=== PATIENT | female | born 1955 | race Caucasian/White ===

== ENCOUNTER 2016-07-01 02:55 | Inpatient (IN) | payer OTHER ==
[~2016-07-01] VITALS: Ht 157.5 cm; Wt 74.1 kg
--- NOTE | 2016-07-01 02:56 | NUR ---
PER EMS ACUTES RESP DISTRESS TRIPODING AT HOME SAT 77%, ABHINAVROUTE CONT NEB ALERT DOING BETTER. UPON ARRIVAL DIAPHRAGMATIC BREATHING ON 100 % MASK WITH ALBUTEROL NEB SAT 88%, DR MARSH AT BEDSIDE. PT ALERT RESPONSIVE ACUTELY SOB AUDIBLE RHONCHI
--- NOTE | 2016-07-01 03:01 | ED DYSPNEA/ASTHMA COMPLAINT ---
History of Present Illness General Chief Complaint: Dyspnea (COPD, CHF, Other) Stated Complaint: DIFF BREATHING Source: patient, family, EMS Exam Limitations: no limitations Vital Signs & Intake/Output Vital Signs & Intake/Output Vital Signs Date Time Temp Pulse Resp B/P Pulse O2 O2 Flow FiO2 Ox Delivery Rate 07/01 0608 98.4 91 22 99/68 97 BIPAP 07/01 0543 92 96 07/01 0341 110 14 111/70 94 BIPAP 07/01 0315 116 92 07/01 0305 98.9 30 131/92 88 Non 100% ReBreather Allergies Coded Allergies: No Known Allergies (07/01/16) Reconcile Medications Atenolol 25 MG TABLET 1.5 TAB PO DAILY HTN (Reported) Furosemide 20 MG TABLET 1 TAB PO DAILY DIURETIC (Reported) Triage Nurses Notes Reviewed? yes HPI: Patient has had an productive cough over the past 3 days. Positive chills and subjective fevers. Positive anorexia. This evening she began having difficulty breathing and dyspnea on exertion. Upon EMS arrival she was found with an O2 saturation of 78%. Patient was given a DuoNeb followed by an albuterol nebulizer and an prior oxygen saturation up to 88%. Patient denies any chest pain or palpitations. Patient denies any orthopnea. Patient denies any nausea or vomiting. Patient does not smoke however her is a heavy smoker. Past History Travel History Traveled to [place] past 21 day No Medical History Any Pertinent Medical History? see below for history Cardiovascular: PEDAL EDEMA Surgical History Surgical History: non-contributory Psychosocial History Tobacco Use: Never used (SECOND HAND EXPOSURE) ETOH Use: denies use Illicit Drug Use: denies illicit drug use Family History Hx Contributory? No Review of Systems Review of Systems Constitutional: Reports: no symptoms. EENTM: Reports: no symptoms. Respiratory: Reports: see HPI, cough, short of breath, sputum production, wheezing. Cardiovascular: Reports: no symptoms. GI: Reports: no symptoms. Genitourinary: Reports: no symptoms. Musculoskeletal: Reports: no symptoms. Skin: Reports: no symptoms. Neurological/Psychological: Reports: no symptoms. Hematologic/Endocrine: Reports: no symptoms. Immunologic/Allergic: Reports: no symptoms. All Other Systems: Reviewed and Negative Physical Exam Physical Exam General Appearance: well developed/nourished, alert, awake, anxious, severe distress Head: atraumatic Eyes: Bilateral: PERRL, EOMI. Ears, Nose, Throat: normal pharynx, normal ENT inspection, hearing grossly normal Neck: normal inspection, supple, full range of motion, NO JVD Respiratory: decreased breath sounds, wheezing, respiratory distress Cardiovascular: regular rate/rhythm, normal peripheral pulses Gastrointestinal: normal bowel sounds, soft, non-tender, no organomegaly Extremities: normal inspection, normal capillary refill, normal range of motion, no edema Neurologic/Psych: no motor/sensory deficits, awake, alert, oriented x 3, normal mood/affect Skin: intact, normal color, warm/dry Lymphatic: no anterior cervical vasiliy Core Measures ACS in differential dx? Yes Severe Sepsis Present: No Septic Shock Present: No Progress Differential Diagnosis: asthma, AMI, bronchitis, CHF, COPD, pulmonary embolism, pneumonia, pneumothorax Plan of Care: Orders Procedure Date/time Status TROPONIN LEVEL 07/01 1600 Active EKG 07/01 1600 Active TROPONIN LEVEL 07/01 1000 Active EKG 07/01 1000 Active LACTIC ACID 07/01 0922 Active Add-on Test (ER Only) 07/01 0630 Active Intake & Output 07/01 0630 Active LACTIC ACID 07/01 0622 Active RAPID VIRAL INFLUENZA A 07/01 0613 Active EKG 07/01 0610 Active US-EXT BILAT VENOUS DOPPLER 07/01 0608 Active US-LIMITED ABDOMEN 07/01 0608 Active STREP PNEUMO URINARY ANTIGEN 07/01 0608 Active LEGIONELLA URINARY ANTIGEN 07/01 0608 Active ACETOMINOPHEN 07/01 0608 Active ICU LAB BUNDLE 07/01 0608 Active HEPATITIS PANEL 07/01 0608 Active ECHOCARDIOGRAM 07/01 0608 Active Add-on Test (ER Only) 07/[address] CHEST WO IV CONTRAST 07/01 0530 Active ARTERIAL BLOOD GAS (GEN) 07/01 0527 Complete Pathway - chart 07/01 0422 Active House Staff 07/01 0422 Active Patient Data 07/01 0422 Active Code Status 07/01 0422 Active Patient Data 07/01 0417 Active Admit to inpatient 07/01 0411 Active Add-on Test (ER Only) 07/01 0410 Active Add-on Test (ER Only) 07/01 0407 Active CULTURE,URINE 07/01 0407 Active URINE DRUGS OF ABUSE 07/01 0340 Active SALICYLATE 07/01 0328 Active LACTIC ACID 07/01 0328 Active ETHANOL 07/01 0328 Active B-TYPE NATRIURETIC PEP (BNP) 07/01 327 Active BLOOD CULTURE 07/01 0316 Active ARTERIAL BLOOD GAS (GEN) 07/01 258 Complete Telemetry/Engineering Recruiter 07/01 258 Active URINALYSIS 07/01 258 Complete TROPONIN LEVEL 07/01 258 Active D-DIMER 07/01 258 Complete COMPREHENSIVE METABOLIC PANEL 07/01 258 Active CBC WITHOUT DIFFERENTIAL 07/01 258 Complete EKG 07/01 258 Active BIPAP 07/01 UNK Complete Lab Add-on Test 07/01 UNK Active VTE Mechanical Prophylaxis 07/01 UNK Active Current Medications Sig/Michi Start time Last Medication Dose Stop Time Status Admin Heparin Sodium 5,000 UNIT Q8 07/01 06 AC (Porcine) Ibuprofen 600 MG Q6P PRN 07/01 0430 AC (Motrin) Laboratory Tests 07/01/16 0525: pH 7.31 L, pCO2 61 *H, pO2 96, HCO3 30 H, ABG O2 Sat (Measured) 96.0, P-50 ( Temp Corrected) N, Carboxyhemoglobin 1.5, O2 Concentration % .60, Respiration Rate 24, O2 Delivery Method BIPAP, Vent Mode ST, Expiratory Pressure 6, Inspiratory Pressure 20, Phlebotomy Draw Site RIGHT BRACHIAL 07/01/16 0340: Methadone Screen Pending, Barbiturate Screen Pending, Ur Phencyclidine Scrn Pending, Amphetamines Screen Pending, U Benzodiazepines Scrn Pending, Urine Cocaine Screen Pending, Urine Cannabis Screen Pending, Urinalysis LIGHT H, Urine Color YEL, Urine Clarity HAZY H, Urine pH 6.0, Ur Specific [place] >= 1.030, Urine Protein >=300 H, Urine Ketones TRACE H, Urine Nitrite NEG, Urine Bilirubin NEG@ICTO, Urine Urobilinogen 1.0, Ur Leukocyte Esterase NEG, Ur Microscopic SEDIMENT EXAMINED, Urine RBC 5-10 H, Urine WBC 10-15 H, Ur Epithelial Cells MANY H, Urine Mucus MOD H, Urine Hemoglobin MOD H, Urine Glucose NEG 07/01/16 0328: Anion Gap 20 H, Estimated GFR 42 L, BUN/Creatinine Ratio 46.2 H, Glucose 148 H, Lactic Acid 1.9, Calcium 9.8, Total Bilirubin 1.0, AST 430 H, ALT 352 H, Alkaline Phosphatase 101, Troponin I 0.47 *H, Ait-R-Svkfqiwhppj Pept 87182 H, Total Protein 7.6, Albumin 4.1, Globulin 3.5, Albumin/Globulin Ratio 1.2, D- Dimer 572 H, CBC w Diff MAN DIFF ORDERED, RBC 5.22, MCV 91.7, MCH 31.0, RDW 14.0, MPV 8.5, Gran % 88.1 H, Lymphocytes % 3.1 L, Monocytes % 8.6, Eosinophils % 0.1, Basophils % 0.1, Absolute Granulocytes 15.9 H, Segmented Neutrophils 86 H, Band Neutrophils 4, Absolute Lymphocytes 0.6 L, Lymphocytes 3 L, Monocytes 6, Absolute Monocytes 1.5 H, Absolute Eosinophils 0, Absolute Basophils 0, Metamyelocytes 1, Platelet Estimate ADEQUATE, Polychromasia 1+, Ovalocytes FEW, Stomatocytes FEW, PUBS MCHC 33.8, Fld Total RBCs Counted 100, Salicylates Pending, Serum Alcohol Pending 07/01/16 0300: pH 7.24 *L, pCO2 84 *H, pO2 60 L, HCO3 36 H, ABG O2 Sat (Measured) 85.0 L, P- 50 (Temp Corrected) N, Carboxyhemoglobin 2.6, O2 Concentration % 6L, O2 Delivery Method NEB RX, Phlebotomy Draw Site RIGHT RADIAL Microbiology 07/01 607 URINE ROUT: Legionella Antigen - ORD 07/01 06 URINE ROUT: Streptococcus pneumoniae Antigen (M - ORD 07/01 034 URINE ROUT: Urine Culture - RECD 07/01 034 BLOOD: Blood Culture - RECD 07/01 0329 BLOOD: Blood Culture - RECD Diagnostic Imaging: Viewed by Me: Radiology Read. Discussed w/RAD: Radiology Read. CXR Impression: PATIENT: ELISA NICOLE PRESENT AGE: 60 PATIENT ACCOUNT NO: [id number] : 55 LOCATION: [facility] ORDERING PHYSICIAN: CLYDE MARSH MD SERVICE DATE: 07/01/16 EXAM TYPE: RAD - XRY-PORTABLE CHEST XRAY EXAMINATION: XR PORTABLE CHEST CLINICAL INFORMATION: Shortness of breath. Cough. COMPARISON: None. TECHNIQUE: Portable AP view of the chest was obtained. FINDINGS: There is bibasilar airspace disease, left side greater than right, which is concerning for pneumonia. Blunting of the lateral costophrenic sulci indicates trace pleural effusions. No pneumothorax. Heart is normal in size. Prominence of the pulmonary vasculature suggests superimposed pulmonary venous congestion. Osseous structures are normal. IMPRESSION: 1. Bibasilar airspace disease, left side greater than right, is concerning for pneumonia. Aspiration is also possible. 2. Pulmonary venous congestion. 3. Trace pleural effusions DICTATED BY: SOTO DEL TORO MD DATE/TIME DICTATED:07/01/16324 CORPORATE COUNSELOR:JOSE M DATE/TIME TRANSCRIBED:07/01/16324 CONFIDENTIAL, DO NOT COPY WITHOUT APPROPRIATE AUTHORIZATION. <Electronically signed in Other Vendor System> SIGNED BY: SOTO DEL TORO MD 07/01/16 0332 Initial ED EKG: SINUS TACHYCARDIA WITH NONSPECIFIC st t CHANGES. nO OLD TO COMPARE TO. Rhythm Strip: sinus tachycardia Comments: Patient becoming more somnolent and is currently only arousable to loud verbal stimuli. Patient placed on BiPAP. has been updated. Departure Departure Disposition: STILL A PATIENT Condition: Critical Clinical Impression Primary Impression: Pneumonia Secondary Impressions: Elevated LFTs, Hypercapnic respiratory failure, Pulmonary vascular congestion, Renal insufficiency Departure Forms: Customer Survey General Discharge Information Admission Note Spoke With: ETIENNE NANCE MD Documentation of Exam: Documentation of any treatments & extenuating circumstances including Concerns Regarding Discharge (functional status, medication knowledge or non-compliance, living conditions, etc.) that warrant an admission rather than observation: [ICU admission, IV antibiotics, IV steroids, IV diuresis, pulmonary consult, cardiology consult] Critical Care Note Critical Care Note Critical Care Time: mins: (60 MIN) ED Sepsis Exam Date of Focused Sepsis Exam: 07/01/16 Time of Focused Sepsis Exam: 0300 Sepsis Cardiac Exam: Tachycardia Sepsis Resp Exam: Ronchi Sepsis Cap Refill Exam: <2 Sec Sepsis Peripheral Pulse Exam: Normal Sepsis Peripheral Pulse Location: Radial Sepsis Skin Color Exam: Normal for Ethnicity Skin Temp/Moisture Exam: Hot/Diaphoretic
--- NOTE | 2016-07-01 03:09 | NUR ---
MD CALLED TO ROOM PT IS MUCH LESS RESPONSIVE AND UNABLE OT HOLD HEAD UP,. SKIN MOIST AND MORE WET, RHONCEROUS BRETHING, MEDICATED WITH LASIX 40 MG IV PER MD ORDER. RESP AT BEDSIDE PLACED ON CPAP S/P ABGS., AT BEDSIDE. PER EMS PT ONLY SMOKES 1-2 CIGARETTES DAILY BUT HOUSE AND PTS CLOTHING SMELL VERY STRONG OF CIGARETTE SMOKE. PTS SKIN VERY DRY AND FLAKY. PT VERY DIFF STICK, NAILS THICK 2+PEDAL EDEMA.
--- NOTE | 2016-07-01 03:27 | NUR ---
LABS SUCCESSFULLY DRAWN AND SENT.
--- NOTE | 2016-07-01 03:32 | RADIOLOGY REPORT ---
EXAMINATION: XR PORTABLE CHEST CLINICAL INFORMATION: Shortness of breath. Cough. COMPARISON: None. TECHNIQUE: Portable AP view of the chest was obtained. FINDINGS: There is bibasilar airspace disease, left side greater than right, which is concerning for pneumonia. Blunting of the lateral costophrenic sulci indicates trace pleural effusions. No pneumothorax. Heart is normal in size. Prominence of the pulmonary vasculature suggests superimposed pulmonary venous congestion. Osseous structures are normal. IMPRESSION: 1. Bibasilar airspace disease, left side greater than right, is concerning for pneumonia. Aspiration is also possible. 2. Pulmonary venous congestion. 3. Trace pleural effusions
[2016-07-01 03:39] LABS: ABSOLUTE BASOPHIL COUNT 0 /CUMM (0.0-0.2); ABSOLUTE EOSINOPHIL COUNT 0 /CUMM (0.0-0.7); ABSOLUTE GRANULOCYTE CT 15.9 /CUMM (1.4-6.5); ABSOLUTE LYMPH COUNT 0.6 /CUMM (1.2-3.4); ABSOLUTE MONOCYTE COUNT 1.5 /CUMM (0.10-0.60); BASOPHIL % 0.1 % (0.0-2.0); EOSINOPHIL % 0.1 % (0-5); GRANULOCYTE % 88.1 % (42.2-75.2); HEMATOCRIT 47.9 % (37-47); MEAN CORPUSCULAR HGB CONC 33.8 G/DL (33.0-37.0); MEAN CORPUSCULAR VOLUME 91.7 FL (81.0-99.0); MEAN PLATELET VOLUME 8.5 FL (7.4-10.4); PLATELET COUNT 285 /CUMM (130-400); RED BLOOD CELL CT 5.22 /CUMM (4.20-5.40)
[2016-07-01] MEDS ORDERED: FUROSEMIDE20 M1 PO (03:52)
[2016-07-01] MEDS ORDERED: ATENOLOL25 M1 PO (03:52)
--- NOTE | 2016-07-01 04:15 | NUR ---
WHEN REMOVING PANTS FOR CATH PLACEMENT, PROVENTIL INHALER FELL OUT OF PANTS POCKET, GIVEN TO WITH CLOTHING WHO STATED TO THIS CLEANING HANDYMAN, "I GUESS SHE"LL BE NEEDING THAT NOW". WHEN REVIEWING MED HX STATES NO COPD, ASTHMA OR RESP HX OF ANY KIND. NO FAMILY HX EITHER. ASKED ABOUT INHALER AND HE STATES THAT IS NOT HERS. ALSO NOT NOTED TO BE FROM EMS. ? WHETHER SPOUSE AWARE PT USES INHALER SHE IS SMOKING.
--- NOTE | 2016-07-01 04:29 | History & Physical ---
NEIL ROBERTS MD 07/01/16 0428: General Information and HPI MD Statement: I have seen and personally examined ELISA NICOLE and documented this H&P. The patient is a 60 year old F who presented with a patient stated chief complaint of [shortness of breath]. Source of Information: patient Exam Limitations: clinical condition History of Present Illness: 60-year-old female with PMH of hypertension and leg edema, ?DM, was BIBA for shortness of breath, found to have O2 sat of 78% at home. She has been having productive cough for about 2 days. 06/30/15 night, shortness of breath started, and prompted them to call the ambulance. She was given duoneb followed by albuterol inhaler, with improvement in her O2 sat to 88%. She was placed on 100% O2 nonrebreather, subsequently placed on bipap in the ED. According to EMS, the house smells of cigarette smoke and pt denies smoking. is a heavy smoker. An albuterol inhaler was found in her pocket in the ED, unaware of her using an inhaler. According to her , she smokes 5 cig per day for 40 years. Pt follows up with Dr. Toño Regan at [facility] as PCP and not seeing any specialists. When we examined her in the ED, she was on bipap. She was arousable and responded to commands although she intermittently dozes off. She appears very weak, but did not complain of any pain including chest and abdominal pain. Further history was obtained from her over the phone by the resident Dr. Mon. Patient supposed to see an ENT on 07/01/16 for upper respiratory symptoms. On ROS, she has chills, cough, sputum. No fever. No sick contacts. No previous cardiac hx. Allergies/Medications Allergies: Coded Allergies: No Known Allergies (07/01/16) Home Med list Atenolol 25 MG TABLET 1.5 TAB PO DAILY HTN (Reported) Furosemide 20 MG TABLET 1 TAB PO DAILY DIURETIC (Reported) Past History Travel History Traveled to [place] past 21 day No Medical History Neurological: NONE EENT: NONE Cardiovascular: hypertension, PEDAL EDEMA Respiratory: NONE Gastrointestinal: NONE Hepatic: NONE Renal: NONE Musculoskeletal: NONE Psychiatric: NONE Endocrine: NONE Surgical History Surgical History: non-contributory Past Family/Social History Psychosocial History Where do you live? Home Who Do You Live With? spouse Services at Home: None Smoking Status: Current Everyday Smoker ETOH Use: denies use Illicit Drug Use: denies illicit drug use Functional Ability ADLs Independent: dressing, eating, toileting, bathing. Ambulation: independent IADLs Independent: shopping, housework, finances, food prep, telephone, transportation , medication admin. Review of Systems Review of Systems Constitutional: Reports: chills. Denies: fever. EENTM: Denies: visual changes. Cardiovascular: Denies: chest pain. Respiratory: Reports: short of breath. GI: Denies: abdominal pain, bloating, constipation, diarrhea. Exam & Diagnostic Data Last 24 Hrs of Vital Signs/I&O Vital Signs Date Time Temp Pulse Resp B/P Pulse O2 O2 Flow FiO2 Ox Delivery Rate 07/01 0341 110 14 111/70 94 BIPAP 07/01 0315 116 92 07/01 0305 98.9 30 131/92 88 Non 100% ReBreather Intake & Output 07/01 0800 07/01 0000 06/30 1600 Intake Total Output Total Balance Patient 90.718 kg Weight Physical Exam General Appearance somnolonet but arousable and responded appropriately to questions and commands, mild resp distress, currently on bipap Skin very dry skin quita bilateral lower extremities, very long toe nails HEENT Atraumatic, PERRLA, EOMI Neck No JVD Cardiovascular Normal S1, Normal S2 Lungs diffuse wheeze heard Abdomen Soft, No Tenderness, No Hepatospenomegaly, obese Neurological able to raise extremities with gravity, but unable to raise against resistance Extremities pitting edema bilateral lower extremities up to the knees, 1+, feet cold to touch Vascular normal cap refill , feeble dorsalis pedis pulse Last 24 Hrs of Labs/Prince: Laboratory Tests 07/01/16 0340: Urinalysis LIGHT H, Urine Color YEL, Urine Clarity HAZY H, Urine pH 6.0, Ur Specific [place] >= 1.030, Urine Protein >=300 H, Urine Ketones TRACE H, Urine Nitrite NEG, Urine Bilirubin NEG@ICTO, Urine Urobilinogen 1.0, Ur Leukocyte Esterase NEG, Ur Microscopic SEDIMENT EXAMINED, Urine RBC 5-10 H, Urine WBC 10- 15 H, Ur Epithelial Cells MANY H, Urine Mucus MOD H, Urine Hemoglobin MOD H, Urine Glucose NEG 07/01/16 0328: Anion Gap 20 H, Estimated GFR 42 L, BUN/Creatinine Ratio 46.2 H, Glucose 148 H, Lactic Acid 1.9, Calcium 9.8, Total Bilirubin 1.0, AST 430 H, ALT 352 H, Alkaline Phosphatase 101, Troponin I 0.47 *H, Total Protein 7.6, Albumin 4.1, Globulin 3.5, Albumin/Globulin Ratio 1.2, D-Dimer 572 H, CBC w Diff MAN DIFF ORDERED, RBC 5.22, MCV 91.7, MCH 31.0, RDW 14.0, MPV 8.5, Gran % 88.1 H, Lymphocytes % 3.1 L, Monocytes % 8.6, Eosinophils % 0.1, Basophils % 0.1, Absolute Granulocytes 15.9 H, Segmented Neutrophils 86 H, Band Neutrophils 4, Absolute Lymphocytes 0.6 L, Lymphocytes 3 L, Monocytes 6, Absolute Monocytes 1.5 H, Absolute Eosinophils 0, Absolute Basophils 0, Metamyelocytes 1, Platelet Estimate ADEQUATE, Polychromasia 1+, Ovalocytes FEW, Stomatocytes FEW, PUBS MCHC 33.8, Fld Total RBCs Counted 100 07/01/16 0300: pH 7.24 *L, pCO2 84 *H, pO2 60 L, HCO3 36 H, ABG O2 Sat (Measured) 85.0 L, P- 50 (Temp Corrected) N, Carboxyhemoglobin 2.6, O2 Concentration % 6L, O2 Delivery Method NEB RX, Phlebotomy Draw Site RIGHT RADIAL Microbiology 07/01 339 URINE ROUT: Urine Culture - RECD 07/01 339 BLOOD: Blood Culture - RECD 07/01 328 BLOOD: Blood Culture - RECD Diagnostic Data EKG Results 0.[address] elevation on V2, V4, V5 Small ST depression I, II, AVF CXR Results 1. Bibasilar airspace disease, left side greater than right, is concerning for pneumonia. Aspiration is also possible. 2. Pulmonary venous congestion. 3. Trace pleural effusions Assessment/Plan Assessment: 60-year-old female with PMH of hypertension and leg edema, ?DM, was BIBA for shortness of breath. She is found to be in acute hypoxic and hypercarbic respiratory failure, requiring bipap. CXR suspicious for pneumonia and pulmonary congestion. D dimer elevated at 572, however we cannot get CTA due to her increased creatinine of 1.3 (unknown baseline cr). She is also too unstable for V/Q scan. Therefore, we will do doppler US. Her imaging and resp status is worrisome for early ARDS, and we have low threshold for intubation. In addition to respiratory acidosis, she also has metabolic acidosis (secondary to ketoacidosis?, AG 20, positive ketone in urine) and metabolic alkalosis ( contraction alkalosis?). Her troponin is elevated at 0.47, with some EKG changes (without prior EKG). She also has transaminitis without elevation in bilirubin and alk phos, most likely secondary to passive congestion. Respiratory # Acute hypoxic and hypercarbic respiratory failure, requiring bipap. - CXR suspicious for pneumonia and pulmonary congestion. - D dimer elevated at 572, however we cannot get CTA due to her increased creatinine of 1.3 (unknown baseline cr). She is also too unstable for V/Q scan. - Her imaging and resp status is worrisome for early ARDS - Given 1 time ceftriaxone, azithromycin, solumedrol in ED. * Continue ceftriaxone and azithromycin * Continue solumedrol * Follow doppler US * CRCU consult, placed consult with Dr. Flores * Repeat ABG, if continues to be hypoxic despite being on bipap, low threshold to intubate pt * Urine legionella and strep pneumo * CT chest if feasible * trend lactate, initial normal * follow bcX2, sputum cx , urine cx * follow ICU panel for phos and mag Cardio # Troponinemia - Her troponin is elevated at 0.47, with some EKG changes (without prior EKG). * Cardio consult, placed consult with Dr. Ibarra * serial ekg and trops * echocardiogram # ? CHF - Given 1 time 40 mg IV lasix in ED - probnp [id number] # Hx of hypertension * Hold atenolol as pt might be in sepsis Metabolic - She has metabolic acidosis (secondary to ketoacidosis?, AG 20, positive ketone in urine) and metabolic alkalosis (contraction alkalosis?). * Urine toxicology * tylenol level * aspirin level * alcohol # Hypokalemia, K 3.2 - Given 1 time 10 Kcl GI # Transaminitis She also has transaminitis without elevation in bilirubin and alk phos, most likely secondary to passive congestion. * Follow hep panel * Liver US # EFRAIN - unknown baseline - Could be due to dehydration, but we are not giving fluids due to suspicion of CHF * Farnsworth in place DVT ppx: mech and pharm FULL CODE As Ranked By This Provider Problem List: 1. Hypercapnic respiratory failure 2. Renal insufficiency 3. Elevated LFTs 4. Pulmonary vascular congestion 5. Pneumonia Core Measures/Miscellaneous Acute Coronary Syndrome ACS Diagnosis: No Cerebrovascular Accident CVA/TIA Diagnosis: No Congestive Heart Failure CHF Diagnosis: Yes Venous Thromboembolism VTE Risk Factors: Acute medical illness, Age > 40 VTE Prophylaxis Ordered Inpt: Mech & Pharm No Mech VTE prophylaxis d/t: No contraindications No VTE Pharm Prophylaxis d/t: No contraindications VTE Diagnosis: No VTE Type: NONE VTE Confirmed by (Test): NONE Severe Sepsis Severe Sepsis Present: No Septic Shock Septic Shock Present: No Miscellaneous Documentation Attending Case Discussed With: ETIENNE NANCE MD Primary Care Physician: Dr. Toño Regan Patient sees these Specialists None Level of Patient Care: Critical Care (CRI) SHADE BOOKER 07/01/16 0611: Resident Review Statement Resident Statement: examined this patient, discussed with internist Other Findings: Patient is a 60-year-old female with past medical history of hypertension, leg edema, smoking, diabetes mellitus (as per the patient) was brought in from by ambulance for worsening shortness of breath for the last 2 days. Patient's states that she had an upper respiratory tract infection about 2-3 days back. She had chills and subjective fevers. Productive cough with mucoid sputum. She was planning to see her ENT doctor for the upper respiratory symptoms. However her shortness of breath become progressively worse and today afternoon she was finding it hard to breathe. On arrival, EMS found the patient 's saturation to be around 78%. She was given a DuoNeb followed by an albuterol inhaler with improvement in her O2 sats to 88%. She was placed on 100% O2 nonrebreather and brought to the ED and finally placed on a BiPAP in the ED. Patient did not have any chest pain, palpitations, nausea, vomiting, abdominal pain, diarrhea, constipation, urinary symptoms. No recent sick contacts, no recent travels. She is a smoker with 5 cigarettes per day for the last 40 years. As per the EMS, the whole house smelled of cigarette smoke. is a heavy smoker. Patient denies smoking however confirms that she often smokes cigarettes. An inhaler was found in her pocket however her is unaware of her use of the inhaler. She follows up with only with her primary doctor Dr Toño Regan at [facility]. Does not see any specialist. Patient was obtunded, but arousable in the ED. She was responding to commands however intermittently dosed off during the conversation. Denied any chest pain , abdominal pain, palpitations, nausea, vomiting. Most of the history was obtained from her over the phone. Vitals on admission showed: Temperature 98.9, pulse 116, respiration 30, blood pressure 131/92, pulse 88% on 100% nonrebreather. Labs: WBC 18 with left shift, H&H 16.2/ 47.9, sodium 133, potassium 3.2, chloride 80, carbon dioxide 33, anion gap 20, BUN 60, creatinine 1.3, AST 430, ALT 352, alkaline phosphatase 101, troponin 0.47, proBNP 24,600, d-dimer 572. UA: Hazy urine, trace ketones, protein more than 300, 5-10 RBC, 10-15 WBC, epithelial cells, moderate mucus, moderate hemoglobin. U tox: Pending ABG :7.24/84/60/36 Repeat after BIPAP: 7.31/61/96/30 EKG:<[address] elevation on V2, V4, V5, Small ST depression I, II, AVF CXR: 1. Bibasilar airspace disease, left side greater than right, is concerning, for pneumonia. Aspiration is also possible. 2. Pulmonary venous congestion. 3. Trace pleural effusions Physical Exam General Appearance: Obese, somnolonet but arousable and responded appropriately to questions and commands, moderate resp distress, currently on bipap HEENT: Atraumatic, PERRLA, EOMI, No JVD Cardiovascular: Normal S1, Normal S2, no murmurs appreciated. Lungs: Diffuse bilateral wheezing. Occasional rhonchi heard. Abdomen : Distended, Soft, No Tenderness, No Hepatospenomegaly Neurological : Power3/5 in all extremities. Able to raise extremities with gravity, but unable to raise against resistance. Reflexes intact. The neurological examination not possible. Extremities : 1+ pitting edema bilateral lower extremities up to the knees, feet cold to touch Vascular: normal cap refill , feeble dorsalis pedis pulse Skin: very dry skin quita bilateral lower extremities, poor nail hygiene. Plan 1. Acute hypoxic respiratory failure likely secondary to pneumonia versus CHF exacerbation. ABG showed respiratory acidosis. Somnolent and obtunded on examination. Started on BiPAP. Chest x-ray evidence of bibasilar airspace disease. Elevated proBNP and 1+ bilateral leg edema on examination. Moderate probability of PE. Elevated d-dimer. No CTA done due to a EFRAIN. The patient is in sepsis at this point however we will hold off on any fluid given patient appears to be fluid overloaded on examination. Lactic acid normal. Patient received IV Solu-Medrol, IV ceftriaxone and IV azithromycin and 1 dose of IV Lasix in the ED. -Admit patient to ICU -Maintained Oxygen saturations above 92% -ICU panel and CBC -Maintain nothing by mouth -Swallow eval when patient better -TRC nebs [id number] -Aggressive pulmonary toilet. -We'll continue Mucinex -Repeat ABG shows improvement. -Continue BiPAP -We'll check CT chest -No CTA for EFRAIN, we'll check lower extremity Dopplers -Continue IV ceftriaxone and IV azithromycin that was started in the ED. -We'll continue IV Solu-Medrol at 40 every 6 hours for now. -Pancultures -Check Urine strep and Legionella -Pulmonary consult in a.m.(already discussed with Dr. Flores) -Please try to get records from PCP Dr Toño Regan. No documented history in the system. 2. Mixed acid-base disorder : Patient is in respiratory acidosis+ metabolic acidosis+ metabolic alkalosis. -Continue BiPAP -Repeat ICU bundle -Replete electrolytes as needed -No fluids at this point as patient appears to be ChF 3. Elevated troponins: ? Demand ischemia .No chest pain. ST elevation on V2, V4, V5, Small ST depression I, II, AVF Appears to be old anterior infarct. -We will trend Troponins until they peak. -Repeat EKG -Echocardiogram -Cardiology consult with Dr. Ranjeet rodriguez 4.? COPD exacerbation: Smoker 5-6 cigarettes for last 40 years. Never been diagnosed with COPD. -We'll check chest CT -Continue BiPAP -Check ABGs if worsening respiratory status -Low threshold for intubation 5. CHF: Unclear if the patient has a diagnosis of CHF. No documentation in the system. Elevated proBNP level is bilateral pedal edema. -Weight checks -I's and O's. -Received IV Lasix 40 mg in the ED -We will hold off on any further doses due to Efrain -We'll obtain baseline echocardiogram -Cardiology consult with Dr. Amanda rodriguez( Discussed with Dr. Ibarra) 6.Transaminitis:Unclear etiology at this point? Passive congestion -We will check right upper quadrant ultrasound -Check hepatitis panel -Tylenol level -U tox and alcohol level 7. EFRAIN : unknown baseline -Received 1 dose of Lasix in the ED. We'll hold off any further Lasix pending cardiology evaluation. -Repeat ICU panel -Farnsworth in place 8. History of hypertension:Patient is on atenolol -We'll hold off on any BP medications as the patient is in sepsis. DVT ppx: Subcutaneous heparin FULL CODE Nothing by mouth pending swallow eval Mild pain pathway . ETIENNE NANCE 07/01/16 0633: Attending MD Review Statement Attending Statement Attending MD Statement: examined this patient, discuss w/resident/PA/M[employer]ION PICTURE EQUIPMENT MACHINIST, agreed w/resident/PA/MOTION PICTURE EQUIPMENT MACHINIST, reviewed EMR data (avail), reviewed images, amended to note Attending Assessment/Plan: CC: Severe shortness of breath, confusion PMhx : HTN, leg swelling, ? ENT problem Patient was brought in ER through EMS for acute worsening of shortness of breath. History is obtained mostly from as patient does not talk much and she is on BiPAP. Patient was complaining of upper respiratory symptoms along with cough and shortness of breath since 2 days. She also had some chills and fever at home, was scheduled to have ENT appointment today. Later in the night patient was severely short of breath, was more confused so EMS was called. When EMS reached the house patient's O2 saturations were in 70s, improved with some nebulization. According to EMS the whole house was smelling cigarette smoke. Patient smokes 4-5 cigarettes according to , there was a nebulization found in her pocket which is unaware of. Patient does not complain chest pain, but was endorsing shortness of breath. Vitals: Afebrile, pulse 116 at presentation with RR 30 and BP 131/92 at presentation. As mentioned above agent was saturating in the 80s at arrival on room air and was immediately put on BiPAP. On examination patient on BiPAP, work of breathing present. Arousable, but orientation could not be assessed, no obvious focal neurological deficits. No JVD appreciated, CVS: S1-S2, tachycardia. RS: Diffuse wheeze bilaterally present abdomen: Soft, NT, ND, bowel sounds present. trace edema towards ankle, lower extremities are cold to touch but perfusion appears normal, pulses are intact. Upper extremities are warm to touch. Labs: WBC 18.0, hemoglobin 16.2, sodium 133, potassium 3.2, bicarbonate 33, BUN 60, creatinine 1.3, glucose 148, anion gap 20, lactate 1.9, AST 4:30, ALT 352 d- dimer 572, troponin 0.47. ABG 7.24/84/60/36 at arrival on 6 L nasal cannula. Chest x-ray:Bibasilar airspace disease, left side greater than right, is concerning for pneumonia. Aspiration is also possible. Pulmonary venous congestion. Trace pleural effusions A and P #1 acute hypoxic and hyper Respiratory failure: Appears secondary to COPD exacerbation and pneumonia along with suspected cardiogenic versus noncardiogenic edema. Patient currently on BiPAP, accessory muscles in use, ABG severely acidotic. #2 COPD exacerbation: It appears that patient has more than described smoking history. Continue BiPAP, repeat ABG in one hour, if oxygenation doesn't improve and more acidotic, consider early intubation. IV methylprednisolone 40 mg every 6 hours, continue azithromycin and ceftriaxone IV, continue [id number] nebulizations, pulmonary toilet, pulmonary consult, Mucinex. #3 by basilar air space disease left more than right: Probably secondary to community-acquired pneumonia, continue ceftriaxone and azithromycin, patient has some transaminitis, Legionella pneumonia can be possible. Continue respiratory care as above, urine culture, blood culture, sputum culture. Closely watch blood pressure and temperature. Patient is in sepsis. Trend lactate. #4 cardiogenic versus noncardiogenic edema: Check proBNP, patient received a dose of Lasix, closely watch. If patient gets hypotensive, start IV fluids. Continue antibiotics coverage as above #5 patient has elevated troponins: there are some ST changes in lead V2 V3 V4, poor progression of R wave, if this is demand ischemia secondary to hypoxia and sepsis versus type I NSTEMI, unclear consult cardiology. Trend troponins, serial EKGs #6 acute kidney injury: Probably secondary to volume contraction, patient appears dehydrated. Patient received a dose of Lasix in ER, repeat BMP in 6-8 hours, may need gentle hydration. But it may worsened respiratory condition so have to be careful. #7 along with respiratory acidosis, patient having metabolic acidosis and metabolic alkalosis given her elevated anion gap and elevated corrected bicarbonate. Probably secondary to volume contraction and starvation ketosis, lactate is normal, patient will benefit from IV fluids but chest x-ray suggestive of pulmonary edema so we will closely watch. #8 transaminitis: Check urine tox, hepatitis panel, Tylenol level, right upper quadrant ultrasound #9 d-dimer is elevated: With bilateral lower extremity Doppler ultrasound. #10 check magnesium, check phosphorus, replace potassium. #11 patient is full code, continue heparin for DVT prophylaxis, avoid opiates for pain control. TTS 40 min
--- NOTE | 2016-07-01 04:34 | NUR ---
CRITICAL TEST RESULTS [id number] ELISA NICOLE 60 F TESTS AND RESULTS: TROPONIN 0.47 Results received and read back by: PARDEEP VERNON Results received date and time: 07/01/16 4725 The following provider was notified of the results, and read the results back: DR MARSH Notified date and time: 07/01/16 at 2538
--- NOTE | 2016-07-01 04:40 | NUR ---
HOUSESTAFF AT BEDSIDE.
--- NOTE | 2016-07-01 05:39 | NUR ---
DR. BOOKER PAGED RE MED ORDERS FOR PO POTASSIUM AND MOTRIN, INSTRUCTED TO IGNORE THOSE ORDERS. PT REMAINS UNRESPONSIVE, OCCAS NODS BUT UNABLE TO HAVE ANY PURPOSEFUL MOVEMENTS
--- NOTE | 2016-07-01 06:29 | NUR ---
PT TO CT AND BACK REPOSITIONED WHILE REPOSITIONING PT MORE ALERT EYES OPEN, AND NODDING MORE APPROPRIATELY.
--- NOTE | 2016-07-01 06:33 | Admission Certification ---
Admission Certification Certification Statement - As attending physician, I certify that at the time of - admission, based on clinical presentation, severity of - symptoms, need for further diagnostic testing and - therapeutic interventions, and risk of adverse outcomes - without in-hospital treatment, in my clinical assessment, - this patient requires an acute hospital stay for a minimum - of two nights or longer. I have also considered psychsocial - factors such as support system, advanced age, financial - issues, cognitive issues, and failed out-patient treatments, - past re-admission history, safety of patient, and lack of - compliance as applicable. Specific rationale supporting this admission is: Acute respiratory failure, pneumonia, COPD exacerbation, elevated troponins
--- NOTE | 2016-07-01 06:58 | CT SCAN REPORT ---
EXAMINATION: CT CHEST WITHOUT CONTRAST CLINICAL INFORMATION: Hypoxia. Pneumonia. COMPARISON: Chest radiograph from the same date at 3:11 AM TECHNIQUE: Multidetector volumetric CT imaging of the chest was done. Axial MIP volume rendering provided. Sagittal and coronal reformatted images were obtained. DLP: 568 mGy-cm. FINDINGS: LUNGS: There is moderate to severe centrilobular emphysema, most notably in the upper lobes. Patchy foci of tree-in-bud opacification are present in the lower lobes and right middle lobe, likely infectious or inflammatory in nature. There is mild associated bronchiectasis with foci of mucus plugging. A more focal rounded opacity is present in the left lower lobe, measuring 4.1 x 3.2 x 2.5 cm. This could represent a more confluent area of pneumonia, though a primary pulmonary neoplasm is also a definite consideration. MEDIASTINUM: No adenopathy. Calcific atherosclerosis is present in the thoracic aorta and coronary arteries. Heart is normal in size. Trace amount of pericardial fluid is present. Thyroid gland is unremarkable. PLEURA: There is no pleural effusion. No pleural mass or thickening. AXILLA: No lymphadenopathy. UPPER ABDOMEN: No acute upper abdominal abnormalities are appreciated. There is mild fullness in the adrenal glands. No focal lesions or adenopathy identified. OSSEOUS STRUCTURES: Mild/moderate multilevel degenerative disc disease is present in the thoracic spine. No acute fractures are identified. No osseous lesions are appreciated. IMPRESSION: 1. Moderate to severe centrilobular emphysema with peripheral foci of tree-in-bud opacities, mucus plugging, and additional patchy peripheral consolidation. This consolidation may be due to an atypical infection such as mycobacterium avium complex or, alternatively other viral or fungal infections. Chronic aspiration is possible, though less likely. 2. A more focal 4.1 cm area of consolidation in the left lower lobe may represent more focal coalescent pneumonia, though a primary pulmonary neoplasm is a definite consideration. No adenopathy is appreciated. Recommend short interval follow-up CT of this abnormality following treatment or, alternatively, consider a CT guided biopsy.
--- NOTE | 2016-07-01 07:30 | NUR ---
REPORT GIVEN TO CHRISTIANO. WILL CALL WHEN READY TO RECIEVE PT
--- NOTE | 2016-07-01 07:45 | NUR ---
PT ROOM ASSIGNMENT 105
--- NOTE | 2016-07-01 07:53 | NUR ---
FLU SWAB SENT. RESP THERAPY HERE.
[2016-07-01 08:10] VITALS: BP 102/68
--- NOTE | 2016-07-01 08:30 | NUR ---
Admission Note: Patient arrived to [facility] at approx 0810 accompanied by and RN. Pt is drowsey but easily arousable, able to follow commands and answer questions appropriately. Can move all extremities. Transfered to ICU bed and weighed at this time. Placed on tele monitor, NSR HR= 80-90's. SBP: 90-100's and pt denies chest pain. Pedal pulses with + with doppler. radial pulses able to be palpated. Arrived on portable bipap. 20/6 rate of 24, FIO2: 60%- lungs are diminished throughout. Denies a productive cough at this time. Mouth care provided since mucous membranes are dry. Abdomen is distended and soft with + bowel sounds. Last BM 1/3- NPO at this time. ABD ultasound pending. Farnsworth in place draining clear yellow urine. urine legionella sent at si time per order. Skin is intact however is dry and flakey- lubriderm to be ordered, Trace BLE edema is noted. Pt currently denies pain and vitals are stable. Pt receivined IV abx in the ER and is due for the next dose of IV solumedrol at 0900. EKG and troponins due at 1000. Patients at the bedside and educated on POC. Dr. Olivares in to assess patient. Pt currently offers no complaints and pt oriented to room and call chapa. Will continue to closely monitor patient.
--- NOTE | 2016-07-01 09:01 | Cons- [facility] ---
FRANSICO SHANNON MD 07/01/16 0846: General Information and HPI Consulting Request Date of Consult: 07/01/16 Requested By: Dr. Vincent Reason for Consult: Acute hypoxic/hypercarbic respiratory failure Source of Information: old records Exam Limitations: unable to give history, clinical condition History of Present Illness: 60-year-old female brought in by ambulance for evaluation of shortness of breath. She had been reportedly having a productive cough for 2 days prior to admission for which EMS services were called and found patient to reportedly have an O2 saturation of 78% at home. Respiratory support was provided that minimally improved her oxygen saturation in the field and was placed on 100% O2 via nonrebreather in triage on arrival to the ED but subsequently placed on BiPAP. She was given ceftriaxone/azithromycin in addition to Solu-Medrol, Lasix , and potassium repletion in the ER before being transferred to the intensive care unit while still being maintained on BiPAP. At present patient is not arousable and appears to be in mild respiratory distress. Collateral information is obtained from hospital records, attempts to contact her for further information will happen this morning. Review of systems is unobtainable at this time, however prior to being unarousable she reportedly had symptoms of chills, cough and sputum production. PMHx: HTN, chronic lower extremity edema, questionable DM Allergies/Medications Allergies: Coded Allergies: No Known Allergies (07/01/16) Home Med List: Atenolol 25 MG TABLET 1.5 TAB PO DAILY HTN (Reported) Furosemide 20 MG TABLET 1 TAB PO DAILY DIURETIC (Reported) Review of Systems Review of Systems Constitutional: Reports: see HPI. Past History Travel History Traveled to [place] past 21 day No Medical History Neurological: NONE EENT: NONE Cardiovascular: hypertension, PEDAL EDEMA Respiratory: NONE Gastrointestinal: NONE Hepatic: NONE Renal: NONE Musculoskeletal: NONE Psychiatric: NONE Endocrine: NONE Surgical History Surgical History: non-contributory Psychosocial History Where Do You Live? Home Who Do You Live With? spouse Services at Home: None Smoking Status: Current Everyday Smoker ETOH Use: denies use Illicit Drug Use: denies illicit drug use Functional Ability ADLs Independent: dressing, eating, toileting, bathing. Ambulation: independent IADLs Independent: shopping, housework, finances, food prep, telephone, transportation , medication admin. Exam & Diagnostic Data Last 24 Hrs of Vital Signs/I&O Vital Signs Date Time Temp Pulse Resp B/P Pulse O2 O2 Flow FiO2 Ox Delivery Rate 07/01 1143 82 95 07/01 1012 BIPAP 50% 07/01 1010 94 BIPAP 50% 07/01 0830 94 BIPAP 60% 07/01 0830 99 96 07/01 0810 98.0 87 24 102/68 94 BIPAP 60% 07/01 0732 83 96 07/01 0608 98.4 91 22 99/68 97 BIPAP 07/01 0543 92 96 07/01 0341 110 14 111/70 94 BIPAP 07/01 0315 116 92 07/01 0305 98.9 30 131/92 88 Non 100% ReBreather Intake & Output 07/01 1600 07/01 0800 07/01 0000 Intake Total 400 Output Total 90 Balance 310 Intake, IV 400 Output, Urine 90 Patient 72.66 kg 90.718 kg Weight Physical Exam Other Physical Findings: General -well-developed, middle-aged female in mild respiratory distress HEENT - NCAT, PERRL, EOMI, anicteric sclera, moist mucous membranes, Cardio - S1, S2 w/o murmurs/gallops/rubs Resp -diminished airflow in all 4 lung campos with wheezing, no bibasilar crackles, on BiPAP GI -soft, nontender, nondistended, bowel sounds present -Farnsworth catheter in place Neuro -lethargic/somnolent, limited neurological exam, spontaneous movements of all 4 extremities Last 48 Hrs of Labs/Prince: Laboratory Tests 07/01/16 1015: Troponin I Cancelled 07/01/16 1015: Lactic Acid 1.4 07/01/16 1015: Sodium Cancelled, Potassium Cancelled, Chloride Cancelled, Carbon Dioxide Cancelled, Anion Gap Cancelled, BUN Cancelled, Creatinine Cancelled, BUN/ Creatinine Ratio Cancelled 07/01/16 1015: Sodium Pending, Potassium Pending, Chloride Pending, Carbon Dioxide Pending, Anion Gap Pending, BUN Pending, Creatinine Pending, Glucose Pending, Calcium Pending, Phosphorus Pending, Magnesium Pending, Total Bilirubin Pending, AST Pending, ALT Pending, Troponin I Pending, Albumin Pending, Hepatitis A IgM Ab Pending, Hep Bs Antigen Pending, Hep B Core IgM Ab Conf Pending, Hepatitis C Antibody Pending, Acetaminophen Pending 07/01/16 0525: pH 7.31 L, pCO2 61 *H, pO2 96, HCO3 30 H, ABG O2 Sat (Measured) 96.0, P-50 ( Temp Corrected) N, Carboxyhemoglobin 1.5, O2 Concentration % .60, Respiration Rate 24, O2 Delivery Method BIPAP, Vent Mode ST, Expiratory Pressure 6, Inspiratory Pressure 20, Phlebotomy Draw Site RIGHT BRACHIAL 07/01/16 0340: Urine Opiates Screen < 100.00, Methadone Screen < 40, Barbiturate Screen < 60, Ur Phencyclidine Scrn < 6.00, Amphetamines Screen < 100, U Benzodiazepines Scrn < 85, Urine Cocaine Screen < 50, Urine Cannabis Screen < 5.00, Urinalysis LIGHT H, Urine Color YEL, Urine Clarity HAZY H, Urine pH 6.0, Ur Specific [place] >= 1.030, Urine Protein >=300 H, Urine Ketones TRACE H, Urine Nitrite NEG, Urine Bilirubin NEG@ICTO, Urine Urobilinogen 1.0, Ur Leukocyte Esterase NEG, Ur Microscopic SEDIMENT EXAMINED, Urine RBC 5-10 H, Urine WBC 10-15 H, Ur Epithelial Cells MANY H, Urine Mucus MOD H, Urine Hemoglobin MOD H, Urine Glucose NEG 07/01/16 0328: Anion Gap 20 H, Estimated GFR 42 L, BUN/Creatinine Ratio 46.2 H, Glucose 148 H, Lactic Acid 1.9, Calcium 9.8, Total Bilirubin 1.0, AST 430 H, ALT 352 H, Alkaline Phosphatase 101, Troponin I 0.47 *H, Twq-S-Oamhvugzxeq Pept 89176 H, Total Protein 7.6, Albumin 4.1, Globulin 3.5, Albumin/Globulin Ratio 1.2, D- Dimer 572 H, CBC w Diff MAN DIFF ORDERED, RBC 5.22, MCV 91.7, MCH 31.0, RDW 14.0, MPV 8.5, Gran % 88.1 H, Lymphocytes % 3.1 L, Monocytes % 8.6, Eosinophils % 0.1, Basophils % 0.1, Absolute Granulocytes 15.9 H, Segmented Neutrophils 86 H, Band Neutrophils 4, Absolute Lymphocytes 0.6 L, Lymphocytes 3 L, Monocytes 6, Absolute Monocytes 1.5 H, Absolute Eosinophils 0, Absolute Basophils 0, Metamyelocytes 1, Platelet Estimate ADEQUATE, Polychromasia 1+, Ovalocytes FEW, Stomatocytes FEW, PUBS MCHC 33.8, Fld Total RBCs Counted 100, Salicylates < 1.0, Serum Alcohol < 10.0 07/01/16 0300: pH 7.24 *L, pCO2 84 *H, pO2 60 L, HCO3 36 H, ABG O2 Sat (Measured) 85.0 L, P- 50 (Temp Corrected) N, Carboxyhemoglobin 2.6, O2 Concentration % 6L, O2 Delivery Method NEB RX, Phlebotomy Draw Site RIGHT RADIAL 07/01/16 0259: Hemoglobin A1c Pending Microbiology 07/01 814 URINE ROUT: Legionella Antigen - COMP 07/01 814 URINE ROUT: Streptococcus pneumoniae Antigen (M - COMP Assessment/Plan Impression/Plan: 60-year-old woman with relatively no past medical history seen for evaluation of worsening shortness of breath and cough. Patient was hypoxic in the field and was placed with supplemental oxygen in the ER. Vital signs in the ER were significant for temp 98.9, HR 110-116, RR 14-30, BP 111-131/70-92, O2 88-94% on 100% FIO2. Physical examination demonstrated a woman in mild respiratory distress with diminished airflow in all 4 lung campos without obvious crackles and an otherwise normal physical exam. Lab work was remarkable for WBC 18.0, sodium 133, potassium 3.2, CO2 33, BUN/creatinine 60/1.3, lactic acid 1.9/1.3, AST/ALT 430/352, troponin 0.47, BNP 08037, D dimer 572. EKG demonstrated sinus tachycardia, atrial enlargement and right axis deviation. Chest x-ray demonstrated vascular pulmonary congestion. 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 Blood/urine/sputum cultures were taken and patient was started on intravenous steroids and antibiotics and continued on supplemental oxygen therapy. She is admitted to the intensive care unit for further evaluation and care. Problem list: -Acute hypoxic/hypercarbic respiratory failure, most likely secondary to multilobar pneumonia -CT finding of 4.1 cm mass, focal coalescent pneumonia versus pulmonary neoplasm -Elevated troponins, on heparin drip -Pulmonary vascular congestion, CHF versus COPD Cardiovascular: Patient admitted for hypoxia with imaging demonstrated vascular pulmonary congestion. BNP was elevated to 24,600. Physical examination did not demonstrate any JVD or lower extremity edema. Initial troponin was found to your 0.47 be elevated with an increase to 0.71. EKG obtained demonstrated T- wave inversions in V1-V5 without any ST segment changes. strategy planning consultant was contacted and it was decided to start the patient on a heparin drip without a bolus for a low suspicion of acute coronary syndrome. Patient was guiac negative. -Trend troponin/EKG until normalized -Aspirin 81 mg by mouth daily -Heparin Drip -Cardiology consult following, follow-up recommendations -Follow up echocardiogram Pulmonary: Patient with progressive shortness of breath and cough for roughly 1 week brought in by ambulance for evaluation after she was seen to be pale/blue by her . She was reportedly hypoxic to 78% in the field. She has no known cardiac or pulmonary disease however has a long history of smoking but has cut down to about 1 pack per month. Her smokes 3/4 cigars daily in the home. CT scan demonstrates emphysema in addition to findings suggestive of infection. Lower extremity Doppler ruled out presence of deep vein thrombosis. -Continue BiPAP -TRC, albuterol, ipratropium -Azithromycin 500 mg IV daily -Ceftriaxone 1 g IV daily -Methylprednisone 40 mg IV every 6 hours -Mucinex 600 mg by mouth every 12 hours -Daily chest x-ray/ABG -Follow-up cultures and sputum cytology Diet-nothing by mouth, swallow eval tomorrow DVT prophylaxis-subcutaneous heparin CODE STATUS-full code Consult Acknowledgment - Thank you for your consult request. MARC DON,Julia HOWE 07/01/16 0901: Assessment/Plan Other Findings/Comments: I have personally seen and examined the patient. I have discussed the plan of care with the housestaff and agree with the above physical exam, assessment and plan. Briefly, the patient is 60-year-old female with a past medical history significant for hypertension, lower extremity edema, and possible diabetes. The patient was having symptoms for 2-3 days prior to admission, including productive cough and shortness of breath. She has experienced increased wheezing. Her oxygen saturation was 78% at home. 911 was called and the patient was given a DuoNeb and albuterol with improvement in her sats 80%. She was placed on 100% nonrebreather. An arterial blood gas demonstrated a pH of 7.24, PCO2 84, PO2 60, bicarbonate 36. She was subsequently changed over to BiPAP in the ED. The patient is currently on 50%. Her BiPAP settings are 28/6, with a respiratory rate of 24. The patient was given ceftriaxone and azithromycin. She was also given IV Solu-Medrol, and nebulizer treatments with improvement. She reports feeling markedly better since admission. She still however feels the need for BiPAP and has ongoing shortness of breath. Of note, the patient had bibasilar airspace disease left greater than right concerning for pneumonia. Her venous congestion was noted. A CT scan of the chest was done which showed moderate to severe emphysema with peripheral tree in bud opacities, he is plugging and patchy peripheral consolidation. There was a 4.1 cm area of consolidation in the left lower lobe thought to represent coalescing pneumonia however her pulmonary neoplasm is within the differential diagnosis. Pulmonary vascular congestion was also seen. The patient's troponin is positive with a very elevated BNP as well. A cardiology consult is pending. Impression: 1. Acute on chronic hypercapnic respiratory failure, secondary to multilobar pneumonia. Neoplasm and a postobstructive pneumonia cannot be excluded. 2. Positive troponin, rule out non-ST elevation CO versus demand ischemia. 3. Pulmonary vascular congestion, elevated BNP, rule out CHF. 4. Acute kidney injury. 5. Electrolyte abnormalities. Plan: * Await follow-up labs (ordered). * Continue current BiPAP settings. Will give break off later today. * Check a repeat ABG at noon. * Attempt to wean supplemental oxygen down to off as tolerated. * Nebs/TRC to continue. * Continue IV Solu-Medrol, ceftriaxone and azithromycin. * Please ensure that the patient's sputum culture is sent. * Follow up cardiology recommendations - diuresis? * Check an echocardiogram. * Check sputum cytology. * Check lower extremity dopplers. * Continue DVT prophylaxis. * Continue all supportive care. Consult Acknowledgment - Thank you for your consult request.
--- NOTE | 2016-07-01 10:10 | ULTRASOUND REPORT ---
EXAMINATION: US TRIPLEX LOWER EXTREMITY, BILATERAL CLINICAL INFORMATION: Shortness of breath. COMPARISON: None. TECHNIQUE: Color-flow triplex imaging with spectral analysis and compression Doppler were performed on the bilateral lower extremities. FINDINGS: Respiratory variation, normal compression and augmented flow are noted throughout the bilateral lower extremities. The visualized common femoral vein, superficial femoral vein, profunda femoral vein, popliteal vein and mid calf peroneal and posterior tibial venous segments show no evidence of deep venous thrombosis. There is a Cole's cyst on the left measuring 3.8 x 1.2 x 2.6 cm. IMPRESSION: Normal triplex scan without evidence of deep venous thrombosis involving the bilateral lower extremities. Left-sided Cole's cyst.
--- NOTE | 2016-07-01 12:40 | Cons- Cardiology ---
General Information and HPI Consulting Request Date of Consult: 07/01/16 Requested By: MARC DON,Julia OHWE Reason for Consult: Elevated troponin Source of Information: patient History of Present Illness: This is a 60 y/o Female with a hx of HTN and chronic LE edema who presents to [place] with progressive shortness of breath at rest over 2days, not associated with reported chest pain or palpitations. She was on BiPap at the time of my interview but was awake and alert although she has had periods of decreased mental status per report. Denies any know hx of CAD or CHF. She did have a productive cough and subjective fevers. No syncope, PND, vomitting, bleeding, visual changes, or diaphoresis. She has had wheezing and some chills. Troponins were noted to be elevated on labs. She thinks her breathing is improving despite being on Bipap. She continues to deny chest pain. Allergies/Medications Allergies: Coded Allergies: No Known Allergies (07/01/16) Home Med List: Atenolol 25 MG TABLET 1.5 TAB PO DAILY HTN (Reported) Furosemide 20 MG TABLET 1 TAB PO DAILY DIURETIC (Reported) Current Medications: Current Medications Sig/Michi Start time Last Medication Dose Route Stop Time Status Admin Albuterol Sulfate 3 ML EVERY 4 HRS/AWAKE 07/01 1200 AC 07/01 INH 1003 Azithromycin 500 MG Q24H 07/02 0345 AC Sodium Chloride 250 ML IV Azithromycin 500 MG ONCE ONE 07/01 0330 DC 07/01 Sodium Chloride 250 ML IV 07/01 0429 0345 Ceftriaxone Sodium 1,000 MG Q24H 07/02 0330 AC IV Ceftriaxone Sodium 1,000 MG ONCE ONE 07/01 0330 DC 07/01 IV 07/01 0331 0341 Ceftriaxone Sodium 0 .STK-MED ONE 07/01 0318 DC .ROUTE Furosemide 40 MG ONCE ONE 07/01 0315 DC 07/01 IV 07/01 0316 0310 Furosemide 0 .STK-MED ONE 07/01 0310 DC IV Glycerin/Mineral Oil 1 DIDIER TID PRN 07/01 0830 AC 07/01 TOP 1231 Guaifenesin 600 MG Q12 07/01 1000 AC PO Heparin Sodium 5,000 UNIT Q8 07/01 0600 AC 07/01 (Porcine) SC 0714 Ibuprofen 600 MG Q6P PRN 07/01 0430 DC PO Ipratropium M[place]amey 2.5 ML EVERY 4 HRS/AWAKE 07/01 1200 AC 07/01 INH 1004 Methylprednisolone 40 MG Q6H 07/01 0900 AC 07/01 IV 0927 Methylprednisolone 40 MG Q6 07/01 0659 DC IV Methylprednisolone 125 MG ONCE ONE 07/01 0330 DC 07/01 IV 07/01 0331 0320 Methylprednisolone 0 .STK-MED ONE 07/01 0317 DC .ROUTE Potassium Chloride 20 MEQ ONCE ONE 07/01 0515 DC PO 07/01 0516 Potassium Chloride 10 MEQ ONCE ONE 07/01 0430 DC 07/01 IV 07/01 0431 0459 Review of Systems Review of Systems: Review of systems as per HPI. The remainder of a 10 point review of systems was reviewed and was otherwise negative. Past History Travel History Traveled to [place] past 21 day No Medical History Blood Transfusion Hx: No Neurological: NONE EENT: NONE Cardiovascular: hypertension, PEDAL EDEMA Respiratory: DENIES Gastrointestinal: NONE Hepatic: NONE Renal: NONE Musculoskeletal: NONE Psychiatric: NONE Endocrine: NONE Blood Disorders: NONE Cancer(s): NONE PHOTO CARTOGRAPHER/Reproductive: NONE Surgical History Surgical History: non-contributory Psychosocial History Where Do You Live? Home Who Do You Live With? spouse Services at Home: None Smoking Status: Current Everyday Smoker ETOH Use: denies use Illicit Drug Use: denies illicit drug use Functional Ability ADLs Independent: dressing, eating, toileting, bathing. Ambulation: independent IADLs Independent: shopping, housework, finances, food prep, telephone, transportation , medication admin. Exam & Diagnostic Data Vital Signs and I&O Vital Signs Date Time Temp Pulse Resp B/P Pulse O2 O2 Flow FiO2 Ox Delivery Rate 07/01 1200 BIPAP 50% 07/01 1143 82 95 07/01 1012 BIPAP 50% 07/01 1010 94 BIPAP 50% 07/01 0830 94 BIPAP 60% 07/01 0830 99 96 07/01 0810 98.0 87 24 102/68 94 BIPAP 60% 07/01 0732 83 96 07/01 0608 98.4 91 22 99/68 97 BIPAP 07/01 0543 92 96 07/01 0341 110 14 111/70 94 BIPAP 07/01 0315 116 92 07/01 0305 98.9 30 131/92 88 Non 100% ReBreather Intake & Output 07/01 1600 07/01 0800 07/01 0000 06/30 1600 06/30 0800 06/30 0000 Intake Total 400 Output Total 90 Balance 310 Intake, IV 400 Output, Urine 90 Patient 160 lb 200 lb Weight Physical Exam: General: No distress, on BiPap Eyes: No obvious scleral icterus. HEENT: No jugular venous distention or abnormal jugular venous pulsations. Cardiovascular: Normal intensity S1/S2. Regular. Respiratory: decreased air entry bilaterally with wheezes Abdomen: soft, no rebound tenderness Musculoskeletal: No cyanosis noted, trace LE edema Skin: Warm Neurologic: No gross focal deficits noted. Labs/Prince Results: Laboratory Tests 07/01 07/01 07/01 07/01 1015 1015 1015 1015 Chemistry Sodium Cancelled Pending Potassium Cancelled Pending Chloride Cancelled Pending Carbon Dioxide Cancelled Pending Anion Gap Cancelled Pending BUN Cancelled Pending Creatinine Cancelled Pending BUN/Creatinine Ratio Cancelled Glucose Pending Lactic Acid (0.7 - 2.1 mmol/L) 1.4 Calcium Pending Phosphorus Pending Magnesium Pending Total Bilirubin Pending AST Pending ALT Pending Troponin I Cancelled Pending Albumin Pending Serology Hepatitis A IgM Ab Pending Hep Bs Antigen Pending Hep B Core IgM Ab Conf Pending Hepatitis C Antibody Pending Toxicology Acetaminophen Pending 07/01 07/01 0525 0340 Blood Gas pH (7.35 - 7.45 PH) 7.31 L pCO2 (35 - 45 TORR) 61 *H pO2 (80 - 100 TORR) 96 HCO3 (21 - 28 MEQ/L) 30 H ABG O2 Sat (Measured) (>96.0 %) 96.0 P-50 (Temp Corrected) N Carboxyhemoglobin (1.5 - 5.0 %) 1.5 O2 Concentration % .60 Respiration Rate (BPM) 24 O2 Delivery Method BIPAP Vent Mode ST Expiratory Pressure (CM H2O P) 6 Inspiratory Pressure (CM H2O P) 20 Miscellaneous Phlebotomy Draw Site RIGHT BRACHIAL Toxicology Urine Opiates Screen (>2000 NG/ML) < 100.00 Methadone Screen (>300 NG/ML) < 40 Barbiturate Screen (>200 NG/ML) < 60 Ur Phencyclidine Scrn (>25 NG/ML) < 6.00 Amphetamines Screen (>1000 NG/ML) < 100 U Benzodiazepines Scrn (>200 NG/ML) < 85 Urine Cocaine Screen (>300 NG/ML) < 50 Urine Cannabis Screen (>50 NG/ML) < 5.00 Urines Urinalysis LIGHT H Urine Color (YEL,AMB,STR) YEL Urine Clarity (CLEAR) HAZY H Urine pH (5.0 - 8.0) 6.0 Ur Specific [place] (1.001 - 1.035) >= 1.030 Urine Protein (NEG,<30 MG/DL) >=300 H Urine Ketones (NEG) TRACE H Urine Nitrite (NEG) NEG Urine Bilirubin (NEG) NEG@ICTO Urine Urobilinogen (0.1 - 1.0 EU/dl) 1.0 Ur Leukocyte Esterase (NEG) NEG Ur Microscopic SEDIMENT EXAMINED Urine RBC (0 - 5 /HPF) 5-10 H Urine WBC (0 - 2 /HPF) 10-15 H Ur Epithelial Cells (NONE,FEW) MANY H Urine Mucus (FEW,NONE) MOD H Urine Hemoglobin (NEG) MOD H Urine Glucose (N MG/DL) NEG 07/01 07/01 0328 0300 Blood Gas pH (7.35 - 7.45 PH) 7.24 *L pCO2 (35 - 45 TORR) 84 *H pO2 (80 - 100 TORR) 60 L HCO3 (21 - 28 MEQ/L) 36 H ABG O2 Sat (Measured) (>96.0 %) 85.0 L P-50 (Temp Corrected) N Carboxyhemoglobin (1.5 - 5.0 %) 2.6 O2 Concentration % 6L O2 Delivery Method NEB RX Chemistry Sodium (137 - 145 mmol/L) 133 L Potassium (3.5 - 5.1 mmol/L) 3.2 L Chloride (98 - 107 mmol/L) 80 L Carbon Dioxide (22 - 30 mmol/L) 33 H Anion Gap (5 - 16) 20 H BUN (7 - 17 mg/dL) 60 H Creatinine (0.5 - 1.0 mg/dL) 1.3 H Estimated GFR (>60 ml/min) 42 L BUN/Creatinine Ratio (7 - 25 %) 46.2 H Glucose (65 - 99 mg/dL) 148 H Lactic Acid (0.7 - 2.1 mmol/L) 1.9 Calcium (8.4 - 10.2 mg/dL) 9.8 Total Bilirubin (0.2 - 1.3 mg/dL) 1.0 AST (14 - 36 U/L) 430 H ALT (9 - 52 U/L) 352 H Alkaline Phosphatase (<127 U/L) 101 Troponin I (< 0.11 ng/ml) 0.47 *H [id number] Pept (<125 pg/mL) 06823 H Total Protein (6.3 - 8.2 g/dL) 7.6 Albumin (3.5 - 5.0 g/dL) 4.1 Globulin (1.9 - 4.2 gm/dL) 3.5 Albumin/Globulin Ratio (1.1 - 2.2 %) 1.2 Coagulation D-Dimer (70 - 232 ng/ml) 572 H Hematology CBC w Diff MAN DIFF ORDERED WBC (4.8 - 10.8 /CUMM) 18.0 H RBC (4.20 - 5.40 /CUMM) 5.22 Hgb (12.0 - 16.0 G/DL) 16.2 H Hct (37 - 47 %) 47.9 H MCV (81.0 - 99.0 FL) 91.7 MCH (27.0 - 31.0 PG) 31.0 RDW (11.5 - 14.5 %) 14.0 Plt Count (130 - 400 /CUMM) 285 MPV (7.4 - 10.4 FL) 8.5 Gran % (42.2 - 75.2 %) 88.1 H Lymphocytes % (20.5 - 51.1 %) 3.1 L Monocytes % (1.7 - 9.3 %) 8.6 Eosinophils % (0 - 5 %) 0.1 Basophils % (0.0 - 2.0 %) 0.1 Absolute Granulocytes (1.4 - 6.5 /CUMM) 15.9 H Segmented Neutrophils (42.2 - 75.2 %) 86 H Band Neutrophils (0.0 - 5.0 %) 4 Absolute Lymphocytes (1.2 - 3.4 /CUMM) 0.6 L Lymphocytes (20.5 - 51.1 %) 3 L Monocytes (1.7 - 9.3 %) 6 Absolute Monocytes (0.10 - 0.60 /CUMM) 1.5 H Absolute Eosinophils (0.0 - 0.7 /CUMM) 0 Absolute Basophils (0.0 - 0.2 /CUMM) 0 Metamyelocytes (0.0 - 1.0 %) 1 Platelet Estimate (ADEQUATE) ADEQUATE Polychromasia 1+ Ovalocytes FEW Stomatocytes FEW PUBS MCHC (33.0 - 37.0 G/DL) 33.8 Miscellaneous Phlebotomy Draw Site RIGHT RADIAL Other Body Source Fld Total RBCs Counted (%) 100 Toxicology Salicylates (0 - 20.0 mg/dL) < 1.0 Serum Alcohol (<10 MG/DL) < 10.0 07/01 0259 Chemistry Hemoglobin A1c Pending Diagnostic Data EKG Results Shows ST at 115, possible age indeterminate anterior infarct pattern, atrial enlargement, rightward axis CXR Results 1. Bibasilar airspace disease, left side greater than right, is concerning for pneumonia. Aspiration is also possible. 2. Pulmonary venous congestion. 3. Trace pleural effusions Other Results Telemetry tracings personally reviewed and shows sinus rhythm CT scan 1. Moderate to severe centrilobular emphysema with peripheral foci of tree-in-bud opacities, mucus plugging, and additional patchy peripheral consolidation. This consolidation may be due to an atypical infection such as mycobacterium avium complex or, alternatively other viral or fungal infections. Chronic aspiration is possible, though less likely. 2. A more focal 4.1 cm area of consolidation in the left lower lobe may represent more focal coalescent pneumonia, though a primary pulmonary neoplasm is a definite consideration. No adenopathy is appreciated. Recommend short interval follow-up CT of this abnormality following treatment or, alternatively, consider a CT guided biopsy. Assessment/Plan Assessment/Plan 1. Hypoxemic/hypercarbic respiratory failure likely due to COPD 2. PNA 3. Reported chronic LE edema 4. Renal insufficiency, ?acuity 5. Hx HTN 6. Elevated troponins, likely demand ischemia 7. Elevated LFTs Elevated troponins more likely demand ischemia but would start Heparin gtt for now while watching the troponin curve and getting an Echo to assess for RWMA. No B-sari given the bronchospasm. Obtain baseline creatinine value, I am not convinved she is very volume overloaded and she did get a dose of IV Lasix early this AM (elevated BNP non-specific). Would hold off on standing IV Lasix for now while monitoring her volume status and clinical course. She will certainly need ischemic testing in the future. Would not initiate statin tx given the elevated LFTs. Case was discussed with the ICU housestaff today. Continue on telemetry and follow serial cardiac enzymes/ECGs. Would start ECASA 81 mg PO daily. Isaías Jameson MD [facility] Consult Acknowledgment - Thank you for your consult request.
--- NOTE | 2016-07-01 12:53 | ULTRASOUND REPORT ---
EXAMINATION: US ABDOMEN LIMITED CLINICAL INFORMATION: Transaminitis. Assess for acute pathology. COMPARISON: None. TECHNIQUE: Real-time imaging of the right upper quadrant abdominal viscera. FINDINGS: PANCREAS: The head and body of the pancreas appear normal. The tail is obscured by bowel gas. LIVER: The liver demonstrates normal size, contour and echogenicity. No focal lesion or intrahepatic biliary duct dilatation. GALLBLADDER: The gallbladder is physiologically distended without evidence of stones, sludge, polyps, wall thickening or pericholecystic fluid. No tenderness was elicited in the right upper quadrant. COMMON BILE DUCT: Normal in caliber measuring 0.3 cm in diameter. RIGHT KIDNEY: No hydronephrosis. No renal calculi or focal parenchymal lesions. The kidney measures 10.2 cm in maximum dimension. FREE FLUID: None. IMPRESSION: 1. The liver is normal in size and echogenicity. 2. There is no evidence of cholecystitis.
--- NOTE | 2016-07-01 14:48 | NUR ---
SPEECH THERAPY: ORDERS FOR SWALLOW EVAL RECEIVED, CHART REVIEWED AND D/W RN. PT IS PRESENTLY ON BiPAP AND NOT APPROPRIATE FOR SWALLOW EVAL AT THIS TIME. PETROLEUM SUPPLY SPECIALIST TO ATTEMPT AGAIN TOMORROW IF PT ABLE TO PARTICIPATE.
[2016-07-01 16:00] VITALS: BP 94/60
--- NOTE | 2016-07-01 21:18 | NUR ---
PATIENT AROUSES TO NAME. SPEECH CLEAR. BIPAP ON AT 35%.sat=95%. lung sounds clear.monitor sinus rhythm at rate of 93%.occasionally will be sinus bradycardia at rate of 50.increases on awakening.bp=92/60 to 104/56.heparin drip continues at 17.4 ml/hr.
--- NOTE | 2016-07-01 21:28 | ECHOCARDIOGRAM REPORT ---
ELISA NICOLE Age: 60 : 1955 Gender: F Exam Date: 07/01/2016 17:11 Exam Location: [facility] Ht (in): 65 Wt (lb): 200 BSA: 2.07 BP: 102 / 69 Ordering Physician: SHADE BOOKER, Referring Physician: Dae Jameson M.D. Technologist: Angle Reid [facility] Room Number: 105 Indications: HYPERTENSION Rhythm: Sinus Technical Quality: Fair FINDINGS Left Ventricle Normal global left ventricular size, wall thickness, systolic function with slightly flattened septal motion .Normal left ventricular ejection fraction estimated at 60-65%. Right Ventricle Mild right ventricular dilatation. Right ventricular hypokinesis. Right Atrium Mild to moderate right atrial dilatation. Left Atrium Normal left atrial size. Mitral Valve Mild mitral annular calcification. Trace to mild mitral regurgitation. Aortic Valve Diffuse thickening of the aortic valve cusps with reduced excursion. Mild aortic stenosis. Tricuspid Valve Tricuspid valve not well visualized, grossly normal. Mild-to- moderate tricuspid regurgitation. Right ventricular systolic pressure estimated to be elevated at 60 mmHg. Pulmonic Valve Pulmonic valve not well visualized, grossly normal. Pericardium No pericardial effusion. Great Vessels Normal size aortic root. CONCLUSIONS Normal left ventricular global systolic function. Dilated and hypokinetic right ventricle. Severe Pulmonary hypertension. Mild Aortic stenosis.Right atrial enlargement. José Miguel Bucio M.D. (Electronically Signed) Final Date: 01 July 2016 21:27 MEASUREMENTS (Male / Female) Normal Values 2D ECHO LV Diastolic Diameter PLAX 3.0 cm 4.2 - 5.9 / 3.9 - 5.3 cm LV Systolic Diameter PLAX 1.8 cm 2.1 - 4.0 cm LV Fractional Shortening PLAX 40.0 % 25 - 46 % LV Ejection Fraction 2D Teich 72.2 % IVS Diastolic Thickness 0.9 cm LVPW Diastolic Thickness 0.8 cm LV Relative Wall Thickness 0.6 RV Internal Dim ED PLAX 3.9 cm 1.9 - 3.8 cm LVOT Diameter 1.9 cm Aortic Root Diameter 2.6 cm LA Systolic Diameter LX 2.7 cm 3.0 - 4.0 / 2.7 - 3.8 cm LA Volume 24.0 cm 18 - 58 / 22 - 52 cm Ascending Aorta Diameter 2.9 cm DOPPLER AV Peak Velocity 202.0 cm/s AV Peak Gradient 16.3 mmHg AV Mean Velocity 135.0 cm/s AV Mean Gradient 8.0 mmHg AV Velocity Time Integral 32.8 cm LVOT Peak Velocity 110.0 cm/s LVOT Peak Gradient 4.8 mmHg LVOT Mean Velocity 70.6 cm/s LVOT Mean Gradient 2.0 mmHg LVOT Velocity Time Integral 19.8 cm LVOT Stroke Volume 56.1 cm AV Area Cont Eq vti 1.7 cm AV Area Cont Eq pk 1.5 cm MV Peak Velocity 112.0 cm/s MV Peak Gradient 5.0 mmHg MV Mean Velocity 59.8 cm/s MV Mean Gradient 2.0 mmHg Mitral E Point Velocity 90.3 cm/s Mitral A Point Velocity 88.8 cm/s Mitral E to A Ratio 1.0 MV PHT Velocity 91.2 cm/s MV Deceleration [place] 260.0 cm/s MV Pressure Half Time 105.2 ms MV Area PHT 2.1 cm MV Deceleration Time 217.0 ms TR Peak Velocity 360.0 cm/s TR Peak Gradient 51.8 mmHg Right Atrial Pressure 5.0 mmHg Pulmonary Artery Systolic Pressu 56.8 mmHg Right Ventricular Systolic Press 56.8 mmHg PV Peak Velocity 103.0 cm/s PV Peak Gradient 4.2 mmHg PV Mean Velocity 67.3 cm/s PV Mean Gradient 2.0 mmHg PV Velocity Time Integral 19.7 cm LV E' Lateral Velocity 8.7 cm/s Mitral E to LV E' Lateral Ratio 10.4 LV E' Septal Velocity 5.4 cm/s Mitral E to LV E' Septal Ratio 16.8
--- NOTE | 2016-07-01 22:39 | Event Note ---
Event Note Event Note: Spoke to covering housestaff. Based on Echo results we need to exclude large PE (see Echo report). If STAT V/Q scan not possible would recommend STAT CT scan with IV contrast (prior CT was without contrast) and give gentle hydration given mild renal insufficiency (baseline unknown). Continue on IV Heparin gtt which was previously started. Monitor hemodynamic status closely. Additional management per STAT CT results. Keep patient in ICU on telemetry without interruption. Isaías Jameson MD [facility]
[2016-07-01 22:43] LABS: PTT 35 SEC (25-37)
--- NOTE | 2016-07-01 23:29 | Event Note ---
Event Note Event Note: Got a call from Dae Jameson MD. Based on echo results he wanted to exclude large PE by doing a CTA. Please note that patient has renal insufficiency with creatinine 1.4. I discussed it with Dr. Avila. He wanted me to talk to the patient and explain her entire situation and consequences. I spoke to the patient who was completely alert and oriented. I explained to her in detail about having the possibility of blood clot and need to rule out this possibility by doing CTA. I discussed the possibility of further kidney damage by contrast that can be minimized by giving her IV fluids. She is aware about the consequences and refusing CTA. I have informed Dae Jameson MD. We are continuing IV heparin drip. Consider V/Q scan in am.
[2016-07-02] VITALS: BP 100/70
[2016-07-02 06:49] LABS: ABSOLUTE BASOPHIL COUNT 0 /CUMM (0.0-0.2); ABSOLUTE EOSINOPHIL COUNT 0 /CUMM (0.0-0.7); ABSOLUTE GRANULOCYTE CT 11.1 /CUMM (1.4-6.5); ABSOLUTE LYMPH COUNT 0.5 /CUMM (1.2-3.4); ABSOLUTE MONOCYTE COUNT 0.6 /CUMM (0.10-0.60); BASOPHIL % 0.1 % (0.0-2.0); EOSINOPHIL % 0 % (0-5); GRANULOCYTE % 91.3 % (42.2-75.2); HEMATOCRIT 43.8 % (37-47); MEAN CORPUSCULAR HGB 30.9 PG (27.0-31.0); MEAN CORPUSCULAR HGB CONC 33.5 G/DL (33.0-37.0); MEAN CORPUSCULAR VOLUME 92.3 FL (81.0-99.0); MEAN PLATELET VOLUME 8.4 FL (7.4-10.4); PLATELET COUNT 213 /CUMM (130-400); RBC DISTRIBUTION WIDTH 14.2 % (11.5-14.5); RED BLOOD CELL CT 4.74 /CUMM (4.20-5.40); WHITE BLOOD CELL COUNT 12.2 /CUMM (4.8-10.8)
[2016-07-02 06:57] LABS: PTT 79 SEC (25-37)
[2016-07-02 08:00] VITALS: BP 100/60
--- NOTE | 2016-07-02 08:11 | PN- Cardiology ---
Subjective Subjective: Patient claims to be feeling better. Oxygen saturations improved on Bipap. Sinus rythym on monitor. Objective Vital Signs and I&Os Vital Signs Date Time Temp Pulse Resp B/P Pulse O2 O2 Flow FiO2 Ox Delivery Rate 07/02 0532 68 94 07/02 0400 93 BIPAP 35% 07/02 0101 66 93 07/02 0000 97.7 70 24 100/70 94 BIPAP 35% 07/02 0000 94 BIPAP 35% 07/01 2240 73 93 07/01 2000 93 BIPAP 35% 07/01 1925 71 95 07/01 1730 93 BIPAP 35% 07/01 1615 88 97 07/01 1600 97.1 80 24 94/60 95 BIPAP 50% 07/01 1600 95 BIPAP 50% 07/01 1426 89 95 07/01 1200 BIPAP 50% 07/01 1143 82 95 07/01 1012 BIPAP 50% 07/01 1010 94 BIPAP 50% 07/01 0830 94 BIPAP 60% 07/01 0830 99 96 07/01 0810 98.0 87 24 102/68 94 BIPAP 60% Intake & Output 07/02 0800 07/02 0000 07/01 1600 07/01 0800 07/01 0000 06/30 1600 Intake Total 417 100 400 Output Total 300 250 90 Balance 117 -150 310 Intake, IV 417 100 400 Output, Urine 300 250 90 Patient 161 lb 160 lb 200 lb Weight Physical Exam: Gen. exam she appears comfortable with BiPAP. He complains of being thirsty. Head normocephalic atraumatic Eyes sclera anicteric conjunctiva showed no pallor extraocular muscles were normal Neck no jugular venous distention no thyroid masses no palpable nodes no bruits Chest lungs revealed some wheezes bilaterally Heart regular rhythm with a 1/6 systolic murmur Abdomen soft protuberant no organomegaly Extremities no clubbing cyanosis or pedal edema Neurological no gross motor or sensory deficits Current Medications: Current Medications Sig/Michi Start time Last Medication Dose Route Stop Time Status Admin Albuterol Sulfate 3 ML EVERY 4 HRS/AWAKE 07/01 1200 AC 07/01 INH 1730 Aspirin 81 MG DAILY 07/02 1000 AC PO Aspirin 300 MG ONCE ONE 07/01 1515 DC 07/01 KS 07/01 1516 1805 Azithromycin 500 MG Q24H 07/02 0345 AC 01/05 Sodium Chloride 250 ML IV 0337 Ceftriaxone Sodium 1,000 MG Q24H 07/02 0330 AC 07/02 IV 0331 Glycerin/Mineral Oil 1 DIDIER TID PRN 07/01 0830 AC 07/01 TOP 1231 Guaifenesin 600 MG Q12 07/01 1000 AC PO Heparin Sodium 4,356 UNIT ONCE ONE 07/01 2315 DC 07/01 (Porcine) IV 07/01 2316 2330 Heparin Sodium 5,000 UNIT Q8 07/01 0600 DC 07/01 (Porcine) SC 1422 Heparin Sodium/ 25,000 UNIT Q24H 07/01 1445 AC 07/01 Dextrose IV 1543 Dextrose/Water 500 ML Ipratropium [place] 2.5 ML EVERY 4 HRS/AWAKE 07/01 1200 AC 07/01 INH 1730 Methylprednisolone 40 MG Q6H 07/01 0900 AC 07/02 IV 0324 Methylprednisolone 40 MG Q6 07/01 0659 DC IV Potassium Chloride 10 MEQ Q1H 07/01 1300 DC 07/01 IV 07/01 1501 1618 Results Last 48 Hrs of Labs/Mics: Laboratory Tests 07/02/16 0630: Sodium Pending, Potassium Pending, Chloride Pending, Carbon Dioxide Pending, Anion Gap Pending, BUN Pending, Creatinine Pending, Glucose Pending, Calcium Pending, Phosphorus Pending, Magnesium Pending, Total Bilirubin Pending, AST Pending, ALT Pending, Troponin I Pending, Albumin Pending, APTT 79 H, CBC w Diff NO MAN DIFF REQ, RBC 4.74, MCV 92.3, MCH 30.9, RDW 14.2, MPV 8.4, Gran % 91.3 H, Lymphocytes % 4.1 L, Monocytes % 4.5, Eosinophils % 0, Basophils % 0.1 , Absolute Granulocytes 11.1 H, Absolute Lymphocytes 0.5 L, Absolute Monocytes 0.6, Absolute Eosinophils 0, Absolute Basophils 0, PUBS MCHC 33.5 07/01/16 2145: APTT 35 07/01/162049: pH 7.41, pCO2 54 H, pO2 78 L, HCO3 33 H, ABG O2 Sat (Measured) 94.0 L, P-50 (Temp Corrected) N, Carboxyhemoglobin 1.0 L, O2 Concentration % 35%, Temperature 97.1, Respiration Rate 24, O2 Delivery Method FFM, Vent Mode ST, Expiratory Pressure 6, Inspiratory Pressure 20, Phlebotomy Draw Site RIGHT BRACHIAL 07/01/16 1625: Troponin I 0.43 *H 07/01/16 1255: pH 7.33 L, pCO2 69 *H, pO2 89, HCO3 35 H, ABG O2 Sat (Measured) 95.0 L, P-50 (Temp Corrected) N, Carboxyhemoglobin 0.9 L, O2 Concentration % 50%, Respiration Rate 24, O2 Delivery Method BIPAP, Vent Mode ST, Expiratory Pressure 6, Inspiratory Pressure 20, Phlebotomy Draw Site RIGHT BRACHIAL 07/01/16 1015: Troponin I Cancelled 07/01/16 1015: Lactic Acid 1.4 07/01/16 1015: Sodium Cancelled, Potassium Cancelled, Chloride Cancelled, Carbon Dioxide Cancelled, Anion Gap Cancelled, BUN Cancelled, Creatinine Cancelled, BUN/ Creatinine Ratio Cancelled 07/01/16 1015: Anion Gap 16, Estimated GFR 38 L, Glucose 147 H, Calcium 9.4, Phosphorus 5.5 H, Magnesium 3.0 H, Total Bilirubin 0.6, AST 541 H, ALT 409 H, Troponin I 0.71 *H, Albumin 3.7, Hepatitis A IgM Ab NONREACTIVE, Hep Bs Antigen NONREACTIVE , Hep B Core IgM Ab Conf NONREACTIVE, Hepatitis C Antibody NONREACTIVE, Acetaminophen < 10.0 L 07/01/16 0922: Lactic Acid Cancelled 07/01/16 0525: pH 7.31 L, pCO2 61 *H, pO2 96, HCO3 30 H, ABG O2 Sat (Measured) 96.0, P-50 ( Temp Corrected) N, Carboxyhemoglobin 1.5, O2 Concentration % .60, Respiration Rate 24, O2 Delivery Method BIPAP, Vent Mode ST, Expiratory Pressure 6, Inspiratory Pressure 20, Phlebotomy Draw Site RIGHT BRACHIAL 07/01/16 0340: Urine Opiates Screen < 100.00, Methadone Screen < 40, Barbiturate Screen < 60, Ur Phencyclidine Scrn < 6.00, Amphetamines Screen < 100, U Benzodiazepines Scrn < 85, Urine Cocaine Screen < 50, Urine Cannabis Screen < 5.00, Urinalysis LIGHT H, Urine Color YEL, Urine Clarity HAZY H, Urine pH 6.0, Ur Specific [place] >= 1.030, Urine Protein >=300 H, Urine Ketones TRACE H, Urine Nitrite NEG, Urine Bilirubin NEG@ICTO, Urine Urobilinogen 1.0, Ur Leukocyte Esterase NEG, Ur Microscopic SEDIMENT EXAMINED, Urine RBC 5-10 H, Urine WBC 10-15 H, Ur Epithelial Cells MANY H, Urine Mucus MOD H, Urine Hemoglobin MOD H, Urine Glucose NEG 07/01/16 0328: Anion Gap 20 H, Estimated GFR 42 L, BUN/Creatinine Ratio 46.2 H, Glucose 148 H, Lactic Acid 1.9, Calcium 9.8, Total Bilirubin 1.0, AST 430 H, ALT 352 H, Alkaline Phosphatase 101, Troponin I 0.47 *H, Cob-K-Cdosnfyawja Pept 44938 H, Total Protein 7.6, Albumin 4.1, Globulin 3.5, Albumin/Globulin Ratio 1.2, D- Dimer 572 H, CBC w Diff MAN DIFF ORDERED, RBC 5.22, MCV 91.7, MCH 31.0, RDW 14.0, MPV 8.5, Gran % 88.1 H, Lymphocytes % 3.1 L, Monocytes % 8.6, Eosinophils % 0.1, Basophils % 0.1, Absolute Granulocytes 15.9 H, Segmented Neutrophils 86 H, Band Neutrophils 4, Absolute Lymphocytes 0.6 L, Lymphocytes 3 L, Monocytes 6, Absolute Monocytes 1.5 H, Absolute Eosinophils 0, Absolute Basophils 0, Metamyelocytes 1, Platelet Estimate ADEQUATE, Polychromasia 1+, Ovalocytes FEW, Stomatocytes FEW, PUBS MCHC 33.8, Fld Total RBCs Counted 100, Salicylates < 1.0, Serum Alcohol < 10.0 07/01/16 0300: pH 7.24 *L, pCO2 84 *H, pO2 60 L, HCO3 36 H, ABG O2 Sat (Measured) 85.0 L, P- 50 (Temp Corrected) N, Carboxyhemoglobin 2.6, O2 Concentration % 6L, O2 Delivery Method NEB RX, Phlebotomy Draw Site RIGHT RADIAL 07/01/16 0259: Hemoglobin A1c 6.0 H Microbiology 07/01 814 URINE ROUT: Legionella Antigen - COMP 07/01 814 URINE ROUT: Streptococcus pneumoniae Antigen (M - COMP Recent Imaging Studies: Echocardiogram revealed Normal left ventricular global systolic function. Dilated and hypokinetic right ventricle. Severe Pulmonary hypertension. Mild Aortic stenosis.Right atrial enlargemen Assessment/Plan Assessment/Plan In summary this 60-year-old female has the following problems 1. Hypoxemic/hypercarbic respiratory failure likely due to COPD 2. PNA 3. Reported chronic LE edema 4. Renal insufficiency, ?acuity 5. Hx HTN 6. Elevated troponins, likely demand ischemia 7. Elevated LFTs There appears to be no significant arrhythmia or congestive heart failure. Her echocardiogram revealed a dilated right ventricle with moderate to severe degree of pulmonary hypertension. This finding can be associated with pulmonary embolus. This finding can also occur from severe lung disease. She certainly has severe COPD and multilobar pneumonia. It appears that because of her renal profile a CT angiogram is a is risk, and she is not a candidate for ventilation/ perfusion scan. She is currently on intravenous heparin. She has improved in the last 24 hours and it is possible that her improvement might have been related to the initiation of intravenous heparin although I defer to pulmonary. Previous Doppler venous study of the legs were negative for thrombus. If we cannot determine if she has had an acute pulmonary embolus I would suggest be maintained on intravenous heparin and in 48-72 hours repeat an echocardiogram in order to see her right ventricular function. At that time if her creatinine has improved she may be able to withstand a CT angiogram. Note EKG changes of sinus rhythm with significant T-wave inversion in the precordial leads which could be related to right ventricular strain. There are no regional wall motion abnormalities on her left ventricular function and therefore I agree that troponin elevation could've been to myocardial oxygen supply demand mismatch. Although the EKG changes could be related to myocardial ischemia they are also attributed to right ventricular strain. Troponins are decreasing. Continue telemetry? Yes
--- NOTE | 2016-07-02 08:48 | RADIOLOGY REPORT ---
EXAMINATION: XR PORTABLE CHEST CLINICAL INFORMATION: Hypoxic. COMPARISON: X-ray of the chest dated 07/01/2016. CT 07/01/2016. TECHNIQUE: Portable view of the chest was obtained. FINDINGS: There has been some improvement in the prominent central pulmonary vessels. Patchy airspace disease at the bilateral lower lobes also appears somewhat improved on today's examination. There is a linear focus of evolving discoid atelectasis at the right lung base. The heart does not appear enlarged. IMPRESSION: Improving vascular congestion and opacities at the bilateral lung bases. Please see recent chest CT dictation for further information.
--- NOTE | 2016-07-02 09:28 | PN- CRCU ---
Subjective HPI/Critical Care Issues: The patient is awake and alert, now off Bipap. She feels short of breath with any exertion. She has ongoing wheezing. She intermittently desaturates. I discussed the case with cardiology. Based on the echocardiogram results, the patient has a distended right atrium. A pulmonary embolism cannot be excluded. A CT angiogram was considered however the patient's renal function is poor. Empirically, the patient was placed on a heparin drip. We are considering a VQ scan for the patient now if she is able to tolerated. Objective Current Medications: Current Medications Sig/Michi Start time Last Medication Dose Route Stop Time Status Admin Albuterol Sulfate 3 ML EVERY 4 HRS/AWAKE 07/01 1200 AC 07/02 INH 0838 Aspirin 81 MG DAILY 07/02 1000 AC PO Aspirin 300 MG ONCE ONE 07/01 1515 DC 07/01 NE 07/01 1516 1805 Azithromycin 500 MG Q24H 07/02 0345 AC 07/02 Sodium Chloride 250 ML IV 0337 Ceftriaxone Sodium 1,000 MG Q24H 07/02 0330 AC 07/02 IV 0331 Glycerin/Mineral Oil 1 DIDIER TID PRN 07/01 0830 AC 07/01 TOP 1231 Guaifenesin 600 MG Q12 07/01 1000 AC PO Heparin Sodium 4,356 UNIT ONCE ONE 07/01 2315 DC 07/01 (Porcine) IV 07/01 2316 2330 Heparin Sodium 5,000 UNIT Q8 07/01 0600 DC 07/01 (Porcine) SC 1422 Heparin Sodium/ 25,000 UNIT Q24H 07/01 1445 AC 07/01 Dextrose IV 1543 Dextrose/Water 500 ML Ipratropium [place] 2.5 ML EVERY 4 HRS/AWAKE 07/01 1200 AC 07/02 INH 0838 Methylprednisolone 40 MG Q6H 07/01 0900 AC 07/02 IV 0324 Potassium Chloride 10 MEQ Q1H 07/01 1300 DC 07/01 IV 07/01 1501 1618 Vital Signs & I&O Last 24 Hrs of Vitals and I&O: Vital Signs Date Time Temp Pulse Resp B/P Pulse O2 O2 Flow FiO2 Ox Delivery Rate 07/02 0842 94 Nasal 4.0L Cannula 07/02 0739 70 93 07/02 0800 97.3 80 24 100/60 94 BIPAP 35% 07/02 08 94 BIPAP 35% 07/02 0532 68 94 07/02 0400 93 BIPAP 35% 07/02 0101 66 93 07/02 0000 97.7 70 24 100/70 94 BIPAP 35% 07/02 0000 94 BIPAP 35% 07/01 2240 73 93 07/01 1999 93 BIPAP 35% 07/01 1925 71 95 07/01 1730 93 BIPAP 35% 07/01 1615 88 97 07/01 1600 97.1 80 24 94/60 95 BIPAP 50% 07/01 1600 95 BIPAP 50% 07/01 1426 89 95 07/01 1200 BIPAP 50% 07/01 1143 82 95 07/01 1012 BIPAP 50% 07/01 1010 94 BIPAP 50% Intake & Output 07/02 0800 07/02 0000 Intake Total 417 Output Total 300 Balance 117 Intake, IV 417 Output, Urine 300 Patient 161 lb Weight Results Last 24 Hrs of Lab Results: Laboratory Tests 07/02/16 0825: pH 7.44, pCO2 51 H, pO2 69 L, HCO3 34 H, ABG O2 Sat (Measured) 93.0 L, Carboxyhemoglobin 0.7 L, O2 Concentration % 35%, Temperature 97.3, Respiration Rate 24, O2 Delivery Method VISION, Vent Mode ST, Expiratory Pressure 6, Inspiratory Pressure 20, Phlebotomy Draw Site RIGHT RADIAL 07/02/16 0630: Anion Gap 13, Estimated GFR 51 L, Glucose 157 H, Calcium 9.5, Phosphorus 3.8, Magnesium 3.2 H, Total Bilirubin 0.5, AST 143 H, ALT 300 H, Troponin I 0.18 * H, Albumin 3.4 L, APTT 79 H, CBC w Diff NO MAN DIFF REQ, RBC 4.74, MCV 92.3, MCH 30.9, RDW 14.2, MPV 8.4, Gran % 91.3 H, Lymphocytes % 4.1 L, Monocytes % 4.5, Eosinophils % 0, Basophils % 0.1, Absolute Granulocytes 11.1 H, Absolute Lymphocytes 0.5 L, Absolute Monocytes 0.6, Absolute Eosinophils 0, Absolute Basophils 0, PUBS MCHC 33.5 07/01/16 2145: APTT 35 07/01/160: pH 7.41, pCO2 54 H, pO2 78 L, HCO3 33 H, ABG O2 Sat (Measured) 94.0 L, P-50 (Temp Corrected) N, Carboxyhemoglobin 1.0 L, O2 Concentration % 35%, Temperature 97.1, Respiration Rate 24, O2 Delivery Method FFM, Vent Mode ST, Expiratory Pressure 6, Inspiratory Pressure 20, Phlebotomy Draw Site RIGHT BRACHIAL 07/01/16 1625: Troponin I 0.43 *H 07/01/16 1255: pH 7.33 L, pCO2 69 *H, pO2 89, HCO3 35 H, ABG O2 Sat (Measured) 95.0 L, P-50 (Temp Corrected) N, Carboxyhemoglobin 0.9 L, O2 Concentration % 50%, Respiration Rate 24, O2 Delivery Method BIPAP, Vent Mode ST, Expiratory Pressure 6, Inspiratory Pressure 20, Phlebotomy Draw Site RIGHT BRACHIAL 07/01/16 1015: Troponin I Cancelled 07/01/16 1015: Lactic Acid 1.4 07/01/16 1015: Sodium Cancelled, Potassium Cancelled, Chloride Cancelled, Carbon Dioxide Cancelled, Anion Gap Cancelled, BUN Cancelled, Creatinine Cancelled, BUN/ Creatinine Ratio Cancelled 07/01/16 1015: Anion Gap 16, Estimated GFR 38 L, Glucose 147 H, Calcium 9.4, Phosphorus 5.5 H, Magnesium 3.0 H, Total Bilirubin 0.6, AST 541 H, ALT 409 H, Troponin I 0.71 *H, Albumin 3.7, Hepatitis A IgM Ab NONREACTIVE, Hep Bs Antigen NONREACTIVE , Hep B Core IgM Ab Conf NONREACTIVE, Hepatitis C Antibody NONREACTIVE, Acetaminophen < 10.0 L 07/01/16 0922: Lactic Acid Cancelled Last 24 Hrs of Micro Results: Cultures are negative to date so far. Diagnostic Data CXR Findings: Improving vascular congestion and opacities at the bilateral lung bases. US Findings: Abdomen: 1. The liver is normal in size and echogenicity. 2. There is no evidence of cholecystitis. Lower extremities: Normal triplex scan without evidence of deep venous thrombosis involving the bilateral lower extremities. Left-sided Cole's cyst. Impression/Plan Impression/Plan Impression/Plan: 1. Acute on chronic hypercapnic respiratory failure, secondary to multilobar pneumonia. Neoplasm and a postobstructive pneumonia cannot be excluded. 2. Positive troponin, rule out non-ST elevation [place] versus demand ischemia. 3. Pulmonary vascular congestion, elevated BNP, rule out CHF. 4. Acute kidney injury. 5. Electrolyte abnormalities. 6. Left sided bakers cyst - to be addressed as an outpatient. Recommendations: * Will pursue VQ scan. * Continue IV heparin pending results. * Switched to high flow so the patient can have a VQ scan. * Resume BiPAP as tolerated. * Continue nebs/TRC. * Continue Solu-Medrol, ceftriaxone and azithromycin. * Continue all supportive care.
--- NOTE | 2016-07-02 10:00 | NUR ---
Patient is awake and alert, oriented x's 3, able to follow commands and responds appropriately. NSR on tele monitor, HR= 70-80's. SBP: 90-100's, and pt denies chest pain. Heparin gtt is infusing per protocol. ABG's were drawn at 0830 and patient was placed on 3L nc. Shortly after patient became short of breath and breathing more labored, O2 sats ranging from 87-91%. Dr. Olivares notified and pt was placed on high flow nasal cannula at 70%. O2 sats increased to 92-94%. Lungs diminished throughout. Patient is scheduled for a VQ scan at 1030 to rule out a PE- pt unable to have a CTA due to her elevated BUN/CR. Abdomen is distended and soft non tender with + bowel sounds. Patient able to tolerated small sips of water. [place] in place draining clear yellow urine. Skin is intact however is very dry and flakey. Trace BLE edema is noted. Pt currently denies pain and vitals are stable. Pts updated on POC. Will continue to closely monitor patient.
--- NOTE | 2016-07-02 11:41 | NUR ---
Patient was transported to Nuclear Medicine for a VQ scan by this RN on the ICU monitor. She was placed on a non rebreather for transport and then changed to 70% high flow nasal cannula upon arrival to [facility]. All vitals remained stable and O2 sat remained greater than 95 percent during the procedure. She had no complaints at tolerated the procedure well. Patient was then transported back to room 105. Speech therapy now in to assess patient and ordered for a regular diet. She is currently on 60% high flow nasal cannula. O2 sats ranging from 91-94%. She is short of breath when eatting and was reminded to take deep breaths. No complaints at this time. Will continue to closely monitor patient.
--- NOTE | 2016-07-02 12:04 | PN- Resident CRCU ---
Subjective HPI/CRCU Issues: Patient seen and examined. She is seen sitting upright in her bed resting comfortably. She is off of bipap and maintained on supplemental oxygen via high flow nasal cannula. She does not appear to be in any acute distress. Currently she denies any complaints and is requesting "a cup of coffee". Otherwise she denies any headache, fever, chills, chest pain, palpitations, shortness of breath, nausea, vomiting, diarrhea. No overnight events reported. Objective Vital Signs & I&O Last 8 Hrs of Vitals and I&O: Vital Signs: - Temp: 97.3 - 97.7 - RR: 24-37 - HR 62-78 - Systolic BP: 95-140 -Diastolic BP: 59-72 -Oxygen: 93-95% Exam General Appearance: well developed/nourished, no apparent distress, alert, awake Other Physical Findings: General -well-developed, well-nourished female in no acute distress HEENT - NCAT, PERRL, EOMI, anicteric sclera, on BiPAP Cardio - S1, S2 w/o murmurs/gallops/rubs Resp -diffuse rhonchi and scant wheezing without any crackles GI -soft, nontender, nondistended, bowel sounds present Neuro - Awake and alert, CN II - XII grossly intact Current Medications: Current Medications Sig/Michi Start time Last Medication Dose Route Stop Time Status Admin Albuterol Sulfate 3 ML EVERY 4 HRS/AWAKE 07/01 1200 AC 07/02 INH 1141 Aspirin 81 MG DAILY 07/02 1000 AC PO Aspirin 300 MG ONCE ONE 07/01 1515 DC 07/01 NC 07/01 1516 1805 Azithromycin 500 MG Q24H 07/02 0345 AC 07/02 Sodium Chloride 250 ML IV 0337 Ceftriaxone Sodium 1,000 MG Q24H 07/02 0330 AC 07/02 IV 0331 Glycerin/Mineral Oil 1 DIDIER TID PRN 07/01 0830 07/01 TOP 1231 Guaifenesin 600 MG Q12 07/01 1000 AC PO Heparin Sodium 4,356 UNIT ONCE ONE 07/01 2315 DC 07/01 (Porcine) IV 07/01 2316 2330 Heparin Sodium 5,000 UNIT Q8 07/01 0600 KS 07/01 (Porcine) SC 1422 Heparin Sodium/ 25,000 UNIT Q24H 07/01 1445 AC 07/01 Dextrose IV 1543 Dextrose/Water 500 ML Ipratropium [place] 2.5 ML EVERY 4 HRS/AWAKE 07/01 1200 AC 07/02 INH 1141 Methylprednisolone 40 MG Q6H 07/01 0900 AC 07/02 IV 0919 Potassium Chloride 10 MEQ Q1H 07/01 1300 DC 07/01 IV 07/01 1501 1618 Impression/Plan Impression/Problem List Impression: Patient continues to improve while on BiPAP and heparin drip. Echocardiogram demonstrates right heart strain and severe pulmonary hypertension, possibly secondary to pulmonary embolism. She reportedly refused the CTA scan, however her creatinine levels remain elevated so a VQ scan was obtained in lieu of this. Records obtained yesterday from her PCP office did not include any lab work or EKG as she has been seen only for health maintenance visits. She passed her swallow evaluation and was placed on a regular diet. Heparin will continue for another 48-72 hours with daily troponin/EKGs. VQ scan needs to be followed up. Problem list: -CHF versus COPD exacerbation -Elevated troponins, most likely secondary to right heart strain -Pulmonary hypertension -Possible pulmonary embolism, on heparin Cardiovascular: Patient admitted for hypoxia with imaging demonstrated vascular pulmonary congestion. BNP was elevated to 24,600. Physical examination did not demonstrate any JVD or lower extremity edema. Initial troponin was found to your 0.47 be elevated with an increase to 0.71. EKG obtained demonstrated T- wave inversions in V1-V5 without any ST segment changes. foreign legal consultant was contacted and it was decided to start the patient on a heparin drip without a bolus for a low suspicion of acute coronary syndrome. Patient was guiac negative. -Aspirin 81 mg by mouth daily -Heparin Drip -Cardiology consult following, follow-up recommendations -Daily EKG/Troponin Pulmonary: Patient with progressive shortness of breath and cough for roughly 1 week brought in by ambulance for evaluation after she was seen to be pale/blue by her . She was reportedly hypoxic to 78% in the field. She has no known cardiac or pulmonary disease however has a long history of smoking but has cut down to about 1 pack per month. Her smokes 3/4 cigars daily in the home. CT scan demonstrates emphysema in addition to findings suggestive of infection. Lower extremity Doppler ruled out presence of deep vein thrombosis. -Continue BiPAP -TRC, albuterol, ipratropium -Azithromycin 500 mg IV daily -Ceftriaxone 1 g IV daily -Methylprednisone 40 mg IV every 6 hours -Mucinex 600 mg by mouth every 12 hours -Daily chest x-ray/ABG -Follow-up cultures and sputum cytology Diet- Regular diet DVT PPx - on heparin drip CODE STATUS-full code Problem List: 1. Pneumonia 2. Pulmonary vascular congestion 3. Hypercapnic respiratory failure 4. Renal insufficiency 5. Elevated LFTs Pain Ratin Tomorrow's Labs & Rationales: CBC ICU Bundle Troponin EKG Plan DVT/Prophylaxis: pharmacological
--- NOTE | 2016-07-02 13:02 | NUCLEAR MEDICINE REPORT ---
EXAMINATION: PULMONARY VENTILATION PERFUSION STUDY CLINICAL INFORMATION: Hypoxia and tachypnea. COMPARISON: No previous lung scan is available for comparison. A chest radiograph dated 07/02/2016, the same date as this lung scan, is available for comparison. TECHNIQUE: Serial gamma scintillation camera images were obtained over the posterior chest during the single breath, equilibrium rebreathing and washout of 17.7 mCi Xe 133 gas. The patient then received 4.3 mCi Tc-99m MAA intravenously and a 6-view perfusion study was performed. FINDINGS: Ventilation images: On the single breath and equilibrium images there is homogeneous distribution of gas bilaterally. There is some decreased activity in the region of the heart medially at the left lung base. During the washout phase there is no abnormal retention. Perfusion images: No segmental perfusion defects are present. There is homogeneous distribution of activity bilaterally. There are no focal anatomic appearing perfusion defects present. IMPRESSION: Normal radionuclide lung ventilation perfusion scan.
[2016-07-02 16:00] VITALS: BP 110/60
[2016-07-03] VITALS: BP 96/60
--- NOTE | 2016-07-03 00:52 | NUR ---
0000 PATIENT RECEIVED ALERT AND ORIENTED X3, SKIN PINK, WARM AND DRY, AIR EXPORT COORDINATOR SINUS WITHOUT ECTOPY, HEART RATE 60'S/MIN, PATIENT DENIES ANY C/O DISCOMFORT AT THIS TIME, TOLERATING BIPAP WELL- 20/6, RR 24, FIO2 35%- CONTINUOUS O2 SAT 98%, BREATHE SOUNDS CLEAR EXCEPT FOR FAINT RHONCHI NOTED AT BOTH BASES, ABDOMEN SOFT, +BS, HACKETT TO GRAVITY DRAINAGE WITH CLEAR YELLOW UO NOTED, SKIN CARE GIVEN, PATIENT TURNED AND POSITIONED WITH PILLOWS, SETTLED FOR SLEEP, CALL LIGHT WITHIN REACH
[2016-07-03 05:14] LABS: ABSOLUTE BASOPHIL COUNT 0 /CUMM (0.0-0.2); ABSOLUTE EOSINOPHIL COUNT 0 /CUMM (0.0-0.7); ABSOLUTE GRANULOCYTE CT 10.3 /CUMM (1.4-6.5); ABSOLUTE LYMPH COUNT 0.4 /CUMM (1.2-3.4); ABSOLUTE MONOCYTE COUNT 0.4 /CUMM (0.10-0.60); BASOPHIL % 0 % (0.0-2.0); EOSINOPHIL % 0 % (0-5); GRANULOCYTE % 92.2 % (42.2-75.2); HEMATOCRIT 41.5 % (37-47); MEAN CORPUSCULAR HGB 30.9 PG (27.0-31.0); MEAN CORPUSCULAR HGB CONC 33.3 G/DL (33.0-37.0); MEAN CORPUSCULAR VOLUME 92.8 FL (81.0-99.0); MEAN PLATELET VOLUME 8.4 FL (7.4-10.4); PLATELET COUNT 238 /CUMM (130-400); RED BLOOD CELL CT 4.47 /CUMM (4.20-5.40); WHITE BLOOD CELL COUNT 11.1 /CUMM (4.8-10.8)
[2016-07-03 08:00] VITALS: BP 114/62
--- NOTE | 2016-07-03 08:06 | NUR ---
0630 PATIENT HAS TOLERATED BIPAP WELL OVERNIGHT, HAS ALSO SLEPT FAIRLY WELL, DENIES ANY C/O DISCOMFORT, AM PORTABLE CXR DONE, AWAITING AM MD ROUNDS
--- NOTE | 2016-07-03 08:58 | PN- CRCU ---
Subjective HPI/Critical Care Issues: The patient is awake and alert. She feels much less short of breath. Her cough has improved but not resolved. She is tolerating longer times off Bipap. Her oxygen level has significantly improved. Her VQ scan was normal and her heparin was discontinued. Objective Current Medications: Current Medications Sig/Michi Start time Last Medication Dose Route Stop Time Status Admin Albuterol Sulfate 3 ML EVERY 4 HRS/AWAKE 07/01 1200 AC 07/02 INH 2200 Aspirin 81 MG DAILY 07/02 1000 AC 07/02 PO 1229 Azithromycin 500 MG Q24H 07/02 0345 AC 07/03 Sodium Chloride 250 ML IV 0336 Ceftriaxone Sodium 1,000 MG Q24H 07/02 0330 AC 07/03 IV 0323 Glycerin/Mineral Oil 1 DIDIER TID PRN 07/01 0830 AC 07/01 TOP 1231 Guaifenesin 600 MG Q12 07/01 1000 AC 07/02 PO 2115 Heparin Sodium/ 25,000 UNIT Q24H 07/01 1445 DC 07/02 Dextrose IV 1519 Dextrose/Water 500 ML Ipratropium Mineral 2.5 ML EVERY 4 HRS/AWAKE 07/01 1200 AC 07/02 INH 2200 Methylprednisolone 40 MG Q6H 07/01 0900 AC 07/03 IV 0319 Potassium Chloride 40 MEQ Q1 07/02 1300 DC 07/02 PO 07/02 1401 1422 Vital Signs & I&O Last 24 Hrs of Vitals and I&O: Vital Signs Date Time Temp Pulse Resp B/P Pulse O2 O2 Flow FiO2 Ox Delivery Rate 07/03 0810 98 07/03 0550 66 96 07/03 0411 67 93 07/03 0400 94 BIPAP 35% 07/03 0200 67 92 07/03 0000 98 BIPAP 35% 07/03 0000 97.8 68 24 96/60 98 BIPAP 35% 07/02 2210 71 95 07/02 2000 94 Nasal 50% Cannula 07/02 1800 96 Nasal 70% Cannula 07/02 1600 100 Nasal 70% Cannula 07/02 1600 98.2 78 22 110/60 100 Nasal 70% Cannula 07/02 1429 95 Nasal 70% Cannula 07/02 1200 94 Nasal 60% Cannula 07/02 1048 94 Nasal 70% Cannula 07/02 0842 94 Nasal 4.0L Cannula 07/02 0839 70 93 Intake & Output 07/03 1600 01/06 0800 07/03 0000 Intake Total 455 566.6 Output Total 410 600 Balance 45 -33.4 Intake, IV 280 46.6 Intake, Oral 175 520 Number 0 Bowel Movements Output, Urine 410 600 Patient 166 lb Weight Exam General Appearance: alert, awake, comfortable, on Bipap Head: atraumatic, normal appearance Neck: supple, full range of motion Respiratory: no respiratory distress, diminished breath sounds, faint wheezing Cardiovascular: regular rate/rhythm, heart sounds distant Abdomen: normal bowel sounds, soft, non-tender Extremities: no edema Skin: intact, normal color, warm/dry Results Last 24 Hrs of Lab Results: Laboratory Tests 07/03/16 0400: Anion Gap 12, Estimated GFR 57 L, Glucose 147 H, Calcium 9.5, Phosphorus 3.0, Magnesium 2.8 H, Total Bilirubin 0.5, AST 58 H, ALT 216 H, Troponin I 0.09, Albumin 3.3 L, CBC w Diff NO MAN DIFF REQ, RBC 4.47, MCV 92.8, MCH 30.9, RDW 14.0, MPV 8.4, Gran % 92.2 H, Lymphocytes % 3.8 L, Monocytes % 4.0, Eosinophils % 0, Basophils % 0 L, Absolute Granulocytes 10.3 H, Absolute Lymphocytes 0.4 L, Absolute Monocytes 0.4, Absolute Eosinophils 0, Absolute Basophils 0, PUBS MCHC 33.3 07/02/16 2302: Lactic Acid Cancelled 07/02/16 2002: Troponin I Cancelled, PT Cancelled, INR Cancelled, CBC w Diff Cancelled, WBC Cancelled, RBC Cancelled, Hgb Cancelled, Hct Cancelled, MCV Cancelled, MCH Cancelled, RDW Cancelled, Plt Count Cancelled, MPV Cancelled, PUBS MCHC Cancelled 07/02/16 1830: APTT Cancelled Diagnostic Data Radiology Findings: Normal radionuclide lung ventilation perfusion scan. Impression/Plan Impression/Plan Impression/Plan: 1. Acute on chronic hypercapnic respiratory failure, secondary to multilobar pneumonia. Neoplasm and a postobstructive pneumonia cannot be excluded. 2. Positive troponin, rule out non-ST elevation PR versus demand ischemia. 3. Pulmonary vascular congestion, elevated BNP, rule out CHF. 4. Acute kidney injury - improving. 5. Electrolyte abnormalities. 6. Left sided bakers cyst - to be addressed as an outpatient. Recommendations: * Continue BiPAP as necessary, please continue to give breaks off as tolerated. * Continue nebs/TRC. * Taper oxygen down to maintain sats greater then 92%. * Continue ceftriaxone and azithromycin - day 3. * Decrease Solu-Medrol to 40 mg every 12 hours. * Diuresis on hold as per cardiology. * Please get the patient out of bed today. * Resume subcutaneous heparin now that the heparin drip is off. * Downgrade to telemetry but maintain continuous pulse oximetry. * Continue all supportive care.
--- NOTE | 2016-07-03 09:29 | RADIOLOGY REPORT ---
EXAMINATION: XR PORTABLE CHEST CLINICAL INFORMATION: CHF versus COPD. COMPARISON: X-ray of the chest performed 07/02/2016. TECHNIQUE: Portable view of the chest was obtained. FINDINGS: New trace left pleural effusion. Possible trace right pleural effusion. No focal consolidation. Mild prominence of the central pulmonary vessels has decreased since the prior study. Heart size is within normal limits. No acute osseous abnormality. IMPRESSION: Slightly decreased pulmonary vascular congestion. Trace left and possible trace right pleural effusions. No other significant interval change.
--- NOTE | 2016-07-03 13:35 | PN- Resident CRCU ---
Subjective HPI/CRCU Issues: Patient seen and examined. She is seen sitting upright in her bed resting comfortably. She is maintained on supplemental oxygen via nasal cannula. She appears to be in no acute distress. She admits to having a nonproductive minimal cough but otherwise feels well and has no complaints. Additionally she denies any headache, fever, chills, chest pain, palpitations, increased shortness of breath, nausea, vomiting, diarrhea. No overnight events reported. Objective Vital Signs & I&O Last 8 Hrs of Vitals and I&O: Vitals: - Temperature: 97.8-98.6 - Heart Rate: 66-67 - Respiratory Rate: 24 - Systolic Blood pressure: 114 - Diastolic Blood pressure: 62 - Oxygen Saturation: 92-98% via nasal cannula at 45% FiO2 Exam General Appearance: well developed/nourished, no apparent distress, alert, awake , comfortable, obese Other Physical Findings: General -well-developed, well-nourished elderly female in no acute distress HEENT - NCAT, PERRL, EOMI, anicteric sclera, high flow nasal cannula in place Cardio - S1, S2 w/o murmurs/gallops/rubs Resp -minimal rhonchi/wheezing in all 4 lung campos GI -soft, nontender, nondistended, bowel sounds present Neuro - Awake and alert, CN II - XII grossly intact Current Medications: Current Medications Sig/Michi Start time Last Medication Dose Route Stop Time Status Admin Albuterol Sulfate 3 ML EVERY 4 HRS/AWAKE 07/01 1200 AC 07/03 INH 1248 Aspirin 81 MG DAILY 07/02 1000 AC 07/03 PO 0945 Azithromycin 500 MG Q24H 07/02 0345 AC 07/03 Sodium Chloride 250 ML IV 0336 Ceftriaxone Sodium 1,000 MG Q24H 07/02 0330 AC 07/03 IV 0323 Glycerin/Mineral Oil 1 DIDIER TID PRN 07/01 0830 AC 07/01 TOP 1231 Guaifenesin 600 MG Q12 07/01 1000 AC 07/03 PO 0945 Heparin Sodium/ 25,000 UNIT Q24H 07/01 1445 DC / Dextrose IV 1519 Dextrose/Water 500 ML Ipratropium [place] 2.5 ML EVERY 4 HRS/AWAKE 07/01 1200 AC 07/03 INH 1249 Methylprednisolone 40 MG Q12 07/03 2200 AC IV Methylprednisolone 40 MG Q6H 07/01 0900 DC 07/03 IV 0945 Potassium Chloride 40 MEQ Q1 07/02 1300 DC 07/02 PO 07/02 1401 1422 Impression/Plan Impression/Problem List Impression: Patient continues to improve on supplemental oxygen, intravenous steroids and antibiotics. VQ scan performed yesterday was negative for any perfusion abnormalities for which the heparin drip was discontinued. Troponins have normalized today. Stool was reportedly guaiac positive today, follow-up CBC will be obtained this evening. Patient is downgraded to telemetry with continuous pulse ox. Problem list: -CHF versus COPD exacerbation -Elevated troponins, most likely secondary to right heart strain -Pulmonary hypertension -Pulmonary mass, focal pneumonia vs pulmonary neoplasm Cardiovascular: Patient admitted for hypoxia with imaging demonstrated vascular pulmonary congestion. BNP was elevated to 24,600. Physical examination did not demonstrate any JVD or lower extremity edema. Initial troponin was found to your 0.47 be elevated with an increase to 0.71. EKG obtained demonstrated T- wave inversions in V1-V5 without any ST segment changes. information systems consultant was contacted and it was decided to start the patient on a heparin drip without a bolus for a low suspicion of acute coronary syndrome. Patient was guiac negative. -Aspirin 81 mg by mouth daily -Heparin Drip discontinued -Cardiology consult following, follow-up recommendations -Daily EKG/Troponin Pulmonary: Patient with progressive shortness of breath and cough for roughly 1 week brought in by ambulance for evaluation after she was seen to be pale/blue by her . She was reportedly hypoxic to 78% in the field. She has no known cardiac or pulmonary disease however has a long history of smoking but has cut down to about 1 pack per month. Her smokes 3/4 cigars daily in the home. CT scan demonstrates emphysema in addition to findings suggestive of infection. Lower extremity Doppler ruled out presence of deep vein thrombosis. -Continue BiPAP -TRC, albuterol, ipratropium -Azithromycin 500 mg IV daily -Ceftriaxone 1 g IV daily -Methylprednisone 40 mg IV every 12 hours -Mucinex 600 mg by mouth every 12 hours -Daily chest x-ray/ABG -Follow-up cultures and sputum cytology Diet- Regular diet DVT PPx - on heparin drip CODE STATUS-full code Problem List: 1. Pneumonia 2. Pulmonary vascular congestion 3. Hypercapnic respiratory failure 4. Renal insufficiency 5. Elevated LFTs Pain Ratin Tomorrow's Labs & Rationales: CBC ICU bundle CXR Plan DVT/Prophylaxis: pharmacological
--- NOTE | 2016-07-03 14:51 | NUR ---
SPEECH THERAPY: PER RN AND MD, PT TOLERATING CURRENT DIET (REGULAR AND THIN LIQUIDS) WITH NO SWALLOWING DIFFICULTIES. NO FURTHER SKILLED ST SERVICES CLINICALLY INDICATED AT THIS TIME. PLEASE RE-REFER IF PT STATUS CHANGES.
--- NOTE | 2016-07-03 15:50 | PN- Cardiology ---
Subjective Subjective: Patient is improving. Currently on high flow nasal cannula oxygen. Denies chest pain. Objective Vital Signs and I&Os Vital Signs Date Time Temp Pulse Resp B/P Pulse O2 O2 Flow FiO2 Ox Delivery Rate 07/03 1200 94 Nasal 45% Cannula 07/03 0925 92 Nasal 3.0L Cannula 07/03 0810 98 07/03 0800 98.6 67 24 114/62 97 BIPAP 35% 07/03 0800 97 BIPAP 35% 07/03 0550 66 96 07/03 0411 67 93 07/03 0400 94 BIPAP 35% 07/03 0200 67 92 07/03 0000 98 BIPAP 35% 07/03 0000 97.8 68 24 96/60 98 BIPAP 35% 07/02 2210 71 95 07/02 2000 94 Nasal 50% Cannula 07/02 1800 96 Nasal 70% Cannula 07/02 1600 100 Nasal 70% Cannula 07/02 1600 98.2 78 22 110/60 100 Nasal 70% Cannula Intake & Output 07/03 1600 07/03 0807/03 0000 07/02 1600 07/02 0807/02 0000 Intake Total 480 455 566.6 485 417 Output Total 350 410 600 350 300 Balance 130 45 -33.4 135 117 Intake, IV 280 46.6 195 417 Intake, Oral 480 175 520 290 Number 1 0 Bowel Movements Output, Urine 350 410 600 350 300 Patient 166 lb 161 lb Weight Physical Exam: General: No distress, on high flow nasal O2 Eyes: No obvious scleral icterus. HEENT: No jugular venous distention or abnormal jugular venous pulsations. Cardiovascular: Normal intensity S1/S2. Regular. 1/6 SM. Respiratory: decreased air entry bilaterally with wheezes Abdomen: soft, no rebound tenderness Musculoskeletal: No cyanosis noted, no edema Skin: Warm Neurologic: No gross focal deficits noted. Current Medications: Current Medications Sig/Michi Start time Last Medication Dose Route Stop Time Status Admin Albuterol Sulfate 3 ML EVERY 4 HRS/AWAKE 07/01 1200 AC 07/03 INH 1248 Aspirin 81 MG DAILY 07/02 1000 AC 07/03 PO 0945 Azithromycin 500 MG Q24H 07/02 0345 AC 07/03 Sodium Chloride 250 ML IV 0336 Ceftriaxone Sodium 1,000 MG Q24H 07/02 0330 AC 07/03 IV 0323 Glycerin/Mineral Oil 1 DIDIER TID PRN 07/01 0830 AC 07/01 TOP 1231 Guaifenesin 600 MG Q12 07/01 1000 AC 07/03 PO 0945 Heparin Sodium 5,000 UNIT Q8 07/03 1400 AC (Porcine) SC Heparin Sodium/ 25,000 UNIT Q24H 07/01 1445 DC 07/02 Dextrose IV 1519 Dextrose/Water 500 ML Ipratropium [place] 2.5 ML EVERY 4 HRS/AWAKE 07/01 1200 AC 07/03 INH 1249 Methylprednisolone 40 MG Q12 07/03 2200 AC IV Methylprednisolone 40 MG Q6H 07/01 0900 DC 07/03 IV 0945 Results Last 48 Hrs of Labs/Mics: Laboratory Tests 07/03/16 0920: pH 7.41, pCO2 52 H, pO2 60 L, HCO3 32 H, ABG O2 Sat (Measured) 90.0 L, P-50 (Temp Corrected) NO, Carboxyhemoglobin 0.5 L, O2 Concentration % 3L, Temperature 97.8, O2 Delivery Method NC, Phlebotomy Draw Site RIGHT RADIAL 07/03/16 0400: Anion Gap 12, Estimated GFR 57 L, Glucose 147 H, Calcium 9.5, Phosphorus 3.0, Magnesium 2.8 H, Total Bilirubin 0.5, AST 58 H, ALT 216 H, Troponin I 0.09, Albumin 3.3 L, CBC w Diff NO MAN DIFF REQ, RBC 4.47, MCV 92.8, MCH 30.9, RDW 14.0, MPV 8.4, Gran % 92.2 H, Lymphocytes % 3.8 L, Monocytes % 4.0, Eosinophils % 0, Basophils % 0 L, Absolute Granulocytes 10.3 H, Absolute Lymphocytes 0.4 L, Absolute Monocytes 0.4, Absolute Eosinophils 0, Absolute Basophils 0, PUBS MCHC 33.3 07/02/16 2302: Lactic Acid Cancelled 07/02/16 2002: Troponin I Cancelled, PT Cancelled, INR Cancelled, CBC w Diff Cancelled, WBC Cancelled, RBC Cancelled, Hgb Cancelled, Hct Cancelled, MCV Cancelled, MCH Cancelled, RDW Cancelled, Plt Count Cancelled, MPV Cancelled, PUBS MCHC Cancelled 07/02/16 1830: APTT Cancelled 07/02/16 0825: pH 7.44, pCO2 51 H, pO2 69 L, HCO3 34 H, ABG O2 Sat (Measured) 93.0 L, Carboxyhemoglobin 0.7 L, O2 Concentration % 35%, Temperature 97.3, Respiration Rate 24, O2 Delivery Method VISION, Vent Mode ST, Expiratory Pressure 6, Inspiratory Pressure 20, Phlebotomy Draw Site RIGHT RADIAL 07/02/16 0630: Anion Gap 13, Estimated GFR 51 L, Glucose 157 H, Calcium 9.5, Phosphorus 3.8, Magnesium 3.2 H, Total Bilirubin 0.5, AST 143 H, ALT 300 H, Troponin I 0.18 * H, Albumin 3.4 L, APTT 79 H, CBC w Diff NO MAN DIFF REQ, RBC 4.74, MCV 92.3, MCH 30.9, RDW 14.2, MPV 8.4, Gran % 91.3 H, Lymphocytes % 4.1 L, Monocytes % 4.5, Eosinophils % 0, Basophils % 0.1, Absolute Granulocytes 11.1 H, Absolute Lymphocytes 0.5 L, Absolute Monocytes 0.6, Absolute Eosinophils 0, Absolute Basophils 0, PUBS MCHC 33.5 07/01/16 2145: APTT 35 07/01/160: pH 7.41, pCO2 54 H, pO2 78 L, HCO3 33 H, ABG O2 Sat (Measured) 94.0 L, P-50 (Temp Corrected) N, Carboxyhemoglobin 1.0 L, O2 Concentration % 35%, Temperature 97.1, Respiration Rate 24, O2 Delivery Method FFM, Vent Mode ST, Expiratory Pressure 6, Inspiratory Pressure 20, Phlebotomy Draw Site RIGHT BRACHIAL 07/01/16 1625: Troponin I 0.43 *H Recent Imaging Studies: Telemetry tracings were personally reviewed and shows sinus rhythm V/Q scan IMPRESSION: Normal radionuclide lung ventilation perfusion scan. CXR IMPRESSION: Slightly decreased pulmonary vascular congestion. Trace left and possible trace right pleural effusions. No other significant interval change. Assessment/Plan Assessment/Plan 1. Hypoxemic/hypercarbic respiratory failure likely due to COPD with severe pulmonary hypertension and right ventricular dysfunction by echocardiogram (No PE by V/Q) 2. PNA 3. Reported chronic LE edema 4. Acute renal insufficiency, improving 5. Hx HTN 6. Elevated troponins, likely demand ischemia 7. Elevated LFTs 8. Mild aortic stenosis Patient is improving. Creatinine trending down off Lasix. Can likely restart Lasix 20 mg by mouth daily starting tomorrow. There was no evidence of pulmonary embolism by VQ scan and heparin drip has been discontinued. Continue daily aspirin but hold statin until LFTs normalize. Antibiotics and steroids per pulmonary. Plan for outpatient stress testing in the future. Isaías Jameson MD [facility] Continue telemetry? Yes
[2016-07-03 16:00] VITALS: BP 118/64
--- NOTE | 2016-07-03 17:21 | NUR ---
Patient is alert and oriented x's 3, able to follow commands and respond appropriately. NSR on tele monitor. HR= 60-90's. SBP: 90-120's and pt denies chest pain. Has been downgraded to a tele hold with continous pulse ox. Currently on 40% high flow nasal cannula, O2 sats 94%- She was only able to tolerated nasal cannula for approx 20 minutes this morning before desatruating to as low as 85%. Lungs wheezey and rhonchorous and pt has a non productive cough. Abdomen is distended and soft, non tender with + bowel sounds. OOB to chair and BSC with assistance of 1- BM today and was guiac positive- Dr. Crabtree notified and repeat CBC was ordered for 1800. [place] was dc at 1420 and patient is due to void. Skin remains intact but is dry and flakey- lubriderm applied. Vitals remain stable and pt denies pain. updated on POC. Will continue to closely monitor patient.
[2016-07-03 18:49] LABS: ABSOLUTE BASOPHIL COUNT 0 /CUMM (0.0-0.2); ABSOLUTE EOSINOPHIL COUNT 0 /CUMM (0.0-0.7); ABSOLUTE GRANULOCYTE CT 11.7 /CUMM (1.4-6.5); ABSOLUTE LYMPH COUNT 0.4 /CUMM (1.2-3.4); ABSOLUTE MONOCYTE COUNT 0.8 /CUMM (0.10-0.60); BASOPHIL % 0.1 % (0.0-2.0); EOSINOPHIL % 0.1 % (0-5); HEMATOCRIT 43.1 % (37-47); MEAN CORPUSCULAR HGB 30.6 PG (27.0-31.0); MEAN CORPUSCULAR HGB CONC 33.4 G/DL (33.0-37.0); MEAN CORPUSCULAR VOLUME 91.8 FL (81.0-99.0); MEAN PLATELET VOLUME 7.8 FL (7.4-10.4); PLATELET COUNT 276 /CUMM (130-400); RBC DISTRIBUTION WIDTH 14.2 % (11.5-14.5); WHITE BLOOD CELL COUNT 12.9 /CUMM (4.8-10.8)
[2016-07-03 19:33] LABS: GRANULOCYTE % 90.6 % (42.2-75.2)
[2016-07-03 22:00] VITALS: BP 126/54
[2016-07-04 05:18] LABS: ABSOLUTE BASOPHIL COUNT 0 /CUMM (0.0-0.2); ABSOLUTE EOSINOPHIL COUNT 0 /CUMM (0.0-0.7); ABSOLUTE GRANULOCYTE CT 11.2 /CUMM (1.4-6.5); ABSOLUTE LYMPH COUNT 0.3 /CUMM (1.2-3.4); ABSOLUTE MONOCYTE COUNT 0.5 /CUMM (0.10-0.60); BASOPHIL % 0.2 % (0.0-2.0); EOSINOPHIL % 0 % (0-5); HEMATOCRIT 41.4 % (37-47); MEAN CORPUSCULAR HGB 30.8 PG (27.0-31.0); MEAN CORPUSCULAR HGB CONC 33.1 G/DL (33.0-37.0); MEAN CORPUSCULAR VOLUME 93.2 FL (81.0-99.0); PLATELET COUNT 263 /CUMM (130-400); RBC DISTRIBUTION WIDTH 14.1 % (11.5-14.5); RED BLOOD CELL CT 4.45 /CUMM (4.20-5.40); WHITE BLOOD CELL COUNT 12.1 /CUMM (4.8-10.8)
--- NOTE | 2016-07-04 07:44 | RADIOLOGY REPORT ---
EXAMINATION: XR PORTABLE CHEST CLINICAL INFORMATION: Hypoxia and tachypnea COMPARISON: Chest x-ray 07/03/2016 TECHNIQUE: AP portable semiupright chest x-ray FINDINGS: Heart size is upper limits of normal and unchanged. Pulmonary vascularity is normal. Some hazy opacity at the left base with blunting the costophrenic sulcus could be related to some atelectasis and effusion. There is no new focal finding in the lungs. No pulmonary edema is seen at this time. IMPRESSION: There is little interval change in the chest x-ray since the previous examination with some hazy opacity at the left lung base and no new focal finding.
[2016-07-04 08:00] VITALS: BP 110/60
--- NOTE | 2016-07-04 08:25 | PN- Housestaff ---
Subjective Follow-up For: - CHF versus COPD exacerbation - Elevated troponins, most likely secondary to right heart strain - Pulmonary hypertension - Pulmonary mass, focal pneumonia vs pulmonary neoplasm Complaints: no complaints Tele-Events Since Last Visit: HR 65-80bpm. No significant events overnight. Subjective: I saw and examined the patient today morning. She is sitting comfortably on her chair, on high flow oxygen. She is saturating well. Review of Systems Constitutional: Reports: no symptoms, see HPI. Respiratory: Reports: see HPI, cough, short of breath. Gastrointestinal: Reports: no symptoms. Genitourinary: Reports: no symptoms. Musculoskeletal: Reports: no symptoms. Skin: Reports: no symptoms. Neurological/Psychological: Reports: no symptoms. Comments: ROS negative except the above. Objective Last 24 Hrs of Vital Signs/I&O Vital Signs Date Time Temp Pulse Resp B/P Pulse O2 O2 Flow FiO2 Ox Delivery Rate 07/04 0739 92 Nasal 35% Cannula 07/04 799 98.8 82 23 110/60 93 Nasal 40% Cannula 07/04 08 93 Nasal 40% Cannula 07/03 2248 93 Nasal 40% Cannula 07/03 2200 97.9 78 20 126/54 93 Nasal 40% Cannula 07/03 1652 94 Nasal 35% Cannula 07/03 1600 94 Nasal 40% Cannula 07/03 1600 97.9 81 22 118/64 94 Nasal 40% Cannula Intake & Output 07/04 1600 07/04 0800 07/04 0000 Intake Total 474 340 400 Output Total 650 500 Balance -176 -160 400 Intake, IV 24 Intake, Oral 450 340 400 Number 1 0 Bowel Movements Output, Urine 650 500 Physical Exam General Appearance: Alert, Oriented X3, Cooperative, No Acute Distress Skin: No Rashes HEENT: Atraumatic, PERRLA Neck: Supple, No JVD Cardiovascular: Regular Rate, Normal S1, Normal S2, No Murmurs Lungs: Clear to Auscultation, Normal Air Movement, On high flow oxygen Abdomen: Normal Bowel Sounds, Soft, No Tenderness Neurological: Normal Gait, Normal Speech Extremities: No Clubbing, No Cyanosis, No Edema Vascular: Pulses Symmetrical Current Medications: Current Medications Sig/Michi Start time Last Medication Dose Route Stop Time Status Admin Acetaminophen 1,000 MG ONCE ONE 07/04 629 CAN N/A 1 UNIT IV 07/04 643 Albuterol Sulfate 3 ML EVERY 4 HRS/AWAKE 07/01 1200 AC 07/04 INH 1243 Aspirin 81 MG DAILY 07/02 1000 AC 07/04 PO 0917 Azithromycin 500 MG Q24H 07/02 0345 AC 07/04 Sodium Chloride 250 ML IV 0340 Ceftriaxone Sodium 1,000 MG Q24H 07/02 0330 AC 07/04 IV 0341 Furosemide 20 MG DAILY 07/04 1000 AC 07/04 PO 0917 Glycerin/Mineral Oil 1 DIDIER TID PRN 07/01 0830 AC 07/04 TOP 0920 Guaifenesin 600 MG Q12 07/01 1000 AC 07/04 PO 0917 Heparin Sodium 5,000 UNIT Q8 07/03 1400 DC (Porcine) SC Ipratropium [place] 2.5 ML EVERY 4 HRS/AWAKE 07/01 1200 AC 07/04 INH 1243 Methylprednisolone 40 MG Q12 07/03 2200 AC 07/04 IV 0917 Patient Medication 1 UNIT ONE NR 07/03 1930 DC Teaching ED 07/03 1999 Last 24 Hrs of Lab/[place] Results Last 24 Hrs of Labs/Mics: Laboratory Tests 07/04/16 0345: Anion Gap 9, Estimated GFR 57 L, Glucose 123 H, Calcium 9.3, Phosphorus 4.2, Magnesium 2.6 H, Total Bilirubin 0.5, AST 39 H, ALT 161 H, Albumin 3.2 L, CBC w Diff NO MAN DIFF REQ, RBC 4.45, MCV 93.2, MCH 30.8, RDW 14.1, MPV 8.0, Gran % 93.0 H, Lymphocytes % 2.8 L, Monocytes % 4.0, Eosinophils % 0, Basophils % 0.2, Absolute Granulocytes 11.2 H, Absolute Lymphocytes 0.3 L, Absolute Monocytes 0.5, Absolute Eosinophils 0, Absolute Basophils 0, PUBS MCHC 33.1 07/03/16 1810: CBC w Diff NO MAN DIFF REQ, RBC 4.70, MCV 91.8, MCH 30.6, RDW 14.2, MPV 7.8, Gran % 90.6 H, Lymphocytes % 2.7 L, Monocytes % 6.5, Eosinophils % 0.1, Basophils % 0.1, Absolute Granulocytes 11.7 H, Absolute Lymphocytes 0.4 L, Absolute Monocytes 0.8 H, Absolute Eosinophils 0, Absolute Basophils 0, PUBS MCHC 33.4 Assessment/Plan Assessment: Patient is a 60 YO F with no significan PMH presented with shortness of breath, (Hypoxia), elevated proBNP. On evaluation found to have elevated troponin which eventually trended down. She was started on IV heparin initially suspecting PE as her ECHO shows right heart strain which was discontinued after perfectly normal V/Q scan. she is breathing well, on high flow Oxygen initially in the morning, later changed to NC. Problem list: -CHF versus COPD exacerbation -Elevated troponins, most likely secondary to right heart strain -Pulmonary hypertension -Pulmonary mass, focal pneumonia vs pulmonary neoplasm Cardiovascular: Patient admitted for hypoxia with imaging demonstrated vascular pulmonary congestion. BNP was elevated to 24,600. Physical examination did not demonstrate any JVD or lower extremity edema. Initial troponin was found to your 0.47 be elevated with an increase to 0.71. EKG obtained demonstrated T- wave inversions in V1-V5 without any ST segment changes. institutional nutrition consultant was contacted and it was decided to start the patient on a heparin drip without a bolus for a low suspicion of acute coronary syndrome. Patient was guiac negative. -Aspirin 81 mg by mouth daily -Cardiology consult following - stable. -Daily EKG/Troponin Pulmonary: Patient with progressive shortness of breath and cough for roughly 1 week brought in by ambulance for evaluation after she was seen to be pale/blue by her . She was reportedly hypoxic to 78% in the field. She has no known cardiac or pulmonary disease however has a long history of smoking but has cut down to about 1 pack per month. Her smokes 3/4 cigars daily in the home. CT scan demonstrates emphysema in addition to findings suggestive of infection. Lower extremity Doppler ruled out presence of deep vein thrombosis. - OFF BiPAP -TRC, albuterol, ipratropium -Azithromycin 500 mg IV and Ceftriaxone 1 g IV daily - Day 3 (for 7 days) -Methylprednisone 40 mg IV every 12 hours -Mucinex 600 mg by mouth every 12 hours. -Daily chest x-ray/ABG -cultures and sputum cytology are negative. DVT Prophylaxis * SC heparin Code Status * Full Code Problem List: 1. Hypercapnic respiratory failure 2. Elevated LFTs 3. Pneumonia Pain Ratin Pain Location: n/a Pain Goal: Remain pain free Pain Plan: none Tomorrow's Labs & Rationales: ICU bundle cbc
--- NOTE | 2016-07-04 08:26 | NUR ---
@0800-PT ALERT AND ORIENTED, CALM AND COOP. ASSISTED OOB TO BSC, VOIDED AND BM-DARK BROWN IN COLOR, GUIAC POSITIVE. CONT ON HIFLO NC 36%-40%. EXP WHEEZES AUSCULTATED. NEBS Q4HRS PER RT. IV SOLU BID. DRY, NONPROD COUGH NOTED. CONT TELE HOLD AT THIS TIME. NSR HR 70S. BP STABLE. HH DIET PROVIDED. NO GI DISTRESS NOTED. SKIN INTACT BUT DRY-WILL APPLY LUBRIDERM THIS AM. DOPPLER PULSES PEDAL, WARM TO TOUCH. CONT TO MONITOR CLOSELY. CALL [facility] WITHIN REACH.
--- NOTE | 2016-07-04 08:44 | PN- Cardiology ---
Subjective Subjective: The patient is a 60-year-old female who developed hypercarbic respiratory failure. She has a peak troponin of 0.71 which has trended down. The last value was 0.09. She has not had any clinical arrhythmias. Her EKG has shown ischemic changes and right ventricular hypertrophy. She is currently feeling much better. She remains on high flow oxygen. She has no specific complaints. She has no chest pain specifically. Objective Vital Signs and I&Os Vital Signs Date Time Temp Pulse Resp B/P Pulse O2 O2 Flow FiO2 Ox Delivery Rate 07/04 838 92 Nasal 35% Cannula 07/04 799 98.8 82 23 110/60 93 Nasal 40% Cannula 07/04 799 93 Nasal 40% Cannula 07/03 2248 93 Nasal 40% Cannula 07/03 2200 97.9 78 20 126/54 93 Nasal 40% Cannula 07/03 1652 94 Nasal 35% Cannula 07/03 1600 94 Nasal 40% Cannula 07/03 1600 97.9 81 22 118/64 94 Nasal 40% Cannula 07/03 1200 94 Nasal 45% Cannula 07/03 0925 92 Nasal 3.0L Cannula Intake & Output 07/04 1600 07/04 0000 07/03 1600 07/03 0800 07/03 0000 Intake Total 340 400 480 455 566.6 Output Total 500 350 410 600 Balance -160 400 130 45 -33.4 Intake, IV 280 46.6 Intake, Oral 340 400 480 175 520 Number 0 1 0 Bowel Movements Output, Urine 500 350 410 600 Patient 166 lb Weight Physical Exam: She is alert and sitting in a chair HEENT exam is grossly normal Chest reveals reduced breath sounds Heart reveals regular rhythm and no murmurs Extremities no edema Current Medications: Current Medications Sig/Michi Start time Last Medication Dose Route Stop Time Status Admin Acetaminophen 1,000 MG ONCE ONE 07/04 629 CAN N/A 1 UNIT IV 07/04 643 Albuterol Sulfate 3 ML EVERY 4 HRS/AWAKE 07/01 1200 AC 07/04 INH 0839 Aspirin 81 MG DAILY 07/02 1000 AC 07/03 PO 0945 Azithromycin 500 MG Q24H 07/02 0345 AC 07/04 Sodium Chloride 250 ML IV 0340 Ceftriaxone Sodium 1,000 MG Q24H 07/02 0330 AC 07/04 IV 0341 Furosemide 20 MG DAILY 07/04 1000 AC PO Glycerin/Mineral Oil 1 DIDIER TID PRN 07/01 829 AC 07/01 TOP 1231 Guaifenesin 600 MG Q12 07/01 1000 AC 07/03 PO 2137 Heparin Sodium 5,000 UNIT Q8 07/03 1400 DC (Porcine) SC Ipratropium [place] 2.5 ML EVERY 4 HRS/AWAKE 07/01 1200 AC 07/04 INH 0839 Methylprednisolone 40 MG Q12 07/03 2200 AC 07/03 IV 2137 Methylprednisolone 40 MG Q6H 07/01 0900 DC 07/03 IV 0945 Patient Medication 1 UNIT ONE NR 07/03 1930 DC Teaching ED 07/03 1999 Results Last 48 Hrs of Labs/Mics: Laboratory Tests 07/04/16 0345: Anion Gap 9, Estimated GFR 57 L, Glucose 123 H, Calcium 9.3, Phosphorus 4.2, Magnesium 2.6 H, Total Bilirubin 0.5, AST 39 H, ALT 161 H, Albumin 3.2 L, CBC w Diff NO MAN DIFF REQ, RBC 4.45, MCV 93.2, MCH 30.8, RDW 14.1, MPV 8.0, Gran % 93.0 H, Lymphocytes % 2.8 L, Monocytes % 4.0, Eosinophils % 0, Basophils % 0.2, Absolute Granulocytes 11.2 H, Absolute Lymphocytes 0.3 L, Absolute Monocytes 0.5, Absolute Eosinophils 0, Absolute Basophils 0, PUBS MCHC 33.1 07/03/16 1810: CBC w Diff NO MAN DIFF REQ, RBC 4.70, MCV 91.8, MCH 30.6, RDW 14.2, MPV 7.8, Gran % 90.6 H, Lymphocytes % 2.7 L, Monocytes % 6.5, Eosinophils % 0.1, Basophils % 0.1, Absolute Granulocytes 11.7 H, Absolute Lymphocytes 0.4 L, Absolute Monocytes 0.8 H, Absolute Eosinophils 0, Absolute Basophils 0, PUBS MCHC 33.4 07/03/16 0920: pH 7.41, pCO2 52 H, pO2 60 L, HCO3 32 H, ABG O2 Sat (Measured) 90.0 L, P-50 (Temp Corrected) NO, Carboxyhemoglobin 0.5 L, O2 Concentration % 3L, Temperature 97.8, O2 Delivery Method NC, Phlebotomy Draw Site RIGHT RADIAL 07/03/16 0400: Anion Gap 12, Estimated GFR 57 L, Glucose 147 H, Calcium 9.5, Phosphorus 3.0, Magnesium 2.8 H, Total Bilirubin 0.5, AST 58 H, ALT 216 H, Troponin I 0.09, Albumin 3.3 L, CBC w Diff NO MAN DIFF REQ, RBC 4.47, MCV 92.8, MCH 30.9, RDW 14.0, MPV 8.4, Gran % 92.2 H, Lymphocytes % 3.8 L, Monocytes % 4.0, Eosinophils % 0, Basophils % 0 L, Absolute Granulocytes 10.3 H, Absolute Lymphocytes 0.4 L, Absolute Monocytes 0.4, Absolute Eosinophils 0, Absolute Basophils 0, PUBS MCHC 33.3 07/02/16 2302: Lactic Acid Cancelled 07/02/16 2002: Troponin I Cancelled, PT Cancelled, INR Cancelled, CBC w Diff Cancelled, WBC Cancelled, RBC Cancelled, Hgb Cancelled, Hct Cancelled, MCV Cancelled, MCH Cancelled, RDW Cancelled, Plt Count Cancelled, MPV Cancelled, PUBS MCHC Cancelled 07/02/16 1830: APTT Cancelled Recent Imaging Studies: PATIENT: ELISA NICOLE PRESENT AGE: 60 PATIENT ACCOUNT NO: [id number] : 55 LOCATION: [facility] ORDERING PHYSICIAN: FRANSICO SHANNON MD SERVICE DATE: 07/04/16 EXAM TYPE: RAD - XRY-PORTABLE CHEST XRAY EXAMINATION: XR PORTABLE CHEST CLINICAL INFORMATION: Hypoxia and tachypnea COMPARISON: Chest x-ray 07/03/2016 TECHNIQUE: AP portable semiupright chest x-ray FINDINGS: Heart size is upper limits of normal and unchanged. Pulmonary vascularity is normal. Some hazy opacity at the left base with blunting the costophrenic sulcus could be related to some atelectasis and effusion. There is no new focal finding in the lungs. No pulmonary edema is seen at this time. IMPRESSION: There is little interval change in the chest x-ray since the previous examination with some hazy opacity at the left lung base and no new focal finding. DICTATED BY: BAYRON GASPAR MD DATE/TIME DICTATED:07/04/16736 [employer] DATA [employer] DEVELOPER:JOSE M DATE/TIME TRANSCRIBED:07/04/16736 CONFIDENTIAL, DO NOT COPY WITHOUT APPROPRIATE AUTHORIZATION. <Electronically signed in Other Vendor System> SIGNED BY: BAYRON GASPAR MD 07/04 0744 Assessment/Plan Assessment/Plan The patient continues improved from a pulmonary standpoint. However she's still on high flow oxygen. There've been no cardiac events. The patient requires further evaluation as an outpatient but no further testing is planned as an inpatient. She she will not need telemetry on transfer out of the ICU. Continue telemetry? Not applicable (To [facility] when transferred )
--- NOTE | 2016-07-04 10:15 | PN- Pulmonary ---
Subjective HPI/Critical Care Issues: pt seen and examined tele hold dyspnea improving no cp no n/v/d/c afebrile 92% on 35% fio2 lasix 20 daily solumedrol 40mg iv q12h Objective Current Medications: Current Medications Sig/Michi Start time Last Medication Dose Route Stop Time Status Admin Acetaminophen 1,000 MG ONCE ONE 07/04 0530 CAN N/A 1 UNIT IV 07/04 0644 Albuterol Sulfate 3 ML EVERY 4 HRS/AWAKE 07/01 1200 AC 07/04 INH 0839 Aspirin 81 MG DAILY 07/02 1000 AC 07/04 PO 0917 Azithromycin 500 MG Q24H 07/02 0345 AC 07/04 Sodium Chloride 250 ML IV 0340 Ceftriaxone Sodium 1,000 MG Q24H 07/02 0330 AC 07/04 IV 0341 Furosemide 20 MG DAILY 07/04 1000 AC 07/04 PO 0917 Glycerin/Mineral Oil 1 DIDIER TID PRN 07/01 0830 AC 07/04 TOP 0920 Guaifenesin 600 MG Q12 07/01 1000 AC 07/04 PO 0917 Heparin Sodium 5,000 UNIT Q8 07/03 1400 DC (Porcine) SC Ipratropium [place] 2.5 ML EVERY 4 HRS/AWAKE 07/01 1200 AC 07/04 INH 0839 Methylprednisolone 40 MG Q12 07/03 2200 AC 07/04 IV 0917 Methylprednisolone 40 MG Q6H 07/01 0900 DC 07/03 IV 0945 Patient Medication 1 UNIT ONE NR 07/03 1930 DC Teaching ED 07/03 1999 Vital Signs & I&O Last 24 Hrs of Vitals and I&O: Vital Signs Date Time Temp Pulse Resp B/P Pulse O2 O2 Flow FiO2 Ox Delivery Rate 07/04 838 92 Nasal 35% Cannula 07/04 799 98.8 82 23 110/60 93 Nasal 40% Cannula 07/04 799 93 Nasal 40% Cannula 07/03 2248 93 Nasal 40% Cannula 07/03 2200 97.9 78 20 126/54 93 Nasal 40% Cannula 07/03 1652 94 Nasal 35% Cannula 07/03 1600 94 Nasal 40% Cannula 07/03 1600 97.9 81 22 118/64 94 Nasal 40% Cannula 07/03 1200 94 Nasal 45% Cannula Intake & Output 07/04 1600 07/04 0800 07/04 0000 Intake Total 340 400 Output Total 500 Balance -160 400 Intake, Oral 340 400 Number 0 Bowel Movements Output, Urine 500 Exam Other Physical Findings: gen awake and alert heent on hf o2 cvs s1, s2 lungs bilateral rhonchi, wheezing abd soft, bs+ ext without edema Results Last 24 Hrs of Lab Results: Laboratory Tests 07/04/16 0345: Anion Gap 9, Estimated GFR 57 L, Glucose 123 H, Calcium 9.3, Phosphorus 4.2, Magnesium 2.6 H, Total Bilirubin 0.5, AST 39 H, ALT 161 H, Albumin 3.2 L, CBC w Diff NO MAN DIFF REQ, RBC 4.45, MCV 93.2, MCH 30.8, RDW 14.1, MPV 8.0, Gran % 93.0 H, Lymphocytes % 2.8 L, Monocytes % 4.0, Eosinophils % 0, Basophils % 0.2, Absolute Granulocytes 11.2 H, Absolute Lymphocytes 0.3 L, Absolute Monocytes 0.5, Absolute Eosinophils 0, Absolute Basophils 0, PUBS MCHC 33.1 07/03/16 1810: CBC w Diff NO MAN DIFF REQ, RBC 4.70, MCV 91.8, MCH 30.6, RDW 14.2, MPV 7.8, Gran % 90.6 H, Lymphocytes % 2.7 L, Monocytes % 6.5, Eosinophils % 0.1, Basophils % 0.1, Absolute Granulocytes 11.7 H, Absolute Lymphocytes 0.4 L, Absolute Monocytes 0.8 H, Absolute Eosinophils 0, Absolute Basophils 0, PUBS MCHC 33.4 Impression/Plan Impression/Plan Impression/Plan: Impression 60 year old woman * Improved acute on chronic hypercapnic respiratory failure, secondary to multilobar pneumonia. Neoplasm and a postobstructive pneumonia cannot be excluded. * Positive troponin, rule out non-ST elevation [place] versus demand ischemia. * Pulmonary vascular congestion, elevated BNP, rule out CHF. * Resolved Acute kidney injury * Left sided bakers cyst - to be addressed as an outpatient. Plan * Nebs/TRC * keep solumedrol today at q12h 40mg * off bipap at this time * spo2 goal >92% * Ceftriaxone and azithromycin for at least 7 days 10/02 * diuresis, ins/outs * cardiology follow up DG to
--- NOTE | 2016-07-04 11:26 | NUR ---
@1000-PT DOWNGRADED TO GENMED. TITRATED TO 3LNC FROM 35-40% HIFLO BY RT. O2SAT 93%. PT DENIES SOB. WILL CONT TO PROVIDE SUPPORT AND COMFORT NEEDED, CONT TO MONITOR, CALL [facility] WITHIN REACH.
[2016-07-04 16:00] VITALS: BP 102/60
[2016-07-04 20:28] VITALS: BP 132/70
--- NOTE | 2016-07-04 21:24 | NUR ---
NURSING NOTE: PATIENT ARRIVED TO FLOOR VIA BED WITH DISTRIBUTION FROM ICU. PATIENT A/OX3, DENIES PAIN AT THIS TIME. VSS. O2 IN PLACE VIA NC @ 3L. BIPAP MACHINE AT BEDSIDE. WILL CONTINUE TO MONITOR. RESPIRATORY THERAPY AT BEDSIDE FOR TREATMENTS
[2016-07-04 23:57] VITALS: BP 142/84
[2016-07-05 08:17] LABS: ABSOLUTE BASOPHIL COUNT 0 /CUMM (0.0-0.2); ABSOLUTE EOSINOPHIL COUNT 0 /CUMM (0.0-0.7); ABSOLUTE GRANULOCYTE CT 12.3 /CUMM (1.4-6.5); ABSOLUTE LYMPH COUNT 0.5 /CUMM (1.2-3.4); ABSOLUTE MONOCYTE COUNT 0.9 /CUMM (0.10-0.60); BASOPHIL % 0.1 % (0.0-2.0); EOSINOPHIL % 0 % (0-5); HEMATOCRIT 44.6 % (37-47); MEAN CORPUSCULAR HGB CONC 33.1 G/DL (33.0-37.0); MEAN CORPUSCULAR VOLUME 93.6 FL (81.0-99.0); MEAN PLATELET VOLUME 7.7 FL (7.4-10.4); PLATELET COUNT 281 /CUMM (130-400); RBC DISTRIBUTION WIDTH 14.1 % (11.5-14.5); RED BLOOD CELL CT 4.76 /CUMM (4.20-5.40); WHITE BLOOD CELL COUNT 13.7 /CUMM (4.8-10.8)
[2016-07-05 08:49] VITALS: BP 134/80
[2016-07-05 09:38] LABS: GRANULOCYTE % 89.7 % (42.2-75.2)
--- NOTE | 2016-07-05 13:54 | PN- Pulmonary ---
Subjective HPI/Critical Care Issues: Patient seen and examined this morning. She is transferred out of the ICU. Saturating 99% on 2 l nasal cannula hemodynamics are stable without any fevers. Objective Current Medications: Current Medications Sig/Michi Start time Last Medication Dose Route Stop Time Status Admin Albuterol Sulfate 3 ML EVERY 4 HRS/AWAKE 07/01 1200 AC 07/05 INH 1249 Aspirin 81 MG DAILY 07/02 1000 AC 07/05 PO 0815 Azithromycin 500 MG Q24H 07/02 0345 AC 07/05 Sodium Chloride 250 ML IV 0347 Ceftriaxone Sodium 1,000 MG Q24H 07/02 0330 AC 07/05 IV 0347 Furosemide 20 MG DAILY 07/04 1000 AC 07/05 PO 0816 Glycerin/Mineral Oil 1 DIDIER TID PRN 07/01 0830 AC 07/04 TOP 0920 Guaifenesin 600 MG Q12 07/01 1000 AC 07/05 PO 0816 Ipratropium [place] 2.5 ML EVERY 4 HRS/AWAKE 07/01 1200 AC 07/05 INH 1249 Methylprednisolone 40 MG Q12 07/03 2200 AC 07/05 IV 0816 Vital Signs & I&O Last 24 Hrs of Vitals and I&O: Vital Signs Date Time Temp Pulse Resp B/P Pulse O2 O2 Flow FiO2 Ox Delivery Rate 07/05 0849 97.7 86 20 134/80 99 Nasal Cannula 07/05 820 99 Nasal 3.0L Cannula 07/05 799 Nasal 3.0L Cannula 07/05 0000 95 Nasal 3.0L Cannula 07/04 2357 97.9 80 20 142/84 95 Nasal 3.0L Cannula 07/04 2027 98.9 89 19 132/70 96 Nasal 3.0L Cannula 07/04 1636 96 Nasal 3.0L Cannula 07/04 1600 96 Nasal 3.0L Cannula 07/04 1600 97.3 79 22 102/60 96 Nasal 3.0L Cannula Intake & Output 07/05 1600 07/05 0800 07/05 0000 Intake Total 250 500 Output Total Balance 250 500 Intake, IV 250 Intake, Oral 500 Patient 161 lb Weight Exam Other Physical Findings: gen awake and alert heent on hf o2 cvs s1, s2 lungs bilateral rhonchi, wheezing abd soft, bs+ ext without edema Results Last 24 Hrs of Lab Results: Laboratory Tests 07/05/16 0632: Anion Gap 13, Estimated GFR > 60, BUN/Creatinine Ratio 43.8 H, CBC w Diff NO MAN DIFF REQ, RBC 4.76, MCV 93.6, MCH 31.0, RDW 14.1, MPV 7.7, Gran % 89.7 H, Lymphocytes % 3.6 L, Monocytes % 6.6, Eosinophils % 0, Basophils % 0.1, Absolute Granulocytes 12.3 H, Absolute Lymphocytes 0.5 L, Absolute Monocytes 0.9 H, Absolute Eosinophils 0, Absolute Basophils 0, PUBS MCHC 33.1 Impression/Plan Impression/Plan Impression/Plan: Impression 60 year old woman * Improved acute on chronic hypercapnic respiratory failure, secondary to multilobar pneumonia. Neoplasm and a postobstructive pneumonia cannot be excluded. * Positive troponin, rule out non-ST elevation [place] versus demand ischemia. * Pulmonary vascular congestion, elevated BNP, rule out CHF. * Resolved Acute kidney injury * Left sided bakers cyst - to be addressed as an outpatient. Plan * Nebs/TRC * Discontinue solumedrol today and begin prednisone 60 mg 2 days, 50 mg 2 days , 40 mg 2 days, 30 mg 2 days, 20 mg 2 days, and 10 mg 2 days and then stop * off bipap at this time * spo2 goal >92% * Ceftriaxone and azithromycin for at least 7 days 11/01, can switch to by mouth antibiotics upon discharge * diuresis, ins/outs * cardiology follow up * Will require follow-up with Dr. Olivares upon discharge including follow-up imaging within the next few weeks DC planning and arrange oxygen, please document o2 need <88% at rest without o2 or ambulation
[2016-07-05 16:41] VITALS: BP 130/72
[2016-07-06 00:10] VITALS: BP 137/75
--- NOTE | 2016-07-06 07:48 | PN- Housestaff ---
MOISÉS BRIGGS 07/06/16 0748: Subjective Follow-up For: - CHF versus COPD exacerbation - Elevated troponins, most likely secondary to right heart strain - Pulmonary hypertension - Pulmonary mass, focal pneumonia vs pulmonary neoplasm Complaints: no complaints Subjective: In and examine the patient today morning, she is comfortable, no new complaints, her vitals have been stable overnight, she has been transitioned to by mouth steroids and by mouth antibiotics, likely will be discharged today. Review of Systems Constitutional: Reports: see HPI. Objective Last 24 Hrs of Vital Signs/I&O Vital Signs Date Time Temp Pulse Resp B/P Pulse O2 O2 Flow FiO2 Ox Delivery Rate 07/06 1612 98.8 98 20 144/72 95 07/06 1605 94 Nasal 2.0L Cannula 07/06 1600 95 Nasal 2.0L Cannula 07/06 0919 97.9 80 20 140/76 92 Nasal 3.0L Cannula 07/06 0842 95 Nasal 3.0L Cannula 07/06 0800 95 Nasal 2.0L Cannula 07/06 0010 98.4 81 20 137/75 95 Nasal 2.0L Cannula 07/06 0000 95 Nasal 3.0L Cannula Intake & Output 07/06 1600 07/06 0800 07/06 0000 Intake Total 480 250 600 Output Total Balance 480 250 600 Intake, IV 250 Intake, Oral 480 600 Patient 73.936 kg Weight Physical Exam General Appearance: Alert, Oriented X3, Cooperative, No Acute Distress Skin: No Rashes, No Breakdown, No Significant Lesion HEENT: Atraumatic, PERRLA, EOMI Neck: Supple, No JVD, No thryomegaly Lymphatic: no lad Cardiovascular: Regular Rate, Normal S1, Normal S2, No Murmurs Lungs: Clear to Auscultation, Normal Air Movement Abdomen: Normal Bowel Sounds, Soft, No Tenderness Neurological: Strength at 5/5 X4 Ext, Normal Tone, Sensation Intact, Cranial Nerves 3-12 NL Extremities: No Clubbing, No Cyanosis, No Edema, Normal Pulses Vascular: Normal Pulses Current Medications: Current Medications Sig/Michi Start time Last Medication Dose Route Stop Time Status Admin Albuterol Sulfate 3 ML EVERY 4 HRS/AWAKE 07/01 1200 DCD 07/06 INH 1605 Amoxicillin/ 875 MG Q12 07/06 1503 DCD 07/06 Clavulanate Potassium PO 1617 Aspirin 81 MG DAILY 07/02 1000 DCD 07/06 PO 1002 Azithromycin 500 MG Q24H 07/02 0345 DC 07/06 Sodium Chloride 250 ML IV 0311 Ceftriaxone Sodium 1,000 MG Q24H 07/02 0330 DC 07/06 IV 0311 Furosemide 20 MG DAILY 07/04 1000 DCD 07/06 PO 1002 Glycerin/Mineral Oil 1 DIDIER TID PRN 07/01 0830 DCD 07/04 TOP 0920 Guaifenesin 600 MG Q12 07/01 1000 DCD 07/06 PO 1002 Ipratropium [place] 2.5 ML EVERY 4 HRS/AWAKE 07/01 1200 DCD 07/06 INH 1605 Methylprednisolone 40 MG Q12 07/03 2200 DC 07/05 IV 2129 Patient Medication 1 ED .STK-MED ONE 07/06 1349 NE Teaching ED 07/06 1350 Prednisone 60 MG DAILY 07/06 1000 DCD 07/06 PO 1002 Lines/Diet/Fluids Restraints: none Assessment/Plan Assessment: Patient is a 60 YO F with no significan PMH presented with shortness of breath, (Hypoxia), elevated proBNP. On evaluation found to have elevated troponin which eventually trended down. She was started on IV heparin initially suspecting PE as her ECHO shows right heart strain which was discontinued after perfectly normal V/Q scan. she is breathing well, on high flow Oxygen initially in the morning, later changed to NC. Problem list: -CHF versus COPD exacerbation -Elevated troponins, most likely secondary to right heart strain -Pulmonary hypertension -Pulmonary mass, focal pneumonia vs pulmonary neoplasm Cardiovascular: Patient admitted for hypoxia with imaging demonstrated vascular pulmonary congestion. BNP was elevated to 24,600. Physical examination did not demonstrate any JVD or lower extremity edema. Initial troponin was found to your 0.47 be elevated with an increase to 0.71. EKG obtained demonstrated T- wave inversions in V1-V5 without any ST segment changes. hr shared services consultant was contacted and it was decided to start the patient on a heparin drip without a bolus for a low suspicion of acute coronary syndrome. Patient was guiac negative. -Aspirin 81 mg by mouth daily -Cardiology consult following - stable. -Daily EKG/Troponin Pulmonary: Patient with progressive shortness of breath and cough for roughly 1 week brought in by ambulance for evaluation after she was seen to be pale/blue by her . She was reportedly hypoxic to 78% in the field. She has no known cardiac or pulmonary disease however has a long history of smoking but has cut down to about 1 pack per month. Her smokes 3/4 cigars daily in the home. CT scan demonstrates emphysema in addition to findings suggestive of infection. Lower extremity Doppler ruled out presence of deep vein thrombosis. - OFF BiPAP -TRC, albuterol, ipratropium -Azithromycin 500 mg IV and Ceftriaxone 1 g IV daily - Day 3 (for 7 days) -Methylprednisone 40 mg IV every 12 hours -Mucinex 600 mg by mouth every 12 hours. -Daily chest x-ray/ABG -cultures and sputum cytology are negative. DVT Prophylaxis * SC heparin Code Status * Full Code Problem List: 1. Pneumonia 2. Pulmonary vascular congestion 3. Hypercapnic respiratory failure 4. Renal insufficiency 5. Elevated LFTs Pain Ratin Pain Location: na Pain Goal: Remain pain free Pain Plan: tylenol Tomorrow's Labs & Rationales: not needed SHANNAN DON,BRADEN 07/06/16 1613: Attending MD Review Statement Attending Statement Attending MD Statement: examined this patient, discuss w/resident/PA/SKIVER [employer]AP, agreed w/resident/PA/SKIVER HE[employer]AP, reviewed EMR data (avail), discussed with nursing, discussed with case mgmt, reviewed images, amended to note Attending Assessment/Plan: Patient seen and examined, feels much better. Still requiring oxygen. But overall feeling better. Patient is admitted to [place] acquired pneumonia and has been treated with IV antibiotics. Now improved but still required oxygen to go home with. She can be discharged on oral antibiotics. She will also need a prednisone taper to go home with. She is otherwise medically stable for discharge home. She will need to see a primary care doctor as well as Dr. Olivares as outpatient.
--- NOTE | 2016-07-06 08:15 | Transfer of Care Summary ---
Hospital Course Course Hospital Course: 60-year-old woman brought in by ambulance for evaluation on 07/01/16 for worsening shortness of breath. She was found to have oxygen saturation to 78% at home with minimal improvement after albuterol treatment. She was placed on a nonrebreather mask at 100% FiO2 before being placed on BiPAP for persistent respiratory distress. Collateral information obtained from her reveals that they both suffered from a "flulike illness" for the past week for which he recovered and she did not. He denies any cardiac or pulmonary disease and his , but reports that they both smoke cigarettes. Vital signs on admission were significant for Temperature 98.9, pulse 116, respiration 30, blood pressure 131/92, pulse 88% on 100% nonrebreather. Physical examination demonstrated a somnolent but arousable woman in acut respiratory distress on bipap with diffuse rhochi and wheezing. Lab work was remarkable for WBC 18, NA 133, K 3.2 , HCO3 33 , AG 2, BUN/Cr 60/1.3, Troponin 0.47, BNP 24,600, DDimer 572, UA negative. EKG demonstrated st segment changes in inferior leads. CXR bibasilar airspace disease and pulmonary vascular congestion. She was maintained on Bipap and given intravenous steroids and antibiotics after blood/urine/sputum cultures were taken. Problem list: -Acute hypoxic/hypercarbic respiratory failure, CHF versus COPD exacerbation -Elevated troponins, possibly demand ischemia -Pulmonary Hypertension -Pulmonary mass, focal pneumonia vs pulmonary neoplasm Cardiovascular: Patient admitted for hypoxia with imaging demonstrated vascular pulmonary congestion. BNP was elevated to 24,600. Physical examination did not demonstrate any JVD or lower extremity edema. Initial troponin was found to your 0.47 be elevated with an increase to 0.71. EKG obtained demonstrated T- wave inversions in V1-V5 without any ST segment changes. testing consultant was contacted and it was decided to start the patient on a heparin drip without a bolus for a low suspicion of acute coronary syndrome. Patient was guiac negative. Heparin drip was discontinued after VQ scan was negative for pulmonary embolism and troponins were trending down. Pulmonary: Patient with progressive shortness of breath and cough for roughly 1 week brought in by ambulance for evaluation after she was seen to be pale/blue by her . She was reportedly hypoxic to 78% in the field. She has no known cardiac or pulmonary disease however has a long history of smoking but has cut down to about 1 pack per month. Her smokes 3/4 cigars daily in the home. CT scan demonstrates emphysema in addition to findings suggestive of infection. Lower extremity Doppler ruled out presence of deep vein thrombosis. -Continue BiPAP -TRC, albuterol, ipratropium -Azithromycin 500 mg IV daily -Ceftriaxone 1 g IV daily -Methylprednisone taper -Mucinex 600 mg by mouth every 12 hours -Follow-up cultures and sputum cytology Diet- Regular diet DVT PPx - on heparin drip CODE STATUS-full code Assessment/Plan: As above
[2016-07-06 09:19] VITALS: BP 140/76
--- NOTE | 2016-07-06 10:59 | NUR ---
PATIENT OXYGENATION ASSESSED @ 1030 AM: PATIENT ON 3L NC AT REST - SPO2 96% HR 108 PATIENT ON ROOM AIR, AT REST - SPO2 89%, HR 100 PATIENT AMBULATING WITH OXYGEN 3L NC - SPO2 94%, HR 115 PATIENT AMBULATING ON ROOM AIR - SPO2 83%, HR >100 BPM WHILE ABULATING ON ROOM AIR AND WITHOUT O2, PATIENT EXPERIENCED SOB AND WAS GUIDED BACK TO HER ROOM TO PLACED THE 3L NC BACK ON.
--- NOTE | 2016-07-06 12:39 | PN- Cardiology ---
Subjective Subjective: Patient feels she is improving. No chest pain or palpitations. Objective Vital Signs and I&Os Vital Signs Date Time Temp Pulse Resp B/P Pulse O2 O2 Flow FiO2 Ox Delivery Rate 07/06 918 97.9 80 20 140/76 92 Nasal 3.0L Cannula 07/06 0842 95 Nasal 3.0L Cannula 07/06 0010 98.4 81 20 137/75 95 Nasal 2.0L Cannula 07/06 0000 95 Nasal 3.0L Cannula 07/05 1641 97.5 93 18 130/72 94 Nasal 2.0L Cannula 07/05 1640 93 Nasal 2.0L Cannula 07/05 1600 94 Nasal 3.0L Cannula Intake & Output 07/06 1600 07/06 0000 07/05 0000 Intake Total 250 600 600 250 500 Output Total Balance 250 600 600 250 500 Intake, IV 250 250 Intake, Oral 600 600 500 Patient 163 lb 161 lb Weight Physical Exam: General: No distress, on NC O2 Eyes: No obvious scleral icterus. HEENT: No jugular venous distention or abnormal jugular venous pulsations. Cardiovascular: Normal intensity S1/S2. Regular. 1/6 SM. Respiratory: decreased air entry bilaterally Abdomen: soft, no rebound tenderness Musculoskeletal: No cyanosis noted, no edema Skin: Warm Neurologic: No gross focal deficits noted. Current Medications: Current Medications Sig/Michi Start time Last Medication Dose Route Stop Time Status Admin Albuterol Sulfate 3 ML EVERY 4 HRS/AWAKE 07/01 1200 AC 07/06 INH 1207 Aspirin 81 MG DAILY 07/02 1000 AC 07/06 PO 1002 Azithromycin 500 MG Q24H 07/02 0345 DC 07/06 Sodium Chloride 250 ML IV 0311 Ceftriaxone Sodium 1,000 MG Q24H 07/02 0330 DC 07/06 IV 0311 Furosemide 20 MG DAILY 07/04 1000 AC 07/06 PO 1002 Glycerin/Mineral Oil 1 DIDIER TID PRN 07/01 0830 AC 07/04 TOP 0920 Guaifenesin 600 MG Q12 07/01 1000 AC 07/06 PO 1002 Ipratropium [place] 2.5 ML EVERY 4 HRS/AWAKE 07/01 1200 AC 07/06 INH 1208 Methylprednisolone 40 MG Q12 07/03 2200 DC 07/05 IV 2129 Prednisone 60 MG DAILY 07/06 1000 AC 07/06 PO 1002 Results Last 48 Hrs of Labs/Mics: Laboratory Tests 07/05/16 0632: Anion Gap 13, Estimated GFR > 60, BUN/Creatinine Ratio 43.8 H, CBC w Diff NO MAN DIFF REQ, RBC 4.76, MCV 93.6, MCH 31.0, RDW 14.1, MPV 7.7, Gran % 89.7 H, Lymphocytes % 3.6 L, Monocytes % 6.6, Eosinophils % 0, Basophils % 0.1, Absolute Granulocytes 12.3 H, Absolute Lymphocytes 0.5 L, Absolute Monocytes 0.9 H, Absolute Eosinophils 0, Absolute Basophils 0, PUBS MCHC 33.1 Recent Imaging Studies: The patient is not currently on telemetry Assessment/Plan Assessment/Plan 1. Hypoxemic/hypercarbic respiratory failure likely due to COPD with severe pulmonary hypertension and right ventricular dysfunction by echocardiogram (No PE by V/Q) 2. PNA 3. Reported chronic LE edema 4. Acute renal insufficiency, improving 5. Hx HTN 6. Elevated troponins, likely demand ischemia 7. Elevated LFTs 8. Mild aortic stenosis Continues to improve. Creatinine stable back on outpatient low dose oral Lasix. Continue daily aspirin but hold statin initiation until LFTs normalize. Antibiotics and steroids per pulmonary. Likely needs home O2. Plan for outpatient stress testing in the future when pulmonary status improves. Isaías Jameson MD [facility] Continue telemetry? Not applicable
--- NOTE | 2016-07-06 12:39 | PN- Pulmonary ---
Subjective HPI/Critical Care Issues: pt seen and examined doing well anticipating dc will ambulate to evaluate o2 needs no n/v/d/c no dyspnea at rest no cp Objective Current Medications: Current Medications Sig/Michi Start time Last Medication Dose Route Stop Time Status Admin Albuterol Sulfate 3 ML EVERY 4 HRS/AWAKE 07/01 1200 AC 07/06 INH 1207 Aspirin 81 MG DAILY 07/02 1000 AC 07/06 PO 1002 Azithromycin 500 MG Q24H 07/02 0345 DC 07/06 Sodium Chloride 250 ML IV 0311 Ceftriaxone Sodium 1,000 MG Q24H 07/02 0330 DC 07/06 IV 0311 Furosemide 20 MG DAILY 07/04 1000 AC 07/06 PO 1002 Glycerin/Mineral Oil 1 DIDIER TID PRN 07/01 0830 AC 07/04 TOP 0920 Guaifenesin 600 MG Q12 07/01 1000 AC 07/06 PO 1002 Ipratropium [place] 2.5 ML EVERY 4 HRS/AWAKE 07/01 1200 AC 07/06 INH 1208 Methylprednisolone 40 MG Q12 07/03 2200 DC 07/05 IV 2129 Prednisone 60 MG DAILY 07/06 1000 AC 07/06 PO 1002 Vital Signs & I&O Last 24 Hrs of Vitals and I&O: Vital Signs Date Time Temp Pulse Resp B/P Pulse O2 O2 Flow FiO2 Ox Delivery Rate 07/06 918 97.9 80 20 140/76 92 Nasal 3.0L Cannula 07/06 0842 95 Nasal 3.0L Cannula 07/06 0010 98.4 81 20 137/75 95 Nasal 2.0L Cannula 07/06 0000 95 Nasal 3.0L Cannula 07/05 1641 97.5 93 18 130/72 94 Nasal 2.0L Cannula 07/05 1640 93 Nasal 2.0L Cannula 07/05 1600 94 Nasal 3.0L Cannula Intake & Output 07/06 1600 07/06 0800 07/06 0000 Intake Total 250 600 Output Total Balance 250 600 Intake, IV 250 Intake, Oral 600 Patient 163 lb Weight Exam Other Physical Findings: gen awake and alert heent on hf o2 cvs s1, s2 lungs bilateral rhonchi, wheezing abd soft, bs+ ext without edema Impression/Plan Impression/Plan Impression/Plan: Impression 60 year old woman * Improved acute on chronic hypercapnic respiratory failure, secondary to multilobar pneumonia. Neoplasm and a postobstructive pneumonia cannot be excluded. * Positive troponin, rule out non-ST elevation ID versus demand ischemia. * Pulmonary vascular congestion, elevated BNP, rule out CHF. * Resolved Acute kidney injury * Left sided bakers cyst - to be addressed as an outpatient. Plan * Nebs/TRC * prednisone taper as ordered * spo2 goal >92% * Ceftriaxone and azithromycin for at least 7 days 12/02, can switch to by mouth antibiotics upon discharge * diuresis, ins/outs * cardiology follow up * Will require follow-up with Dr. Olivares upon discharge including follow-up imaging within the next few weeks DC planning and arrange oxygen, please document o2 need <88% at rest without o2 or ambulation
--- NOTE | 2016-07-06 13:43 | Patient Discharge Instructions ---
Discharge Instructions General Discharge Information You were seen/treated for: ACUTE HYPOXEMIC AND HYERCARBIC RESPIRATORY FAILURE Special Instructions: please follow up with your insurance administrative assistant, lung doctor and pcp within 1-2weeks of discharge. please continue taking home oxygen as prescribed. please continue taking medications as prescribed. Diet Continue normal diet: No Recommended Diet: Heart Healthy Activity Full Activity/No Limits: No Activity Self Limited: Yes Acute Coronary Syndrome Inclusion Criteria At DC or during hospital stay patient has or had the following: ACS DIAGNOSIS No Discharge Core Measures Meds if any: Prescribed or Continued at Discharge Meds if any: NOT Prescribed or Continued at Discharge Congestive Heart Failure Inclusion Criteria At DC or during hospital stay patient has or had the following: CHF DIAGNOSIS No Discharge Core Measures Meds if any: Prescribed or Continued at Discharge AMINATA/ARB for EF <40% No Meds if any: NOT Prescribed or Continued at Discharge Cerebrovascular accident Inclusion Criteria At DC or during hospital stay patient has or had the following: CVA/TIA Diagnosis No Discharge Core Measures Meds if any: Prescribed or Continued at Discharge Meds if any: NOT Prescribed or Continued at Discharge Venous thromboembolism Inclusion Criteria VTE Diagnosis No VTE Type NONE VTE Confirmed by (Test) NONE Discharge Core Measures - Per Current guidelines, there needs to be overlap - treatment for the first 5 days of Warfarin therapy. - If discharged on Warfarin prior to 5 days of - overlap therapy, the patient will need to be - assessed for post discharge needs including - *Post discharge parental anticoagulation - *Warfarin and/or parental anticoagulation education - *Follow up date to check INR post discharge At least 5 days overlap therapy as Inpatient No Meds if any: Prescribed or Continued at Discharge Note: Overlap Therapy is Warfarin and Anticoagulant Meds if any: NOT Prescribed or Continued at Discharge
[2016-07-06] MEDS ORDERED: PREDNISONE10 M2 PO (13:50)
[2016-07-06] MEDS ORDERED: ASPIRIN81 M4 PO (13:50)
[2016-07-06] MEDS ORDERED: AUGMENTIN 875-1 EACH PO (15:04)
[2016-07-06] MEDS ORDERED: PROAIR HFA8.5 GM INH (15:06)
[2016-07-06 16:12] VITALS: BP 144/72
--- NOTE | 2016-07-06 20:54 | Discharge Summary ---
Visit Information Visit Dates Admission Date: 07/01/16 Discharge Date: 07/06/16 Hospital Course Course Attending Physician: BRADEN CAMPBELL MD Primary Care Physician: DAGMAR CACERES MD Hospital Course: This is 60-year-old woman who was brought in by ambulance for evaluation on June 2016 with chief complaint of worsening shortness of breath. She was have to have saturations dropped To 78% at home with minimal improvement after albuterol treatment. She was placed on a nonrebreather mask at 100% FiO2 O before being placed on BiPAP for persistent respiratory distress. Collateral information obtained from her reveals that they both suffered from a flulike illness for the past week for which he recovered and she did not. Vitals on admission were average of 98.6, pulse of 116, respirations 13, blood pressure 131/92, pulse of 88% on 100% nonrebreather. She was very somnolent but arousable, was in acute respiratory distress with diffuse rhonchi and wheezing bilaterally. She was placed on BiPAP. Lab work on admission was remarkable for a white count of 18, sodium of 133, potassium of 3.2, bicarbonate 33, anion gap 2, BUN/creatinine of 60/1.3, troponin of 0.47, proBNP of 24,600, and d-dimer of 572. UA was negative. EKG demonstrated ST segment changes in inferior leads. Chest x-ray showed bibasilar airspace disease and pulmonary vascular congestion. She was given IV steroids at the emergency department. Problem list along with assessment and plan #1 Acute hypoxic/hypercarbic respiratory failure secondary to CHF and COPD exacerbation. She was admitted with hypoxia. Imaging demonstrated vascular pulmonary congestion. ProBNP was elevated to 24,600. Physical exam did not demonstrate any JVD or lower extremity edema. Initial troponin was found to be 0.47, elevated, subsequent troponin was elevated to 0.71. EKG obtained demonstrative T-wave inversion in V1 to V5 without any ST segment changes. Cardiology was consulted and patient was started on IV heparin drip due to a low suspicion of acute coronary syndrome. A VQ scan was performed which was negative for pulmonary embolism with troponins continued to trend down. It was thought this was secondary to demand ischemia and heparin was discontinued. Lower extremity Doppler was also done to rule out DVT. #2 Focal pneumonia along with pulmonary hypertension. She was started on IV azithromycin and ceftriaxone. BiPAP was continued, gradually changed to nasal cannula as her oxygen saturations continued to improve. Blood cultures and respiratory cultures did not show any growth TRC nebulizations were continued. She was started on IV Solu-Medrol taper, and switched to by mouth prednisone taper once improving. Mucinex 600 mg twice a day was also continued. Patient was to by mouth antibiotics to complete an entire course of a total of 7 days. #3 Bilateral lower extremity edema. IV diuresis was continued. Patient continued to diurese very well, lower extremity edema improved.Home Dosage of diuresis was continued on discharge. #4 Mild EFRAIN Patient was thought to have mild acute renal insufficiency secondary to dehydration. The kidney function tests were continuously monitored, the new to improve antibiotic baseline on discharge. On Discharge aspirin was continued, however statin was planned to be on hold until her LFTs improved. She was discharged on 1.5-2 L of home oxygen, which was new for the patient. During hosptial stay : patient was on Heart healthy diet. DVT prophylaxis with heparin. Patient was full code. Allergies: Coded Allergies: No Known Allergies (07/01/16) Significant Procedures: SERVICE DATE: 07/01/16 EXAM TYPE: RAD - XRY-PORTABLE CHEST XRAY IMPRESSION: 1. Bibasilar airspace disease, left side greater than right, is concerning for pneumonia. Aspiration is also possible. 2. Pulmonary venous congestion. 3. Trace pleural effusions SERVICE DATE: 07/01/16 EXAM TYPE: CAT - CT CHEST WO IV CONTRAST IMPRESSION: 1. Moderate to severe centrilobular emphysema with peripheral foci of tree-in-bud opacities, mucus plugging, and additional patchy peripheral consolidation. This consolidation may be due to an atypical infection such as mycobacterium avium complex or, alternatively other viral or fungal infections. Chronic aspiration is possible, though less likely. 2. A more focal 4.1 cm area of consolidation in the left lower lobe may represent more focal coalescent pneumonia, though a primary pulmonary neoplasm is a definite consideration. No adenopathy is appreciated. Recommend short interval follow-up CT of this abnormality following treatment or, alternatively, consider a CT guided biopsy. SERVICE DATE: 07/01/16 EXAM TYPE: US - US-LIMITED ABDOMEN IMPRESSION: 1. The liver is normal in size and echogenicity. 2. There is no evidence of cholecystitis. SERVICE DATE: 07/01/16 EXAM TYPE: CARD - ECHOCARDIOGRAM Left Ventricle Normal global left ventricular size, wall thickness, systolic function with slightly flattened septal motion .Normal left ventricular ejection fraction estimated at 60-65%. Right Ventricle Mild right ventricular dilatation. Right ventricular hypokinesis. Right Atrium Mild to moderate right atrial dilatation. Left Atrium Normal left atrial size. Mitral Valve Mild mitral annular calcification. Trace to mild mitral regurgitation. Aortic Valve Diffuse thickening of the aortic valve cusps with reduced excursion. Mild aortic stenosis. Tricuspid Valve Tricuspid valve not well visualized, grossly normal. Mild-to- moderate tricuspid regurgitation. Right ventricular systolic pressure estimated to be elevated at 60 mmHg. Pulmonic Valve Pulmonic valve not well visualized, grossly normal. Pericardium No pericardial effusion. Great Vessels Normal size aortic root. CONCLUSIONS Normal left ventricular global systolic function. Dilated and hypokinetic right ventricle. Severe Pulmonary hypertension. Mild Aortic stenosis.Right atrial enlargement. José Miguel Bucio M.D. (Electronically Signed) Final Date: 01 July 2016 21:27 SERVICE DATE: 07/01/16 EXAM TYPE: US - US-EXT BILAT VENOUS DOPPLER IMPRESSION: Normal triplex scan without evidence of deep venous thrombosis involving the bilateral lower extremities. Left-sided Cole's cyst. SERVICE DATE: 07/02/16 EXAM TYPE: NUC - LUNG SCAN (V/Q) EXAMINATION: PULMONARY VENTILATION PERFUSION STUDY CLINICAL INFORMATION: Hypoxia and tachypnea. COMPARISON: No previous lung scan is available for comparison. A chest radiograph dated 07/02/2016, the same date as this lung scan, is available for comparison. TECHNIQUE: Serial gamma scintillation camera images were obtained over the posterior chest during the single breath, equilibrium rebreathing and washout of 17.7 mCi Xe 133 gas. The patient then received 4.3 mCi Tc-99m MAA intravenously and a 6-view perfusion study was performed. FINDINGS: Ventilation images: On the single breath and equilibrium images there is homogeneous distribution of gas bilaterally. There is some decreased activity in the region of the heart medially at the left lung base. During the washout phase there is no abnormal retention. Perfusion images: No segmental perfusion defects are present. There is homogeneous distribution of activity bilaterally. There are no focal anatomic appearing perfusion defects present. IMPRESSION: Normal radionuclide lung ventilation perfusion scan. SERVICE DATE: 01/07/17-0500 EXAM TYPE: RAD - XRY-PORTABLE CHEST XRAY EXAMINATION: XR PORTABLE CHEST CLINICAL INFORMATION: Hypoxia and tachypnea COMPARISON: Chest x-ray 07/03/2016 TECHNIQUE: AP portable semiupright chest x-ray FINDINGS: Heart size is upper limits of normal and unchanged. Pulmonary vascularity is normal. Some hazy opacity at the left base with blunting the costophrenic sulcus could be related to some atelectasis and effusion. There is no new focal finding in the lungs. No pulmonary edema is seen at this time. IMPRESSION: There is little interval change in the chest x-ray since the previous examination with some hazy opacity at the left lung base and no new focal finding. Disposition Summary Disposition Principal Diagnosis: 1. Hypoxemic/hypercarbic respiratory failure likely due to COPD with severe pulmonary hypertension and right ventricular dysfunction by echocardiogram (No PE by V/Q) 2. PNA Additional Diagnosis: 3. Reported chronic LE edema 4. Acute renal insufficiency, improving 5. Hx HTN 6. Elevated troponins, likely demand ischemia 7. Elevated LFTs 8. Mild aortic stenosis Discharge Disposition: home health services Discharge Instructions General Discharge Information Code Status: Full Code Patient's Diet: heart healthy Patient's Activity: As tolerated Follow-Up Instructions/Appts: please follow up with your wildlife refuge specialist, lung doctor and pcp within 1-2weeks of discharge. please continue taking home oxygen as prescribed. please continue taking medications as prescribed. Medications at Discharge Discharge Medications: Continue taking these medications: Atenolol (Atenolol) 25 MG TABLET 1.5 Tablet ORAL DAILY Comments: NOT GIVEN IN HOSPITAL Furosemide (Furosemide) 20 MG TABLET 1 Tablet ORAL DAILY Comments: Last Taken: 07/06/16 Time: 1000 AM Start taking the following new medications: Aspirin (Aspirin*) 81 MG TAB.CHEW 1 Tablet ORAL DAILY Days = 30 No Refills Comments: Last Taken: 07/06/16 Time: 1000 Prednisone (Prednisone) 10 MG TABLET 1 Tablet ORAL TWICE DAILY Qty = 10 No Refills Instructions: On Take 07/06-07/07 6 TABLETS 07/08-07/10 5 TABLETS 07/11-07/13 4 TABLETS 07/14-07/16 2 TABLETS 07/17-07/19 1 TABLETS THEN STOP Comments: Last Taken: 07/06/16 Time: 1000 Amoxicillin/Potassium Clav (Augmentin 875-125 Tablet) 875 MG-125 MG TABLET 1 Tablet ORAL TWICE DAILY Days = 1 No Refills Albuterol Sulfate (Proair Hfa) 90 MCG HFA.AER.AD 2 Puff Inhale through mouth EVERY 4-6 HOURS NEEDED as needed for copd Qty = 1 Refills = 2 Copies To: MARC DON,Julia HOWE; MIC JOHN MD; CLEMENTE DON,GARRY Attending MD Review Statement Documenting Attending: SHANNAN DON,BRADEN
== END 2016-07-06 16:50 | DRG 193 ==
LOC: ERH 02:55 → CRI 04:11 → 2NB 04:11 → ERHI 04:11 → CRI 09:19 → 2NB 07-04 20:22
PROVIDERS: Emergency Medicine; Internal Medicine; Internal Medicine Infectious Disease; Internal Medicine Interventional Cardiology; Internal Medicine Pulmonary Disease; ADMIT Internal Medicine
PROC: 5A09457 Assistance with Respiratory Ventilation, 24-96 Consecutive Hours, Continuous Positive Airway Pressure (ICD-10-PCS; principal; 2016-07-01)
DX: J18.9 Pneumonia, unspecified organism (principal); J96.22 Acute and chronic respiratory failure with hypercapnia; J96.21 Acute and chronic respiratory failure with hypoxia; N17.9 Acute kidney failure, unspecified; E87.4 Mixed disorder of acid-base balance; I24.8 Other forms of acute ischemic heart disease; I10 Essential (primary) hypertension; E87.6 Hypokalemia; I35.0 Nonrheumatic aortic (valve) stenosis; I27.2 Other secondary pulmonary hypertension; M71.22 Synovial cyst of popliteal space [Baker], left knee; F17.210 Nicotine dependence, cigarettes, uncomplicated
CPT/HCPCS: 2NBSP; CCU; 36415; 78582; 80307; 81001; 82436; 87040; 87070; 87086; 87449; 87450; 87804; 87804-59; 93005; 93010; 93306; 93970; 94799; 96365; 96375; 99291; A9540; A9558; G0480; J0456; J0696; J1644; J1940; J2920; J2930; J3490; J7040; J7060

== ENCOUNTER 2016-11-21 10:15 | Inpatient (IN) | payer OTHER ==
[~2016-11-21] VITALS: Ht 157.5 cm; Wt 74.5 kg
[~2016-11-21 10:15] MED LIST: ASPIRIN81 M4 PO; ATENOLOL25 M1 PO; AUGMENTIN 875-1 EACH PO; FUROSEMIDE20 M1 PO; PREDNISONE10 M2 PO; PROAIR HFA8.5 GM INH
--- NOTE | 2016-11-21 10:19 | ED DYSPNEA/ASTHMA COMPLAINT ---
History of Present Illness General Chief Complaint: Dyspnea (COPD, CHF, Other) Stated Complaint: SOB Source: patient, family Exam Limitations: no limitations Vital Signs & Intake/Output Vital Signs & Intake/Output Vital Signs Date Time Temp Pulse Resp B/P B/P Pulse O2 O2 Flow FiO2 Mean Ox Delivery Rate 11/22 0555 63 95 11/22 0400 96 BIPAP 35% 11/22 0334 67 97 11/22 0032 63 95 11/22 0000 95 BIPAP 35% 11/22 0000 97.7 70 28 90/58 95 BIPAP 35% 11/21 2035 64 94 11/21 1812 97.8 73 28 111/58 100 BIPAP 50% 11/21 1649 100 BIPAP 50% 11/21 1621 89 98 11/21 1553 98.4 70 24 90/53 99 BIPAP 50% 11/21 1527 98.4 70 24 90/53 99 BIPAP 50% 11/21 1502 97.1 79 24 91/50 98 BIPAP 50% 11/21 1438 97.8 77 24 92/54 98 BIPAP 50% 11/21 1401 79 95 11/21 1357 78 84/46 11/21 1349 98.0 77 26 86/52 88 BIPAP 30% 11/21 1344 99 BIPAP 30% 11/21 1305 78 93/52 11/21 1235 97.9 82 24 98/58 100 BIPAP 30% 11/21 1213 72 104/58 11/21 1205 76 90/54 11/21 1155 99 BIPAP 30% 11/21 1153 97.6 70 18 81/51 100 BIPAP 30% 11/21 1145 70/42 11/21 1132 97.7 78 24 66/38 98 BIPAP 30% 11/21 1125 80 99 11/21 1113 96 Nasal 4.0L Cannula 11/21 1050 94 Nasal 5.0L Cannula 11/21 1021 89 24 119/58 87 Nasal 5.0L Cannula ED Intake and Output 11/22 0000 11/21 1200 Intake Total 1250 Output Total Balance 1250 Intake, IV 1250 Patient 148 lb Weight Weight Bed scale Measurement Method Allergies Coded Allergies: No Known Allergies (07/01/16) Reconcile Medications Albuterol Sulfate (Proair Hfa) 90 MCG HFA.AER.AD 2 PUF INH Q4-6 PRN PRN copd Amoxicillin/Potassium Clav (Augmentin 875-125 Tablet) 875 MG-125 MG TABLET 1 TAB PO BID infection Aspirin (Aspirin*) 81 MG TAB.CHEW 1 TAB PO DAILY heart health Atenolol 25 MG TABLET 1.5 TAB PO DAILY HTN (Reported) Atenolol/Chlorthalidone (Atenolol-Chlorthalidone 50-25) 50 MG-25 MG TABLET 1.5 TAB PO DAILY BP (Reported) Atorvastatin Calcium 40 MG TABLET 1 TAB PO DAILY CHOLESTEROL (Reported) Furosemide 20 MG TABLET 1 TAB PO DAILY DIURETIC (Reported) Furosemide (Lasix) 40 MG TABLET 1 TAB PO DAILY FLUID (Reported) Prednisone 10 MG TABLET 1 TAB PO BID COPD EXACERBATION On Take 07/06-07/07 6 TABLETS 07/08-07/10 5 TABLETS 07/11-07/13 4 TABLETS 07/14-07/16 2 TABLETS 07/17-07/19 1 TABLETS THEN STOP Tiotropium Br/Olodaterol HCl (Stiolto Respimat Inhal [place]) 2.5 MCG-2.5 MCG/ ACTUATION MIST.INHAL 1 INHAL IH DAILY SOB (Reported) Triage Nurses Notes Reviewed? yes HPI: 60-year-old female arrived to triage to room 5 for evaluation of shortness of breath over the past few days. She denies any chest pain or chest pressure but does have cough, congestion. No fever or chills. She just saw Dr. Lucas a few days ago and everything was okay. She has a history of COPD. Dr. Jada Mac is her warehouse technician in [place]. She was seeing her for evaluation of shortness of breath. And was admitted back in June for hypercarbic respiratory failure and was intubated. She was hospitalized up to 2 weeks. (RANDI ELIAS APRN) Past History Travel History Traveled to [place] past 21 day No Medical History Any Pertinent Medical History? see below for history Neurological: NONE EENT: NONE Cardiovascular: hypertension, hyperlipidemia, PEDAL EDEMA Respiratory: COPD Gastrointestinal: NONE Hepatic: NONE Renal: NONE Musculoskeletal: NONE Psychiatric: NONE Endocrine: NONE Blood Disorders: NONE Cancer(s): NONE INDUCTION COORDINATION POWER ENGINEER/Reproductive: NONE History of MRSA: No History of VRE: No History of CDIFF: No Surgical History Surgical History: non-contributory Psychosocial History Who do you live with Spouse Services at Home None What is your primary language Maldivian Family History Hx Contributory? No (RANDI ELIAS APRN) Review of Systems Review of Systems Constitutional: Reports: no symptoms. EENTM: Reports: no symptoms. Respiratory: Reports: cough, short of breath, sputum production. Cardiovascular: Reports: no symptoms. GI: Reports: no symptoms. Genitourinary: Reports: no symptoms. Musculoskeletal: Reports: no symptoms. Skin: Reports: no symptoms. Neurological/Psychological: Reports: no symptoms. Hematologic/Endocrine: Reports: no symptoms. Immunologic/Allergic: Reports: no symptoms. All Other Systems: Reviewed and Negative (RANDI ELIAS APRN) Physical Exam Physical Exam General Appearance: mild distress Head: atraumatic, normal appearance Eyes: Bilateral: normal appearance, PERRL, EOMI. Ears, Nose, Throat: normal pharynx, normal ENT inspection Neck: normal inspection, supple, full range of motion Respiratory: crackles, rhonchi, wheezing Cardiovascular: regular rate/rhythm Gastrointestinal: normal bowel sounds, soft, non-tender Extremities: normal inspection, normal capillary refill, normal range of motion, no edema Neurologic/Psych: no motor/sensory deficits, awake, alert, oriented x 3, normal gait, normal mood/affect Skin: intact, normal color, warm/dry Core Measures ACS in differential dx? Yes Severe Sepsis Present: Yes BC x2: Yes Lactic Acid x2: Yes IV ABX Broad Spectrum: Yes NS/LR Started: Yes Septic Shock Present: No (RANDI ELIAS APRN) Progress Differential Diagnosis: AMI, CHF, COPD, pneumonia Plan of Care: Orders Procedure Date/time Status Heart Healthy Diet 11/22 B Active XRY-PORTABLE CHEST XRAY 11/22 0600 Active ICU LAB BUNDLE 11/22 0500 Complete CBC WITHOUT DIFFERENTIAL 11/22 0500 Complete TROPONIN LEVEL 11/21 2230 Complete EKG 11/21 2230 Active POTASSIUM 11/21 2100 Complete LACTIC ACID 11/21 1822 Complete Wound Care/Dressing 11/21 1649 Complete Weight 11/21 1649 Complete VTE Mechanical Prophylaxis 11/21 1649 Complete Vital Signs 11/21 1649 Active Turn and Reposition 11/21 1649 Complete Drains/Tubes 11/21 164 Complete Teach/Educate 11/21 1649 Complete Skin Integrity Protocol 11/21 1649 Active Skin/Pressure Ulcer Assess (Sk 11/21 1649 Complete Precautions 11/21 1649 Complete Pain Treatment and Response 11/21 1649 Complete Nutritional Intake, Monitor 11/21 1649 Complete Isolation 11/21 1649 Complete CIWA 11/21 1649 Complete Patient Care Conference 11/21 1649 Complete Activity/Ambulation 11/21 1649 Complete TROPONIN LEVEL 11/21 1630 Complete EKG 11/21 1630 Active Wound Care/Dressing 11/21 1627 Complete Drains/Tubes 11/21 1627 Complete SPECIMEN TO BE OBTAINED 11/21 1614 Active ICU LAB BUNDLE 11/21 1600 Complete CBC WITHOUT DIFFERENTIAL 11/21 1600 Complete Wound Care/Dressing 11/21 1545 Complete Weight 11/21 1545 Complete VTE Mechanical Prophylaxis 11/21 1545 Active Vital Signs 11/21 1545 Complete Turn and Reposition 11/21 1545 Active Drains/Tubes 11/21 1545 Complete Teach/Educate 11/21 1545 Active Skin Integrity Protocol 11/21 1545 Complete Skin/Pressure Ulcer Assess (Sk 11/21 1545 Active Precautions 11/21 1545 Active Pain Treatment and Response 11/21 1545 Active Nutritional Intake, Monitor 11/21 1545 Active Isolation 11/21 1545 Active CIWA 11/21 1545 Complete Patient Care Conference 11/21 1545 Active Activity/Ambulation 11/21 1545 Active STREP PNEUMO URINARY ANTIGEN 11/21 1540 Active LEGIONELLA URINARY ANTIGEN 11/21 1540 Active LACTIC ACID 11/21 1522 Complete VRE ACTIVE SURVIELLANCE 11/21 1453 Active ACTIVE SURVEILLANCE NARES 11/21 1453 Active CBC WITHOUT DIFFERENTIAL 11/21 1437 Complete Lab Add-on Test 11/21 1436 Active CULTURE,URINE 11/21 1431 Active URINALYSIS 11/21 1431 Complete Pathway - chart 11/21 1426 Active House Staff 11/21 1426 Active Patient Data 11/21 1426 Active Code Status 11/21 1426 Active Admit to inpatient 11/21 1419 Active Patient Data 11/21 1419 Active BIPAP 11/21 1401 Complete Add-on Test (ER Only) 11/21 1400 Active CONTINOUS NEBULIZER TX (1 HR) 11/21 1200 Complete BIPAP 11/21 1125 Complete Add-on Test (ER Only) 11/21 1059 Active ARTERIAL BLOOD GAS (GEN) 11/21 1051 Complete BLOOD CULTURE 11/21 1025 Active MAGNESIUM 11/21 1024 Complete LACTIC ACID 11/21 1024 Complete D-DIMER 11/21 1024 Complete Saline Lock 11/21 1020 Active Telemetry/Clamp Remover 11/21 1020 Active TROPONIN LEVEL 11/21 1020 Complete COMPREHENSIVE METABOLIC PANEL 11/21 1020 Complete CBC WITHOUT DIFFERENTIAL 11/21 1020 Complete B-TYPE NATRIURETIC PEP (BNP) 11/21 1020 Complete EKG 11/21 1020 Active Intake & Output 11/21 1017 Active Weight 11/21 UNK Active VTE Mechanical Prophylaxis 11/21 UNK Active [place], Insertion/Removal/Asses 11/21 UNK Complete Current Medications Sig/Michi Start time Last Medication Dose Stop Time Status Admin Azithromycin 500 MG DAILY@11/22 1100 AC (Zithromax) Sodium Chloride 250 ML (Normal Saline 0.9%) Ceftriaxone Sodium 1,000 MG DAILY@11/22 1100 AC (Rocephin) Aspirin 81 MG DAILY 11/22 1000 AC (Aspirin) Atorvastatin Calcium 40 MG DAILY 11/22 1000 AC (Lipitor) Potassium Chloride 40 MEQ ONCE ONE 11/22 0715 UNVr (K-Dur) 11/22 0716 Methylprednisolone 40 MG Q8 11/21 2200 AC 11/22 (Solumedrol) 0632 Potassium Chloride 20 MEQ Q8H 11/21 1830 AC 11/22 (KCl 20MEQ in NS 0622 1000ML) Sodium Chloride 1,000 ML (Normal Saline 0.9%) Albuterol Sulfate 2 PUF Q4-6 PRN PRN 11/21 1500 AC (Ventolin) Non-Formulary 0 SEE ADMIN CRITERIA 11/21 1500 CAN Medication (NON FORMULARY) Sodium Chloride 1,000 ML BOLUS ONE 11/21 1445 CAN (Normal Saline 0.9%) 11/21 1544 Acetaminophen 325 MG Q6-PRN PRN 11/21 1430 AC (Tylenol) Oxycodone/ 1 TAB Q6 PRN 11/21 1430 AC Acetaminophen (Percocet) Oxycodone/ 2 TAB Q6 PRN 11/21 1430 AC Acetaminophen (Percocet) Heparin Sodium 5,000 UNIT Q8 11/21 1425 AC 11/22 (Porcine) 0632 Laboratory Tests 11/22/16 0510: Anion Gap 8, Estimated GFR 57 L, Glucose 125 H, Calcium 7.8 L, Phosphorus 3.2 , Magnesium 2.8 H, Total Bilirubin 0.2, AST 43 H, ALT 38, Albumin 2.9 L, CBC w Diff NO MAN DIFF REQ, RBC 3.68 L, MCV 93.6, MCH 31.5 H, RDW 14.5, MPV 8.4, Gran % 86.7 H, Lymphocytes % 6.5 L, Monocytes % 6.8, Eosinophils % 0, Basophils % 0 L, Absolute Granulocytes 8.1 H, Absolute Lymphocytes 0.6 L, Absolute Monocytes 0.6, Absolute Eosinophils 0, Absolute Basophils 0, PUBS MCHC 33.7 11/21/16 2300: Urine Color YEL, Urine Clarity CLEAR, Urine pH 6.0, Ur Specific [place] 1.025, Urine Protein TRACE H, Urine Ketones NEG, Urine Nitrite NEG, Urine Bilirubin NEG, Urine Urobilinogen 0.2, Ur Leukocyte Esterase NEG, Ur Microscopic SEDIMENT EXAMINED, Urine RBC 1-3, Urine WBC 1-3 H, Ur Epithelial Cells MOD H, Urine Bacteria FEW H, Urine Hemoglobin NEG, Urine Glucose NEG 11/21/16 2240: Troponin I 0.02 11/21/16 2050: 11/21/16 1920: Lactic Acid 1.8 11/21/16 1650: Troponin I 0.03 11/21/16 1650: Lactic Acid 2.6 H 11/21/16 1650: Anion Gap 12, Estimated GFR 38 L, Glucose 164 H, Calcium 8.2 L, Phosphorus 3.7, Magnesium 2.7 H, Total Bilirubin 0.2, AST 28, ALT 36, Albumin 3.4 L, CBC w Diff NO MAN DIFF REQ, RBC 4.01 L, MCV 92.9, MCH 31.8 H, RDW 14.4, MPV 8.6, Gran % 96.2 H, Lymphocytes % 2.3 L, Monocytes % 1.5 L, Eosinophils % 0, Basophils % 0 L, Absolute Granulocytes 11.3 H, Absolute Lymphocytes 0.3 L, Absolute Monocytes 0.2, Absolute Eosinophils 0, Absolute Basophils 0, PUBS MCHC 34.2 11/21/16 1508: CBC w Diff NO MAN DIFF REQ, RBC 4.11 L, MCV 92.3, MCH 31.6 H, RDW 14.2, MPV 8.4, Gran % 96.7 H, Lymphocytes % 0.5 L, Monocytes % 2.7, Eosinophils % 0.1, Basophils % 0 L, Absolute Granulocytes 14.0 H, Absolute Lymphocytes 0.1 L, Absolute Monocytes 0.4, Absolute Eosinophils 0, Absolute Basophils 0, PUBS MCHC 34.2 11/21/16 1055: pH 7.37, pCO2 61 *H, pO2 89, HCO3 35 H, ABG O2 Sat (Measured) 96.0, P-50 (Temp Corrected) N, Carboxyhemoglobin 4.7, O2 Concentration % 5LPM, O2 Delivery Method NC, Phlebotomy Draw Site RIGHT BRACHIAL 11/21/16 1024: Anion Gap 18 H, Estimated GFR 38 L, BUN/Creatinine Ratio 30.0 H, Glucose 208 H, Lactic Acid 4.3 H, Calcium 9.3, Magnesium 2.4 H, Total Bilirubin 0.6, AST 34, ALT 26, Alkaline Phosphatase 87, Troponin I 0.03, Cxx-P-Lkjvftzmaek Pept 4990 H, Total Protein 7.5, Albumin 4.3, Globulin 3.2, Albumin/Globulin Ratio 1.3, D-Dimer 426 H, CBC w Diff MAN DIFF ORDERED, RBC 4.86, MCV 92.5, MCH 31.7 H, RDW 14.6 H, MPV 8.4, Gran % 85.0 H, Lymphocytes % 7.9 L, Monocytes % 7.1, Eosinophils % 0, Basophils % 0 L, Absolute Granulocytes 15.0 H, Absolute Lymphocytes 1.4, Absolute Monocytes 1.3 H, Absolute Eosinophils 0, Absolute Basophils 0, Anisocytosis 1+, Stomatocytes 1+, PUBS MCHC 34.3 11/21/16 1000: Sodium Cancelled, Potassium Cancelled, Chloride Cancelled, Carbon Dioxide Cancelled, Anion Gap Cancelled, BUN Cancelled, Creatinine Cancelled, Glucose Cancelled, Calcium Cancelled, Phosphorus Cancelled, Magnesium Cancelled, Total Bilirubin Cancelled, AST Cancelled, ALT Cancelled, Albumin Cancelled Microbiology 11/22 0600 URINE ROUT: Legionella Antigen - ORD 11/22 0600 URINE ROUT: Streptococcus pneumoniae Antigen (M - ORD 11/21 2300 URINE ROUT: Urine Culture - RECD 11/21 1620 UPPER RESP: Surveillance Culture - RECD 11/21 1620 GI: Surveillance Culture - RECD 11/21 1102 BLOOD: Blood Culture - RECD 11/21 1049 BLOOD: Blood Culture - RECD Diagnostic Imaging: Viewed by Me: Radiology Read. Discussed w/RAD: Radiology Read. CXR Impression: see below Initial ED EKG: NSR, BIATRIAL ENLARGEMENT Prior EKG: changed (BUT BETTER) Comments: 11:00AM DR. OLIVARES IN ROOM TO EVAL PATIENT. ABG'S DONE. ANTIBIOTICS ORDERED. PATIENT HAVING A HARDER TIME WITH with breathing. We will initiate BiPAP. 12:03 pm continuous nebs started, IV normal saline 1000 ML bolus being given due to blood pressure of 60/40. BP now up to 90/50. She is mentating well with no issues. 1239 PM- PATIENT FEELING WELL, aREATING better with continuous neb treatments. Blood pressure is up 100 systolic now. PATIENT: ELISA NICOLE PRESENT AGE: 60 PATIENT ACCOUNT NO: [id number] : 55 LOCATION: [facility] ORDERING PHYSICIAN: RANDI ELIAS APRN SERVICE DATE: 11/21/16 EXAM TYPE: RAD - XRY-PORTABLE CHEST XRAY EXAMINATION: XR PORTABLE CHEST CLINICAL INFORMATION: CHF. COMPARISON: Chest done on 07/04/2016. TECHNIQUE: Portable frontal view of the chest was obtained. FINDINGS: Hyperinflated lung campos are present bilaterally with nonspecific bibasilar linear airspace disease likely represent pleural parenchymal scar, atelectasis or combination thereof. The remainder of the lung campos otherwise appear clear. The cardiomediastinal silhouette is within normal limits. There is no pleural effusion present. Specifically, no radiographic evidence of CHF noted. IMPRESSION: 1. No radiographic evidence of CHF. 2. Features consistent with COPD with nonspecific bibasilar linear airspace disease, may represent hypoventilatory, atelectatic changes, pleural parenchymal scar and less likely to be infiltrate. DICTATED BY: ANTONIO WELSH MD DATE/TIME DICTATED:11/21/161126 COMMERCIAL LENDING VICE PRESIDENT:JOSE M DATE/TIME TRANSCRIBED:11/21/161126 CONFIDENTIAL, DO NOT COPY WITHOUT APPROPRIATE AUTHORIZATION. <Electronically signed in Other Vendor System> SIGNED BY: ANTONIO WELSH MD 11/21/16 0708 1:15 PM called and spoke to Dr. Avila. Chest x-ray shows COPD changes- she is doing much better. Will call hospitalist for admission to the floor, telemetry. Dr. Avila will consult. 157PM I spoke to hospitalist Dr. Tabares. He will have medical team come down and see her along with himself. Patient descending now down into the upper 80s 90%. Oxygen increased on BiPAP to 50%. Blood pressure now trending back down to 84/ 46. Crackles now heard IN BASES. dR. Olivares AWARE 216 pm- Dr. Avila here in the ED, will admit to ICU hypercarbic respiratory failure. Patient now increased work of breathing. Give magnesium 1 g IV. Medical team contacted. (RANDI ELIAS APRN) Comments: I evaluated pt shortly after presentation and felt MANUAL CONTROL AUGER PRESS OPERATOR's eval treatment appriopriate. I also evaluated this patient at the time of the low blood pressure determination. She is mentating well and had no specific complaint. She denied dizziness. I repositioned her into a semi-Trendelenburg position. IV fluids were hanging. (JEFERSON DON,GALINA Wadsworth) Departure Departure Time of Disposition: 1411 Disposition: STILL A PATIENT Condition: Stable Clinical Impression Primary Impression: Hypercapnic respiratory failure Qualifiers: Chronicity: acute on chronic Qualified Code: J96.22 - Acute and chronic respiratory failure with hypercapnia Secondary Impressions: Hypokalemia Referrals: MORRIS DON,DAGMAR Enamorado (PCP/Family) Departure Forms: Customer Survey General Discharge Information Admission Note Spoke With: ADELA DON,PRANAV Yoder Documentation of Exam: Documentation of any treatments & extenuating circumstances including Concerns Regarding Discharge (functional status, medication knowledge or non-compliance, living conditions, etc.) that warrant an admission rather than observation: She will be admitted to the ICU for cont montior- on BiPAP, resp treatments, antibiotic, steriods. (RANDI ELIAS APRN) PA/MANUAL CONTROL AUGER PRESS OPERATOR Co-Sign Statement Statement: ED Attending supervision documentation- [x] I saw and evaluated the patient. I have also reviewed all the pertinent lab results and diagnostic results. I agree with the findings and the plan of care as documented in the PA's/MANUAL CONTROL AUGER PRESS OPERATOR's documentation. [] I have reviewed the ED Record and agree with the PA's/MANUAL CONTROL AUGER PRESS OPERATOR's documentation. [] Additions or exceptions (if any) to the PAs/MANUAL CONTROL AUGER PRESS OPERATOR's note and plan are summarized below: [] (JEFERSON DON,GALINA Wadsworth) Critical Care Note Critical Care Note Critical Care Time: 30-74 min (RANDI ELIAS APRN)
[2016-11-21 10:38] LABS: ABSOLUTE BASOPHIL COUNT 0 /CUMM (0.0-0.2); ABSOLUTE EOSINOPHIL COUNT 0 /CUMM (0.0-0.7); ABSOLUTE LYMPH COUNT 1.4 /CUMM (1.2-3.4); ABSOLUTE MONOCYTE COUNT 1.3 /CUMM (0.10-0.60); BASOPHIL % 0 % (0.0-2.0); EOSINOPHIL % 0 % (0-5); HEMATOCRIT 44.9 % (37-47); MEAN CORPUSCULAR HGB 31.7 PG (27.0-31.0); MEAN CORPUSCULAR HGB CONC 34.3 G/DL (33.0-37.0); MEAN CORPUSCULAR VOLUME 92.5 FL (81.0-99.0); MEAN PLATELET VOLUME 8.4 FL (7.4-10.4); PLATELET COUNT 273 /CUMM (130-400); RBC DISTRIBUTION WIDTH 14.6 % (11.5-14.5); RED BLOOD CELL CT 4.86 /CUMM (4.20-5.40); WHITE BLOOD CELL COUNT 17.6 /CUMM (4.8-10.8)
[2016-11-21] MEDS ORDERED: ATENOLOL-CHLOR1 EAC1 PO (10:38)
[2016-11-21] MEDS ORDERED: ATORVASTATIN CA40 M1 PO (10:39)
[2016-11-21] MEDS ORDERED: LASIX40 M1 PO (10:39)
[2016-11-21] MEDS ORDERED: STIOLTO RESPIMAT4 GM IH (10:40)
--- NOTE | 2016-11-21 12:53 | RADIOLOGY REPORT ---
EXAMINATION: XR PORTABLE CHEST CLINICAL INFORMATION: CHF. COMPARISON: Chest done on 07/04/2016. TECHNIQUE: Portable frontal view of the chest was obtained. FINDINGS: Hyperinflated lung campos are present bilaterally with nonspecific bibasilar linear airspace disease likely represent pleural parenchymal scar, atelectasis or combination thereof. The remainder of the lung campos otherwise appear clear. The cardiomediastinal silhouette is within normal limits. There is no pleural effusion present. Specifically, no radiographic evidence of CHF noted. IMPRESSION: 1. No radiographic evidence of CHF. 2. Features consistent with COPD with nonspecific bibasilar linear airspace disease, may represent hypoventilatory, atelectatic changes, pleural parenchymal scar and less likely to be infiltrate.
--- NOTE | 2016-11-21 14:26 | Cons- CRCU ---
General Information and HPI Consulting Request Date of Consult: 11/21/16 Requested By: ed History of Present Illness: 60-year-old female arrived to triage to room 5 for evaluation of shortness of breath over the past few days. She denies any chest pain or chest pressure but does have cough, congestion. No fever or chills. She just saw Dr. Lucas a few days ago and everything was okay. She has a history of COPD. Dr. Jada Mac is her animal husbandry technician in [place]. She was seeing her for evaluation of shortness of breath. In the emergency room she was found to be in significant shortness of breath with severe wheezing. She had significantly increased work of breathing. Her blood gas which was done in the ED was suggestive of acute hypercarbic respiratory failure with severe tachypnea and shortness of breath and audible wheezing highly suggestive of very severe acute hypoxemic and hypercarbic respiratory failure in a lady with very end-stage COPD. She has not had any recent intubation She did not have any recent fever but apparently the most of the symptoms started very subacutely. Review of Systems Constitutional: Reports: no symptoms. EENTM: Reports: no symptoms. Respiratory: Reports: cough, short of breath, sputum production. Cardiovascular: Reports: no symptoms. GI: Reports: no symptoms. Genitourinary: Reports: no symptoms. Musculoskeletal: Reports: no symptoms. Skin: Reports: no symptoms. Neurological/Psychological: Reports: no symptoms. Hematologic/Endocrine: Reports: no symptoms. Immunologic/Allergic: Reports: no symptoms. All Other Systems: Reviewed and Negative Allergies/Medications Allergies: Coded Allergies: No Known Allergies (07/01/16) Home Med List: Albuterol Sulfate (Proair Hfa) 90 MCG HFA.AER.AD 2 PUF INH Q4-6 PRN PRN copd Amoxicillin/Potassium Clav (Augmentin 875-125 Tablet) 875 MG-125 MG TABLET 1 TAB PO BID infection Aspirin (Aspirin*) 81 MG TAB.CHEW 1 TAB PO DAILY heart health Atenolol 25 MG TABLET 1.5 TAB PO DAILY HTN (Reported) Atenolol/Chlorthalidone (Atenolol-Chlorthalidone 50-25) 50 MG-25 MG TABLET 1.5 TAB PO DAILY BP (Reported) Atorvastatin Calcium 40 MG TABLET 1 TAB PO DAILY CHOLESTEROL (Reported) Furosemide 20 MG TABLET 1 TAB PO DAILY DIURETIC (Reported) Furosemide (Lasix) 40 MG TABLET 1 TAB PO DAILY FLUID (Reported) Prednisone 10 MG TABLET 1 TAB PO BID COPD EXACERBATION On Take 07/06-07/07 6 TABLETS 07/08-07/10 5 TABLETS 07/11-07/13 4 TABLETS 07/14-07/16 2 TABLETS 07/17-07/19 1 TABLETS THEN STOP Tiotropium Br/Olodaterol HCl (Stiolto Respimat Inhal Chambers) 2.5 MCG-2.5 MCG/ ACTUATION MIST.INHAL 1 INHAL IH DAILY SOB (Reported) Review of Systems Review of Systems Constitutional: Reports: see HPI. Past History Travel History Traveled to [place] past 21 day No Medical History Neurological: NONE EENT: NONE Cardiovascular: hypertension, hyperlipidemia, PEDAL EDEMA Respiratory: COPD Gastrointestinal: NONE Hepatic: NONE Renal: NONE Musculoskeletal: NONE Psychiatric: NONE Endocrine: NONE Blood Disorders: NONE Cancer(s): NONE CLINICAL EXERCISE SPECIALIST/Reproductive: NONE Surgical History Surgical History: non-contributory Psychosocial History Who Do You Live With? spouse Services at Home: None ETOH Use: occasional use Illicit Drug Use: denies illicit drug use Functional Ability ADLs Independent: dressing, eating, toileting, bathing. Ambulation: independent IADLs Independent: shopping, housework, finances, food prep, telephone, transportation , medication admin. Exam & Diagnostic Data Last 24 Hrs of Vital Signs/I&O Vital Signs Date Time Temp Pulse Resp B/P B/P Pulse O2 O2 Flow FiO2 Mean Ox Delivery Rate 11/21 1401 79 95 11/21 1357 78 84/46 11/21 1349 98.0 77 26 86/52 88 BIPAP 30% 11/21 1344 99 BIPAP 30% 11/21 1305 78 93/52 11/21 1235 97.9 82 24 98/58 100 BIPAP 30% 11/21 1213 72 104/58 11/21 1205 76 90/54 11/21 1155 99 BIPAP 30% 11/21 1153 97.6 70 18 81/51 100 BIPAP 30% 11/21 1145 70/42 11/21 1132 97.7 78 24 66/38 98 BIPAP 30% 11/21 1125 80 99 11/21 1113 96 Nasal 4.0L Cannula 11/21 1050 94 Nasal 5.0L Cannula 11/21 1021 89 24 119/58 87 Nasal 5.0L Cannula Intake & Output 11/21 1600 11/21 0800 11/21 0000 Intake Total 1250 Output Total Balance 1250 Intake, IV 1250 Last 48 Hrs of Labs/Prince: Laboratory Tests 11/21/16 1055: pH 7.37, pCO2 61 *H, pO2 89, HCO3 35 H, ABG O2 Sat (Measured) 96.0, P-50 (Temp Corrected) N, Carboxyhemoglobin 4.7, O2 Concentration % 5LPM, O2 Delivery Method NC, Phlebotomy Draw Site RIGHT BRACHIAL 11/21/16 1024: Anion Gap 18 H, Estimated GFR 38 L, BUN/Creatinine Ratio 30.0 H, Glucose 208 H, Calcium 9.3, Magnesium 2.4 H, Total Bilirubin 0.6, AST 34, ALT 26, Alkaline Phosphatase 87, Troponin I 0.03, Nvw-R-Pgbqtwyodhe Pept 4990 H, Total Protein 7.5, Albumin 4.3, Globulin 3.2, Albumin/Globulin Ratio 1.3, D-Dimer 426 H, CBC w Diff MAN DIFF ORDERED, RBC 4.86, MCV 92.5, MCH 31.7 H, RDW 14.6 H, MPV 8.4, Gran % 85.0 H, Lymphocytes % 7.9 L, Monocytes % 7.1, Eosinophils % 0, Basophils % 0 L, Absolute Granulocytes 15.0 H, Absolute Lymphocytes 1.4, Absolute Monocytes 1.3 H, Absolute Eosinophils 0, Absolute Basophils 0, Anisocytosis 1+, Stomatocytes 1+, PUBS MCHC 34.3 Assessment/Plan Impression/Plan: Physical Exam General Appearance: On BiPAP with significant distress Head: atraumatic, normal appearance Eyes: Bilateral: normal appearance, PERRL, EOMI. Ears, Nose, Throat: normal pharynx, normal ENT inspection Neck: normal inspection, supple, full range of motion Respiratory: crackles, rhonchi, wheezing very poor air entry Cardiovascular: regular rate/rhythm Gastrointestinal: normal bowel sounds, soft, non-tender Extremities: normal inspection, normal capillary refill, normal range of motion, trace edema Neurologic/Psych: no motor/sensory deficits, awake, alert, oriented x 3, normal gait, normal mood/affect Skin: intact, normal color, warm/dry SIGNIFICANT DATA Previous CT reviewed Has profound emphysema in the upper lobes with bilateral scarring/mild ILD-type picture Chest x-ray showed severe COPD with bibasal early near atelectasis versus hypoventilatory change Previous echocardiogram did reveal normal ejection fraction with very severe pulmonary hypertension with dilated and hypokinetic right ventricle Previous CT scan of the chest and previous VQ scan reviewed the last VQ scan showed normal lung perfusion no evidence of pulmonary embolism 's creatinine 1.4 potassium 2.9 bicarbonate 24 anion gap was elevated lactic acid was not done which needs to be done liver enzymes were unremarkable proBNP was 4990 white count was elevated at 17 with normal hemoglobin and hematocrit initial d-dimer was elevated but it's lower than the last admission and of venous thromboembolism was ruled out ABG reviewed shows that PCO2 significantly elevated previous cultures had not revealed any Pseudomonas previous pulmonary function test showed very severe COPD with air trapping hyperinflation with significant exercise-induced desaturation IMPRESSION This is a 60-year-old lady with very severe emphysema with severe COPD with significant air trapping now comes in with * Acute hypoxemic and hypercarbic respiratory failure related to very severe COPD exacerbation with profound wheezing. * Leukocytosis with some sputum suggestion rule out any acute bacterial bronchitis * Bibasilar atelectasis versus infiltrate rule out pneumonia * Severe pulmonary hypertension with mild cor pulmonale with previous venous thromboembolism workup negative * Profound hypo-kalemia * Significant anion gap acidosis most likely related to increased work of breathing check lactic acid * Unlikely to be venous thromboembolism as a clinical findings are highly suggestive of very severe COPD exacerbation with respiratory failure * Chronic kidney disease with worsening acute kidney injury probably related to low flow state * Chronic hypercarbia * Previous pulmonary vascular congestion elevated BNP with no clinical evidence suggestive of congestive heart failure * mild aortic stenosis RECOMMENDATION Admitted to the ICU Continue noninvasive ventilation with BiPAP Continue ceftriaxone and azithromycin Intravenous Solu-Medrol 40 every 8 [id number] nebulizer therapy with DuoNeb every 3-4 hours when she stable 1 g magnesium By mouth potassium replacement Check lactic acid Repeat blood work in the next 2-3 hours ABG only if she becomes clinically worse Lower extremity Doppler Patient would need to have an for alpha 1 antitrypsin gene mutation analysis in the future DVT prophylaxis Patient is critically ill prognosis is guarded Total time spent 40 minutes Consult Acknowledgment - Thank you for your consult request.
--- NOTE | 2016-11-21 14:30 | History & Physical ---
JUNIOR DON,[facility] 11/21/16 1430: General Information and HPI MD Statement: I have seen and personally examined ELISA NICOLE and documented this H&P. The patient is a 60 year old F who presented with a patient stated chief complaint of [shortness of breath]. Source of Information: patient, old records Exam Limitations: no limitations History of Present Illness: Patient is a 60 year-old lady with PMH of hypertension, HLD, COPD, previously a heavy smoker (quit in Jun 2016), severe pulmonary hypertension, who is brought in by her from home due to worsening shortness of breath. Patient reported shortness of breath with exertion that started 2 days ago, which has been progressively worsening and since yesterday is accompanied by coughing with clear phlegm. Patient reports sick contacts, several family members who visited her recently had upper respiratory infections, however she denies any symptoms of URI including sneezing and nasal congestion, and denies fever or chills. Denies recent travels. Patient also denies any chest pain, palpitation, dizziness. Currently appears to have shortness of breath at rest. Of note, patient's is a heavy smoker. Patient arrived in the ED at 10:15 a.m., was found to have SO2 of 68-70% with labored breathing; O2 supplementation was given through NC. ABG at 10:55 a.m. showed hypercapnia. She also received Albuterol treatment but the SO2 dropped again to 80s% therefore she is started on Bipap with 50% FiO2. She is admitted to the ICU for close monitoring and possible need for intubation. Allergies/Medications Allergies: Coded Allergies: No Known Allergies (07/01/16) Home Med list Albuterol Sulfate (Proair Hfa) 90 MCG HFA.AER.AD 2 PUF INH Q4-6 PRN PRN copd Amoxicillin/Potassium Clav (Augmentin 875-125 Tablet) 875 MG-125 MG TABLET 1 TAB PO BID infection Aspirin (Aspirin*) 81 MG TAB.CHEW 1 TAB PO DAILY heart health Atenolol 25 MG TABLET 1.5 TAB PO DAILY HTN (Reported) Atenolol/Chlorthalidone (Atenolol-Chlorthalidone 50-25) 50 MG-25 MG TABLET 1.5 TAB PO DAILY BP (Reported) Atorvastatin Calcium 40 MG TABLET 1 TAB PO DAILY CHOLESTEROL (Reported) Furosemide 20 MG TABLET 1 TAB PO DAILY DIURETIC (Reported) Furosemide (Lasix) 40 MG TABLET 1 TAB PO DAILY FLUID (Reported) Prednisone 10 MG TABLET 1 TAB PO BID COPD EXACERBATION On Take 07/06-07/07 6 TABLETS 07/08-07/10 5 TABLETS 07/11-07/13 4 TABLETS 07/14-07/16 2 TABLETS 07/17-07/19 1 TABLETS THEN STOP Tiotropium Br/Olodaterol HCl (Stiolto Respimat Inhal [place]) 2.5 MCG-2.5 MCG/ ACTUATION MIST.INHAL 1 INHAL IH DAILY SOB (Reported) Past History Travel History Traveled to [place] past 21 day No Medical History Neurological: NONE EENT: NONE Cardiovascular: hypertension, hyperlipidemia, PEDAL EDEMA Respiratory: COPD Gastrointestinal: NONE Hepatic: NONE Renal: NONE Musculoskeletal: NONE Psychiatric: NONE Endocrine: NONE Blood Disorders: NONE Cancer(s): NONE RN LICENSED PRACTICAL/Reproductive: NONE History of MRSA: No History of VRE: No History of CDIFF: No Surgical History Surgical History: non-contributory Past Family/Social History Psychosocial History Who Do You Live With? spouse Services at Home: None ETOH Use: occasional use Illicit Drug Use: denies illicit drug use Functional Ability ADLs Independent: dressing, eating, toileting, bathing. Ambulation: independent IADLs Independent: shopping, housework, finances, food prep, telephone, transportation , medication admin. Review of Systems Review of Systems Constitutional: Denies: chills, fever, weakness. EENTM: Reports: no symptoms. Cardiovascular: Denies: chest pain, palpitations. Respiratory: Reports: cough, short of breath, sputum production. Denies: wheezing. GI: Denies: abdominal pain, changes in stool. Genitourinary: Denies: discharge, frequency, pain, urgency. Musculoskeletal: Reports: no symptoms. Skin: Reports: no symptoms. Neurological/Psychological: Reports: no symptoms. Hematologic/Endocrine: Reports: no symptoms. Exam & Diagnostic Data Last 24 Hrs of Vital Signs/I&O Vital Signs Date Time Temp Pulse Resp B/P B/P Pulse O2 O2 Flow FiO2 Mean Ox Delivery Rate 11/21 1553 98.4 70 24 99 BIPAP 50% 11/21 1527 98.4 70 24 99 BIPAP 50% 11/21 1502 97.1 79 24 91/50 98 BIPAP 50% 11/21 1438 97.8 77 24 92/54 98 BIPAP 50% 11/21 1401 79 95 11/21 1357 78 84/46 11/21 1349 98.0 77 26 86/52 88 BIPAP 30% 11/21 1344 99 BIPAP 30% 11/21 1305 78 93/52 11/21 1235 97.9 82 24 98/58 100 BIPAP 30% 11/21 1213 72 104/58 11/21 1205 76 90/54 11/21 1155 99 BIPAP 30% 11/21 1153 97.6 70 18 81/51 100 BIPAP 30% 11/21 1145 70/42 11/21 1132 97.7 78 24 66/38 98 BIPAP 30% 11/21 1125 80 99 11/21 1113 96 Nasal 4.0L Cannula 11/21 1050 94 Nasal 5.0L Cannula 11/21 1021 89 24 119/58 87 Nasal 5.0L Cannula Intake & Output 11/21 1600 11/21 0800 11/21 0000 Intake Total 1250 Output Total Balance 1250 Intake, IV 1250 Physical Exam General Appearance Alert, Oriented X3, Cooperative, No Acute Distress Skin No Significant Lesion Skin Temp/Moisture Exam: Warm/Dry Sepsis Skin Exam (color): Normal for Ethnicity HEENT Atraumatic, PERRLA, Mucous Membr. moist/pink Neck Supple Cardiovascular Regular Rate, Normal S1, Normal S2 Lungs bilaterall and diffuse wheezing and rhonchi Abdomen Normal Bowel Sounds, Soft, No Tenderness Neurological Normal Speech, Normal Tone Extremities No Clubbing, No Cyanosis, No Edema, Normal Pulses, No Tenderness/ Swelling Vascular Normal Pulses, Pulses Symmetrical Sepsis Peripheral Pulse Location: all peripheral pulses NL Sepsis Peripheral Pulse Exam: Normal Sepsis Cap Refill Exam: <2 Sec Last 24 Hrs of Labs/Prince: Laboratory Tests 11/21/16 1508: CBC w Diff NO MAN DIFF REQ, RBC 4.11 L, MCV 92.3, MCH 31.6 H, RDW 14.2, MPV 8.4, Gran % 96.7 H, Lymphocytes % 0.5 L, Monocytes % 2.7, Eosinophils % 0.1, Basophils % 0 L, Absolute Granulocytes 14.0 H, Absolute Lymphocytes 0.1 L, Absolute Monocytes 0.4, Absolute Eosinophils 0, Absolute Basophils 0, PUBS MCHC 34.2 11/21/16 1055: pH 7.37, pCO2 61 *H, pO2 89, HCO3 35 H, ABG O2 Sat (Measured) 96.0, P-50 (Temp Corrected) N, Carboxyhemoglobin 4.7, O2 Concentration % 5LPM, O2 Delivery Method NC, Phlebotomy Draw Site RIGHT BRACHIAL 11/21/16 1024: Anion Gap 18 H, Estimated GFR 38 L, BUN/Creatinine Ratio 30.0 H, Glucose 208 H, Lactic Acid 4.3 H, Calcium 9.3, Magnesium 2.4 H, Total Bilirubin 0.6, AST 34, ALT 26, Alkaline Phosphatase 87, Troponin I 0.03, Nyq-S-Qyfwopdlsiz Pept 4990 H, Total Protein 7.5, Albumin 4.3, Globulin 3.2, Albumin/Globulin Ratio 1.3, D-Dimer 426 H, CBC w Diff MAN DIFF ORDERED, RBC 4.86, MCV 92.5, MCH 31.7 H, RDW 14.6 H, MPV 8.4, Gran % 85.0 H, Lymphocytes % 7.9 L, Monocytes % 7.1, Eosinophils % 0, Basophils % 0 L, Absolute Granulocytes 15.0 H, Absolute Lymphocytes 1.4, Absolute Monocytes 1.3 H, Absolute Eosinophils 0, Absolute Basophils 0, Anisocytosis 1+, Stomatocytes 1+, PUBS MCHC 34.3 11/21/16 1000: Sodium Cancelled, Potassium Cancelled, Chloride Cancelled, Carbon Dioxide Cancelled, Anion Gap Cancelled, BUN Cancelled, Creatinine Cancelled, Glucose Cancelled, Calcium Cancelled, Phosphorus Cancelled, Magnesium Cancelled, Total Bilirubin Cancelled, AST Cancelled, ALT Cancelled, Albumin Cancelled Microbiology 11/21 154 URINE ROUT: Legionella Antigen - COLB 11/21 1540 URINE ROUT: Streptococcus pneumoniae Antigen (M - COLB 11/21 1453 UPPER RESP: Surveillance Culture - COLB 11/21 1453 GI: Surveillance Culture - COLB 11/21 1431 URINE ROUT: Urine Culture - COLB 11/21 1102 BLOOD: Blood Culture - RECD 11/21 1049 BLOOD: Blood Culture - RECD Diagnostic Data EKG Results increased amplitude of P waves (II,III,aVF,V3), prominent U waves in the precordial leads and minimal ST segment depression II, III and AVF. And increased QT interval to 493. CXR Results SERVICE DATE: 11/21/16 EXAM TYPE: RAD - XRY-PORTABLE CHEST XRAY EXAMINATION: XR PORTABLE CHEST CLINICAL INFORMATION: CHF. COMPARISON: Chest done on 07/04/2016. TECHNIQUE: Portable frontal view of the chest was obtained. FINDINGS: Hyperinflated lung campos are present bilaterally with nonspecific bibasilar linear airspace disease likely represent pleural parenchymal scar, atelectasis or combination thereof. The remainder of the lung campos otherwise appear clear. The cardiomediastinal silhouette is within normal limits. There is no pleural effusion present. Specifically, no radiographic evidence of CHF noted. IMPRESSION: 1. No radiographic evidence of CHF. 2. Features consistent with COPD with nonspecific bibasilar linear airspace disease, may represent hypoventilatory, atelectatic changes, pleural parenchymal scar and less likely to be infiltrate. Assessment/Plan Assessment: Patient is a 60 year-old lady with PMH of hypertension, COPD not on O2 at home, previously a heavy smoker, who is brought in due to worsening shortness of breath that started 2 days ago. Reports sick contact, denies fever chills or URI symptoms. reports coughing with clear sputum. In the ED patient was found to be hypoxic to 68-70% SO2 on room air, received O2 per NC and nebulizer treatment but eventually required Bipap. She is alert and oriented but appears to be in respiratory distress. ABG: PH 7.37, pCO2 61, pO2 89, HCO3 35. Lactic acid: 4.3, A D-dimer 426 (previously 572 during the previous admission in Jun 2016). ProBNP 4990 (previously 69787 in Jun 2016) CXR: No radiographic evidence of CHF. Features consistent with COPD with nonspecific bibasilar linear airspace disease, may represent hypoventilatory, atelectatic changes, pleural parenchymal scar and less likely to be infiltrate. EKG: increased amplitude of P waves (II,III,aVF,V3), prominent U waves in the precordial leads and minimal ST segment depression II, III and AVF. And increased QT interval to 493. Problem list and plan: Respiratory Acute hypoxic and hypercarbic respiratory failure, most likely due to COPD exacerbation and possible pneumonia. ABG (after O2 supplementation) revealed hypercarbia. SO2 remained at the target level of above 92% when the patient was started on Bipap. Currently at 50% Fio2. Received IV solumedrol 125 mg once and one dose of ceftriaxone and azithromycin. * Continue on Bipap and will taper down O2 suppl per clinical improvement * Continuos pulse oxymetry * TRC/Nebs as needed * continue IV solumedrol 40 mg Q8 * continue ceftriaxone and azithromycin * d-dimer mildly elevated, will perform US doppler of LEs to rule out DVT. Will consider CTA to rule out PE if clinical improvement is not achieved with O2 suppl, nebulizers and antibiotics and when Cr improves. * please follow up on Urine strep and legionella Ag tests ID Patient meets criteria of severe sepsis: tachypneic with elevated WBC to 17.6, suspected source of infection (in the lungs), elevated lactic acidosis and hypotension. However she remains afebrile, with normal capillary refill. Urine analysis: hazy, high protein and high Hb but negative for LE or nitrite. * follow up blood culture, upper respiratory culture and urine culture * continue ceftriaxone and azithromycin * continue IV NS * trend lactic acid Cardiac Denies chest pain or palpitation. Initial EKG shows increased amplitude of P waves (II, III, aVF, V3), prominent U waves in the precordial leads and minimal ST segment depression in II, III and AVF. There is also increased QT interval: 493. Consistent with EKG changes in Hypokalemia. Initial Troponin is 0.03, will repeat troponin x2 Q6h. ECHO: Normal left ventricular ejection fraction estimated at 60-65%. Severe Pulmonary hypertension. Mild Aortic stenosis.Right atrial enlargement. Patient also has history of HTN and HLD. Of note, patiant was hypotensive on arrival, BP is imoroving with fluid resuscitation. * Continuous cardiac monitoring * aggressive repletion of K * Serial troponin and EKG * Follow up cardiology consult in a.m. (Dr. Ojeda aware) * continue statin and aspirin * Furosemide and atenolol/chlrothalidone are on hold Heme Elevated WBC, due to possible sepsis in the setting of pneumonia. * Continue Ceftriaxone and Azithromycin * repeat CBC in am and monitor for fever Metabolic Elevated anion gap * most likely due to elevated lactic acid in the setting of hypotension and sepsis * On admission patient did not have diminished capillary refill * continue IV hydration and trend lactic acid * continue IV antibiotics EFRAIN * BUN of 42 and Cr of 1.4 (>20 ratio) most likely pre-renal due to hypoperfusion * continue IV fluids and repeat BEP this pm Hypokalemia * K of 2.9 on admission that came further down to 2.6 in the evening * Has received KCL bolus as well as K-Dur tab in the ED * will give additional doses of KCl and will repeat K at 8 pm * Possible etiologies: diuretic therapy with poor oral K intake. Also beta- adrenergic agonists such as Albuterol can contribute to increased K flux into cells and a transient hypokalemia (up to 0.5 to 1 meq/L decrease). Neuro Awake and oriented, neurologic exam unremarkable. mild and moderate pain pathway Heart healthy diet DVT prophylaxis with SC heparin Full code As Ranked By This Provider Problem List: 1. Hypercapnic respiratory failure Qualifiers Chronicity: acute on chronic Qualified Code: J96.22 - Acute and chronic respiratory failure with hypercapnia 2. Renal insufficiency 3. Hypokalemia 4. Acute respiratory failure with hypoxia and hypercapnia Core Measures/Miscellaneous Acute Coronary Syndrome ACS Diagnosis: No Cerebrovascular Accident CVA/TIA Diagnosis: No Congestive Heart Failure CHF Diagnosis: Yes Date of most recent Echo: 07/01/16 Last Known EF %: 60 AMINATA/ARB for EF <40%: Yes Venous Thromboembolism VTE Risk Factors: Acute medical illness, Age > 40 No [facility] VTE prophylaxis d/t: VTE low risk, No contraindications No VTE Pharm Prophylaxis d/t: VTE low risk, No contraindications VTE Diagnosis: No VTE Type: NONE VTE Confirmed by (Test): NONE Severe Sepsis Severe Sepsis Present: Yes BC x2: Yes Lactic Acid x2: Yes IV ABX Broad Spectrum: Yes NS/LR Started: Yes Septic Shock Septic Shock Present: No Miscellaneous Documentation Attending Case Discussed With: ADELA DON,PRANAV Yoder Primary Care Physician: DAGMAR CACERES MD Patient sees these Specialists Pulmonary, Dr. Padmini Olivares Cardiology, Dr. Jada Mac, at [place] Level of Patient Care: Critical Care (CRI) JHONYLOUISROBYN 11/21/16 1459: Resident Review Statement Resident Statement: examined this patient, discussed with rn intern Other Findings: Patient is a 60-year-old female with past medical history of hypertension, lower extremity edema, diabetes mellitus(as per the patient), ex-smoker(quit 4 months ago, half pack per dayX 20 years), COPD (not on home oxygen/BiPAP) was brought in from home for evaluation of severe shortness of breath over the past 2 days. Patient reports that over the past 2 days she has been feeling excessively short of breath and was unable to carry on a daily activities. The shortness of breath was mostly during ambulation. She has baseline COPD however does not use oxygen or BiPAP at home. She was recently admitted to the hospital in generally 2017 for hypoxic hypercarbic respiratory failure and was treated with IV steroids and BiPAP. She denies any fevers, chills, cough, headaches, dizziness, nausea, vomiting, abdominal pain, recent infections. No orthopnea, leg edema, chest pain, palpitations, diaphoresis. Does report positive sick contacts. She reports that she was seen by Dr. Olivares a few days ago and she was doing fine at that time. Vitals in the ED , showed temperature 97.7, pulse 89, respiration 24, blood pressure 119/58, saturating 87% on 5 L of nasal cannula. ABG 7.37/61/89/35. She was then subsequently put on the BiPAP . Significant labs showed white count of 17.6 with no left shift, H&H of 15.4/44.9 , sodium 135, potassium 2.9, chloride 81, carbon oxide 36, anion gap 18, BUN 42, creatinine 1.4 (baseline 1 ), lactic acid 4.3, magnesium 2.4, normal LFTs, troponin 0.03, proBNP 4990, d-dimer 426. UA pending. Normal sinus rhythm, rate 86 bpm, right axis deviation,imcreased amplitude of P waves, nonspecific ST-T wave changes(old), QTC 493. Chest x-ray: Nonspecific bibasilar airspace disease questionably atelectasis/ infiltrate. No pulmonary edema seen Patient received IV Solu-Medrol 125, IV ceftriaxone, IV azithromycin, 1 L fluid bolus, IV magnesium, IV potassium and TRC nebs in the ED. Physical examination Gen.: Appears to be in moderate respiratory distress, using accessory muscles, on BiPAP, able to speak in full sentences. HEENT: PERRLA, EOMI, BiPAP, no JVD CVS: S1 and S2 heard, No murmurs Respiratory: Bilateral wheezing and rhonchi, decreased air entry bilaterally Skin: Warm and dry Extremities:No edema, Normal capillary refill Plan # Acute hypoxemic and hypercarbic respiratory failure 2/2 severe COPD exacerbation. ABG 7.37/61/89/35. Need to rule out pulmonary embolism and PNA. -Admit patient to ICU -Vitals per protocol -Keep oxygen saturations above 88% -Continue TRC nebs [id number] -IV Solu-Medrol 125 in the ED, continue Solu-Medrol 40 every 8hrs -Continue noninvasive ventilation with BiPAP. Intubation if patient gets worse. -Patient received IV ceftriaxone/azithromycin in the ED, we'll continue the same for now. -Lower extremity to Doppler to rule out DVT(CTA couldn't be done due to kidney injury). -Repeat blood gas in one hour -Repeat ICU bundle, CBC at 4 PM -Pancultures pending -Urine strep and Legionella # Severe sepsis (white count, tachypnea, ? infiltrate, lactic acidosis, hypotension responding to fluids). Lactic acid 4.3. Low BPResponded to fluid resuscitation -Patient received 1 L fluids in the ICU. We will give 1 L bolus and continue maintenance at 1 50 mL an hour.(Caution with fluids given right heart failure) -IV antibiotics with ceftriaxone and azithromycin -Respiratory support with BiPAP, intubation if patient worsens -Pancultures pending -Tylenol [id number] for fever -We will repeat lactate level every 3 hours. -ICU bundle and CBC at 4 PM. Repeat lipid lites as needed. # Profound hypokalemia and anion gap acidosis/lactic acidosis -Potassium repleted, repeat labs ordered. -Lactic acid 4.3. We will continue aggressive hydration with IV fluids and repeat every 3 hours. -ICU bundle and labs at 4 PM. #Non nonspecific ST-T wave changes on EKG: No chest pain at this time. Unlikely acute ischemic event. Increased amplitude of P waves, RAD -3 sets of troponin and EKG to rule out ACS -Patient has right axis deviation (right heart enlargement) -Cardiology imput appreciated -Recent Echo in Jun 2016 ,ejection fraction 60-65%. Dilated and hypokinetic right ventricle, Severe pulmonary hypertension, Right sided pressure 60mm. Right atrial enlargement. # EFRAIN on CKD: Likely prerenal due to hypoperfusion -Baseline creatinine around 1. We will continue IV hydration with normal saline at 1 50 mL an hour. -Repeat BEP at 4 PM -Avoid nephrotoxins # Right heart failure and severe pulmonary hypertension: Last admission BNP was 24,000. Echocardiogram showed ejection fraction 60-65%. Dilated and hypokinetic right ventricle, Severe pulmonary hypertension, Right sided pressure 60mm. Right atrial enlargement. -We will hold Lasix for now given sepsis and borderline blood pressure. -Restart Lasix in a.m. if patient's blood pressure holds good -Strict I's and O's and weight checks -Farnsworth catheter # History of hypertension/hyperlipidemia -Holding atenolol and Lasix at this time secondary to sepsis and borderline blood pressure. -Continue statin and aspirin. DVT prophylaxis: Subcutaneous heparin Full code Heart healthy diet Mild/moderate pain pathway
[2016-11-21 15:45] LABS: ABSOLUTE BASOPHIL COUNT 0 /CUMM (0.0-0.2); ABSOLUTE EOSINOPHIL COUNT 0 /CUMM (0.0-0.7); ABSOLUTE LYMPH COUNT 0.1 /CUMM (1.2-3.4); ABSOLUTE MONOCYTE COUNT 0.4 /CUMM (0.10-0.60); BASOPHIL % 0 % (0.0-2.0); EOSINOPHIL % 0.1 % (0-5); HEMATOCRIT 37.9 % (37-47); MEAN CORPUSCULAR HGB 31.6 PG (27.0-31.0); MEAN CORPUSCULAR HGB CONC 34.2 G/DL (33.0-37.0); MEAN CORPUSCULAR VOLUME 92.3 FL (81.0-99.0); MEAN PLATELET VOLUME 8.4 FL (7.4-10.4); PLATELET COUNT 182 /CUMM (130-400); RBC DISTRIBUTION WIDTH 14.2 % (11.5-14.5); RED BLOOD CELL CT 4.11 /CUMM (4.20-5.40); WHITE BLOOD CELL COUNT 14.5 /CUMM (4.8-10.8)
[2016-11-21 15:46] LABS: GRANULOCYTE % 96.7 % (42.2-75.2)
--- NOTE | 2016-11-21 16:08 | ULTRASOUND REPORT ---
EXAMINATION: US TRIPLEX OF LOWER EXTREMITIES, BILATERAL CLINICAL INFORMATION: Evaluate for a deep vein thrombosis. COMPARISON: Lower extremity venous Doppler examination dated 07/01/2016. TECHNIQUE: Color-flow triplex imaging with spectral analysis and compression Doppler were performed on the lower extremities. FINDINGS: Respiratory variation, normal compression and augmented flow are noted throughout the lower extremities. The visualized common femoral vein, superficial femoral vein, profunda femoral vein, popliteal vein and midcalf peroneal and posterior tibial venous segments show no evidence of deep venous thrombosis. There is a new right-sided Cole's cyst which measures 3.8 x 1.1 x 1.7 cm. A left-sided Cole's cyst is again noted measuring 4.7 x 1.2 x 1.5 cm. IMPRESSION: 1. Normal triplex scan without evidence of deep venous thrombosis involving the lower extremities. 2. Bilateral Cole's cysts.
[2016-11-21 17:55] LABS: ABSOLUTE BASOPHIL COUNT 0 /CUMM (0.0-0.2); ABSOLUTE EOSINOPHIL COUNT 0 /CUMM (0.0-0.7); ABSOLUTE GRANULOCYTE CT 11.3 /CUMM (1.4-6.5); ABSOLUTE LYMPH COUNT 0.3 /CUMM (1.2-3.4); ABSOLUTE MONOCYTE COUNT 0.2 /CUMM (0.10-0.60); BASOPHIL % 0 % (0.0-2.0); EOSINOPHIL % 0 % (0-5); HEMATOCRIT 37.3 % (37-47); MEAN CORPUSCULAR HGB 31.8 PG (27.0-31.0); MEAN CORPUSCULAR HGB CONC 34.2 G/DL (33.0-37.0); MEAN CORPUSCULAR VOLUME 92.9 FL (81.0-99.0); MEAN PLATELET VOLUME 8.6 FL (7.4-10.4); PLATELET COUNT 182 /CUMM (130-400); RBC DISTRIBUTION WIDTH 14.4 % (11.5-14.5); RED BLOOD CELL CT 4.01 /CUMM (4.20-5.40); WHITE BLOOD CELL COUNT 11.8 /CUMM (4.8-10.8)
[2016-11-21 17:56] LABS: GRANULOCYTE % 96.2 % (42.2-75.2)
[2016-11-21 18:12] VITALS: BP 111/58
[2016-11-22] VITALS: BP 90/58
[2016-11-22 06:22] LABS: ABSOLUTE BASOPHIL COUNT 0 /CUMM (0.0-0.2); ABSOLUTE EOSINOPHIL COUNT 0 /CUMM (0.0-0.7); ABSOLUTE GRANULOCYTE CT 8.1 /CUMM (1.4-6.5); ABSOLUTE LYMPH COUNT 0.6 /CUMM (1.2-3.4); ABSOLUTE MONOCYTE COUNT 0.6 /CUMM (0.10-0.60); BASOPHIL % 0 % (0.0-2.0); EOSINOPHIL % 0 % (0-5); GRANULOCYTE % 86.7 % (42.2-75.2); HEMATOCRIT 34.5 % (37-47); MEAN CORPUSCULAR HGB 31.5 PG (27.0-31.0); MEAN CORPUSCULAR HGB CONC 33.7 G/DL (33.0-37.0); MEAN CORPUSCULAR VOLUME 93.6 FL (81.0-99.0); MEAN PLATELET VOLUME 8.4 FL (7.4-10.4); PLATELET COUNT 170 /CUMM (130-400); RBC DISTRIBUTION WIDTH 14.5 % (11.5-14.5); RED BLOOD CELL CT 3.68 /CUMM (4.20-5.40)
[2016-11-22 06:57] LABS: WHITE BLOOD CELL COUNT 9.3 /CUMM (4.8-10.8)
--- NOTE | 2016-11-22 07:44 | RADIOLOGY REPORT ---
EXAMINATION: XR PORTABLE CHEST CLINICAL INFORMATION: SOB. On BiPAP COMPARISON: Chest 11/21/2016. TECHNIQUE: Portable frontal view of the chest was obtained. FINDINGS: Hyperinflated lungs without any acute pneumonic process seen. Atelectatic changes are suspected in both lung bases. The heart size and pulmonary vascularity is normal. No gross bony abnormality seen. IMPRESSION: Hyperinflated lungs without acute pneumonic process.
--- NOTE | 2016-11-22 08:49 | PN- Resident CRCU ---
Subjective HPI/CRCU Issues: And was seen and examined this morning, she sitting comfortably in bed with nasal cannula 4 L saturating 96%, reported feeling better than yesterday, cough with clear phlegm, denied nasal congestion, fever, chest pain, palpitation, abdominal pain, nausea or vomiting. 24 Hour Events: [place] 97, MAXIMUM TEMPERATURE 97.8 Pulse lowest 62, highest 80 sinus rhythm Blood pressure lowest 82/46, highest 114/58 Overnight was on BiPAP Intake 3375, output 600 Objective Vital Signs & I&O Last 8 Hrs of Vitals and I&O: 11 Exam General Appearance: no apparent distress, alert, awake Head: atraumatic, normal appearance Ears, Nose, Throat: normal pharynx, normal ENT inspection Neck: normal inspection, supple, full range of motion Respiratory: chest non-tender, decreased breath sounds, wheezing Cardiovascular: regular rate/rhythm Gastrointestinal: normal bowel sounds, soft, non-tender Extremities: normal inspection, normal capillary refill, normal range of motion, no edema Cranial Nerves: normal hearing, normal speech, PERRL Current Medications: Current Medications Sig/Michi Start time Last Medication Dose Route Stop Time Status Admin Acetaminophen 325 MG Q6-PRN PRN 11/21 1430 AC PO Albuterol Sulfate 3 ML Q4 11/22 1000 AC 11/22 INH 1131 Albuterol Sulfate 2 PUF Q4-6 PRN PRN 11/21 1500 AC INH Aspirin 81 MG DAILY 11/22 1000 AC 11/22 PO 0902 Atorvastatin Calcium 40 MG DAILY 11/22 1000 AC 11/22 PO 0902 Azithromycin 500 MG DAILY@11/22 1100 AC 11/22 Sodium Chloride 250 ML IV 1041 Ceftriaxone Sodium 1,000 MG DAILY@11/22 1100 AC 11/22 IV 1041 Ceftriaxone Sodium 1,000 MG DAILY 11/21 1433 DC IV Heparin Sodium 0 .STK-MED ONE 11/21 1452 DC (Porcine) .ROUTE Heparin Sodium 5,000 UNIT Q8 11/21 1425 AC 11/22 (Porcine) SC 1347 Ipratropium [place] 2.5 ML Q4 11/22 1000 AC 11/22 INH 1131 Magnesium Sulfate 1 GM ONCE ONE 11/21 1415 DC 11/21 Dextrose/Water 100 ML IV 11/21 1814 1431 Methylprednisolone 40 MG Q8 11/21 2200 AC 11/22 IV 1348 Non-Formulary 0 SEE ADMIN CRITERIA 11/21 1500 CAN Medication ANY Oxycodone/ 1 TAB Q6 PRN 11/21 1430 AC Acetaminophen PO Oxycodone/ 2 TAB Q6 PRN 11/21 1430 AC Acetaminophen PO Phosphate 250 MG ONCE ONE 11/22 0900 DC 11/22 PO 11/22 0901 0937 Potassium Chloride 40 MEQ ONCE ONE 11/22 1400 DC 11/22 PO 11/22 1401 1358 Potassium Chloride 40 MEQ ONCE ONE 11/22 0715 DC 11/22 PO 11/22 0716 0902 Potassium Chloride 80 MEQ ONCE ONE 11/21 2145 DC 11/22 PO 11/21 2146 0000 Potassium Chloride 10 MEQ Q1H 11/21 2145 DC IV 11/21 2246 Potassium Chloride 10 MEQ ONCE ONE 11/21 1830 DC 11/21 IV 11/21 1831 1834 Potassium Chloride 10 MEQ ONCE ONE 11/21 1830 DC 11/21 IV 11/21 1831 2019 Potassium Chloride 20 MEQ Q8H 11/21 1830 AC 11/22 Sodium Chloride 1,000 ML IV 1042 Sodium Chloride 500 ML BOLUS ONE 11/22 0415 DC 11/22 IV 11/22 0514 0409 Sodium Chloride 1,000 ML BOLUS ONE 11/21 2145 DC IV 11/21 2244 Sodium Chloride 1,000 ML BOLUS ONE 11/21 1515 DC 11/21 IV 11/21 1614 1512 Sodium Chloride 1,000 ML Q6H 11/21 1445 DC 11/21 IV 1502 Sodium Chloride 1,000 ML BOLUS ONE 11/21 1445 CAN IV 11/21 1544 Impression/Plan Impression/Problem List Impression: Patient is a 60 year-old lady with PMH of hypertension, COPD not on O2 at home, previously a heavy smoker, who is brought in due to worsening shortness of breath that started 2 days ago. Reports sick contact, denies fever chills or URI symptoms. reports coughing with clear sputum. In the ED patient was found to be hypoxic to 68-70% SO2 on room air, received O2 per NC and nebulizer treatment but eventually required Bipap. She is alert and oriented but appears to be in respiratory distress. ABG: PH 7.37, pCO2 61, pO2 89, HCO3 35. Lactic acid: 4.3, A D-dimer 426 (previously 572 during the previous admission in Jun 2016). ProBNP 4990 (previously 72723 in Jun 2016) CXR: No radiographic evidence of CHF. Features consistent with COPD with nonspecific bibasilar linear airspace disease, may represent hypoventilatory, atelectatic changes, pleural parenchymal scar and less likely to be infiltrate. EKG: increased amplitude of P waves (II,III,aVF,V3), prominent U waves in the precordial leads and minimal ST segment depression II, III and AVF. And increased QT interval to 493. Problem list and plan: Respiratory * Continue on Bipap nocturnal and as needed * Continuos pulse oxymetry * TRC/Nebs as needed * continue IV solumedrol 40 mg Q8, will decrease to every 12 tomorrow * continue ceftriaxone and azithromycin * D-dimer mildly elevated, Doppler scan negative for DVT bilateral * Legionella and Streptococcus urine antigen are negative ID * continue ceftriaxone and azithromycin * continue IV NS, will discontinue later today if patient eats and drinks well * Follow-up blood, sputum and urine culture * Lactic acid was trended down, 1.8 Cardiac * Aggressive repletion of K * Troponin and EKG negative for acute changes * Cardiology consult pending * continue statin and aspirin * Furosemide and atenolol/chlrothalidone are on hold Heme * Continue Ceftriaxone and Azithromycin Day#2 Metabolic * Elevated anion gap, most likely due to elevated lactic acid in the setting of hypotension and sepsis---resolved * Lactic acidosis ---resolved EFRAIN * On admission, BUN of 42 and Cr of 1.4 (>20 ratio) most likely pre-renal due to hypoperfusion * Resolved Hypokalemia * Repleat as neede Neuro Awake and oriented, neurologic exam unremarkable. mild and moderate pain pathway Heart healthy diet DVT prophylaxis with SC heparin Full code Problem List: 1. Acute respiratory failure with hypoxia and hypercapnia 2. Hypokalemia 3. Pneumonia Pain Ratin Tomorrow's Labs & Rationales: CBC, ICU bundle Plan DVT/Prophylaxis: mechanical, pharmacological
[2016-11-22 09:04] VITALS: BP 101/55
--- NOTE | 2016-11-22 10:31 | PN- CRCU ---
Subjective HPI/Critical Care Issues: Doing better today Off BiPAP On 4 L Still tachypneic with mild wheezing Vital signs appeared to be stable Oxygen saturation 94% on 4 L nasal cannula Patient is positive by 3 L Blood pressure did improve and urine output seems to have improved Review of symptoms otherwise unremarkable SIGNIFICANT DATA chest x-ray showed hyper inflated lungs so far cultures have been pending Blood work reviewed has noted creatinine did improve to 1 potassium now up to 3.4 magnesium is adequate White count 9.3 with 86% segs hemoglobin 11.6 Previous ABGs reviewed Objective Current Medications: Current Medications Sig/Michi Start time Last Medication Dose Route Stop Time Status Admin Acetaminophen 325 MG Q6-PRN PRN 11/21 1430 AC PO Albuterol Sulfate 3 ML Q4 11/22 1000 AC 11/22 INH 0815 Albuterol Sulfate 2 PUF Q4-6 PRN PRN 11/21 1500 AC INH Albuterol Sulfate 18 ML ONCE ONE 11/21 1200 DC 11/21 INH 11/21 1201 1205 Albuterol Sulfate 3 ML ONCE ONE 11/21 1145 DC 11/21 INH 11/21 1146 1145 Albuterol Sulfate 3 ML ONCE ONE 11/21 1030 DC 11/21 INH 11/21 1031 1035 Aspirin 81 MG DAILY 11/22 1000 AC 11/22 PO 0902 Atorvastatin Calcium 40 MG DAILY 11/22 1000 AC 11/22 PO 0902 Azithromycin 500 MG DAILY@11/22 1100 AC Sodium Chloride 250 ML IV Azithromycin 500 MG ONCE ONE 11/21 1100 DC 11/21 Sodium Chloride 250 ML IV 11/21 1159 1112 Ceftriaxone Sodium 1,000 MG DAILY@11/22 1100 AC IV Ceftriaxone Sodium 1,000 MG DAILY 11/21 1433 DC IV Ceftriaxone Sodium 0 .STK-MED ONE 11/21 1110 DC .ROUTE Ceftriaxone Sodium 1,000 MG ONCE ONE 11/21 1100 DC 11/21 IV 11/21 1101 1109 Heparin Sodium 0 .STK-MED ONE 11/21 1452 DC (Porcine) .ROUTE Heparin Sodium 5,000 UNIT Q8 11/21 1425 AC 11/22 (Porcine) SC 0632 Ipratropium [place] 2.5 ML Q4 11/22 1000 AC 11/22 INH 0815 Ipratropium [place] 2.5 ML ONCE ONE 11/21 1030 DC 11/21 INH 11/21 1031 1035 Magnesium Sulfate 1 GM ONCE ONE 11/21 1415 DC 11/21 Dextrose/Water 100 ML IV 11/21 1814 1431 Methylprednisolone 40 MG Q8 11/21 2200 AC 11/22 IV 0632 Methylprednisolone 0 .STK-MED ONE 11/21 1036 DC .ROUTE Methylprednisolone 125 MG ONCE ONE 11/21 1030 DC 11/21 IV 11/21 1031 1033 Non-Formulary 0 SEE ADMIN CRITERIA 11/21 1500 CAN Medication ANY Oxycodone/ 1 TAB Q6 PRN 11/21 1430 AC Acetaminophen PO Oxycodone/ 2 TAB Q6 PRN 11/21 1430 AC Acetaminophen PO Phosphate 250 MG ONCE ONE 11/22 0900 DC 11/22 PO 11/22 0901 0937 Potassium Chloride 40 MEQ ONCE ONE 11/22 0715 DC 11/22 PO 11/22 0716 0902 Potassium Chloride 80 MEQ ONCE ONE 11/21 2145 DC 11/22 PO 11/21 2146 0000 Potassium Chloride 10 MEQ Q1H 11/21 2145 DC IV 11/21 2246 Potassium Chloride 10 MEQ ONCE ONE 11/21 1830 DC 11/21 IV 11/21 1831 1834 Potassium Chloride 10 MEQ ONCE ONE 11/21 1830 DC 11/21 IV 11/21 1831 2019 Potassium Chloride 20 MEQ Q8H 11/21 1830 AC 11/22 Sodium Chloride 1,000 ML IV 0622 Potassium Chloride 0 .STK-MED ONE 11/21 1342 DC PO Potassium Chloride 40 MEQ ONCE ONE 11/21 1315 DC 11/21 PO 11/21 1316 1346 Potassium Chloride 10 MEQ ONCE ONE 11/21 1145 DC 11/21 IV 11/21 1146 1155 Sodium Chloride 500 ML BOLUS ONE 11/22 0415 DC 11/22 IV 11/22 0514 0409 Sodium Chloride 1,000 ML BOLUS ONE 11/21 2145 DC IV 11/21 2244 Sodium Chloride 1,000 ML BOLUS ONE 11/21 1515 DC 11/21 IV 11/21 1614 1512 Sodium Chloride 1,000 ML Q6H 11/21 1445 DC 11/21 IV 1502 Sodium Chloride 1,000 ML BOLUS ONE 11/21 1445 CAN IV 11/21 1544 Sodium Chloride 1,000 ML BOLUS ONE 11/21 1145 DC 11/21 IV 11/21 1244 1146 Vital Signs & I&O Last 24 Hrs of Vitals and I&O: Vital Signs Date Time Temp Pulse Resp B/P B/P Pulse O2 O2 Flow FiO2 Mean Ox Delivery Rate 11/22 0904 97.4 66 25 101/55 100 BIPAP 35% 11/22 0808 71 99 11/22 0800 94 BIPAP 35% 11/22 0555 63 95 11/22 0400 96 BIPAP 35% 11/22 0334 67 97 11/22 0032 63 95 11/22 0000 95 BIPAP 35% 11/22 0000 97.7 70 28 90/58 95 BIPAP 35% 11/21 2035 64 94 11/21 1812 97.8 73 28 111/58 100 BIPAP 50% 11/21 1649 100 BIPAP 50% 11/21 1621 89 98 11/21 1553 98.4 70 24 90/53 99 BIPAP 50% 11/21 1527 98.4 70 24 90/53 99 BIPAP 50% 11/21 1502 97.1 79 24 91/50 98 BIPAP 50% 11/21 1438 97.8 77 24 92/54 98 BIPAP 50% 11/21 1401 79 95 11/21 1357 78 84/46 11/21 1349 98.0 77 26 86/52 88 BIPAP 30% 11/21 1344 99 BIPAP 30% 11/21 1305 78 93/52 11/21 1235 97.9 82 24 98/58 100 BIPAP 30% 11/21 1213 72 104/58 11/21 1205 76 90/54 11/21 1155 99 BIPAP 30% 11/21 1153 97.6 70 18 81/51 100 BIPAP 30% 11/21 1145 70/42 11/21 1132 97.7 78 24 66/38 98 BIPAP 30% 11/21 1125 80 99 11/21 1113 96 Nasal 4.0L Cannula 11/21 1050 94 Nasal 5.0L Cannula Intake & Output 11/22 1600 11/22 0800 11/22 0000 Intake Total 1575 Output Total 350 Balance 1225 Intake, IV 1325 Intake, Oral 250 Number 0 Bowel Movements Output, Urine 350 Patient 152 lb 148 lb Weight Weight Bed scale Bed scale Measurement Method Laboratory Tests 11/22 11/21 0510 2300 Chemistry Sodium (137 - 145 mmol/L) 138 Potassium (3.5 - 5.1 mmol/L) 3.4 L Chloride (98 - 107 mmol/L) 102 Carbon Dioxide (22 - 30 mmol/L) 29 Anion Gap (5 - 16) 8 BUN (7 - 17 mg/dL) 37 H Creatinine (0.5 - 1.0 mg/dL) 1.0 Estimated GFR (>60 ml/min) 57 L Glucose (65 - 99 mg/dL) 125 H Calcium (8.4 - 10.2 mg/dL) 7.8 L Phosphorus (2.5 - 4.5 mg/dL) 3.2 Magnesium (1.6 - 2.3 mg/dL) 2.8 H Total Bilirubin (0.2 - 1.3 mg/dL) 0.2 AST (14 - 36 U/L) 43 H ALT (9 - 52 U/L) 38 Albumin (3.5 - 5.0 g/dL) 2.9 L Hematology CBC w Diff NO MAN DIFF REQ WBC (4.8 - 10.8 /CUMM) 9.3 RBC (4.20 - 5.40 /CUMM) 3.68 L Hgb (12.0 - 16.0 G/DL) 11.6 L Hct (37 - 47 %) 34.5 L MCV (81.0 - 99.0 FL) 93.6 MCH (27.0 - 31.0 PG) 31.5 H RDW (11.5 - 14.5 %) 14.5 Plt Count (130 - 400 /CUMM) 170 MPV (7.4 - 10.4 FL) 8.4 Gran % (42.2 - 75.2 %) 86.7 H Lymphocytes % (20.5 - 51.1 %) 6.5 L Monocytes % (1.7 - 9.3 %) 6.8 Eosinophils % (0 - 5 %) 0 Basophils % (0.0 - 2.0 %) 0 L Absolute Granulocytes (1.4 - 6.5 /CUMM) 8.1 H Absolute Lymphocytes (1.2 - 3.4 /CUMM) 0.6 L Absolute Monocytes (0.10 - 0.60 /CUMM) 0.6 Absolute Eosinophils (0.0 - 0.7 /CUMM) 0 Absolute Basophils (0.0 - 0.2 /CUMM) 0 PUBS MCHC (33.0 - 37.0 G/DL) 33.7 Urines Urine Color (YEL,AMB,STR) YEL Urine Clarity (CLEAR) CLEAR Urine pH (5.0 - 8.0) 6.0 Ur Specific [place] (1.001 - 1.035) 1.025 Urine Protein (NEG,<30 MG/DL) TRACE H Urine Ketones (NEG) NEG Urine Nitrite (NEG) NEG Urine Bilirubin (NEG) NEG Urine Urobilinogen (0.1 - 1.0 EU/dl) 0.2 Ur Leukocyte Esterase (NEG) NEG Ur Microscopic SEDIMENT EXAMINED Urine RBC (0 - 5 /HPF) 1-3 Urine WBC (0 - 2 /HPF) 1-3 H Ur Epithelial Cells (NONE,FEW) MOD H Urine Bacteria (NEG/NONE) FEW H Urine Hemoglobin (NEG) NEG Urine Glucose (N MG/DL) NEG 11/21 11/21 11/21 11/21 11/21 2240 2050 1920 1650 1650 Chemistry Potassium (3.5 - 5.1 mmol/L) 2.4 *L Lactic Acid (0.7 - 2.1 mmol/L) 1.8 2.6 H Troponin I (< 0.11 ng/ml) 0.02 0.03 11/21 11/21 1650 1508 Chemistry Sodium (137 - 145 mmol/L) 135 L Potassium (3.5 - 5.1 mmol/L) 2.6 *L Chloride (98 - 107 mmol/L) 90 L Carbon Dioxide (22 - 30 mmol/L) 33 H Anion Gap (5 - 16) 12 BUN (7 - 17 mg/dL) 42 H Creatinine (0.5 - 1.0 mg/dL) 1.4 H Estimated GFR (>60 ml/min) 38 L Glucose (65 - 99 mg/dL) 164 H Calcium (8.4 - 10.2 mg/dL) 8.2 L Phosphorus (2.5 - 4.5 mg/dL) 3.7 Magnesium (1.6 - 2.3 mg/dL) 2.7 H Total Bilirubin (0.2 - 1.3 mg/dL) 0.2 AST (14 - 36 U/L) 28 ALT (9 - 52 U/L) 36 Albumin (3.5 - 5.0 g/dL) 3.4 L Hematology CBC w Diff NO MAN DIFF REQ NO MAN DIFF REQ WBC (4.8 - 10.8 /CUMM) 11.8 H 14.5 H RBC (4.20 - 5.40 /CUMM) 4.01 L 4.11 L Hgb (12.0 - 16.0 G/DL) 12.8 13.0 Hct (37 - 47 %) 37.3 37.9 MCV (81.0 - 99.0 FL) 92.9 92.3 MCH (27.0 - 31.0 PG) 31.8 H 31.6 H RDW (11.5 - 14.5 %) 14.4 14.2 Plt Count (130 - 400 /CUMM) 182 182 MPV (7.4 - 10.4 FL) 8.6 8.4 Gran % (42.2 - 75.2 %) 96.2 H 96.7 H Lymphocytes % (20.5 - 51.1 %) 2.3 L 0.5 L Monocytes % (1.7 - 9.3 %) 1.5 L 2.7 Eosinophils % (0 - 5 %) 0 0.1 Basophils % (0.0 - 2.0 %) 0 L 0 L Absolute Granulocytes (1.4 - 6.5 /CUMM) 11.3 H 14.0 H Absolute Lymphocytes (1.2 - 3.4 /CUMM) 0.3 L 0.1 L Absolute Monocytes (0.10 - 0.60 /CUMM) 0.2 0.4 Absolute Eosinophils (0.0 - 0.7 /CUMM) 0 0 Absolute Basophils (0.0 - 0.2 /CUMM) 0 0 PUBS MCHC (33.0 - 37.0 G/DL) 34.2 34.2 11/21 11/21 1055 1024 Blood Gas pH (7.35 - 7.45 PH) 7.37 pCO2 (35 - 45 TORR) 61 *H pO2 (80 - 100 TORR) 89 HCO3 (21 - 28 MEQ/L) 35 H ABG O2 Sat (Measured) (>96.0 %) 96.0 P-50 (Temp Corrected) N Carboxyhemoglobin (1.5 - 5.0 %) 4.7 O2 Concentration % 5LPM O2 Delivery Method NC Chemistry Sodium (137 - 145 mmol/L) 135 L Potassium (3.5 - 5.1 mmol/L) 2.9 *L Chloride (98 - 107 mmol/L) 81 L Carbon Dioxide (22 - 30 mmol/L) 36 H Anion Gap (5 - 16) 18 H BUN (7 - 17 mg/dL) 42 H Creatinine (0.5 - 1.0 mg/dL) 1.4 H Estimated GFR (>60 ml/min) 38 L BUN/Creatinine Ratio (7 - 25 %) 30.0 H Glucose (65 - 99 mg/dL) 208 H Lactic Acid (0.7 - 2.1 mmol/L) 4.3 H Calcium (8.4 - 10.2 mg/dL) 9.3 Magnesium (1.6 - 2.3 mg/dL) 2.4 H Total Bilirubin (0.2 - 1.3 mg/dL) 0.6 AST (14 - 36 U/L) 34 ALT (9 - 52 U/L) 26 Alkaline Phosphatase (<127 U/L) 87 Troponin I (< 0.11 ng/ml) 0.03 Squ-[id number] Pept (<125 pg/mL) 4990 H Total Protein (6.3 - 8.2 g/dL) 7.5 Albumin (3.5 - 5.0 g/dL) 4.3 Globulin (1.9 - 4.2 gm/dL) 3.2 Albumin/Globulin Ratio (1.1 - 2.2 %) 1.3 Coagulation D-Dimer (70 - 232 ng/ml) 426 H Hematology CBC w Diff MAN DIFF ORDERED WBC (4.8 - 10.8 /CUMM) 17.6 H RBC (4.20 - 5.40 /CUMM) 4.86 Hgb (12.0 - 16.0 G/DL) 15.4 Hct (37 - 47 %) 44.9 MCV (81.0 - 99.0 FL) 92.5 MCH (27.0 - 31.0 PG) 31.7 H RDW (11.5 - 14.5 %) 14.6 H Plt Count (130 - 400 /CUMM) 273 MPV (7.4 - 10.4 FL) 8.4 Gran % (42.2 - 75.2 %) 85.0 H Lymphocytes % (20.5 - 51.1 %) 7.9 L Monocytes % (1.7 - 9.3 %) 7.1 Eosinophils % (0 - 5 %) 0 Basophils % (0.0 - 2.0 %) 0 L Absolute Granulocytes (1.4 - 6.5 /CUMM) 15.0 H Absolute Lymphocytes (1.2 - 3.4 /CUMM) 1.4 Absolute Monocytes (0.10 - 0.60 /CUMM) 1.3 H Absolute Eosinophils (0.0 - 0.7 /CUMM) 0 Absolute Basophils (0.0 - 0.2 /CUMM) 0 Anisocytosis 1+ Stomatocytes 1+ PUBS MCHC (33.0 - 37.0 G/DL) 34.3 Miscellaneous Phlebotomy Draw Site RIGHT BRACHIAL 11/21 UNK Chemistry Sodium Cancelled Potassium Cancelled Chloride Cancelled Carbon Dioxide Cancelled Anion Gap Cancelled BUN Cancelled Creatinine Cancelled Glucose Cancelled Calcium Cancelled Phosphorus Cancelled Magnesium Cancelled Total Bilirubin Cancelled AST Cancelled ALT Cancelled Albumin Cancelled Microbiology Date/Time Procedure - Status Source Growth 11/22 0600 Legionella Antigen - ORD URINE ROUT 11/22 0600 Streptococcus pneumoniae Antigen (M - ORD URINE ROUT 11/21 2300 Urine Culture - RECD URINE ROUT 11/21 1620 Surveillance Culture - RECD UPPER RESP 11/21 1620 Surveillance Culture - RECD GI 11/21 1102 Blood Culture - RECD BLOOD 11/21 1049 Blood Culture - RECD BLOOD Impression/Plan Impression/Plan Impression/Plan: Physical Exam General Appearance: Mildly tachypneic on 4 L Head: atraumatic, normal appearance Eyes: Bilateral: normal appearance, PERRL, EOMI. Ears, Nose, Throat: normal pharynx, normal ENT inspection Neck: normal inspection, supple, full range of motion Respiratory: crackles, rhonchi, wheezing very poor air entry Cardiovascular: regular rate/rhythm Gastrointestinal: normal bowel sounds, soft, non-tender Extremities: normal inspection, normal capillary refill, normal range of motion, trace edema Neurologic/Psych: no motor/sensory deficits, awake, alert, oriented x 3, normal gait, normal mood/affect Skin: intact, normal color, warm/dry SIGNIFICANT DATA Previous CT reviewed Has profound emphysema in the upper lobes with bilateral scarring/mild ILD-type picture Chest x-ray showed severe COPD with bibasal early near atelectasis versus hypoventilatory change Previous echocardiogram did reveal normal ejection fraction with very severe pulmonary hypertension with dilated and hypokinetic right ventricle Previous CT scan of the chest and previous VQ scan reviewed the last VQ scan showed normal lung perfusion no evidence of pulmonary embolism IMPRESSION This is a 60-year-old lady with very severe emphysema with severe COPD with significant air trapping now comes in with * Resolving Acute hypoxemic and hypercarbic respiratory failure related to very severe COPD exacerbation with profound wheezing. * Leukocytosis with some sputum suggestive of acute bacterial bronchitis * Bibasilar atelectasis versus infiltrate rule out pneumonia * Severe pulmonary hypertension with mild cor pulmonale with previous venous thromboembolism workup negative * Profound hypokalemia * Resolved anion gap acidosis most likely related to increased work of breathing with lactic acidosis * Unlikely to be venous thromboembolism as a clinical findings are highly suggestive of very severe COPD exacerbation with respiratory failure * Resolving Chronic kidney disease with worsening acute kidney injury probably related to low flow state * Chronic hypercarbia * Previous pulmonary vascular congestion elevated BNP with no clinical evidence suggestive of congestive heart failure * mild aortic stenosis RECOMMENDATION Continue current therapy Discontinue IV fluids if she is eating and drinking well at her today Continue noninvasive ventilation with BiPAP especially at bedtime and as needed during the day Continue ceftriaxone and azithromycin Intravenous Solu-Medrol 40 every 8 to day and reduce it to 40 twice a day tomorrow [id number] nebulizer therapy with DuoNeb every 4 hours when she stable By mouth potassium replacement, 40 mg 2 doses ABG only if she becomes clinically worse Patient would need to have an for alpha 1 antitrypsin gene mutation analysis in the future DVT prophylaxis, out of bed to chair Patient is critically ill Total time spent 36 minutes
[2016-11-22 16:50] VITALS: BP 100/59
[2016-11-22 23:59] VITALS: BP 112/74
[2016-11-23 05:31] LABS: ABSOLUTE BASOPHIL COUNT 0 /CUMM (0.0-0.2); ABSOLUTE EOSINOPHIL COUNT 0 /CUMM (0.0-0.7); ABSOLUTE GRANULOCYTE CT 9.2 /CUMM (1.4-6.5); ABSOLUTE LYMPH COUNT 0.7 /CUMM (1.2-3.4); ABSOLUTE MONOCYTE COUNT 0.5 /CUMM (0.10-0.60); BASOPHIL % 0 % (0.0-2.0); EOSINOPHIL % 0 % (0-5); GRANULOCYTE % 87.9 % (42.2-75.2); HEMATOCRIT 34.8 % (37-47); MEAN CORPUSCULAR HGB 31.8 PG (27.0-31.0); MEAN CORPUSCULAR HGB CONC 33.8 G/DL (33.0-37.0); MEAN CORPUSCULAR VOLUME 94.1 FL (81.0-99.0); MEAN PLATELET VOLUME 7.9 FL (7.4-10.4); PLATELET COUNT 181 /CUMM (130-400); RBC DISTRIBUTION WIDTH 14.9 % (11.5-14.5); RED BLOOD CELL CT 3.69 /CUMM (4.20-5.40); WHITE BLOOD CELL COUNT 10.4 /CUMM (4.8-10.8)
--- NOTE | 2016-11-23 07:52 | PN- Resident CRCU ---
Subjective HPI/CRCU Issues: Patient seen and examined at bedside this AM. She was laying comfortably in bed on BiPAP in no acute distress. She reports her pulmonary status is much improved since admission and she denies wheezing. She does admit to occasional cough with clear phlegm. 24 Hour Events: front desk monitor: No significant events. Vital signs last 24 hours: T 97.4-97.9, HR 61-96, RR 16-25, BP 95-123/47-74, O2 92-100% on 4L NC and 35% BiPAP at night. Total intake last 24 hours: 2900 cc Total output last 24 hours: 1130 cc Objective Vital Signs & I&O Last 8 Hrs of Vitals and I&O: T 97.4-97.9, HR 61-96, RR 16-25, BP 95-123/47-74, O2 92-100% on 4L NC and 35% BiPAP at night. Exam General Appearance: well developed/nourished, no apparent distress, alert, awake , comfortable Head: atraumatic, normal appearance Ears, Nose, Throat: normal pharynx, normal ENT inspection, hearing grossly normal Neck: normal inspection, full range of motion Respiratory: normal breath sounds, chest non-tender, no respiratory distress Cardiovascular: regular rate/rhythm Gastrointestinal: normal bowel sounds, soft, non-tender, no organomegaly Extremities: normal inspection, normal capillary refill, no edema Cranial Nerves: normal hearing, normal speech, PERRL Skin: intact, normal color, warm/dry Skin Temp/Moisture Exam: Warm/Dry Nutrition Nutrition: P.O. diet Current Medications: Current Medications Sig/Michi Start time Last Medication Dose Route Stop Time Status Admin Acetaminophen 325 MG Q6-PRN PRN 11/21 1430 AC PO Albuterol Sulfate 3 ML Q4 11/22 1000 AC 11/23 INH 0843 Albuterol Sulfate 2 PUF Q4-6 PRN PRN 11/21 1500 AC INH Aspirin 81 MG DAILY 11/22 1000 AC 11/22 PO 0902 Atorvastatin Calcium 40 MG DAILY 11/22 1000 AC 11/22 PO 0902 Azithromycin 500 MG DAILY@11/22 1100 AC 11/22 Sodium Chloride 250 ML IV 1041 Ceftriaxone Sodium 1,000 MG DAILY@11/22 1100 11/22 IV 1041 Heparin Sodium 5,000 UNIT Q8 11/21 1425 AC 11/23 (Porcine) SC 0523 Ipratropium [place] 2.5 ML Q4 11/22 1000 AC 11/23 INH 0843 Methylprednisolone 40 MG Q8 11/21 2200 AC 11/23 IV 0523 Oxycodone/ 1 TAB Q6 PRN 11/21 1430 AC Acetaminophen PO Oxycodone/ 2 TAB Q6 PRN 11/21 1430 AC Acetaminophen PO Phosphate 250 MG ONCE ONE 11/22 0900 DC 11/22 PO 11/22 0901 0937 Potassium Chloride 40 MEQ ONCE ONE 11/22 1400 DC 11/22 PO 11/22 1401 1358 Potassium Chloride 20 MEQ Q8H 11/21 1830 DC 11/22 Sodium Chloride 1,000 ML IV 1042 Results Results: Legionella/strep urinary antigens: Negative Urine Culture: No growth after 1 day. Blood culture x 2: NGTD. CXR Findings: IMPRESSION: Hyperinflated lungs without acute pneumonic process. US Findings: Venous doppler: IMPRESSION: 1. Normal triplex scan without evidence of deep venous thrombosis involving the lower extremities. 2. Bilateral Cole's cysts. Impression/Plan Impression/Problem List Impression: Ms. Wong is a pleasant 60 year old female with PMH HTN, HLD, severe emphysema/COPD not on home oxygen, previously a heaver tobacco abuser ( quit June 2016) and severe pulmonary HTN who presented to [place] [facility] on 11/21/16 with chief complaint of shortness of breath, worse with ambulation. In the ED: Vital signs showed T 97.7, HR 89, RR 24, BP 119/58, O2 saturation 87% on 5 L NC. Labs were significant for WBC 17.6, H&H 15.4/44.9, Na 135, K 2.9, Cl 81, HCO3 36, AG 18, BUN 42, Cre 1.4 (baseline 1), lactic acid 4.3, normal LFTs, troponon 0.03, proBNP 4990, d-dimer 426. EKG showed NSR HR 86 bpm, right axic deviation, increased amplitude of P waves, non-specific ST-T wave changes, QTC 493. ABG showed 7.37/61/89/35/ at which time she was placed on BiPAP. CXR showed bibasilar airspace disease without edema. Patient was admitted to the ICU and the following is the management: 1. Acute hypoxemic and hyercarbic respiratory failure secondary to COPD exacerbation * Continue ICU level of care for now, continuous telemetry monitoring * Of note, D-Dimer slightly elevated so doppler US was done and ruled out DVT bilaterally * IV solumedrol 125 mg in the ED, continue IV solumedrol today and switch to PO prednisone 50 mg tomorrow with 14 day taper * Continuous O2 via nasal cannula with BiPAP at night, if ABG later today improved will discontinue BiPAP at night and consider transfer to the floor * OOBTC today * Patietn will require alpha-1 antitrypsin gene mutation testing in the future 2. Severe sepsis, resolving * On admission, patient had elevated white count, was tachypneic, had lactic acidosis and hypotension responsive to fluids; source PNA vs acute bacterial bronchitis * Pancultures drawn, no growth to date, follow up final culture results * Continue IV ceftraixone and azithromycin today, switch to PO ceftin starting tomorrow * Monitor for fevers, vital signs per protocol * Follow up CBC and ICU bundle * TRC nebs 3. Profound hypokalemia with anion gap acidosis/lactic acidosis * K 2.9 on admission with AG of 18 and lactic acid of 4.3 * Patient s/p aggressive hydration and electrolyte repletion * Lactic acid has since returned to normal * Monitor ICU bundle closely and replete as needed 4. Non-specific ST-T wave changes * Noted increased amplitude of P wves and right axis deviation on admission EKG * ACS ruled out with troponins negative x 3 * Cardiology consult with Dr. Lynette MD appreciated * Recent echocardiogram in June of 2016 showed EF 60-65%, dilated and hypokinetic RV, severe pulm HTN, right atrial enlargement 5. EFRAIN on CKD * Likely prerenal 2/2 hypoperfusion in the setting of severe sepsis * Patient s/p IVF hydration * Cre has since returned to baseline, trend ICU bundle * Avoid nephrotoxins 6. Right heart failure and severe pulmonary HTN * Lasix held on admission 2/2 severe sepsis and borderline BP * Stright Is/Os, daily weights * BP still borderline, will restart lasix once BP trends upwards 7. HTN, HLD * Continue lipitor 81 mg PO daily, aspirin 81 gm PO daily * Hold atenolol 2/2 borderline BP FULL CODE DVTP: SC Heparin Diet: Heart Healthy Mild to severe pain pathway Problem List: 1. Acute respiratory failure with hypoxia and hypercapnia 2. Hypokalemia 3. Renal insufficiency 4. Pulmonary vascular congestion Pain Ratin Tomorrow's Labs & Rationales: CBC (leukocytosis) ICU bundle (hypokalemia) Plan DVT/Prophylaxis: mechanical, pharmacological
[2016-11-23 08:00] VITALS: BP 104/52
--- NOTE | 2016-11-23 09:14 | PN- CRCU ---
Subjective HPI/Critical Care Issues: Continues to be on BiPAP this morning Still short of breath but says much better than yesterday Does not have any other complaints Review of symptoms otherwise unremarkable No significant pedal edema Afebrile on steroids vital signs otherwise stable in sinus rhythm was on 4 L yesterday at 96% Urine output has been adequate Patient has been taking adequate amount of by mouth Objective Current Medications: Current Medications Sig/Michi Start time Last Medication Dose Route Stop Time Status Admin Acetaminophen 325 MG Q6-PRN PRN 11/21 1430 AC PO Albuterol Sulfate 3 ML Q4 11/22 1000 AC 11/23 INH 0843 Albuterol Sulfate 2 PUF Q4-6 PRN PRN 11/21 1500 AC INH Aspirin 81 MG DAILY 11/22 1000 AC 11/22 PO 0902 Atorvastatin Calcium 40 MG DAILY 11/22 1000 AC 11/22 PO 0902 Azithromycin 500 MG DAILY@11/22 1100 AC 11/22 Sodium Chloride 250 ML IV 1041 Ceftriaxone Sodium 1,000 MG DAILY@11/22 1100 AC 11/22 IV 1041 Furosemide 20 MG ONCE ONE 11/23 1900 UNVr IV 11/23 1901 Furosemide 20 MG ONCE ONE 11/23 0915 UNVr IV 11/23 0916 Heparin Sodium 5,000 UNIT Q8 11/21 1425 AC 11/23 (Porcine) SC 0523 Ipratropium [place] 2.5 ML Q4 11/22 1000 AC 11/23 INH 0843 Methylprednisolone 40 MG Q8 11/21 2200 AC 11/23 IV 0523 Oxycodone/ 1 TAB Q6 PRN 11/21 1430 AC Acetaminophen PO Oxycodone/ 2 TAB Q6 PRN 11/21 1430 AC Acetaminophen PO Potassium Chloride 40 MEQ ONCE ONE 11/22 1400 DC 11/22 PO 11/22 1401 1358 Potassium Chloride 20 MEQ Q8H 11/21 1830 DC 11/22 Sodium Chloride 1,000 ML IV 1042 Laboratory Tests 11/23 11/22 0515 0510 Chemistry Sodium (137 - 145 mmol/L) 142 138 Potassium (3.5 - 5.1 mmol/L) 4.3 3.4 L Chloride (98 - 107 mmol/L) 105 102 Carbon Dioxide (22 - 30 mmol/L) 30 29 Anion Gap (5 - 16) 7 8 BUN (7 - 17 mg/dL) 28 H 37 H Creatinine (0.5 - 1.0 mg/dL) 0.9 1.0 Estimated GFR (>60 ml/min) > 60 57 L Glucose (65 - 99 mg/dL) 138 H 125 H Calcium (8.4 - 10.2 mg/dL) 8.4 7.8 L Phosphorus (2.5 - 4.5 mg/dL) 2.1 L 3.2 Magnesium (1.6 - 2.3 mg/dL) 2.7 H 2.8 H Total Bilirubin (0.2 - 1.3 mg/dL) 0.2 0.2 AST (14 - 36 U/L) 39 H 43 H ALT (9 - 52 U/L) 55 H 38 Albumin (3.5 - 5.0 g/dL) 3.1 L 2.9 L Hematology CBC w Diff NO MAN DIFF REQ NO MAN DIFF REQ WBC (4.8 - 10.8 /CUMM) 10.4 9.3 RBC (4.20 - 5.40 /CUMM) 3.69 L 3.68 L Hgb (12.0 - 16.0 G/DL) 11.7 L 11.6 L Hct (37 - 47 %) 34.8 L 34.5 L MCV (81.0 - 99.0 FL) 94.1 93.6 MCH (27.0 - 31.0 PG) 31.8 H 31.5 H RDW (11.5 - 14.5 %) 14.9 H 14.5 Plt Count (130 - 400 /CUMM) 181 170 MPV (7.4 - 10.4 FL) 7.9 8.4 Gran % (42.2 - 75.2 %) 87.9 H 86.7 H Lymphocytes % (20.5 - 51.1 %) 6.9 L 6.5 L Monocytes % (1.7 - 9.3 %) 5.2 6.8 Eosinophils % (0 - 5 %) 0 0 Basophils % (0.0 - 2.0 %) 0 L 0 L Absolute Granulocytes (1.4 - 6.5 /CUMM) 9.2 H 8.1 H Absolute Lymphocytes (1.2 - 3.4 /CUMM) 0.7 L 0.6 L Absolute Monocytes (0.10 - 0.60 /CUMM) 0.5 0.6 Absolute Eosinophils (0.0 - 0.7 /CUMM) 0 0 Absolute Basophils (0.0 - 0.2 /CUMM) 0 0 PUBS MCHC (33.0 - 37.0 G/DL) 33.8 33.7 11/21 11/21 11/21 11/21 2300 2240 2050 1920 Chemistry Potassium (3.5 - 5.1 mmol/L) 2.4 *L Lactic Acid (0.7 - 2.1 mmol/L) 1.8 Troponin I (< 0.11 ng/ml) 0.02 Urines Urine Color (YEL,AMB,STR) YEL Urine Clarity (CLEAR) CLEAR Urine pH (5.0 - 8.0) 6.0 Ur Specific [place] (1.001 - 1.035) 1.025 Urine Protein (NEG,<30 MG/DL) TRACE H Urine Ketones (NEG) NEG Urine Nitrite (NEG) NEG Urine Bilirubin (NEG) NEG Urine Urobilinogen (0.1 - 1.0 EU/dl) 0.2 Ur Leukocyte Esterase (NEG) NEG Ur Microscopic SEDIMENT EXAMINED Urine RBC (0 - 5 /HPF) 1-3 Urine WBC (0 - 2 /HPF) 1-3 H Ur Epithelial Cells (NONE,FEW) MOD H Urine Bacteria (NEG/NONE) FEW H Urine Hemoglobin (NEG) NEG Urine Glucose (N MG/DL) NEG 11/21 11/21 11/21 1650 1650 1650 Chemistry Sodium (137 - 145 mmol/L) 135 L Potassium (3.5 - 5.1 mmol/L) 2.6 *L Chloride (98 - 107 mmol/L) 90 L Carbon Dioxide (22 - 30 mmol/L) 33 H Anion Gap (5 - 16) 12 BUN (7 - 17 mg/dL) 42 H Creatinine (0.5 - 1.0 mg/dL) 1.4 H Estimated GFR (>60 ml/min) 38 L Glucose (65 - 99 mg/dL) 164 H Lactic Acid (0.7 - 2.1 mmol/L) 2.6 H Calcium (8.4 - 10.2 mg/dL) 8.2 L Phosphorus (2.5 - 4.5 mg/dL) 3.7 Magnesium (1.6 - 2.3 mg/dL) 2.7 H Total Bilirubin (0.2 - 1.3 mg/dL) 0.2 AST (14 - 36 U/L) 28 ALT (9 - 52 U/L) 36 Troponin I (< 0.11 ng/ml) 0.03 Albumin (3.5 - 5.0 g/dL) 3.4 L Hematology CBC w Diff NO MAN DIFF REQ WBC (4.8 - 10.8 /CUMM) 11.8 H RBC (4.20 - 5.40 /CUMM) 4.01 L Hgb (12.0 - 16.0 G/DL) 12.8 Hct (37 - 47 %) 37.3 MCV (81.0 - 99.0 FL) 92.9 MCH (27.0 - 31.0 PG) 31.8 H RDW (11.5 - 14.5 %) 14.4 Plt Count (130 - 400 /CUMM) 182 MPV (7.4 - 10.4 FL) 8.6 Gran % (42.2 - 75.2 %) 96.2 H Lymphocytes % (20.5 - 51.1 %) 2.3 L Monocytes % (1.7 - 9.3 %) 1.5 L Eosinophils % (0 - 5 %) 0 Basophils % (0.0 - 2.0 %) 0 L Absolute Granulocytes (1.4 - 6.5 /CUMM) 11.3 H Absolute Lymphocytes (1.2 - 3.4 /CUMM) 0.3 L Absolute Monocytes (0.10 - 0.60 /CUMM) 0.2 Absolute Eosinophils (0.0 - 0.7 /CUMM) 0 Absolute Basophils (0.0 - 0.2 /CUMM) 0 PUBS MCHC (33.0 - 37.0 G/DL) 34.2 11/21 11/21 1508 1055 Blood Gas pH (7.35 - 7.45 PH) 7.37 pCO2 (35 - 45 TORR) 61 *H pO2 (80 - 100 TORR) 89 HCO3 (21 - 28 MEQ/L) 35 H ABG O2 Sat (Measured) (>96.0 %) 96.0 P-50 (Temp Corrected) N Carboxyhemoglobin (1.5 - 5.0 %) 4.7 O2 Concentration % 5LPM O2 Delivery Method CO Hematology CBC w Diff NO MAN DIFF REQ WBC (4.8 - 10.8 /CUMM) 14.5 H RBC (4.20 - 5.40 /CUMM) 4.11 L Hgb (12.0 - 16.0 G/DL) 13.0 Hct (37 - 47 %) 37.9 MCV (81.0 - 99.0 FL) 92.3 MCH (27.0 - 31.0 PG) 31.6 H RDW (11.5 - 14.5 %) 14.2 Plt Count (130 - 400 /CUMM) 182 MPV (7.4 - 10.4 FL) 8.4 Gran % (42.2 - 75.2 %) 96.7 H Lymphocytes % (20.5 - 51.1 %) 0.5 L Monocytes % (1.7 - 9.3 %) 2.7 Eosinophils % (0 - 5 %) 0.1 Basophils % (0.0 - 2.0 %) 0 L Absolute Granulocytes (1.4 - 6.5 /CUMM) 14.0 H Absolute Lymphocytes (1.2 - 3.4 /CUMM) 0.1 L Absolute Monocytes (0.10 - 0.60 /CUMM) 0.4 Absolute Eosinophils (0.0 - 0.7 /CUMM) 0 Absolute Basophils (0.0 - 0.2 /CUMM) 0 PUBS MCHC (33.0 - 37.0 G/DL) 34.2 Miscellaneous Phlebotomy Draw Site RIGHT BRACHIAL 11/21 11/21 1024 UNK Chemistry Sodium (137 - 145 mmol/L) 135 L Cancelled Potassium (3.5 - 5.1 mmol/L) 2.9 *L Cancelled Chloride (98 - 107 mmol/L) 81 L Cancelled Carbon Dioxide (22 - 30 mmol/L) 36 H Cancelled Anion Gap (5 - 16) 18 H Cancelled BUN (7 - 17 mg/dL) 42 H Cancelled Creatinine (0.5 - 1.0 mg/dL) 1.4 H Cancelled Estimated GFR (>60 ml/min) 38 L BUN/Creatinine Ratio (7 - 25 %) 30.0 H Glucose (65 - 99 mg/dL) 208 H Cancelled Lactic Acid (0.7 - 2.1 mmol/L) 4.3 H Calcium (8.4 - 10.2 mg/dL) 9.3 Cancelled Phosphorus Cancelled Magnesium (1.6 - 2.3 mg/dL) 2.4 H Cancelled Total Bilirubin (0.2 - 1.3 mg/dL) 0.6 Cancelled AST (14 - 36 U/L) 34 Cancelled ALT (9 - 52 U/L) 26 Cancelled Alkaline Phosphatase (<127 U/L) 87 Troponin I (< 0.11 ng/ml) 0.03 [id number] Pept (<125 pg/mL) 4990 H Total Protein (6.3 - 8.2 g/dL) 7.5 Albumin (3.5 - 5.0 g/dL) 4.3 Cancelled Globulin (1.9 - 4.2 gm/dL) 3.2 Albumin/Globulin Ratio (1.1 - 2.2 %) 1.3 Coagulation D-Dimer (70 - 232 ng/ml) 426 H Hematology CBC w Diff MAN DIFF ORDERED WBC (4.8 - 10.8 /CUMM) 17.6 H RBC (4.20 - 5.40 /CUMM) 4.86 Hgb (12.0 - 16.0 G/DL) 15.4 Hct (37 - 47 %) 44.9 MCV (81.0 - 99.0 FL) 92.5 MCH (27.0 - 31.0 PG) 31.7 H RDW (11.5 - 14.5 %) 14.6 H Plt Count (130 - 400 /CUMM) 273 MPV (7.4 - 10.4 FL) 8.4 Gran % (42.2 - 75.2 %) 85.0 H Lymphocytes % (20.5 - 51.1 %) 7.9 L Monocytes % (1.7 - 9.3 %) 7.1 Eosinophils % (0 - 5 %) 0 Basophils % (0.0 - 2.0 %) 0 L Absolute Granulocytes (1.4 - 6.5 /CUMM) 15.0 H Absolute Lymphocytes (1.2 - 3.4 /CUMM) 1.4 Absolute Monocytes (0.10 - 0.60 /CUMM) 1.3 H Absolute Eosinophils (0.0 - 0.7 /CUMM) 0 Absolute Basophils (0.0 - 0.2 /CUMM) 0 Anisocytosis 1+ Stomatocytes 1+ PUBS MCHC (33.0 - 37.0 G/DL) 34.3 Microbiology Date/Time Procedure - Status Source Growth 11/22 1210 Legionella Antigen - COMP URINE ROUT 11/22 1210 Streptococcus pneumoniae Antigen (M - COMP URINE ROUT 11/21 2300 Urine Culture - RES URINE ROUT 11/21 1620 Surveillance Culture - COMP UPPER RESP 11/21 1620 Surveillance Culture - COMP GI 11/21 1102 Blood Culture - RES BLOOD 11/21 1049 Blood Culture - RES BLOOD Vital Signs & I&O Last 24 Hrs of Vitals and I&O: Vital Signs Date Time Temp Pulse Resp B/P B/P Pulse O2 O2 Flow FiO2 Mean Ox Delivery Rate 11/23 0848 96 Nasal 3.0L Cannula 11/23 0835 68 97 11/23 0601 63 96 11/23 0400 97 BIPAP 35% 11/23 0327 95 BIPAP 35% 11/23 0317 60 95 11/23 0100 72 98 11/23 0000 98 BIPAP 35% 11/22 2359 97.6 71 20 112/74 98 BIPAP 35% 11/22 2254 94 Nasal 4.0L Cannula 11/22 2200 93 96 11/22 2000 97 Nasal 4.0L Cannula 11/22 1650 97.9 87 18 100/59 95 Nasal 4.0L Cannula 11/22 1600 95 Nasal 4.0L Cannula 11/22 1200 93 Nasal 4.0L Cannula 11/22 1133 93 Nasal 2.0L Cannula 11/22 1109 Nasal 4.0L Cannula Intake & Output 11/23 1600 11/23 0800 11/23 0000 Intake Total 330 1150 Output Total 400 400 Balance -70 750 Intake, IV 10 610 Intake, Oral 320 540 Output, Urine 400 400 Patient 153 lb Weight Weight Bed scale Measurement Method Impression/Plan Impression/Plan Impression/Plan: Physical Exam General Appearance: Mildly tachypneic on BiPAP this morning Head: atraumatic, normal appearance Eyes: Bilateral: normal appearance, PERRL, EOMI. Ears, Nose, Throat: normal pharynx, normal ENT inspection Neck: normal inspection, supple, full range of motion Respiratory: crackles, rhonchi, wheezing very poor air entry Cardiovascular: regular rate/rhythm Gastrointestinal: normal bowel sounds, soft, non-tender Extremities: normal inspection, normal capillary refill, normal range of motion, trace edema Neurologic/Psych: no motor/sensory deficits, awake, alert, oriented x 3, normal gait, normal mood/affect Skin: intact, normal color, warm/dry SIGNIFICANT DATA Previous CT reviewed Has profound emphysema in the upper lobes with bilateral scarring/mild ILD-type picture Chest x-ray showed severe COPD with bibasal early near atelectasis versus hypoventilatory change Previous echocardiogram did reveal normal ejection fraction with very severe pulmonary hypertension with dilated and hypokinetic right ventricle Previous CT scan of the chest and previous VQ scan reviewed the last VQ scan showed normal lung perfusion no evidence of pulmonary embolism IMPRESSION This is a 60-year-old lady with very severe emphysema with severe COPD with significant air trapping now comes in with * Resolving Acute hypoxemic and hypercarbic respiratory failure related to very severe COPD exacerbation with profound wheezing. * Leukocytosis with some sputum suggestive of acute bacterial bronchitis * Bibasilar atelectasis vs infiltrate rule out pneumonia * Severe pulmonary hypertension with mild cor pulmonale with previous venous thromboembolism workup negative * Resolving Profound hypokalemia * Resolved anion gap acidosis most likely related to increased work of breathing with lactic acidosis * Unlikely to be venous thromboembolism as a clinical findings are highly suggestive of very severe COPD exacerbation with respiratory failure * Resolving Chronic kidney disease with worsening acute kidney injury probably related to low flow state * Chronic hypercarbia * Previous pulmonary vascular congestion elevated BNP with no clinical evidence suggestive of congestive heart failure * mild aortic stenosis RECOMMENDATION Continue current therapy Continue noninvasive ventilation with BiPAP especially at bedtime only if needed if not discontinue it tonight Continue ceftriaxone and azithromycin for today and switch her to by mouth Ceftin 500 twice a day Discontinue intravenous Solu-Medrol after today and switch her to by mouth prednisone 50 mg and a 14 day taper [id number] nebulizer therapy with DuoNeb every 6 hours when she stable Potassium 20 mg dailyent would need to have an for alpha 1 antitrypsin gene mutation analysis in the future DVT prophylaxis, out of bed to chair Patient is critically ill Total time spent 36 minutes If she continues to be stable we will attempt to take her off BiPAP and probably can go to the floor later today Recheck ABG this evening to assess baseline PCO2
[2016-11-23 16:00] VITALS: BP 102/56
[2016-11-24] VITALS: BP 122/58
[2016-11-24 05:06] LABS: MEAN CORPUSCULAR HGB 31.5 PG (27.0-31.0); MEAN PLATELET VOLUME 8.3 FL (7.4-10.4); RED BLOOD CELL CT 3.88 /CUMM (4.20-5.40)
[2016-11-24 05:13] LABS: ABSOLUTE BASOPHIL COUNT 0 /CUMM (0.0-0.2); ABSOLUTE EOSINOPHIL COUNT 0 /CUMM (0.0-0.7); ABSOLUTE GRANULOCYTE CT 9.1 /CUMM (1.4-6.5); ABSOLUTE LYMPH COUNT 0.6 /CUMM (1.2-3.4); ABSOLUTE MONOCYTE COUNT 0.3 /CUMM (0.10-0.60); BASOPHIL % 0 % (0.0-2.0); EOSINOPHIL % 0 % (0-5); GRANULOCYTE % 90.6 % (42.2-75.2); HEMATOCRIT 36.8 % (37-47); MEAN CORPUSCULAR HGB CONC 33.2 G/DL (33.0-37.0); MEAN CORPUSCULAR VOLUME 94.8 FL (81.0-99.0); PLATELET COUNT 200 /CUMM (130-400); RBC DISTRIBUTION WIDTH 14.9 % (11.5-14.5)
--- NOTE | 2016-11-24 06:43 | PN- Resident CRCU ---
Subjective HPI/CRCU Issues: Patient seen and examined at bedside this AM. She is resting comfortably in no acute distress on BiPAP. She reports her respiratory status is improving and she is less short of breath. She denies fever, chills, chest pain, palptiations or wheezing. 24 Hour Events: quality assurance monitor final: Bradycardia to 47 bpm but otherwise no overnight events. Vital signs last 24 hours: T 97.4-97.7, HR 60-100, RR 18-30, BP 98-135/49-69, O2 90-100% 35% BiPAP alternating with 3-4L NC. Total intake last 24 hours: 1720 cc Total output last 24 hours: 1400 cc Objective Vital Signs & I&O Last 8 Hrs of Vitals and I&O: T 97.4-97.7, HR 60-100, RR 18-30, BP 98-135/49-69, O2 90-100% 35% BiPAP alternating with 3-4L NC. Exam General Appearance: well developed/nourished, no apparent distress, alert, awake , comfortable Head: atraumatic, normal appearance Ears, Nose, Throat: normal pharynx, hearing grossly normal Neck: normal inspection, supple Respiratory: decreased breath sounds Cardiovascular: regular rate/rhythm Gastrointestinal: normal bowel sounds, soft, non-tender, no organomegaly Extremities: normal inspection, no edema Cranial Nerves: normal hearing, normal speech, PERRL Skin: intact, normal color Skin Temp/Moisture Exam: Warm/Dry Nutrition Nutrition: P.O. diet Current Medications: Current Medications Sig/Michi Start time Last Medication Dose Route Stop Time Status Admin Acetaminophen 325 MG Q6-PRN PRN 11/21 1430 AC PO Albuterol Sulfate 3 ML Q4 11/22 1000 AC 11/24 INH 0905 Albuterol Sulfate 2 PUF Q4-6 PRN PRN 11/21 1500 AC INH Aspirin 81 MG DAILY 11/22 1000 AC 11/24 PO 0836 Atorvastatin Calcium 40 MG DAILY 11/22 1000 AC 11/24 PO 0837 Azithromycin 500 MG DAILY@11/22 1100 DC 11/23 Sodium Chloride 250 ML IV 11/23 1200 1029 Budesonide/ 2 PUF BID 11/24 1000 AC Formoterol Fumarate INH Ceftriaxone Sodium 1,000 MG DAILY@11/22 1100 DC 11/23 IV 11/23 1200 1029 Cefuroxime Sodium 500 MG Q12 11/24 1000 AC 11/24 PO 0836 Heparin Sodium 5,000 UNIT Q8 11/21 1425 AC 11/24 (Porcine) SC 0554 Ipratropium [place] 2.5 ML Q4 11/22 1000 DC 11/24 INH 0905 Methylprednisolone 40 MG Q8 11/21 2200 DC 11/23 IV 11/23 2300 2136 Oxycodone/ 1 TAB Q6 PRN 11/21 1430 AC Acetaminophen PO Oxycodone/ 2 TAB Q6 PRN 11/21 1430 AC Acetaminophen PO Prednisone 50 MG DAILY 11/24 1000 AC 11/24 PO 11/26 1001 0837 Tiotropium [place] 1 PUF DAILY 11/24 1000 AC INH CXR Findings: IMPRESSION: Hyperinflated lungs without acute pneumonic process. US Findings: Lower extremity doppler: IMPRESSION: 1. Normal triplex scan without evidence of deep venous thrombosis involving the lower extremities. 2. Bilateral Cole's cysts. Impression/Plan Impression/Problem List Impression: Ms. Wong is a pleasant 60 year old female with PMH HTN, HLD, severe emphysema/COPD not on home oxygen, previously a heaver tobacco abuser ( quit June 2016) and severe pulmonary HTN who presented to [place] on 11/21/16 with chief complaint of shortness of breath, worse with ambulation. In the ED: Vital signs showed T 97.7, HR 89, RR 24, BP 119/58, O2 saturation 87% on 5 L NC. Labs were significant for WBC 17.6, H&H 15.4/44.9, Na 135, K 2.9, Cl 81, HCO3 36, AG 18, BUN 42, Cre 1.4 (baseline 1), lactic acid 4.3, normal LFTs, troponon 0.03, proBNP 4990, d-dimer 426. EKG showed NSR HR 86 bpm, right axic deviation, increased amplitude of P waves, non-specific ST-T wave changes, QTC 493. ABG showed 7.37/61/89/35/ at which time she was placed on BiPAP. CXR showed bibasilar airspace disease without edema. Patient was admitted to the ICU and the following is the management: 1. Acute hypoxemic and hyercarbic respiratory failure secondary to COPD exacerbation * IMPROVING, O2 sats remain adequate on 3 L NC * On admission, D-Dimer slightly elevated so doppler US was done and ruled out DVT bilaterally * IV solumedrol 125 mg in the ED, IV solumedrol discontinued today and switched to PO prednisone 50 mg with 14 day taper * Start symbicort 2 puffs twice a day and spiriva one inhalation daily * Continuous O2 via nasal cannula with BiPAP at night * OOBTC today * Patient will follow up with Dr. Marshall MD as an outpatient and will likely have alpha-1 antitrypsin gene mutation testing and further pulm workup * Patient stable for downgrade to , discontinue lunchroom monitor 2. Severe sepsis, resolving * On admission, patient had elevated white count, was tachypneic, had lactic acidosis and hypotension responsive to fluids; source PNA vs acute bacterial bronchitis * Pancultures drawn, no growth to date, follow up final culture results * IV ceftriaxone and azithromycin discontinued, switched to PO ceftin 500 mg Q12 today * Monitor for fevers, vital signs per protocol * Follow up CBC and ICU bundle * Stable for transfer to general medicine 3. Profound hypokalemia with anion gap acidosis/lactic acidosis * K 2.9 on admission with AG of 18 and lactic acid of 4.3 * Patient s/p aggressive hydration and electrolyte repletion * Lactic acid has since returned to normal * Monitor ICU bundle closely and replete as needed 4. Non-specific ST-T wave changes * Noted increased amplitude of P waves and right axis deviation on admission EKG * ACS ruled out with troponins negative x 3 * Cardiology consult with Dr. Lynette MD appreciated * Recent echocardiogram in June of 2016 showed EF 60-65%, dilated and hypokinetic RV, severe pulm HTN, right atrial enlargement 5. EFRAIN on CKD * Likely prerenal 2/2 hypoperfusion in the setting of severe sepsis * Patient s/p IVF hydration * Cre has since returned to baseline, trend ICU bundle * Avoid nephrotoxins 6. Right heart failure and severe pulmonary HTN * Lasix held on admission 2/2 severe sepsis and borderline BP * Stright Is/Os, daily weights * BP still borderline, will restart lasix once BP trends upwards 7. HTN, HLD * Continue lipitor 81 mg PO daily, aspirin 81 gm PO daily * Hold atenolol 2/2 borderline BP FULL CODE DVTP: SC Heparin Diet: Heart Healthy Mild to severe pain pathway Problem List: 1. Acute respiratory failure with hypoxia and hypercapnia 2. Acute bacterial bronchitis 3. Pulmonary HTN Pain Ratin Tomorrow's Labs & Rationales: CBC (leukocytosis) ICU bundle (renal dysfunction) Plan DVT/Prophylaxis: mechanical, pharmacological
[2016-11-24 08:00] VITALS: BP 110/70
--- NOTE | 2016-11-24 09:06 | PN- CRCU ---
Subjective HPI/Critical Care Issues: The patient is awake and alert. She remains on BiPAP. She reports feeling significantly improved. She has less shortness of breath and less wheezing. She denies any new complaints today. Objective Current Medications: Current Medications Sig/Michi Start time Last Medication Dose Route Stop Time Status Admin Acetaminophen 325 MG Q6-PRN PRN 11/21 1430 AC PO Albuterol Sulfate 3 ML Q4 11/22 1000 AC 11/24 INH 0331 Albuterol Sulfate 2 PUF Q4-6 PRN PRN 11/21 1500 AC INH Aspirin 81 MG DAILY 11/22 1000 AC 11/24 PO 0836 Atorvastatin Calcium 40 MG DAILY 11/22 1000 AC 11/24 PO 0837 Azithromycin 500 MG DAILY@1100 11/22 1100 DC 11/23 Sodium Chloride 250 ML IV 11/23 1200 1029 Ceftriaxone Sodium 1,000 MG DAILY@1100 11/22 1100 DC 11/23 IV 11/23 1200 1029 Cefuroxime Sodium 500 MG Q12 11/24 1000 AC 11/24 PO 0836 Furosemide 20 MG ONCE ONE 11/23 1900 CAN IV 11/23 1901 Furosemide 20 MG ONCE ONE 11/23 0915 CAN IV 11/23 0916 Heparin Sodium 5,000 UNIT Q8 11/21 1425 AC 11/24 (Porcine) SC 0554 Ipratropium [place] 2.5 ML Q4 11/22 1000 AC 11/24 INH 0331 Methylprednisolone 40 MG Q8 11/21 2200 DC 11/23 IV 11/23 2300 2136 Oxycodone/ 1 TAB Q6 PRN 11/21 1430 AC Acetaminophen PO Oxycodone/ 2 TAB Q6 PRN 11/21 1430 AC Acetaminophen PO Prednisone 50 MG DAILY 11/24 1000 AC 11/24 PO 0837 Vital Signs & I&O Last 24 Hrs of Vitals and I&O: Vital Signs Date Time Temp Pulse Resp B/P B/P Pulse O2 O2 Flow FiO2 Mean Ox Delivery Rate 11/24 0553 64 96 11/24 0400 99 BIPAP 35% 11/24 0248 64 95 11/24 0058 71 94 11/24 0000 97 Nasal 3.0L Cannula 11/24 0000 98.9 84 20 122/58 97 Nasal 3.0L Cannula 11/23 2305 83 97 11/23 2000 Nasal 3.0L Cannula 11/23 1839 98 Nasal 4.0L Cannula 11/23 1600 99 Nasal 4.0L Cannula 11/23 1600 97.7 82 18 102/56 100 Nasal 4.0L Cannula 11/23 1450 95 Nasal 4.0L Cannula 11/23 1450 74 98 11/23 1306 97 Nasal 4.0L Cannula 11/23 1304 94 98 11/23 1200 96 Nasal 3.0L Cannula Intake & Output 11/24 1600 11/24 0800 11/24 0000 Intake Total 120 300 Output Total 400 200 Balance -280 100 Intake, Oral 120 300 Output, Urine 400 200 Patient 153 lb Weight Weight Bed scale Measurement Method Exam General Appearance: no apparent distress, alert, awake, comfortable Head: atraumatic, normal appearance Neck: supple Respiratory: decreased breath sounds Cardiovascular: regular rate/rhythm Abdomen: normal bowel sounds, soft, non-tender Extremities: no edema Skin: intact, normal color, warm/dry Results Last 24 Hrs of Lab Results: Laboratory Tests 11/24/16 0400: Anion Gap 6, Estimated GFR > 60, Glucose 135 H, Calcium 8.6, Phosphorus 2.8, Magnesium 2.5 H, Total Bilirubin 0.3, AST 34, ALT 57 H, Albumin 3.3 L, CBC w Diff MAN DIFF ORDERED, RBC 3.88 L, MCV 94.8, MCH 31.5 H, RDW 14.9 H, MPV 8.3, Gran % 90.6 H, Lymphocytes % 6.4 L, Monocytes % 3.0, Eosinophils % 0, Basophils % 0 L, Absolute Granulocytes 9.1 H, Absolute Lymphocytes 0.6 L, Absolute Monocytes 0.3, Absolute Eosinophils 0, Absolute Basophils 0, Platelet Estimate ADEQUATE, Normocytic RBCs VERIFIED, Normochromic RBCs VERIFIED, PUBS MCHC 33.2 11/23/16 1235: pH 7.32 L, pCO2 59 H, pO2 97, HCO3 30 H, ABG O2 Sat (Measured) 97.0, Carboxyhemoglobin 0.3 L, O2 Concentration % 4L, O2 Delivery Method NC, Phlebotomy Draw Site RL Impression/Plan Impression/Plan Impression/Plan: 1. Acute hypoxemic and hypercarbic respiratory failure. 2. Acute bacterial bronchitis. 3. Bibasilar atelectasis versus pneumonia. 4. Severe pulmonary hypertension with mild cor pulmonale with previous venous thromboembolism workup which was negative. 5. History of chronic kidney disease. 6. Previous pulmonary vascular congestion, without CHF. 7. Mild aortic stenosis. Recommendations: * Give breaks off of BiPAP as tolerated. * Continue cefuroxime, follow-up culture data. * Continue prednisone taper as previously written. * Continue nebs/TRC. Hold off on Atrovent. * Start Symbicort 160/4.5, 2 puffs twice daily. * Start Spiriva, one inhalation every morning. * DVT prophylaxis at all times. * Increase activity/out of bed to chair. * Downgrade to [employer].
--- NOTE | 2016-11-24 12:15 | Transfer of Care Summary ---
Hospital Course Course Hospital Course: Ms. Wong is a pleasant 60 year old female with PMH HTN, HLD, severe emphysema/COPD not on home oxygen, previously a heaver tobacco abuser ( quit June 2016) and severe pulmonary HTN who presented to [facility] [facility] on 11/21/16 with chief complaint of shortness of breath, worse with ambulation. In the ED: Vital signs showed T 97.7, HR 89, RR 24, BP 119/58, O2 saturation 87% on 5 L NC. Labs were significant for WBC 17.6, H&H 15.4/44.9, Na 135, K 2.9, Cl 81, HCO3 36, AG 18, BUN 42, Cre 1.4 (baseline 1), lactic acid 4.3, normal LFTs, troponon 0.03, proBNP 4990, d-dimer 426. EKG showed NSR HR 86 bpm, right axic deviation, increased amplitude of P waves, non-specific ST-T wave changes, QTC 493. ABG showed 7.37/61/89/35/ at which time she was placed on BiPAP. CXR showed bibasilar airspace disease without edema. The following was the management during her ICU stay: 1. Acute hypoxemic and hyercarbic respiratory failure secondary to COPD exacerbation: Ping was admitted to the ICU for continuous pulse oximetry monitoring. Vital signs obtained per protocol. Patient was pancultured. TRC nebs started around the clock. She was given 125 mg IV solumedrol in the ED, was continued on IV solumedrol 40 Q8 and started on BiPAP. Lower extremity dopplers were done to rule out DVT as D-Dimer was slightly elevated; dopplers were found to be negative. Solumedrol was titrated down and she was transitioned to PO prednisone 50 mg daily on 11/25/16. The taper will be after every three days and be decreased to 10 mg. Continue this taper while on the floor and after discharge. Of note, patient was also started on symbicort 2 puffs BID and spiriva one puff daily on 11/24/16. Continue O2 via nasal cannula with BiPAP only as needed to maintain appropriate O2 sats. Continue to follow pulmonary recommendations and have Ping follow up with Dr. Marshall MD after discharge for continued workup and management of her COPD. 2. Severe sepsis, secondary to PNA vs acute bacterial bronchitis: On admission, patient had elevated white blood cell count, was tachypneic, had lactic acidosis and hypotension responsive to fluids; the source was likely PNA vs acute bacterial bronchitis. Pancultures were drawn, no growth to date, follow up final culture results. Patient was initially started on IV ceftriaxone and azithromycin but this was switched to PO ceftin 500 mg Q 12 on 11/24/16. CBC was trended to monitor for leukocytosis. Continue antibiotic course to completion. 3. Profound hypokalemia with anion gap acidosis/lactic acidosis: K 2.9 on admission with AG of 18 and lactic acid of 4.3. Patient aggressively hydrated and had frequent electrolyte repltion with K level returning to normal and acidosis resolving. Continue to follow labs daily and replace electrolytes as needed. 4. Non-specific EKG changes on admission: Noted increased amplitude of P waves and right axis deviation on admission EKG. Recent echocardiogram in June of 2016 showed EF 60-65%, dilated and hypokinetic RV, severe pulm HTN, right atrial enlargement. ACS was ruled out with troponins negative x 3. Cardiology consult with Dr. Lynette MD was placed and is pending. Follow cardiology recommendations. No further telemetry monitoring needed at this time. 5. EFRAIN on CKD: Likely prerenal 2/2 hypoperfusion in the setting of severe sepsis. Ping was aggressively hydrated and renal function noted to return to baseline. Nephrotoxins avoided. Continue to follow daily labs to monitor renal function. 6. Right heart failure and severe pulmonary HTN: Lasix was held on admission 2/2 severe sepsis and borderline BP. Stright Is/Os, daily weights started. Lasix continued to be on hold but should be restarted once BP normalized to prevent volume overload. 7. HTN, HLD: Lipitor 81 mg PO daily and ASA 81 mg PO daily continued form admission. Atenolol held due to borderline low BP. Restart once BP normalizes. 8. Code status: FULL 9. DVTP: SC Heparin 10. Diet: Heart Healthy Complications: None. Significant Procedures: CXR: IMPRESSION: Hyperinflated lungs without acute pneumonic process. Venous Doppler: IMPRESSION: 1. Normal triplex scan without evidence of deep venous thrombosis involving the lower extremities. 2. Bilateral Cole's cysts. Assessment/Plan: Please see above. Attending MD Review Statement Documenting Attending: Julia TRAN MD
[2016-11-24 15:27] VITALS: BP 124/60
[2016-11-24 22:31] VITALS: BP 150/78
[2016-11-25 05:18] LABS: ABSOLUTE BASOPHIL COUNT 0 /CUMM (0.0-0.2); ABSOLUTE EOSINOPHIL COUNT 0 /CUMM (0.0-0.7); ABSOLUTE GRANULOCYTE CT 7.5 /CUMM (1.4-6.5); ABSOLUTE LYMPH COUNT 1.5 /CUMM (1.2-3.4); BASOPHIL % 0.1 % (0.0-2.0); EOSINOPHIL % 0 % (0-5); GRANULOCYTE % 74.2 % (42.2-75.2); MEAN CORPUSCULAR HGB 31.8 PG (27.0-31.0); MEAN CORPUSCULAR HGB CONC 33.7 G/DL (33.0-37.0); MEAN CORPUSCULAR VOLUME 94.5 FL (81.0-99.0); MEAN PLATELET VOLUME 7.3 FL (7.4-10.4); PLATELET COUNT 190 /CUMM (130-400); RED BLOOD CELL CT 3.81 /CUMM (4.20-5.40); WHITE BLOOD CELL COUNT 10.1 /CUMM (4.8-10.8)
--- NOTE | 2016-11-25 07:12 | PN- Housestaff ---
BALTAZAR DON,ADDIE 11/25/16 0709: Subjective Follow-up For: acute hypoxic respiratory failure Subjective: I saw and examined the patient today morning She is sitting in the chair. Reports feeling weak, but improving. She is able to walk around today with physical therapy. she is on nasal canula overnight, not using BiPAP. She still had some cough with clear phlegm production. Still on 1.5L oxygen, not willing to go to [facility]. She wants to go home. We discussed the benefits of going to [facility] - need for physical therapy at bedside. we will rediscuss the issue tomorrow. Review of Systems Constitutional: Reports: see HPI. Objective Last 24 Hrs of Vital Signs/I&O Vital Signs Date Time Temp Pulse Resp B/P B/P Pulse O2 O2 Flow FiO2 Mean Ox Delivery Rate 11/25 0231 93 Nasal 2.0L Cannula 11/25 0000 Nasal 3.0L Cannula 11/24 2231 97.6 88 20 150/78 99 Nasal 2.0L Cannula 11/24 2037 93 Nasal 2.0L Cannula 11/24 1713 93 Nasal 2.0L Cannula 11/24 1600 Nasal 3.0L Cannula 11/24 1527 98.4 102 20 124/60 90 Nasal 2.0L Cannula 11/24 0910 99 Nasal 3.0L Cannula 11/24 0800 100 Nasal 3.0L Cannula 11/24 0800 98.3 86 20 110/70 100 Nasal 3.0L Cannula 11/24 0800 86 96 Intake & Output 11/25 0800 11/25 0000 11/24 1600 Intake Total 480 480 600 Output Total 400 Balance 480 80 600 Intake, Oral 480 480 600 Number 1 Bowel Movements Output, Urine 400 Physical Exam General Appearance: Alert, Oriented X3, Cooperative Skin: No Rashes, No Breakdown HEENT: Atraumatic, PERRLA, EOMI Neck: Supple Cardiovascular: Normal S1, Normal S2 Lungs: decreased air entry, no wheezing Abdomen: Normal Bowel Sounds, Soft, No Tenderness Neurological: Normal Speech, Normal Tone, Sensation Intact, Cranial Nerves 3-12 NL Extremities: No Clubbing, No Cyanosis, No Edema Current Medications: Current Medications Sig/Michi Start time Last Medication Dose Route Stop Time Status Admin Acetaminophen 325 MG Q6-PRN PRN 11/21 1430 AC PO Albuterol Sulfate 3 ML Q4 11/22 1000 AC 11/25 INH 0655 Albuterol Sulfate 2 PUF Q4-6 PRN PRN 11/21 1500 AC INH Aspirin 81 MG DAILY 11/22 1000 AC 11/24 PO 0836 Atorvastatin Calcium 40 MG DAILY 11/22 1000 AC 11/24 PO 0837 Budesonide/ 2 PUF BID 11/24 1000 AC 11/24 Formoterol Fumarate INH 2034 Cefuroxime Sodium 500 MG Q12 11/24 1000 AC 11/24 PO 2034 Heparin Sodium 5,000 UNIT Q8 11/21 1425 AC 11/25 (Porcine) SC 0649 Ipratropium [place] 2.5 ML Q4 11/22 1000 DC 11/24 INH 0905 Oxycodone/ 1 TAB Q6 PRN 11/21 1430 AC Acetaminophen PO Oxycodone/ 2 TAB Q6 PRN 11/21 1430 AC Acetaminophen PO Prednisone 40 MG DAILY 11/27 1000 AC PO 11/29 1001 Prednisone 50 MG DAILY 11/24 1000 AC 11/24 PO 11/26 1001 0837 Tiotropium [place] 1 PUF DAILY 11/24 1000 AC 11/24 INH 1038 Last 24 Hrs of Lab/Prince Results Last 24 Hrs of Labs/Mics: Laboratory Tests 11/25/16 0500: Anion Gap 6, Estimated GFR > 60, Glucose 88, Calcium 8.7, Phosphorus 2.6, Magnesium 2.3, Total Bilirubin 0.3, AST 33, ALT 59 H, Albumin 3.1 L, CBC w Diff NO MAN DIFF REQ, RBC 3.81 L, MCV 94.5, MCH 31.8 H, RDW 15.0 H, MPV 7.3 L, Gran % 74.2, Lymphocytes % 15.3 L, Monocytes % 10.4 H, Eosinophils % 0, Basophils % 0.1, Absolute Granulocytes 7.5 H, Absolute Lymphocytes 1.5, Absolute Monocytes 1.0 H, Absolute Eosinophils 0, Absolute Basophils 0, PUBS MCHC 33.7 Assessment/Plan Assessment: Ms. Wong is a pleasant 60 year old female with PMH HTN, HLD, severe emphysema/COPD not on home oxygen, previously a heaver tobacco abuser ( quit June 2016) and severe pulmonary HTN who presented to [facility] on 11/21/16 with chief complaint of shortness of breath, worse with ambulation. Admitted to ICU for continous pulse oximetry. She was stabilized in ICU with intermittent BiPAP, IV steroids, IV antibiotics. Ruled out DVT with doppler studies. As her condition improved transitioned to oral prednisone taper and oral cefatidine 500mg BID. Transfered to general medicine floor on 11/24/16. Plan: 1. Acute hypoxemic and hyercarbic respiratory failure secondary to COPD exacerbation: We will continue TRC nebs. Solumedrol was titrated down and she was transitioned to PO prednisone 50 mg daily on 11/25/16. The taper will be after every three days - 50X3, 40X3, 30X3, 20X3, 10X3. Continue symbicort 2 puffs BID and spiriva one puff daily as started during this admission. Plan is to discharge [facility] vs home as she is stable for now. We will rediscuss issue tomorrow. 2. Severe sepsis, secondary to PNA vs acute bacterial bronchitis: On admission, patient had elevated white blood cell count, was tachypneic, had lactic acidosis and hypotension responsive to fluids; the source was likely PNA vs acute bacterial bronchitis. Pancultures were drawn, no growth to date, follow up final culture results. Patient was initially started on IV ceftriaxone and azithromycin but this was switched to PO ceftin 500 mg Q 12 on . 3. Profound hypokalemia with anion gap acidosis/lactic acidosis - resolved 4. Non-specific EKG changes on admission: Noted increased amplitude of P waves and right axis deviation on admission EKG. Recent echocardiogram in June of 2016 showed EF 60-65%, dilated and hypokinetic RV, severe pulm HTN, right atrial enlargement. ACS was ruled out with troponins negative x 3. 5. EFRAIN on CKD: resolved 6. Right heart failure and severe pulmonary HTN: Lasix was held on admission 2/2 severe sepsis and borderline BP. Stright Is/Os, daily weights started. Lasix continued to be on hold but should be restarted once BP normalized to prevent volume overload. 7. HTN, HLD: Lipitor 81 mg PO daily and ASA 81 mg PO daily continued form admission. Atenolol restarted today. 8. Code status: FULL Problem List: 1. Pulmonary vascular congestion 2. Pneumonia 3. Hypercapnic respiratory failure 4. Renal insufficiency 5. Pulmonary HTN Pain Ratin Pain Location: n/a Pain Goal: Pain 4 or less Pain Plan: tylenol prn Tomorrow's Labs & Rationales: none LAURA DON,JUAN CARLOS 11/25/16 1349: Attending MD Review Statement Attending Statement Attending MD Statement: examined this patient, discuss w/resident/PA/ROTO MIXER OPERATOR, agreed w/resident/PA/ROTO MIXER OPERATOR, reviewed EMR data (avail), discussed with nursing, discussed with case mgmt, amended to note Attending Assessment/Plan: Patient seen and examined. Sitting in the chair not in acute distress. Deniies SOb at rest. She was only able to ambulate to the door before getting short of breath. On examination she has very poor entry bilaterally but no added sounds. She has no jugular venous distention. She has no peripheral edema. She was seen by the physical therapy service and due to her markedly deconditioned and recommendations are for [facility] to [facility] for [facility]-term [facility]. She continues to require oxygen supplementation. Patient however does no want to be discharged to penitentiary facility. She is adamant on being discharged home. She would like to discuss her case further with her section hand helper on tomorrow Marshall. Recommendations: -Continue prednisone Taper -Continue bronchodilator thjerapy. -Follow up with the pulmonary service regarding discharge disposition.
--- NOTE | 2016-11-25 07:21 | Patient Discharge Instructions ---
Discharge Instructions General Discharge Information You were seen/treated for: acute hypoxic respiratory failure Special Instructions: Please follow up with your PCP in a week Please follow up with Dr. Olivares in a week Please take your medications regularly Diet Continue normal diet: Yes Recommended Diet: Heart Healthy Activity Activity Self Limited: Yes Acute Coronary Syndrome Inclusion Criteria At DC or during hospital stay patient has or had the following: ACS DIAGNOSIS No Discharge Core Measures Meds if any: Prescribed or Continued at Discharge Meds if any: NOT Prescribed or Continued at Discharge Congestive Heart Failure Inclusion Criteria At DC or during hospital stay patient has or had the following: CHF DIAGNOSIS No Discharge Core Measures Meds if any: Prescribed or Continued at Discharge Meds if any: NOT Prescribed or Continued at Discharge Cerebrovascular accident Inclusion Criteria At DC or during hospital stay patient has or had the following: CVA/TIA Diagnosis No Discharge Core Measures Meds if any: Prescribed or Continued at Discharge Meds if any: NOT Prescribed or Continued at Discharge Venous thromboembolism Inclusion Criteria VTE Diagnosis No VTE Type NONE VTE Confirmed by (Test) NONE Discharge Core Measures - Per Current guidelines, there needs to be overlap - treatment for the first 5 days of Warfarin therapy. - If discharged on Warfarin prior to 5 days of - overlap therapy, the patient will need to be - assessed for post discharge needs including - *Post discharge parental anticoagulation - *Warfarin and/or parental anticoagulation education - *Follow up date to check INR post discharge At least 5 days overlap therapy as Inpatient No Meds if any: Prescribed or Continued at Discharge Note: Overlap Therapy is Warfarin and Anticoagulant Meds if any: NOT Prescribed or Continued at Discharge
[2016-11-25 07:23] VITALS: BP 118/74
--- NOTE | 2016-11-25 08:31 | PN- Pulmonary ---
Subjective HPI/Critical Care Issues: The patient is awake and alert. She did not use BiPAP overnight. She feels that her breathing is better although she remains short of breath with any exertion. She denies any chest pain, nausea, vomiting, fever or chills. She continues to feel that she is progressing and improving. Objective Current Medications: Current Medications Sig/Michi Start time Last Medication Dose Route Stop Time Status Admin Acetaminophen 325 MG Q6-PRN PRN 11/21 1430 AC PO Albuterol Sulfate 3 ML Q4 11/22 1000 AC 11/25 INH 0655 Albuterol Sulfate 2 PUF Q4-6 PRN PRN 11/21 1500 AC INH Aspirin 81 MG DAILY 11/22 1000 AC 11/24 PO 0836 Atenolol 37.5 MG DAILY 11/25 1000 AC PO Atorvastatin Calcium 40 MG DAILY 11/22 1000 AC 11/24 PO 0837 Budesonide/ 2 PUF BID 11/24 1000 AC 11/24 Formoterol Fumarate INH 2034 Cefuroxime Sodium 500 MG Q12 11/24 1000 AC 11/24 PO 2034 Furosemide 20 MG DAILY 11/25 1000 AC PO Heparin Sodium 5,000 UNIT Q8 11/21 1425 AC 11/25 (Porcine) SC 0649 Ipratropium [place] 2.5 ML Q4 11/22 1000 DC 11/24 INH 0905 Oxycodone/ 1 TAB Q6 PRN 11/21 1430 AC Acetaminophen PO Oxycodone/ 2 TAB Q6 PRN 11/21 1430 AC Acetaminophen PO Prednisone 40 MG DAILY 11/27 1000 AC PO 11/29 1001 Prednisone 50 MG DAILY 11/24 1000 AC 11/24 PO 11/26 1001 0837 Tiotropium [place] 1 PUF DAILY 11/24 1000 AC 11/24 INH 1038 Vital Signs & I&O Last 24 Hrs of Vitals and I&O: Vital Signs Date Time Temp Pulse Resp B/P B/P Pulse O2 O2 Flow FiO2 Mean Ox Delivery Rate 11/25 0723 97.9 85 20 118/74 95 11/25 0231 93 Nasal 2.0L Cannula 11/25 0000 Nasal 3.0L Cannula 11/24 2230 97.6 88 20 150/78 99 Nasal 2.0L Cannula 11/24 2036 93 Nasal 2.0L Cannula 11/24 1713 93 Nasal 2.0L Cannula 11/24 1600 Nasal 3.0L Cannula 11/24 1527 98.4 102 20 124/60 90 Nasal 2.0L Cannula 11/24 0910 99 Nasal 3.0L Cannula Intake & Output 11/25 1600 11/25 0800 11/25 0000 Intake Total 480 480 Output Total 400 Balance 480 80 Intake, Oral 480 480 Number 1 Bowel Movements Output, Urine 400 Patient 164 lb Weight Weight Chair scale Measurement Method Exam General Appearance: no apparent distress, alert, awake, comfortable Head: atraumatic, normal appearance Neck: supple Respiratory: decreased breath sounds Cardiovascular: regular rate/rhythm Abdomen: normal bowel sounds, soft, non-tender Extremities: no edema Skin: intact, normal color, warm/dry Results Last 24 Hrs of Lab Results: Laboratory Tests 11/25/16 0500: Anion Gap 6, Estimated GFR > 60, Glucose 88, Calcium 8.7, Phosphorus 2.6, Magnesium 2.3, Total Bilirubin 0.3, AST 33, ALT 59 H, Albumin 3.1 L, CBC w Diff NO MAN DIFF REQ, RBC 3.81 L, MCV 94.5, MCH 31.8 H, RDW 15.0 H, MPV 7.3 L, Gran % 74.2, Lymphocytes % 15.3 L, Monocytes % 10.4 H, Eosinophils % 0, Basophils % 0.1, Absolute Granulocytes 7.5 H, Absolute Lymphocytes 1.5, Absolute Monocytes 1.0 H, Absolute Eosinophils 0, Absolute Basophils 0, PUBS MCHC 33.7 Impression/Plan Impression/Plan Impression/Plan: 1. Acute hypoxemic and hypercarbic respiratory failure. 2. Acute bacterial bronchitis. 3. Bibasilar atelectasis versus pneumonia. 4. Severe pulmonary hypertension with mild cor pulmonale. 5. History of chronic kidney disease. 6. Previous pulmonary vascular congestion, without CHF. 7. Mild aortic stenosis. Recommendations: * Continue cefuroxime, follow-up culture data. * Continue prednisone taper as previously written. * Continue nebs/TRC. Hold off on Atrovent. * Symbicort 160/4.5, 2 puffs twice daily. * Spiriva, one inhalation every morning. * DVT prophylaxis at all times. * Increase activity/out of bed to chair. * Continue all supportive care.
[2016-11-25 23:29] VITALS: BP 121/54
[2016-11-26 07:00] VITALS: BP 126/74
--- NOTE | 2016-11-26 07:25 | PN- Housestaff ---
BALTAZAR DON,ADDIE 11/26/16 0725: Subjective Follow-up For: Acute hypoxic respiratory failure secondary to COPD exacerbation Subjective: I saw and examined the patient today morning She slept well, resting comfortably in the bed. I rediscussed with her the benefits of going to [facility] with her respiratory status. She declines given previous bad experiences with her mother. She still has some dry cough with clear phlegm production. No significant overnight events. She is still on 2 L of oxygen at rest. Later ambulatory saturations were measured and she desaturated to 87% with walking on room air. She is saturating 94% at rest with 2 L and with ambulation with 3 L. Review of Systems Constitutional: Reports: see HPI. Objective Last 24 Hrs of Vital Signs/I&O Vital Signs Date Time Temp Pulse Resp B/P B/P Pulse O2 O2 Flow FiO2 Mean Ox Delivery Rate 11/26 07 98.3 70 20 126/74 98 Nasal 3.0L Cannula 11/26 0630 98 Nasal 2.0L Cannula 11/26 0000 Nasal 2.5L Cannula 11/25 2329 97.8 79 18 121/54 97 Nasal 2.0L Cannula 11/25 1624 96 Nasal 2.0L Cannula 11/25 1600 Nasal 2.5L Cannula 11/25 1308 94 Nasal 2.0L Cannula 11/25 1050 82 120/72 11/25 0800 98 Nasal 2.5L Cannula Intake & Output 11/26 0800 11/26 0000 11/25 1600 Intake Total 240 620 460 Output Total 800 Balance 240 -180 460 Intake, IV 10 Intake, Oral 240 620 450 Number 1 Bowel Movements Output, Urine 800 Patient 74.531 kg Weight Physical Exam General Appearance: Alert, Oriented X3, Cooperative Skin: No Rashes, No Breakdown HEENT: Atraumatic, PERRLA Neck: Supple Cardiovascular: Normal S1, Normal S2, No Murmurs Lungs: poor air entry with clear sounds Abdomen: Normal Bowel Sounds, Soft, No Tenderness Neurological: Normal Speech, Normal Tone, Sensation Intact, Cranial Nerves 3-12 NL Extremities: No Clubbing, No Cyanosis Vascular: Normal Pulses Current Medications: Current Medications Sig/Michi Start time Last Medication Dose Route Stop Time Status Admin Acetaminophen 325 MG Q6-PRN PRN 11/21 1430 AC PO Albuterol Sulfate 3 ML EVERY 4 HRS/AWAKE 11/25 1600 AC 11/26 INH 0620 Albuterol Sulfate 3 ML Q4 11/22 1000 DC 11/25 INH 0655 Albuterol Sulfate 2 PUF Q4-6 PRN PRN 11/21 1500 AC INH Aspirin 81 MG DAILY 11/22 1000 AC 11/25 PO 1048 Atenolol 37.5 MG DAILY 11/25 1000 AC 11/25 PO 1050 Atorvastatin Calcium 40 MG DAILY 11/22 1000 AC 11/25 PO 1049 Budesonide/ 2 PUF BID 11/24 1000 AC 11/25 Formoterol Fumarate INH 2248 Cefuroxime Sodium 500 MG Q12 11/24 1000 AC 11/25 PO 2248 Furosemide 20 MG DAILY 11/25 1000 CAN PO Heparin Sodium 5,000 UNIT Q8 11/21 1425 AC 11/26 (Porcine) SC 0528 Oxycodone/ 1 TAB Q6 PRN 11/21 1430 AC Acetaminophen PO Oxycodone/ 2 TAB Q6 PRN 11/21 1430 AC Acetaminophen PO Prednisone 40 MG DAILY 11/27 1000 AC PO 11/29 1001 Prednisone 50 MG DAILY 11/24 1000 AC 11/25 PO 11/26 1001 1049 Tiotropium [place] 1 PUF DAILY 11/24 1000 AC 11/25 INH 1051 Assessment/Plan Assessment: Ms. Wong is a pleasant 60 year old female with PMH HTN, HLD, severe emphysema/COPD not on home oxygen, previously a heaver tobacco abuser ( quit June 2016) and severe pulmonary HTN who presented to [place] on 11/21/16 with chief complaint of shortness of breath, worse with ambulation. Admitted to ICU for continous pulse oximetry. She was stabilized in ICU with intermittent BiPAP, IV steroids, IV antibiotics. Ruled out DVT with doppler studies. As her condition improved transitioned to oral prednisone taper and oral cefatidine 500mg BID. Transfered to general medicine floor on 11/24/16. Plan: 1. Acute hypoxemic and hyercarbic respiratory failure secondary to COPD exacerbation: We will continue [facility] nebs. Solumedrol was titrated down and she was transitioned to PO prednisone 50 mg daily on 11/25/16. The taper will be after every three days - 50X3, 40X3, 30X3, 20X3, 10X3. Continue stialto one puff daily. She was discharged to home today with home oxygen therapy. 2. Severe sepsis, secondary to PNA vs acute bacterial bronchitis: On admission, patient had elevated white blood cell count, was tachypneic, had lactic acidosis and hypotension responsive to fluids; the source was likely PNA vs acute bacterial bronchitis. Pancultures were drawn, no growth to date, follow up final culture results. Patient was initially started on IV ceftriaxone and azithromycin but this was switched to PO ceftin 500 mg Q 12 on . Antibiotics were continued for a total course of 7 days. 3. Profound hypokalemia with anion gap acidosis/lactic acidosis - resolved 4. Non-specific EKG changes on admission: Noted increased amplitude of P waves and right axis deviation on admission EKG. Recent echocardiogram in June of 2016 showed EF 60-65%, dilated and hypokinetic RV, severe pulm HTN, right atrial enlargement. ACS was ruled out with troponins negative x 3. 5. EFRAIN on CKD: resolved 6. Right heart failure and severe pulmonary HTN: Lasix was held on admission 2/2 severe sepsis and borderline BP. Stright Is/Os, daily weights started. Lasix continued at discharge. 7. HTN, HLD: Lipitor 81 mg PO daily and ASA 81 mg PO daily continued form admission. Atenolol/chlorthalidone Code status: FULL Problem List: 1. Pneumonia 2. Renal insufficiency 3. Elevated LFTs 4. Acute respiratory failure with hypoxia and hypercapnia 5. Acute bacterial bronchitis Pain Ratin Pain Location: n/a Pain Goal: Pain 4 or less Pain Plan: Tylenol when necessary Tomorrow's Labs & Rationales: None JUAN CARLOS SANCHEZ MD 11/26/16 1007: Attending MD Review Statement Attending Statement Attending MD Statement: examined this patient, discuss w/resident/PA/PICK OUT HAND, agreed w/resident/PA/PICK OUT HAND, reviewed EMR data (avail), discussed with nursing, discussed with case mgmt, amended to note Attending Assessment/Plan: Patient seen and examined. Resting comfortably and not in any acute distress. No issues overnight. She is afebrile and hemodynamically stable. She is maintaining saturation of 90% on 2 L of oxygen. On room air she desaturates to 87%. She denies cough. She denies shortness of breath at rest. She admits to dyspnea on exertion. She is able to exert herself anymore today compared to yesterday. She remains adamant on going home on Augmentin to long-term facility. This was discussed with her recyclable materials sorter Dr. Olivares is in agreement with the patient being discharged home with follow-up as an outpatient in the pulmonary service. On examination, air entry is mildly improved today. She remains without any added sounds. She has no peripheral edema. She has no jugular venous distention. Problems: 1. Sepsis; resolved 2. Acute hypoxic and hypercarbic respiratory failure secondary to COPD exacerbation 3. Acute kidney injury; resolved 4. History of severe pulmonary hypertension. Recommendations: -Patient is medically stable to be discharged home today. She'll continue on her bronchodilator regimen as well as anti-cholineergic regimen. She'll be provided with a prednisone taper. -She is to follow-up with her recyclable materials sorter as an outpatient next week. -Her diuretic therapy was on hold due to hypotension on presentation. This will be resumed upon discharge. She has been advised to monitor her weight and blood pressure control. -She has been advised to return to the emergency room should she develop increasing shortness of breath or any new respiratory symptoms.
[2016-11-26] MEDS ORDERED: CEFUROXIME250 M1 PO (09:40)
[2016-11-26] MEDS ORDERED: PREDNISONE20 M1 PO (09:40)
[2016-11-26 14:28] VITALS: BP 120/60
--- NOTE | 2016-11-26 20:33 | Discharge Summary ---
Visit Information Visit Dates Admission Date: 11/21/16 Discharge Date: 11/26/16 Hospital Course Course Attending Physician: JUAN CARLOS SANCHEZ M.D Primary Care Physician: MORRIS DON,DAGMAR Enamorado Consulting Request: Consulting Specialty: Critical Care Consulting Physician: Reason for Consult: Acute hypoxic respiratory failure Hospital Course: Ms. Wong is a pleasant 60 year old female with PMH HTN, HLD, severe emphysema/COPD not on home oxygen, previously a heaver tobacco abuser ( quit June 2016) and severe pulmonary HTN who presented to [place] on 11/21/16 with chief complaint of shortness of breath, worse with ambulation. Admitted to ICU for continous pulse oximetry. She was stabilized in ICU with intermittent BiPAP, IV steroids, IV antibiotics. Ruled out DVT with doppler studies. As her condition improved transitioned to oral prednisone taper and oral cefatidine 500mg BID. Transfered to general medicine floor on 11/24/16. Plan: 1. Acute hypoxemic and hyercarbic respiratory failure secondary to COPD exacerbation: We will continue TRC nebs. Solumedrol was titrated down and she was transitioned to PO prednisone 50 mg daily on 11/25/16. The taper will be after every three days - 50X3, 40X3, 30X3, 20X3, 10X3 (compelted by 12/09/16). she was given symbicort with Tiotropium in the hospital. However at discharge we Continued stialto her home inhaler without any addition of steroid inhaler as it contains long acting beta agonist. She was discharged with home oxygen therapy as she saturated 87% on room air. Oxygen requirement is 2L at rest, 3L with ambulation. She needs short term rehab, however as patient had very bad experience previously with rehabs - she strongly declines going to rehab. Sent home with oxygen and home health services. 2. Severe sepsis, secondary to PNA vs acute bacterial bronchitis: On admission, patient had elevated white blood cell count, was tachypneic, had lactic acidosis and hypotension responsive to fluids; the source was likely PNA vs acute bacterial bronchitis. Pancultures were drawn, no growth to date, follow up final culture results. Patient was initially started on IV ceftriaxone and azithromycin but this was switched to PO ceftin 500 mg Q 12 on . Antibiotics were continued for a total course of 7 days. 3. Profound hypokalemia with anion gap acidosis/lactic acidosis K 2.9 on admission with AG of 18 and lactic acid of 4.3. Patient aggressively hydrated and had frequent electrolyte repltion with K level returning to normal and acidosis resolving. 4. Non-specific EKG changes on admission: Noted increased amplitude of P waves and right axis deviation on admission EKG. Recent echocardiogram in June of 2016 showed EF 60-65%, dilated and hypokinetic RV, severe pulm HTN, right atrial enlargement. ACS was ruled out with troponins negative x 3. 5. EFRAIN on CKD: Resolved Likely prerenal 2/2 hypoperfusion in the setting of severe sepsis. Ping was aggressively hydrated and renal function noted to return to baseline. Nephrotoxins avoided. 6. Right heart failure and severe pulmonary HTN: Lasix was held on admission 2/2 severe sepsis and borderline BP. Stright Is/Os, daily weights started. Lasix continued at discharge. 7. HTN, HLD: Lipitor 81 mg PO daily and ASA 81 mg PO daily continued form admission. Intially hypertensives held due to hypotension. Atenolol/ chlorthalidone continued from 2 days prior to discharge. Code status: FULL Complications: none Allergies: Coded Allergies: No Known Allergies (07/01/16) Significant Procedures: Chest X ray 1. No radiographic evidence of CHF. 2. Features consistent with COPD with nonspecific bibasilar linear airspace disease, may represent hypoventilatory, atelectatic changes, pleural parenchymal scar and less likely to be infiltrate venous doppler study 1. Normal triplex scan without evidence of deep venous thrombosis involving the lower extremities. 2. Bilateral Cole's cysts. Repeat chest X ray on 11/22/16 Hyperinflated lungs without acute pneumonic process. Pertinent Lab Results: In the ED: Vital signs showed T 97.7, HR 89, RR 24, BP 119/58, O2 saturation 87% on 5 L NC. Labs were significant for WBC 17.6, H&H 15.4/44.9, Na 135, K 2.9, Cl 81, HCO3 36, AG 18, BUN 42, Cre 1.4 (baseline 1), lactic acid 4.3, normal LFTs, troponon 0.03, proBNP 4990, d-dimer 426. EKG showed NSR HR 86 bpm, right axic deviation, increased amplitude of P waves, non-specific ST-T wave changes, QTC 493. ABG showed 7.37/61/89/35/ at which time she was placed on BiPAP. CXR showed bibasilar airspace disease without edema. Disposition Summary Disposition Principal Diagnosis: acute hyoxic respiratory failure secondary to COPD exacerbation Additional Diagnosis: Severe sepsis, secondary to PNA vs acute bacterial bronchitis Right heart failure with sever Pul HTN EFRAIN on CKD HTN HLD Discharge Disposition: home health services Discharge Instructions General Discharge Information Code Status: Full Code Patient's Diet: Heart healthy diet Patient's Activity: activity as tolerated Follow-Up Instructions/Appts: Please follow up with your PCP in a week Please follow up with Dr. Olivares in a week Please take your medications regularly Medications at Discharge Discharge Medications: Stop taking the following medications: Atenolol (Atenolol) 25 MG TABLET ORAL DAILY Furosemide (Furosemide) 20 MG TABLET ORAL DAILY Prednisone (Prednisone) 10 MG TABLET ORAL TWICE DAILY Qty = 10 Amoxicillin/Potassium Clav (Augmentin 875-125 Tablet) 875 MG-125 MG TABLET ORAL TWICE DAILY Days = 1 Continue taking these medications: Aspirin (Aspirin*) 81 MG TAB.CHEW 1 Tablet ORAL DAILY Days = 30 Comments: Last Taken: 11/26/16 Time: 0840AM Albuterol Sulfate (Proair Hfa) 90 MCG HFA.AER.AD 2 Puff Inhale through mouth EVERY 4-6 HOURS NEEDED as needed for copd Qty = 1 Comments: NOT GIVEN IN HOSPITAL Atenolol/Chlorthalidone (Atenolol-Chlorthalidone 50-25) 50 MG-25 MG TABLET 1.5 Tablet ORAL DAILY Qty = 45 Comments: Last Taken: 11/26/16 Time: 0840AM ATENOLOL GIVEN IN HOSPITAL Atorvastatin Calcium (Atorvastatin Calcium) 40 MG TABLET 1 Tablet ORAL DAILY Qty = 30 Furosemide (Lasix) 40 MG TABLET 1 Tablet ORAL DAILY Comments: Last Taken: 11/26/16 Time: 11AM Tiotropium Br/Olodaterol HCl (Stiolto Respimat Inhal [place]) 2.5 MCG-2.5 MCG/ ACTUATION MIST.INHAL 1 Inhaler INHALATION DAILY Comments: Last Taken: 11/26/16 Time: 0840AM Start taking the following new medications: Cefuroxime Axetil (Cefuroxime) 250 MG TABLET 500 Milligram ORAL EVERY 12 HOURS Qty = 5 No Refills Comments: Last Taken: 11/26/16 Time: 0840AM Prednisone (Prednisone) 20 MG TABLET 0 ORAL DAILY Qty = 20 No Refills Instructions: On Take 11/27 50 MG TAKE 2.5 PILLS ONCE A DAY 11/28 - 11/30 40 MG TAKE 2 PILLS ONCE A DAY 12/01 - 12/03 30 MG TAKE 1.5 PILLS ONCE A DAY 12/04 - 12/06 20 MG TAKE 1 PILL ONCE A DAY 12/07 - 12/09 10 MG TAKE 0.5 PILL ONCE A DAY Then Stop Comments: Last Taken: 11/26/16 Time: 0840AM Copies To: MARC DON,Julia HOWE; MORRIS DON,DAGMAR Enamorado Attending MD Review Statement Documenting Attending: JUAN CARLOS SANCHEZ M.D Other Findings: I have reviewed the discharge summary.
== END 2016-11-26 15:40 | disposition home health service (06) | DRG 871 ==
LOC: ERH 10:15 → 2NB 14:19 → ERHI 14:19 → ENRESERV 15:25 → ENTRNSPT 15:57 → CRI 16:27 → CMPTRNSPT 16:33 → 2NB 11-24 11:45 → ENPENDDIS 11-26 09:51 → 2NB 11-26 15:40
PROVIDERS: Nurse Practitioner Family; Student in an Organized Health Care Education/Training Program; ADMIT Internal Medicine Pulmonary Disease
PROC: 5A09357 Assistance with Respiratory Ventilation, Less than 24 Consecutive Hours, Continuous Positive Airway Pressure (ICD-10-PCS; principal; 2016-11-21)
DX: A41.9 Sepsis, unspecified organism (principal); J96.01 Acute respiratory failure with hypoxia; J96.02 Acute respiratory failure with hypercapnia; I13.0 Hypertensive heart and chronic kidney disease with heart failure and stage 1 through stage 4 chronic kidney disease, or unspecified chronic kidney disease; E87.2 Acidosis; N17.9 Acute kidney failure, unspecified; I27.2 Other secondary pulmonary hypertension; J18.9 Pneumonia, unspecified organism; I50.9 Heart failure, unspecified; J44.0 Chronic obstructive pulmonary disease with (acute) lower respiratory infection; J44.1 Chronic obstructive pulmonary disease with (acute) exacerbation; J20.9 Acute bronchitis, unspecified; N18.9 Chronic kidney disease, unspecified; E87.6 Hypokalemia; E78.5 Hyperlipidemia, unspecified; Z87.891 Personal history of nicotine dependence
CPT/HCPCS: 2NSBP; CCU; 36415; 81001; 82436; 87040; 87086; 87449; 87450; 93005; 93010; 93970; 94644; 94799; 96365; 96375; 97110-GO; 97116-GO; 97161-GP; 97530-GO; 99291; J0456; J0696; J1644; J2920; J2930; J3490; J7040; J7512

== ENCOUNTER 2018-01-02 15:58 | Inpatient (IN) | payer OTHER ==
[~2018-01-02] VITALS: Ht 157.5 cm; Wt 68.2 kg
[~2018-01-02 15:58] MED LIST changes: +ATENOLOL-CHLOR1 EAC1 PO; +ATORVASTATIN CA40 M1 PO; +CEFUROXIME250 M1 PO; +LASIX40 M1 PO; +PREDNISONE20 M1 PO; +STIOLTO RESPIMAT4 GM IH
--- NOTE | 2018-01-02 16:32 | ED DYSPNEA/ASTHMA COMPLAINT ---
History of Present Illness General Chief Complaint: Dyspnea (COPD, CHF, Other) Stated Complaint: DIFF BREATHING, PT HAS COPD Source: patient, family, old records Exam Limitations: no limitations Vital Signs & Intake/Output Vital Signs & Intake/Output Vital Signs Date Time Temp Pulse Resp B/P B/P Pulse O2 O2 Flow FiO2 Mean Ox Delivery Rate 01/02 1811 98.0 63 21 89/55 94 Nasal 3.0L Cannula 01/02 1609 98.3 01/02 1606 64 24 109/56 90 Nasal 3.0L Cannula Allergies Coded Allergies: pentazocine (From [employer]) (PER PT MADE SLEEP FOR A LONG TIME 01/02/18) Reconcile Medications Albuterol Sulfate (Proair Hfa) 90 MCG HFA.AER.AD 2 PUF INH Q4-6 PRN PRN copd Atenolol/Chlorthalidone (Atenolol-Chlorthalidone 50-25) 50 MG-25 MG TABLET 1.5 TAB PO DAILY BP (Reported) Atorvastatin Calcium (Lipitor) 80 MG TABLET 1 TAB PO DAILY CHOLESTEROL ( Reported) Furosemide (Lasix) 40 MG TABLET 1.5 TAB PO DAILY FLUID (Reported) Tiotropium [place] (Spiriva Respimat) 2.5 MCG/ACTUATION MIST.INHAL 1 PUFF INH DAILY COPD (Reported) Core Measure Meds Pre-Hospital aspirin Triage Note: PT DIRECTLY TO ROOM 12 FOR TRIAGE C/C 1 DAY HX OF SOB, COUGH WITH CLEAR SECRETIONS. HX OF COPD RA SAT 73% PLACED ON 3 L NC SATS IMPROVED TO 90% DENIES C/P. Triage Nurses Notes Reviewed? yes Onset: 3 days Duration: day(s):, constant, continues in ED, getting worse Timing: recent history Severity: severe Activities at Onset: rest Prior Episodes/Possible Cause: chronic episodes Modifying Factors: Improves With: rest. Worsens With: movement. Associated Symptoms: cough, wheezing, weakness LMP (ages 10-50): post menopausal : No Patient currently breastfeeds: No HPI: 3 days prior to admission patient complains of productive cough and increasing wheezing and weakness. 1 day prior to admission she reports low oxygen saturations severe dyspnea on exertion and fatigue. She denies fever chills nausea vomiting diarrhea abdominal pain chest pain headache dysuria rash bleeding. Past History Travel History Traveled to [place] past 21 day No Medical History Any Pertinent Medical History? see below for history Neurological: NONE EENT: NONE Cardiovascular: hypertension, hyperlipidemia, PEDAL EDEMA Respiratory: COPD Gastrointestinal: NONE Hepatic: NONE Renal: NONE Musculoskeletal: NONE Psychiatric: NONE Endocrine: NONE Blood Disorders: NONE Cancer(s): NONE GLOBAL SALES DIRECTOR/Reproductive: NONE History of MRSA: No History of VRE: No History of CDIFF: No Surgical History Surgical History: non-contributory Psychosocial History Who do you live with Spouse Services at Home None What is your primary language Czech Tobacco Use: Quit >30 days ago Family History Hx Contributory? No Review of Systems Review of Systems Constitutional: Reports: see HPI, malaise, weakness. EENTM: Reports: no symptoms. Respiratory: Reports: see HPI, cough, short of breath, sputum production, wheezing. Cardiovascular: Reports: no symptoms. GI: Reports: no symptoms. Genitourinary: Reports: no symptoms. Musculoskeletal: Reports: no symptoms. Skin: Reports: no symptoms. Neurological/Psychological: Reports: no symptoms. Hematologic/Endocrine: Reports: no symptoms. Immunologic/Allergic: Reports: no symptoms. All Other Systems: Reviewed and Negative Physical Exam Physical Exam General Appearance: well developed/nourished, alert, awake, anxious, severe distress, obese Head: atraumatic, normal appearance Eyes: Bilateral: normal appearance, PERRL, EOMI. Ears, Nose, Throat: normal pharynx, normal ENT inspection, hearing grossly normal Neck: normal inspection, supple, full range of motion, no midline tenderness Respiratory: chest non-tender, decreased breath sounds, wheezing, respiratory distress Cardiovascular: regular rate/rhythm, normal peripheral pulses, norml femoral pulses equa Peripheral Pulses: 4+ carotid (R), 4+ carotid (L) Gastrointestinal: normal bowel sounds, soft, non-tender, no organomegaly Extremities: normal inspection, normal capillary refill, normal range of motion, no edema Neurologic/Psych: no motor/sensory deficits, awake, alert, oriented x 3, normal mood/affect, shift mechanic II-XII nml as tested Skin: intact, normal color, warm/dry Lymphatic: no anterior cervical vasiliy Core Measures ACS in differential dx? No CVA/TIA Diagnosis No Sepsis Present: No Sepsis Focused Exam Completed? No Progress Differential Diagnosis: asthma, bronchitis, CHF, COPD, pneumonia Plan of Care: Orders Procedure Date/time Status Regular Diet 01/02 D Active OXYGEN SETUP (GEN) 07/08 1756 Active Saline Lock 01/03 1756 Active Admit to inpatient 01/02 175 Active Vital Signs 01/03 1756 Active Activity/Ambulation 01/03 1756 Active Code Status 01/03 1756 Active ARTERIAL BLOOD GAS (GEN) 01/02 161 Complete BLOOD CULTURE 01/02 161 Active TROPONIN LEVEL 01/02 161 Complete MAGNESIUM 01/02 161 Complete COMPREHENSIVE METABOLIC PANEL 01/02 161 Complete CBC WITHOUT DIFFERENTIAL 01/02 161 Complete EKG 01/02 160 Active Current Medications Sig/Michi Start time Last Medication Dose Stop Time Status Admin Potassium Chloride 40 MEQ ONCE ONE 01/02 184 AC (Klor) 01/02 184 Ceftriaxone Sodium 1,000 MG ONCE ONE 01/02 183 UNVr (Rocephin) 01/02 183 Sodium Chloride 1,000 ML BOLUS ONE 01/02 183 UNVr (Normal Saline 0.9%) 01/02 192 Potassium Chloride 10 MEQ Q1H 01/02 1800 AC 01/02 01/02 1901 1755 Laboratory Tests 01/02/18 170: Anion Gap 17 H, Estimated GFR 38 L, BUN/Creatinine Ratio 33.6 H, Glucose 111 H, Calcium 10.0, Magnesium 2.5 H, Total Bilirubin 0.8, AST 31, ALT 41, Alkaline Phosphatase 95, Troponin I 0.02, Total Protein 8.3 H, Albumin 4.6, Globulin 3.7 , Albumin/Globulin Ratio 1.2, CBC w Diff NO MAN DIFF REQ, RBC 5.82 H, MCV 93.0, MCH 31.0, MCHC 33.4, RDW 15.5 H, MPV 8.7, Gran % 83.0 H, Lymphocytes % 8.5 L, Monocytes % 7.9, Eosinophils % 0.6, Basophils % 0, Absolute Granulocytes 9.7 H, Absolute Lymphocytes 1.0 L, Absolute Monocytes 0.9 H, Absolute Eosinophils 0.1 , Absolute Basophils 0 01/02/18 1645: pH 7.42, pCO2 53 H, pO2 84, HCO3 34 H, ABG O2 Sat (Measured) 88.0 L, Carboxyhemoglobin 8.3 *H, O2 Concentration % 3L, O2 Delivery Method N/C, Phlebotomy Draw Site RIGHT RADIAL Microbiology 01/02 1705 BLOOD: Blood Culture - RECD Diagnostic Imaging: Viewed by Me: Radiology Read. Discussed w/RAD: Radiology Read. CXR Impression: no acute abnormality, no infiltrates Initial ED EKG: normal axis, normal intervals, normal p-waves, normal QRS complex, normal sinus rhythm, no ST T wave changes Prior EKG: unchanged Rhythm Strip: normal sinus rhythm Departure Departure Disposition: STILL A PATIENT Condition: Fair Clinical Impression Primary Impression: Decompensated COPD with exacerbation (chronic obstructive pulmonary disease ) Secondary Impressions: Hypokalemia Referrals: Jass DON,Toño Enamorado (PCP/Family) Departure Forms: Customer Survey General Discharge Information Admission Note Spoke With: Pepe Walton MD Documentation of Exam: Documentation of any treatments & extenuating circumstances including Concerns Regarding Discharge (functional status, medication knowledge or non-compliance, living conditions, etc.) that warrant an admission rather than observation: Supplemental oxygen serial beta agonist nebs IV steroids medication adjustment physical therapy pulmonary evaluation continuing care discharge planning. Critical Care Note Critical Care Note Critical Care Time: 30-74 min (35)
--- NOTE | 2018-01-02 17:01 | RADIOLOGY REPORT ---
EXAMINATION: XR PORTABLE CHEST CLINICAL INFORMATION: COPD. Productive cough. Hypoxia. COMPARISON: November 22, 2016 and studies dating back to July 01, 2016 TECHNIQUE: Portable frontal view of the chest was obtained. FINDINGS: No significant abnormality is noted involving the heart, lungs, mediastinum, bony thorax or soft tissues. IMPRESSION: No acute disease.
[2018-01-02 17:14] LABS: ABSOLUTE BASOPHIL COUNT 0 /CUMM (0.0-0.2); ABSOLUTE EOSINOPHIL COUNT 0.1 /CUMM (0.0-0.7); ABSOLUTE GRANULOCYTE CT 9.7 /CUMM (1.4-6.5); ABSOLUTE MONOCYTE COUNT 0.9 /CUMM (0.10-0.60); BASOPHIL % 0 % (0.0-2.0); EOSINOPHIL % 0.6 % (0-5); HEMATOCRIT 54.2 % (37-47); MEAN CORPUSCULAR HGB CONC 33.4 G/DL (33.0-37.0); MEAN PLATELET VOLUME 8.7 FL (7.4-10.4); PLATELET COUNT 231 /CUMM (130-400); RBC DISTRIBUTION WIDTH 15.5 % (11.5-14.5); RED BLOOD CELL CT 5.82 /CUMM (4.20-5.40); WHITE BLOOD CELL COUNT 11.7 /CUMM (4.8-10.8)
[2018-01-02] MEDS ORDERED: SPIRIVA RESPIMAT4 GM INH (17:48)
[2018-01-02] MEDS ORDERED: LIPITOR80 M1 PO (17:49)
--- NOTE | 2018-01-02 19:54 | History & Physical ---
SebastianAilin 01/[birth year]/181953: General Information and HPI History of Present Illness: Ping Wong is a 62 YO female with a PMHx of COPD, HTN, and HLD who presents to the ED with a chief concern of "dyspnea." Patient states that she has been having an intermittent cough that has been worsening over the past 2 to 3 days. Patient indicates she produces clear sputum with no visible change in sputum color. Patient states she has a history of pneumonia diagnosed in June and October 2017. Patient states she does not utilize oxygen therapy at home and only uses her inhalers. Patient notes she generally sleeps with extra pillows for comfort, however she denies orthopnea. Patient states she has dyspnea on exertion, especially when going up the stairs. Patient denies any environmental exposure to toxins, dust, or coal. Patient denies any fevers, chest pain, dysuria, weight change, palpitations, and falls. Patient states she quit smoking tobacco 2 years prior after smoking approximately 1 pack per week. Patient states she was diagnosed 2 years ago with COPD when she had her first pneumonia infection. Patient denies receiving the pneumococcal vaccination. Patient has no family history of lung cancer. 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 Patient follows Dr. Olivares (Pulmonology) whom she last visited 1 year prior. Past History Travel History Traveled to [place] past 21 day No Medical History Neurological: NONE EENT: NONE Cardiovascular: hypertension, hyperlipidemia, PEDAL EDEMA Respiratory: COPD Gastrointestinal: NONE Hepatic: NONE Renal: NONE Musculoskeletal: NONE Psychiatric: NONE Endocrine: NONE Blood Disorders: NONE Cancer(s): NONE [facility]/Reproductive: NONE History of MRSA: No History of VRE: No History of CDIFF: No Surgical History Surgical History: non-contributory Past Family/Social History Psychosocial History Who Do You Live With? spouse Services at Home: None Smoking Status: Former Smoker (quit 2 years prior) Functional Ability ADLs Independent: dressing, eating, toileting, bathing. Ambulation: independent IADLs Independent: shopping, housework, finances, food prep, telephone, transportation , medication admin. Review of Systems Review of Systems Constitutional: Denies: chills, diaphoresis, fever. EENTM: Denies: visual changes. Cardiovascular: Denies: chest pain, edema, orthopena, palpitations. Respiratory: Reports: cough, short of breath, sputum production. Denies: orthopnea. GI: Denies: abdominal pain, diarrhea. Genitourinary: Denies: dysuria, frequency. Musculoskeletal: Denies: joint pain. Neurological/Psychological: Denies: ataxia, numbness, tingling. Hematologic/Endocrine: Reports: polydipsia. Exam & Diagnostic Data Last 24 Hrs of Vital Signs/I&O Vital Signs Date Time Temp Pulse Resp B/P B/P Pulse O2 O2 Flow FiO2 Mean Ox Delivery Rate 01/029 97.9 76 20 128/80 95 Room Air 01/02 2053 Nasal 3.0L Cannula 01/02 2030 98.6 62 22 102/58 95 Nasal 3.0L Cannula 01/02 2002 97.8 72 16 100/58 98 Nasal 3.0L Cannula 01/02 1811 98.0 63 21 89/55 94 Nasal 3.0L Cannula 01/02 1609 98.3 01/02 1606 64 24 109/56 90 Nasal 3.0L Cannula Intake & Output 01/03 0800 01/03 0000 01/02 1600 Intake Total 1380 Output Total 500 Balance 880 Intake, IV 1000 Intake, Oral 380 Output, Urine 500 Patient 165 lb Weight Weight Bed scale Measurement Method Physical Exam General Appearance Alert, Oriented X3, Cooperative, No Acute Distress Skin bruising b/l UE HEENT Atraumatic, PERRLA Neck Supple, No JVD Lymphatic Cervical nl Cardiovascular Normal S1, Normal S2, No Murmurs Lungs Clear to Auscultation (slight wheezing) Abdomen Normal Bowel Sounds, Soft Neurological Strength at 5/5 X4 Ext, Normal Tone Extremities Normal Pulses, 1+ edema in b/l LE Assessment/Plan Assessment: Assessment 1. COPD Exacerbation 2. Hypercapneic Respiratory Failure 3. Hypokalemia 4. h/o HTN, HLD 5. h/o tobacco use (quit Jun 2016) Plan: * Hypercapneic Respiratory Failure - Acute worsening of patient's respiratory symptoms beyond baseline in patient with history of Chronic Obstructive Pulmonary Disease - Oxygen therapy to maintain saturation > 92% via NC or face mask - Solu-Medrol 40 mg q8 hours + Albuterol q4 hours prn - Azithromycin antibiotic regimen as prophylaxis for any perceived respiratory infection - Assess ABG for any developing acidemia and CO2 retention - CXR: No acute disease - DVT PPX. * Hypokalemia - Potassium loss likely secondary to renal loss via diuretic medication (Lasix) - Maintain serum potassium levels near 4.0 mEq/L - Replete with PO 40 mEq and 20 mEq, depending on severity/requirement As Ranked By This Provider Problem List: 1. COPD exacerbation 2. Hypokalemia 3. Hypercapnic respiratory failure Core Measures/Misc (03/14) Acute Coronary Syndrome ACS Diagnosis: No Congestive Heart Failure Congestive Heart Failure Diagnosis No Cerebrovascular Accident CVA/TIA Diagnosis: No VTE (View Protocol) VTE Risk Factors Acute Medical Illness No Mechanical VTE Prophylaxis d/t N/A MechProphylax Ordered No VTE Pharm Prophylaxis d/t NA PharmProphylax ordered Sepsis (View protocol) Sepsis Present: No If YES complete Sepsis Event Note If YES complete Sepsis Event Note Louisa Addison 01/03/18 0407: Core Measures/Misc (03/14) Sepsis (View protocol) If YES complete Sepsis Event Note If YES complete Sepsis Event Note Resident Review Statement Resident Statement: examined this patient, discussed with staff internist office based only, agreed with staff internist office based only Other Findings: Mr Wong is a 62 year old woman who is a past smoker w/ a PMHx of HTN, hyperlipidemia, COPD ( dx'ed 2 yrs ago not on oxygen) came to the hospital with a chief concern of occassional productive cough, increasing wheezing and weakness; with worsening of symptoms in the last 1-2 days. Also reported exertional dyspnea, especially climbing up the stairs. Also reported increasing use of inhalers in the last 2 days. No orthopnea. No fever, chills. No nausea vomiting or diarrhea. No abdominal pain dysuria. No chest pain or palpitations. Reported to have increased the dose of furosemide from 40 mg to 60 mg daily, the management of pedal edema. He is unsure if she got any echocardiogram done recently. She also reported occassional non productive cough , which she attribtes it to seasonal allergies. She was also found to be hypoxemic at the time of arrival. Oxygen saturations ranging between 73%-75% and was placed on 3 L nasal cannula which improved oxygen saturation to 90%. At the time of admission-temperature 98.0, pulse rate 63, respiration 21, blood pressure 89-55--100/58, 94% on 3 L. General Exam: AAOx3, No acute distress, Skin: No rashes, no breakdown; HEENT: PERRLA, EOMI;Neck: Supple, No JVD ; No cervical lymphadenopathy;CVS: Reg Rate, Normal S1,S2, No MGR;Resp: Decreased air entry, bilateral wheezes;Abdomen: Soft, No tenderness, Normal Bowel Sounds;Neuro: Normal Speech, Strength 5/5 b/l x 4 extremities, Sensation intact, CN III-XII NL, Reflexes 2+;Extremities: No cyanosis, 2+ pedal edema Pertinent lab findings: WBC 11.7 (83% granulocytes), hemoglobin 18.1, hematocrit 54.2 ( ? hemoconcentration/hypoxia), platelet count 231 Sodium 137, potassium 2.5(high bicarb ?+furosemide) chloride 84 (likely due to high bicarb)+ bicarbonate 36 (compensation or contraction alkalosis). Anion gap 17, BUN 47, creatinine 1.4. (Baseline 0.8) AST 31, ALT 41, alkaline phosphatase 95. Troponin I-0.02. ABG-pH 7.42, PCO2 53, oxygen saturation 88. Chest x-ray-No significant abnormality is noted involving the heart, lungs, mediastinum, bony thorax or soft tissues. Echo-01 July 2016 Normal left ventricular global systolic function. Dilated and hypokinetic right ventricle. Severe Pulmonary hypertension. Mild Aortic stenosis.Right atrial enlargement. PFTs- 2017- Severe obstructive lung disease with a partially reversible component, airtrapping, hyperinflation and exercise induced desaturation. Problem list: 1. Hypokalemia likely due to furosemide use, previus h/o 2. COPD exacerbation,Acute hypoxic respiratory failure 3. Acute kidney injury 4. Pulm HTN 5. h/o Right heart failure and severe pulmonary HTN mMRC dyspnea scale 2, Gold B. Etiology in this case for airflow obstruction is likely secondary to chronic bronchitis. She was known to have had at least one exacerbation in the last 1 year. Considering her faster decline in lung function which can increase her mortality, they should be managed aggressively. Etiology for her dyspnea, could be multifactorial including pulmonary hypertension, restrictive lung disease. Myocardial infarction should always be ruled out. In regards to her hypokalemia, this could be due to aggressive use of furosemide , or metabolic compensation for COPD. Given her alkalosis, hypokalemia will be corrected effectively once alkalosis is slowly corrected. No EKG findings. Plan: -Advised the patient to telemetry -[facility] to monitor for infection, LRCs. -Elevated hematocrit is expected, which should be monitored closely. If it continues to be elevated work up after ruling out hypoxia w/ checking epo levels. PCV in differentials, however unlikely. -Arterial blood gas, if indicated -supplemental oxygen -Maintain oxygen saturation in between 90 to 92% -monitor for CO2 narcosis, monitor for AMS, clinical tiring -NIPPV prn. -Start iv predniosne 40 Q8 -Consider starting antibiotics, if the pt has fever -Treat hypokalemia aggressively. -Serial EKGs and trops to rule out ACS -Hold furosemide, given alkalosis. Restart in the am. -Continue azithromycin. -Recheck K, and replenish accordingly. Check Mg. Full code Diet healthy diet. Isabelle DONWaianae 01/03/18 0535: General Information and HPI MD Statement: I have seen and personally examined PING WONG and documented this H&P. The patient is a 62 year old F who presented with a patient stated chief complaint of []. Allergies/Medications Allergies: Coded Allergies: pentazocine (From [employer]) (PER PT MADE SLEEP FOR A LONG TIME 01/02/18) Home Med list Albuterol Sulfate (Proair Hfa) 90 MCG HFA.AER.AD 2 PUF INH Q4-6 PRN PRN copd Atenolol/Chlorthalidone (Atenolol-Chlorthalidone 50-25) 50 MG-25 MG TABLET 1.5 TAB PO DAILY BP (Reported) Atorvastatin Calcium (Lipitor) 80 MG TABLET 1 TAB PO DAILY CHOLESTEROL ( Reported) Furosemide (Lasix) 40 MG TABLET 1.5 TAB PO DAILY FLUID (Reported) Tiotropium [place] (Spiriva Respimat) 2.5 MCG/ACTUATION MIST.INHAL 1 PUFF INH DAILY COPD (Reported) Past History Medical History Cardiovascular: hypertension, hyperlipidemia Respiratory: COPD Surgical History Surgical History: non-contributory Past Family/Social History Psychosocial History Smoking Status: Former Smoker ETOH Use: denies use Employment History Employment Retired Review of Systems Review of Systems Constitutional: Reports: see HPI. Exam & Diagnostic Data Last 24 Hrs of Vital Signs/I&O Vital Signs Date Time Temp Pulse Resp B/P B/P Pulse O2 O2 Flow FiO2 Mean Ox Delivery Rate 01/02 2259 97.9 76 20 128/80 95 Room Air 01/02 2053 Nasal 3.0L Cannula 01/02 2030 98.6 62 22 102/58 95 Nasal 3.0L Cannula 01/02 2002 97.8 72 16 100/58 98 Nasal 3.0L Cannula 01/02 1811 98.0 63 21 89/55 94 Nasal 3.0L Cannula 01/02 1609 98.3 01/02 1606 64 24 109/56 90 Nasal 3.0L Cannula Intake & Output 01/03 0800 01/03 0000 01/02 1600 Intake Total 1380 Output Total 500 Balance 880 Intake, IV 1000 Intake, Oral 380 Output, Urine 500 Patient 165 lb Weight Weight Bed scale Measurement Method Physical Exam General Appearance Alert, Oriented X3, Cooperative, No Acute Distress Skin bruising b/l UE HEENT Atraumatic, PERRLA, EOMI Neck Supple, No JVD Lymphatic Axillary nl, Cervical nl Cardiovascular Regular Rate, Normal S1, Normal S2, No Murmurs Lungs Clear to Auscultation, limited air movement Abdomen Normal Bowel Sounds, Soft, No Tenderness Neurological Normal Speech Extremities Normal Pulses, 1+ edema in b/l LE Last 24 Hrs of Labs/Prince: Laboratory Tests 01/03/18 0200: Troponin I 0.02 01/02/18 2243: Anion Gap 13, Estimated GFR 42 L, BUN/Creatinine Ratio 33.1 H 01/02/18 1705: Anion Gap 17 H, Estimated GFR 38 L, BUN/Creatinine Ratio 33.6 H, Glucose 111 H, Calcium 10.0, Magnesium 2.5 H, Total Bilirubin 0.8, AST 31, ALT 41, Alkaline Phosphatase 95, Troponin I 0.02, Total Protein 8.3 H, Albumin 4.6, Globulin 3.7 , Albumin/Globulin Ratio 1.2, CBC w Diff NO MAN DIFF REQ, RBC 5.82 H, MCV 93.0, MCH 31.0, MCHC 33.4, RDW 15.5 H, MPV 8.7, Gran % 83.0 H, Lymphocytes % 8.5 L, Monocytes % 7.9, Eosinophils % 0.6, Basophils % 0, Absolute Granulocytes 9.7 H, Absolute Lymphocytes 1.0 L, Absolute Monocytes 0.9 H, Absolute Eosinophils 0.1 , Absolute Basophils 0 01/02/18 1645: pH 7.42, pCO2 53 H, pO2 84, HCO3 34 H, ABG O2 Sat (Measured) 88.0 L, Carboxyhemoglobin 8.3 *H, O2 Concentration % 3L, O2 Delivery Method N/C, Phlebotomy Draw Site RIGHT RADIAL Microbiology 01/03 409 LOWER RESP: Respiratory Culture - COLB 01/03 409 LOWER RESP: Gram Stain - COLB 01/02 1904 BLOOD: Blood Culture - CAN Cancelled: Quantity not sufficient for both blood culture bottles. 01/02 1705 BLOOD: Blood Culture - RECD Core Measures/Misc (03/14) Sepsis (View protocol) If YES complete Sepsis Event Note If YES complete Sepsis Event Note Attending MD Review Statement Attending Statement Attending MD Statement: examined this patient, discuss w/resident/PA/SHREDDED FILLER CIGAR MAKER MACHINE, agreed w/resident/PA/[employer]REDD[employer] FILLER [employer]IGAR MAKER MACHINE, amended to note Attending Assessment/Plan: This patient is a 62 year old woman is significant past medical history for hypertension, hyperlipidemia, COPD ( dx'ed 2 yrs ago on oxygen) came to the hospital with a chief concern of productive cough, increasing wheezing and weakness; with worsening of symptoms in the last 1-2 days. She was found to be hypoxemic at the time of arrival with reported exertional dyspnea and increased use of inhalers in the last 2 days. When she came into the ER, oxygen saturations ranging between 73%-75% and was placed on 3 L nasal cannula which improved oxygen saturation to 90%. Afebrile with a WBC of 11.7, K 2.5, and ABG- pH 7.42, PCO2 53, oxygen saturation 88. Will treat for AECOPD, HypoK and EFRAIN. Started on IV steroids, hold off abx, treat hypokalemia.
[2018-01-02 20:30] VITALS: BP 102/58
[2018-01-02 22:59] VITALS: BP 128/80
[2018-01-03 06:47] VITALS: BP 116/62
--- NOTE | 2018-01-03 07:53 | PN- Housestaff ---
Elena DON,Vee 01/03/18 0752: Subjective Follow-up For: COPD exacerbation Hypokalemia AK I Pulmonary hypertension with diastolic right heart failure Tele-Events Since Last Visit: Heart rate of 58, normal sinus rhythm, no events Subjective: Patient was seen and examined. Patient states that she feels "awful". She has audible wheezes as well as crackles. She has stable vital signs except for her requirement of 3.5 L, at home she is not on any home oxygen. She is afebrile. She denies any chest pain. She has no other complaints. Review of Systems Constitutional: Reports: no symptoms. EENTM: Reports: no symptoms. Cardiovascular: Reports: no symptoms. Respiratory: Reports: cough, short of breath, sputum production, wheezing. Gastrointestinal: Reports: no symptoms. Genitourinary: Reports: no symptoms. Musculoskeletal: Reports: no symptoms. Skin: Reports: no symptoms. Neurological/Psychological: Reports: no symptoms. Hematologic/Endocrine: Reports: no symptoms. Objective Last 24 Hrs of Vital Signs/I&O Vital Signs Date Time Temp Pulse Resp B/P B/P Pulse O2 O2 Flow FiO2 Mean Ox Delivery Rate 01/03 1622 92 Nasal 2.0L Cannula 01/03 1516 Nasal 3.0L Cannula 01/03 1428 97.9 69 22 100/64 92 Nasal 3.0L Cannula 01/03 0841 Nasal 3.0L Cannula 01/03 0830 Nasal 3.0L Cannula 01/03 0647 98.4 58 20 116/62 96 Room Air 01/02 2259 97.9 76 20 128/80 95 Room Air 01/02 2053 Nasal 3.0L Cannula 01/02 2030 98.6 62 22 102/58 95 Nasal 3.0L Cannula 01/02 2002 97.8 72 16 100/58 98 Nasal 3.0L Cannula Intake & Output 01/03 1600 01/03 0800 01/03 0000 Intake Total 650 1380 Output Total 600 500 Balance 50 880 Intake, IV 250 1000 Intake, Oral 400 380 Output, Urine 600 500 Patient 165 lb Weight Weight Bed scale Measurement Method Physical Exam General Appearance: Alert, Oriented X3, Cooperative, No Acute Distress Skin: No Rashes, No Breakdown, No Significant Lesion Skin Temp/Moisture Exam: Warm/Dry Sepsis Skin Exam (color): Normal for Ethnicity Cardiovascular: Regular Rate, Normal S1, Normal S2, No Murmurs Lungs: wheezing and crackles throughout Abdomen: Normal Bowel Sounds, Soft, No Tenderness, No Hepatospenomegaly, No Masses Neurological: Normal Speech Extremities: No Clubbing, No Cyanosis, No Edema, Normal Pulses, No Tenderness/ Swelling Vascular: Normal Pulses, Pulses Symmetrical Sepsis Peripheral Pulse Location: Radial Current Medications: Current Medications Sig/Michi Start time Last Medication Dose Route Stop Time Status Admin Acetaminophen 650 MG Q6P PRN 01/02 2145 AC PO Albuterol Sulfate 3 ML EVERY 4 HRS/AWAKE 01/03 1200 AC 01/03 INH 1621 Albuterol Sulfate 2 PUF Q4-6 PRN PRN 01/02 220 AC INH Atorvastatin Calcium 80 MG 1700 01/03 1700 AC 01/03 PO 1602 Azithromycin 500 MG DAILY 01/03 900 AC 01/03 Sodium Chloride 250 ML IV 1114 Budesonide/ 2 PUF BID 01/03 2100 AC Formoterol Fumarate INH Methylprednisolone 40 MG Q8 01/02 220 AC 01/03 IV 01/06 1401 1400 Patient Medication 1 ED ONE ONE 01/03 1230 DC Teaching ED 01/03 1231 Potassium Chloride 20 MEQ ONCE ONE 01/03 0100 DC 01/03 PO 01/03 0101 0132 Potassium Chloride 40 MEQ ONCE ONE 01/02 2330 DC 01/03 PO 01/02 2331 0022 Senna/Docusate Sodium 1 TAB AT BEDTIME 01/03 2100 AC PO Sodium Chloride 1,000 ML BOLUS ONE 01/02 1830 DC 01/02 IV 01/02 1929 1832 Tiotropium [place] 1 PUF DAILY 01/03 900 AC 01/03 INH 0849 Last 24 Hrs of Lab/Prince Results Last 24 Hrs of Labs/Mics: Laboratory Tests 01/03/18 1800: Anion Gap 12, Estimated GFR 33 L, BUN/Creatinine Ratio 32.5 H 01/03/18 0839: Troponin I < 0.01 01/03/18 0625: Anion Gap 14, Estimated GFR 33 L, BUN/Creatinine Ratio 33.1 H, CBC w Diff NO MAN DIFF REQ, RBC 5.16, MCV 93.2, MCH 31.1 H, MCHC 33.3, RDW 15.7 H, MPV 8.9, Gran % 91.0 H, Lymphocytes % 6.9 L, Monocytes % 2.1, Eosinophils % 0, Basophils % 0, Absolute Granulocytes 4.9, Absolute Lymphocytes 0.4 L, Absolute Monocytes 0.1, Absolute Eosinophils 0, Absolute Basophils 0 01/03/18 0200: Troponin I 0.02 01/02/18 2243: Anion Gap 13, Estimated GFR 42 L, BUN/Creatinine Ratio 33.1 H Microbiology 01/03 409 LOWER RESP: Respiratory Culture - COLB 01/03 409 LOWER RESP: Gram Stain - COLB Assessment/Plan Assessment: Mrs Wong is a 62 year old woman who is a past smoker w/ a PMHx of HTN, hyperlipidemia, COPD ( dx'ed 2 yrs ago not on oxygen) came to the hospital with a chief concern of occassional productive cough, increasing wheezing and weakness; with worsening of symptoms in the last 1-2 days. Also reported exertional dyspnea, especially climbing up the stairs. Also reported increasing use of inhalers in the last 2 days. No orthopnea. No fever, chills. No nausea vomiting or diarrhea. No abdominal pain dysuria. No chest pain or palpitations. Reported to have increased the dose of furosemide from 40 mg to 60 mg daily, the management of pedal edema. He is unsure if she got any echocardiogram done recently. She also reported occassional non productive cough , which she attribtes it to seasonal allergies. She was also found to be hypoxemic at the time of arrival. Oxygen saturations ranging between 73%-75% and was placed on 3 L nasal cannula which improved oxygen saturation to 90%. At the time of admission-temperature 98.0, pulse rate 63, respiration 21, blood pressure 89-55--100/58, 94% on 3 L. General Exam: AAOx3, No acute distress, Skin: No rashes, no breakdown; HEENT: PERRLA, EOMI;Neck: Supple, No JVD ; No cervical lymphadenopathy;CVS: Reg Rate, Normal S1,S2, No MGR;Resp: Decreased air entry, bilateral wheezes;Abdomen: Soft, No tenderness, Normal Bowel Sounds;Neuro: Normal Speech, Strength 5/5 b/l x 4 extremities, Sensation intact, CN III-XII NL, Reflexes 2+;Extremities: No cyanosis, 2+ pedal edema Pertinent lab findings: WBC 11.7 (83% granulocytes), hemoglobin 18.1, hematocrit 54.2 ( ? hemoconcentration/hypoxia), platelet count 231 Sodium 137, potassium 2.5(high bicarb ?+furosemide) chloride 84 (likely due to high bicarb)+ bicarbonate 36 (compensation or contraction alkalosis). Anion gap 17, BUN 47, creatinine 1.4. (Baseline 0.8) AST 31, ALT 41, alkaline phosphatase 95. Troponin I-0.02. ABG-pH 7.42, PCO2 53, oxygen saturation 88. Chest x-ray-No significant abnormality is noted involving the heart, lungs, mediastinum, bony thorax or soft tissues. Echo-01 July 2016 Normal left ventricular global systolic function. Dilated and hypokinetic right ventricle. Severe Pulmonary hypertension. Mild Aortic stenosis.Right atrial enlargement. PFTs- 2017- Severe obstructive lung disease with a partially reversible component, airtrapping, hyperinflation and exercise induced desaturation. Problem list: 1. Hypokalemia likely due to furosemide use, previus h/o 2. COPD exacerbation,Acute hypoxic respiratory failure 3. Acute kidney injury 4. Pulm HTN 5. h/o Right heart failure and severe pulmonary HTN Plan: Patient admitted to telemetry for closer monitoring Consult cardiology and pulmonology as patient has severe pulmonary hypertension with worsening respiratory status. No fluids for now but continue to hold Lasix for AK I Arterial blood gas, if indicated for worsening respiratory status Continue supplemental oxygen -Maintain oxygen saturation in between 90 to 92% -Continue iv predniosne 40 Q8 -Continue patient on azithromycin Monitor potassium and continue to replete as needed -Reevaluation for home oxygen. Full code Diet healthy diet. Problem List: 1. COPD exacerbation 2. Pulmonary HTN Pain Ratin Pain Location: na Pain Goal: Remain pain free Pain Plan: na Tomorrow's Labs & Rationales: beDilcia Dozier 01/03/18 1115: Attending MD Review Statement Attending Statement Attending MD Statement: examined this patient, discuss w/resident/PA/WEB ART DIRECTOR, agreed w/resident/PA/WEB ART DIRECTOR, reviewed EMR data (avail), discussed with nursing, discussed with case mgmt Attending Assessment/Plan: Acute COPD exacerbation with hypoxic resp failure- pt says she was using oxygen at night for few days prior to admission.still has wheezing and poor air entry on exam . cont on iv solumedrol 40mg q8h. appreciated pulm recommendations. feels little better than yesterday. Diastolic CHF with pulm htn and rt side heart failure. last pulm pressures were 56mm. home dose of lasix 60mg qd and is on hold. will get cardiology to see her. Smoking history- pt quit last year . EFRAIN - cr of 1.6. pt has baseline cr of 1 to 1.1. will rechech in am. hold lasix for now. encouraged pt to drink more water and avoid coffee. d/w pt the care plan.
[2018-01-03 08:23] LABS: ABSOLUTE BASOPHIL COUNT 0 /CUMM (0.0-0.2); ABSOLUTE EOSINOPHIL COUNT 0 /CUMM (0.0-0.7); ABSOLUTE GRANULOCYTE CT 4.9 /CUMM (1.4-6.5); ABSOLUTE LYMPH COUNT 0.4 /CUMM (1.2-3.4); ABSOLUTE MONOCYTE COUNT 0.1 /CUMM (0.10-0.60); BASOPHIL % 0 % (0.0-2.0); EOSINOPHIL % 0 % (0-5); PLATELET COUNT 210 /CUMM (130-400)
[2018-01-03 09:00] LABS: MEAN CORPUSCULAR HGB 31.1 PG (27.0-31.0); MEAN CORPUSCULAR HGB CONC 33.3 G/DL (33.0-37.0); MEAN CORPUSCULAR VOLUME 93.2 FL (81.0-99.0); MEAN PLATELET VOLUME 8.9 FL (7.4-10.4); RBC DISTRIBUTION WIDTH 15.7 % (11.5-14.5); RED BLOOD CELL CT 5.16 /CUMM (4.20-5.40)
[2018-01-03 09:14] LABS: HEMATOCRIT 48.1 % (37-47); WHITE BLOOD CELL COUNT 5.4 /CUMM (4.8-10.8)
--- NOTE | 2018-01-03 12:34 | Cons- Pulmonary ---
General Information and HPI Consulting Request Date of Consult: 01/03/18 Requested By: Dr. Castillo Reason for Consult: AECOPD Source of Information: patient, old records Exam Limitations: no limitations History of Present Illness: The patient is a 62 YO female with a PMHx of COPD, HTN, and HLD who presented to the ED with a chief concern of progressively worsening shortness of breath despite inhalers and nebulizer treatments. The patient also has a history of pneumonia diagnosed both in June and October 2017. The patient reported experiencing increased shortness of breath, cough and sputum production for 3 days prior to admission. Her sputum remains clear in color. There is no report of chest pain, fever or chills. She has had worsening dyspnea on exertion which has become physically limiting for her. The patient is on an inhaler regimen and nebulizer treatments at home noting she is compliant with therapy. She was evaluated in the emergency department and found to have signs and symptoms consistent with an acute exacerbation of COPD. She was also found to have significant oxygen desaturation consistent with hypoxemic respiratory failure. Chest x-ray demonstrated no significant abnormality, without any evidence of pneumonia/consolidation. The patient has been treated with supplemental oxygen, IV steroids, nebulizer treatments, and azithromycin. Her electrolytes have been repleted. Since admission, the patient reports some improvement in her symptoms overall however she remains symptomatic. Allergies/Medications Allergies: Coded Allergies: pentazocine (From [employer]) (PER PT MADE SLEEP FOR A LONG TIME 01/02/18) Home Med List: Albuterol Sulfate (Proair Hfa) 90 MCG HFA.AER.AD 2 PUF INH Q4-6 PRN PRN copd Atenolol/Chlorthalidone (Atenolol-Chlorthalidone 50-25) 50 MG-25 MG TABLET 1.5 TAB PO DAILY BP (Reported) Atorvastatin Calcium (Lipitor) 80 MG TABLET 1 TAB PO DAILY CHOLESTEROL ( Reported) Furosemide (Lasix) 40 MG TABLET 1.5 TAB PO DAILY FLUID (Reported) Tiotropium [place] (Spiriva Respimat) 2.5 MCG/ACTUATION MIST.INHAL 1 PUFF INH DAILY COPD (Reported) Current Medications: Current Medications Sig/Michi Start time Last Medication Dose Route Stop Time Status Admin Acetaminophen 650 MG Q6P PRN 01/02 2145 AC PO Albuterol Sulfate 3 ML EVERY 4 HRS/AWAKE 01/03 1200 AC 01/03 INH 1205 Albuterol Sulfate 2 PUF Q4-6 PRN PRN 01/02 2200 AC INH Albuterol Sulfate 3 ML ONCE ONE 01/02 1630 DC 07/ INH 01/02 1631 1637 Albuterol Sulfate 3 ML ONCE ONE 01/02 1630 DC 07 INH 01/02 1631 1637 Atorvastatin Calcium 80 MG 1700 01/03 1700 AC PO Azithromycin 500 MG DAILY 01/03 0900 AC 01/03 Sodium Chloride 250 ML IV 1114 Ceftriaxone Sodium 0 .STK-MED ONE 01/02 1851 DC .ROUTE Ceftriaxone Sodium 1,000 MG ONCE ONE 01/02 1830 DC / IV 01/02 1831 1855 Ipratropium [place] 2.5 ML ONCE ONE 01/02 1630 DC 07 INH 01/02 1631 1637 Methylprednisolone 40 MG Q8 01/02 2200 AC 01/03 IV 07 1401 0629 Methylprednisolone 0 .STK-MED ONE 01/02 1633 DC .ROUTE Methylprednisolone 125 MG ONCE ONE 01/02 1630 DC / IV 01/02 1631 1634 Patient Medication 1 ED ONE ONE 01/03 1230 DC Teaching ED 01/03 1231 Potassium Chloride 20 MEQ ONCE ONE 01/03 0100 DC / PO / 0101 0132 Potassium Chloride 40 MEQ ONCE ONE 01/02 2330 DC 07/ PO / 2331 0022 Potassium Chloride 0 .STK-MED ONE 01/02 1917 DC PO Potassium Chloride 40 MEQ ONCE ONE 01/02 1845 DC / PO / 1846 1921 Potassium Chloride 40 MEQ ONCE ONE 01/02 1800 DC 07/ PO / 1801 1755 Potassium Chloride 10 MEQ Q1H 01/02 1800 DC 07/ IV / 1901 1906 Potassium Chloride 0 .STK-MED ONE 01/02 1747 DC PO Senna/Docusate Sodium 1 TAB AT BEDTIME 01/03 2100 AC PO Sodium Chloride 1,000 ML BOLUS ONE 01/02 1830 DC / IV 01/02 1929 1832 Tiotropium [place] 1 PUF DAILY 01/03 0900 AC 01/03 INH 0849 Review of Systems Review of Systems All Other Systems: Reviewed and Negative Past History Travel History Traveled to [place] past 21 day No Medical History Blood Transfusion Hx: No Neurological: NONE EENT: NONE Cardiovascular: hypertension, hyperlipidemia Respiratory: COPD Gastrointestinal: NONE Hepatic: NONE Renal: NONE Musculoskeletal: NONE Psychiatric: NONE Endocrine: NONE Blood Disorders: NONE Cancer(s): NONE KENO WRITER / RUNNER/Reproductive: NONE Surgical History Surgical History: non-contributory Psychosocial History Where Do You Live? Home Who Do You Live With? spouse Services at Home: None Smoking Status: Former Smoker ETOH Use: denies use Functional Ability ADLs Independent: dressing, eating, toileting, bathing. Ambulation: independent IADLs Independent: shopping, housework, finances, food prep, telephone, transportation , medication admin. Employment History Employment: Retired Exam & Diagnostic Data Last 24 Hrs of Vital Signs/I&O Vital Signs Date Time Temp Pulse Resp B/P B/P Pulse O2 O2 Flow FiO2 Mean Ox Delivery Rate 01/03 0841 Nasal 3.0L Cannula 01/03 08 Nasal 3.0L Cannula 01/03 0647 98.4 58 20 116/62 96 Room Air 01/02 2259 97.9 76 20 128/80 95 Room Air 01/02 2053 Nasal 3.0L Cannula 01/02 2030 98.6 62 22 102/58 95 Nasal 3.0L Cannula 01/02 2002 97.8 72 16 100/58 98 Nasal 3.0L Cannula 01/02 1811 98.0 63 21 89/55 94 Nasal 3.0L Cannula 01/02 1609 98.3 01/02 1606 64 24 109/56 90 Nasal 3.0L Cannula Intake & Output 01/03 1600 07/ 0800 07 0000 Intake Total 1380 Output Total 500 Balance 880 Intake, IV 1000 Intake, Oral 380 Output, Urine 500 Patient 165 lb Weight Weight Bed scale Measurement Method Physical Exam General Appearance: no apparent distress, alert, awake, comfortable Head: atraumatic, normal appearance Neck: supple Respiratory: no respiratory distress, quiet respiration, wheezing Cardiovascular: regular rate/rhythm Gastrointestinal: normal bowel sounds, soft, non-tender Extremities: no edema Skin: intact, normal color, warm/dry Last 48 Hrs of Labs/Prince: Laboratory Tests 01/03/18 0839: Troponin I < 0.01 01/03/18 0625: Anion Gap 14, Estimated GFR 33 L, BUN/Creatinine Ratio 33.1 H, CBC w Diff NO MAN DIFF REQ, RBC 5.16, MCV 93.2, MCH 31.1 H, MCHC 33.3, RDW 15.7 H, MPV 8.9, Gran % 91.0 H, Lymphocytes % 6.9 L, Monocytes % 2.1, Eosinophils % 0, Basophils % 0, Absolute Granulocytes 4.9, Absolute Lymphocytes 0.4 L, Absolute Monocytes 0.1, Absolute Eosinophils 0, Absolute Basophils 0 01/03/18 0200: Troponin I 0.02 01/02/18 2243: Anion Gap 13, Estimated GFR 42 L, BUN/Creatinine Ratio 33.1 H 01/02/18 1705: Anion Gap 17 H, Estimated GFR 38 L, BUN/Creatinine Ratio 33.6 H, Glucose 111 H, Calcium 10.0, Magnesium 2.5 H, Total Bilirubin 0.8, AST 31, ALT 41, Alkaline Phosphatase 95, Troponin I 0.02, Total Protein 8.3 H, Albumin 4.6, Globulin 3.7 , Albumin/Globulin Ratio 1.2, CBC w Diff NO MAN DIFF REQ, RBC 5.82 H, MCV 93.0, MCH 31.0, MCHC 33.4, RDW 15.5 H, MPV 8.7, Gran % 83.0 H, Lymphocytes % 8.5 L, Monocytes % 7.9, Eosinophils % 0.6, Basophils % 0, Absolute Granulocytes 9.7 H, Absolute Lymphocytes 1.0 L, Absolute Monocytes 0.9 H, Absolute Eosinophils 0.1 , Absolute Basophils 0 01/02/18 1645: pH 7.42, pCO2 53 H, pO2 84, HCO3 34 H, ABG O2 Sat (Measured) 88.0 L, Carboxyhemoglobin 8.3 *H, O2 Concentration % 3L, O2 Delivery Method N/C, Phlebotomy Draw Site RIGHT RADIAL Diagnostic Data CXR Results No acute disease. Assessment/Plan Impression/Plan: 1. Acute exacerbation of COPD. 2. Acute hypoxemic respiratory failure. 3. Chronic hypercarbic respiratory failure 4. Hypokalemia. 5. Acute kidney injury. Recommendations: * Continue oxygen for saturations around 92%. * Continue nebs/TRC. * Continue current inhaler regimen -Spiriva 1 inhalation every morning. * Add Symbicort 160/2.5, 2 puffs every 12 hours. * Solu-Medrol 40 mg IV every 8 hours to continue. * Complete 5 days of oral azithromycin. * Medical management of hypokalemia and acute kidney injury as per primary team. * DVT prophylaxis at all times. * I discussed the plan of care with the patient and her at length. I informed them the patient may benefit from going to the COPD clinic as well as pulmonary rehabilitation after discharge. * Thank you for the consult. I will follow the patient along with you and provide further recommendations as necessary. Please call with any questions. Consult Acknowledgment - Thank you for your consult request.
[2018-01-03 14:28] VITALS: BP 100/64
[2018-01-03 21:34] VITALS: BP 128/72
[2018-01-04 07:06] VITALS: BP 102/68
--- NOTE | 2018-01-04 07:14 | PN- Pulmonary ---
Subjective HPI/Critical Care Issues: The patient is awake and alert. She reports feeling slightly improved today. She is less short of breath. Her chest is less tight and she is not as congested. She denies any fever, chills, chest pain, abdominal pain or any other associated issues. She is not ambulating significantly. Objective Current Medications: Current Medications Sig/Michi Start time Last Medication Dose Route Stop Time Status Admin Acetaminophen 650 MG Q6P PRN 01/02 2145 AC PO Albuterol Sulfate 3 ML EVERY 4 HRS/AWAKE 01/03 1200 AC 01/03 INH 202 Albuterol Sulfate 2 PUF Q4-6 PRN PRN 01/02 2200 AC INH Atorvastatin Calcium 80 MG 1700 01/03 1700 AC 01/03 PO 1602 Azithromycin 500 MG DAILY 01/03 900 AC 01/03 Sodium Chloride 250 ML IV 1114 Budesonide/ 2 PUF BID 01/03 2100 AC 01/03 Formoterol Fumarate INH 203 Methylprednisolone 40 MG Q8 01/02 2200 AC 01/04 IV 01/06 1401 0533 Patient Medication 1 ED ONE ONE 01/03 1230 DC Teaching ED 01/03 1231 Senna/Docusate Sodium 1 TAB AT BEDTIME 01/03 2100 AC 01/03 PO 2031 Tiotropium [place] 1 PUF DAILY 01/03 09 AC 01/03 INH 0849 Vital Signs & I&O Last 24 Hrs of Vitals and I&O: Vital Signs Date Time Temp Pulse Resp B/P B/P Pulse O2 O2 Flow FiO2 Mean Ox Delivery Rate 01/04 706 97.7 72 18 102/68 93 01/03 2134 97.7 77 20 128/72 92 Nasal 2.0L Cannula 01/03 2111 92 Nasal 3.0L Cannula 01/03 1622 92 Nasal 2.0L Cannula 01/03 1516 Nasal 3.0L Cannula 01/03 1428 97.9 69 22 100/64 92 Nasal 3.0L Cannula 01/03 0841 Nasal 3.0L Cannula 01/03 0830 Nasal 3.0L Cannula Intake & Output 01/04 0800 07 0000 01/03 1600 Intake Total 650 Output Total 600 Balance 50 Intake, IV 250 Intake, Oral 400 Output, Urine 600 Patient 168 lb Weight Physical Exam General Appearance: no apparent distress, alert, awake, comfortable Head: atraumatic, normal appearance Neck: supple Respiratory: no respiratory distress, quiet respiration, wheezing Cardiovascular: regular rate/rhythm Gastrointestinal: normal bowel sounds, soft, non-tender Extremities: no edema Skin: intact, normal color, warm/dry Results Last 24 Hrs of Lab Results: Laboratory Tests 01/04/18 0609: Anion Gap 12, Estimated GFR 50 L, BUN/Creatinine Ratio 52.7 H 01/03/18 1800: Anion Gap 12, Estimated GFR 33 L, BUN/Creatinine Ratio 32.5 H Impression/Plan Impression/Plan Impression/Plan: 1. Acute exacerbation of COPD. 2. Acute hypoxemic respiratory failure. 3. Chronic hypercarbic respiratory failure 4. Hypokalemia. 5. Acute kidney injury. Recommendations: * Ambulate in hallway - patient needs an oxygen tank to walk, obtain from nursing or respiratory. * Continue oxygen for saturations around 92%. * Continue nebs/TRC. * Continue Spiriva 1 inhalation every morning. * Symbicort 160/2.5, 2 puffs every 12 hours. * Solu-Medrol 40 mg IV every 8 hours to continue. * Complete 5 days of oral azithromycin. * DVT prophylaxis at all times. * Continue all supportive care.
--- NOTE | 2018-01-04 07:45 | PN- Housestaff ---
Elena DON,Vee 01/04/18 0745: Subjective Follow-up For: COPD exacerbation Hypokalemia EFRAIN Subjective: Patient seen and examined. She is feeling "a lot better" than yesterday. She has less shortness of breath although she remains on 2 L of oxygen. She states that her chest doesn't feel as tight. The patient is upset that she has been told that she needs to walk more especially outside with the pollen. The patient has no other complaints and is currently on prednisone IV 40 every 8. Her vital signs are stable. Review of Systems Constitutional: Reports: no symptoms. EENTM: Reports: no symptoms. Cardiovascular: Reports: no symptoms. Respiratory: Reports: cough, short of breath. Gastrointestinal: Reports: no symptoms. Genitourinary: Reports: no symptoms. Musculoskeletal: Reports: no symptoms. Skin: Reports: no symptoms. Neurological/Psychological: Reports: no symptoms. Objective Last 24 Hrs of Vital Signs/I&O Vital Signs Date Time Temp Pulse Resp B/P B/P Pulse O2 O2 Flow FiO2 Mean Ox Delivery Rate 01/04 0812 92 Nasal 2.0L Cannula 01/04 0800 Nasal 3.0L Cannula 01/04 0706 97.7 72 18 102/68 93 01/03 2134 97.7 77 20 128/72 92 Nasal 2.0L Cannula 01/03 2111 92 Nasal 3.0L Cannula 01/03 1622 92 Nasal 2.0L Cannula 01/03 1516 Nasal 3.0L Cannula Intake & Output 01/04 1600 01/04 0800 01/04 0000 Intake Total 700 Output Total 300 Balance 700 -300 Intake, IV 250 Intake, Oral 450 Number 1 Bowel Movements Output, Urine 300 Patient 168 lb Weight Physical Exam General Appearance: Alert, Oriented X3, Cooperative, No Acute Distress Skin: No Rashes Sepsis Skin Exam (color): Normal for Ethnicity Cardiovascular: Regular Rate, Normal S1, Normal S2, No Murmurs Lungs: SOME MILD WHEEZEStHADDEUS POST BREATHING TREATMENT Abdomen: Normal Bowel Sounds, Soft, No Tenderness Neurological: Normal Speech Extremities: No Clubbing, No Cyanosis, No Edema Current Medications: Current Medications Sig/Michi Start time Last Medication Dose Route Stop Time Status Admin Acetaminophen 650 MG Q6P PRN 01/02 2145 AC PO Albuterol Sulfate 3 ML EVERY 4 HRS/AWAKE 01/03 1200 AC 01/04 INH 1158 Albuterol Sulfate 2 PUF Q4-6 PRN PRN 01/02 2200 AC INH Atorvastatin Calcium 80 MG 1700 01/03 1700 AC 01/03 PO 1602 Azithromycin 500 MG DAILY 01/03 900 AC 01/04 Sodium Chloride 250 ML IV 0746 Budesonide/ 2 PUF BID 01/03 2100 AC 01/04 Formoterol Fumarate INH 0746 Methylprednisolone 40 MG BID 01/04 2100 UNVr IV 01/07 09 Methylprednisolone 40 MG Q8 01/02 2200 DC 01/04 IV 01/06 1401 1309 Senna/Docusate Sodium 1 TAB AT BEDTIME 01/03 2100 AC 01/03 PO 2031 Tiotropium [place] 1 PUF DAILY 01/03 900 AC 01/04 INH 0746 Last 24 Hrs of Lab/Prince Results Last 24 Hrs of Labs/Mics: Laboratory Tests 01/04/18 0609: Anion Gap 12, Estimated GFR 50 L, BUN/Creatinine Ratio 52.7 H 01/03/18 1800: Anion Gap 12, Estimated GFR 33 L, BUN/Creatinine Ratio 32.5 H Assessment/Plan Assessment: Mrs Wong is a 62 year old woman who is a past smoker w/ a PMHx of HTN, hyperlipidemia, COPD (not currently on home oxygen) came to the hospital with a chief concern of occassional productive cough, increasing wheezing and weakness with worsening of symptoms in the last 1-2 days. Also reported exertional dyspnea, especially climbing up the stairs. Also reported increasing use of inhalers in the last 2 days. No orthopnea. No fever, chills. No nausea vomiting or diarrhea. No abdominal pain dysuria. No chest pain or palpitations. Reported to have increased the dose of furosemide from 40 mg to 60 mg daily, for the management of pedal edema. She is unsure if she got any echocardiogram done recently. She also reported occassional non productive cough , which she attribtes to seasonal allergies. She was also found to be hypoxemic at the time of arrival. Oxygen saturations ranging between 73%-75% and was placed on 3 L nasal cannula which improved oxygen saturation to 90%. At the time of admission-temperature 98.0, pulse rate 63, respiration 21, blood pressure 89-55--100/58, 94% on 3 L. Pertinent lab findings: WBC 11.7 (83% granulocytes), hemoglobin 18.1, hematocrit 54.2 ( ? hemoconcentration/hypoxia), platelet count 231 Sodium 137, potassium 2.5(high bicarb ?+furosemide) chloride 84 (likely due to high bicarb)+ bicarbonate 36 (compensation or contraction alkalosis). Anion gap 17, BUN 47, creatinine 1.4. (Baseline 0.8) AST 31, ALT 41, alkaline phosphatase 95. Troponin I-0.02. ABG-pH 7.42, PCO2 53, oxygen saturation 88. Chest x-ray-No significant abnormality is noted involving the heart, lungs, mediastinum, bony thorax or soft tissues. Echo-01 July 2016 Normal left ventricular global systolic function. Dilated and hypokinetic right ventricle. Severe Pulmonary hypertension. Mild Aortic stenosis.Right atrial enlargement. PFTs- 2017- Severe obstructive lung disease with a partially reversible component, airtrapping, hyperinflation and exercise induced desaturation. Problem list: 1. Hypokalemia likely due to furosemide use, previus h/o 2. COPD exacerbation,Acute hypoxic respiratory failure 3. Acute kidney injury 4. Pulm HTN 5. H/O right heart failure and severe pulmonary HTN Plan: Continue to monitor patient on telemetry for closer monitoring Patient this morning was on IV prednisone 40 mg every 8. As per pulmonary consult, we can decrease this dose to 40 mg twice a day. Patient's shortness of breath is mostly due to COPD component. Continue patient on azithromycin 500 daily Continue patient on TRC nebs. 2 kidney injury that decreased today from 1.6 creatinine to 1.1 He had cardiology see the patient. The patient has dyspnea and a mild prerenal state and an elevated BNP which would support left heart failure. There are no crackles however to support this by physical exam. The patient has mild pedal edema and evidence on previous echocardiogram of pulmonary hypertension which would support right-sided heart failure. We need a repeat echocardiogram to evaluate extent of her heart failures. For now, we should hold Lasix and maintain a euvolemic state as the patient did present with increasing BUN/ creatinine and recommend leg elevation. Continue patient's statin 80 mg daily Lipitor Continue senna S for constipation Arterial blood gas, if indicated for worsening respiratory status Continue supplemental oxygen Maintain oxygen saturation in between 90 to 92% Monitor potassium and continue to replete as needed area did for now potassium has leveled off at around 3.5. Reevaluation for home oxygen. Full code Diet healthy diet. Problem List: 1. COPD exacerbation 2. Pulmonary HTN 3. Renal insufficiency Pain Ratin Pain Location: NA Pain Goal: Remain pain free Pain Plan: NA Tomorrow's Labs & Rationales: SILVANO Dilcia Oliver 01/04/18 1141: Attending MD Review Statement Attending Statement Attending MD Statement: examined this patient, discuss w/resident/PA/IT APPLICATIONS DEVELOPER, agreed w/resident/PA/IT APPLICATIONS DEVELOPER, reviewed EMR data (avail), discussed with nursing, discussed with case mgmt Attending Assessment/Plan: Acute COPD exacerbation with hypoxic resp failure- pt says she was using oxygen at night for few days prior to admission.Today her lung exam is slightly better and has better air entry . cont on iv solumedrol 40mg q8h. appreciated pulm recommendations. cont on spiriva and symbicort and will try to taper her of steroids based on pulm recommendations. Stable Diastolic CHF with pulm htn and rt side heart failure. last pulm pressures were 56mm. home dose of lasix 60mg qd and is on hold. appreciated cardiology input. will see if they are ok with resuming her home dose of lasix today. EFRAIN has resolved. Smoking history- pt quit last year . EFRAIN - Resolved. Cr back to baseline. likely prerenal etiology. D/w research agricultural engineer and Patient the care plan.
--- NOTE | 2018-01-04 09:52 | Cons- Cardiology ---
General Information and HPI Consulting Request Date of Consult: 01/04/18 Requested By: Dilcia Oliver MD Reason for Consult: Dyspnea Source of Information: patient, old records Exam Limitations: no limitations History of Present Illness: The patient is 62-year-old woman with a past medical history of hypertension, hyperlipidemia, COPD (prior smoker). She presents to our hospital with symptoms of increasing dyspnea progressive over the past 2-3 days, and productive of clear sputum. The patient states noting increasing, progressing over the past 2-3 days with concurrent symptoms of orthopnea was increasing pedal edema. There has been no other symptoms of chest pain nor palpitations. Dyspnea worsens with physical activity such as climbing stairs; however, activity does not trigger discomfort. She has attempted to mitigate her symptoms with inhalers; however, without improvement. From a cardiac standpoint, the patient states not having symptoms of chest pains nor palpitations while at rest or with physical activity. She describes being able to perform approximately 4 METs of physical activity, limited secondary to her underlying dyspnea, which she attributes to COPD. An echocardiogram performed in June 2016 demonstrated overall preserved LV systolic function and underlying mild aortic stenosis. Allergies/Medications Allergies: Coded Allergies: pentazocine (From [employer]) (PER PT MADE SLEEP FOR A LONG TIME 01/02/18) Home Med List: Albuterol Sulfate (Proair Hfa) 90 MCG HFA.AER.AD 2 PUF INH Q4-6 PRN PRN copd Atenolol/Chlorthalidone (Atenolol-Chlorthalidone 50-25) 50 MG-25 MG TABLET 1.5 TAB PO DAILY BP (Reported) Atorvastatin Calcium (Lipitor) 80 MG TABLET 1 TAB PO DAILY CHOLESTEROL ( Reported) Furosemide (Lasix) 40 MG TABLET 1.5 TAB PO DAILY FLUID (Reported) Tiotropium [place] (Spiriva Respimat) 2.5 MCG/ACTUATION MIST.INHAL 1 PUFF INH DAILY COPD (Reported) Current Medications: Current Medications Sig/Michi Start time Last Medication Dose Route Stop Time Status Admin Acetaminophen 650 MG Q6P PRN 01/02 2145 AC PO Albuterol Sulfate 3 ML EVERY 4 HRS/AWAKE 01/03 1200 AC 07 INH 0807 Albuterol Sulfate 2 PUF Q4-6 PRN PRN 01/02 2200 AC INH Atorvastatin Calcium 80 MG 1700 01/03 1700 AC 01/03 PO 1602 Azithromycin 500 MG DAILY 01/03 09 AC 01/04 Sodium Chloride 250 ML IV 0746 Budesonide/ 2 PUF BID 01/03 2100 AC 01/04 Formoterol Fumarate INH 0746 Methylprednisolone 40 MG Q8 01/02 2200 AC 01/04 IV 01/06 1401 0533 Patient Medication 1 ED ONE ONE 01/03 1230 DC Teaching ED 01/03 1231 Senna/Docusate Sodium 1 TAB AT BEDTIME 01/03 2100 AC 01/03 PO 2031 Tiotropium [place] 1 PUF DAILY 01/03 09 AC 01/04 INH 0746 Review of Systems Review of Systems: The review of systems is negative for chest pains, palpitations nor lightheadedness, positive for dyspnea as above. The remainder of the 14 point review of systems is noncontributory with the exception of above. Past History Travel History Traveled to [place] past 21 day No Medical History Blood Transfusion Hx: No Neurological: NONE EENT: NONE Cardiovascular: hypertension, hyperlipidemia Respiratory: COPD Gastrointestinal: NONE Hepatic: NONE Renal: NONE Musculoskeletal: NONE Psychiatric: NONE Endocrine: NONE Blood Disorders: NONE Cancer(s): NONE CORPORATE SALES TRAINER/Reproductive: NONE Surgical History Surgical History: non-contributory Psychosocial History Where Do You Live? Home Who Do You Live With? spouse Services at Home: None Smoking Status: Former Smoker ETOH Use: denies use Functional Ability ADLs Independent: dressing, eating, toileting, bathing. Ambulation: independent IADLs Independent: shopping, housework, finances, food prep, telephone, transportation , medication admin. Employment History Employment: Retired Exam & Diagnostic Data Vital Signs and I&O Vital Signs Date Time Temp Pulse Resp B/P B/P Pulse O2 O2 Flow FiO2 Mean Ox Delivery Rate 01/05 812 92 Nasal 2.0L Cannula 01/04 706 97.7 72 18 102/68 93 01/03 2134 97.7 77 20 128/72 92 Nasal 2.0L Cannula 01/03 2111 92 Nasal 3.0L Cannula 01/03 1622 92 Nasal 2.0L Cannula 01/03 1516 Nasal 3.0L Cannula 01/03 1428 97.9 69 22 100/64 92 Nasal 3.0L Cannula Intake & Output 01/04 1600 01/04 0801/04 0000 01/03 1600 01/03 0000 Intake Total 650 1380 Output Total 300 600 500 Balance -300 50 880 Intake, IV 250 1000 Intake, Oral 400 380 Number 1 Bowel Movements Output, Urine 300 600 500 Patient 168 lb 165 lb Weight Weight Bed scale Measurement Method Physical Exam: General: Nontoxic, no apparent distress. HEENT: Sclera and conjunctiva within normal limits, without xanthelasmas. Neck: Carotids 2+ without bruits. Respiratory: Scattered rhonchi, air movement is decreased throughout, without accessory respiratory muscle use. Heart: Regular rate and rhythm, without murmurs, without JVD. Abdomen: Soft, nontender, no masses, normoactive bowel sounds. Extremities: Without clubbing, cyanosis, trace edema. Neuro: Nonfocal exam, strength, 5 out of 5 Skin: Within normal limits without lesions. Psych: Mood and affect: Normal Labs/Prince Results: Laboratory Tests 01/04 01/03 01/03 0609 1800 0839 Chemistry Sodium (137 - 145 mmol/L) 141 141 Potassium (3.5 - 5.1 mmol/L) 3.9 3.5 Chloride (98 - 107 mmol/L) 93 L 92 L Carbon Dioxide (22 - 30 mmol/L) 36 H 36 H Anion Gap (5 - 16) 12 12 BUN (7 - 17 mg/dL) 58 H 52 H Creatinine (0.5 - 1.0 mg/dL) 1.1 H 1.6 H Estimated GFR (>60 ml/min) 50 L 33 L BUN/Creatinine Ratio (7 - 25 %) 52.7 H 32.5 H Troponin I (< 0.11 ng/ml) < 0.01 01/03 01/03 01/02 0625 0200 2243 Chemistry Sodium (137 - 145 mmol/L) 141 139 Potassium (3.5 - 5.1 mmol/L) 3.7 2.7 *L Chloride (98 - 107 mmol/L) 96 L 93 L Carbon Dioxide (22 - 30 mmol/L) 31 H 33 H Anion Gap (5 - 16) 14 13 BUN (7 - 17 mg/dL) 53 H 43 H Creatinine (0.5 - 1.0 mg/dL) 1.6 H 1.3 H Estimated GFR (>60 ml/min) 33 L 42 L BUN/Creatinine Ratio (7 - 25 %) 33.1 H 33.1 H Troponin I (< 0.11 ng/ml) 0.02 Hematology CBC w Diff NO MAN DIFF REQ WBC (4.8 - 10.8 /CUMM) 5.4 RBC (4.20 - 5.40 /CUMM) 5.16 Hgb (12.0 - 16.0 G/DL) 16.0 Hct (37 - 47 %) 48.1 H MCV (81.0 - 99.0 FL) 93.2 MCH (27.0 - 31.0 PG) 31.1 H MCHC (33.0 - 37.0 G/DL) 33.3 RDW (11.5 - 14.5 %) 15.7 H Plt Count (130 - 400 /CUMM) 210 MPV (7.4 - 10.4 FL) 8.9 Gran % (42.2 - 75.2 %) 91.0 H Lymphocytes % (20.5 - 51.1 %) 6.9 L Monocytes % (1.7 - 9.3 %) 2.1 Eosinophils % (0 - 5 %) 0 Basophils % (0.0 - 2.0 %) 0 Absolute Granulocytes (1.4 - 6.5 /CUMM) 4.9 Absolute Lymphocytes (1.2 - 3.4 /CUMM) 0.4 L Absolute Monocytes (0.10 - 0.60 /CUMM) 0.1 Absolute Eosinophils (0.0 - 0.7 /CUMM) 0 Absolute Basophils (0.0 - 0.2 /CUMM) 0 01/02 01/02 1705 1645 Blood Gas pH (7.35 - 7.45 PH) 7.42 pCO2 (35 - 45 TORR) 53 H pO2 (80 - 100 TORR) 84 HCO3 (21 - 28 MEQ/L) 34 H ABG O2 Sat (Measured) (>96.0 %) 88.0 L Carboxyhemoglobin (1.5 - 5.0 %) 8.3 *H O2 Concentration % 3L O2 Delivery Method N/C Chemistry Sodium (137 - 145 mmol/L) 137 Potassium (3.5 - 5.1 mmol/L) 2.5 *L Chloride (98 - 107 mmol/L) 84 L Carbon Dioxide (22 - 30 mmol/L) 36 H Anion Gap (5 - 16) 17 H BUN (7 - 17 mg/dL) 47 H Creatinine (0.5 - 1.0 mg/dL) 1.4 H Estimated GFR (>60 ml/min) 38 L BUN/Creatinine Ratio (7 - 25 %) 33.6 H Glucose (65 - 99 mg/dL) 111 H Calcium (8.4 - 10.2 mg/dL) 10.0 Magnesium (1.6 - 2.3 mg/dL) 2.5 H Total Bilirubin (0.2 - 1.3 mg/dL) 0.8 AST (14 - 36 U/L) 31 ALT (9 - 52 U/L) 41 Alkaline Phosphatase (<127 U/L) 95 Troponin I (< 0.11 ng/ml) 0.02 Total Protein (6.3 - 8.2 g/dL) 8.3 H Albumin (3.5 - 5.0 g/dL) 4.6 Globulin (1.9 - 4.2 gm/dL) 3.7 Albumin/Globulin Ratio (1.1 - 2.2 %) 1.2 Hematology CBC w Diff NO MAN DIFF REQ WBC (4.8 - 10.8 /CUMM) 11.7 H RBC (4.20 - 5.40 /CUMM) 5.82 H Hgb (12.0 - 16.0 G/DL) 18.1 H Hct (37 - 47 %) 54.2 H MCV (81.0 - 99.0 FL) 93.0 MCH (27.0 - 31.0 PG) 31.0 MCHC (33.0 - 37.0 G/DL) 33.4 RDW (11.5 - 14.5 %) 15.5 H Plt Count (130 - 400 /CUMM) 231 MPV (7.4 - 10.4 FL) 8.7 Gran % (42.2 - 75.2 %) 83.0 H Lymphocytes % (20.5 - 51.1 %) 8.5 L Monocytes % (1.7 - 9.3 %) 7.9 Eosinophils % (0 - 5 %) 0.6 Basophils % (0.0 - 2.0 %) 0 Absolute Granulocytes (1.4 - 6.5 /CUMM) 9.7 H Absolute Lymphocytes (1.2 - 3.4 /CUMM) 1.0 L Absolute Monocytes (0.10 - 0.60 /CUMM) 0.9 H Absolute Eosinophils (0.0 - 0.7 /CUMM) 0.1 Absolute Basophils (0.0 - 0.2 /CUMM) 0 Miscellaneous Phlebotomy Draw Site RIGHT RADIAL Assessment/Plan Assessment/Plan The patient is 62-year-old woman with a past medical history of hypertension, hyperlipidemia, COPD (prior smoker). She presents to our hospital with symptoms of increasing dyspnea progressive over the past 2-3 days, and productive of clear sputum. She has well has noted mild pedal edema. Dyspnea: The patient presented with symptoms of dyspnea, and in the setting of likely mild prerenal state and an elevated BNP. There is no other evidence for significant congestive heart failure, and I believe her dyspnea is likely primarily secondary to her lying COPD. This has improved with current pulmonary treatment. A repeat echocardiogram will be obtained to delineate her current cardiac structure and function as well as estimate pulmonary pressures. Pedal edema: The patient has mild pedal edema. An echocardiogram will be obtained to delineate her right-sided pressures as well as RV function. There is no evidence for left-sided heart failure at this time by physical exam. We have discussed treatment for pedal edema including elevation as well as possible compression stockings. Even her creatinine increased on presentation with an elevated BUN, I believe we should attempt to maintain an overall euvolemic state and not further diurese. Aortic stenosis: Is a history of mild aortic stenosis by prior echocardiogram. This will be repeated for further evaluation. Thank you for allowing us to participate in the care of your patient. Please do not hesitate to contact us further with any questions. Sincerely, Gerry Ramírez MD [facility] Consult Acknowledgment - Thank you for your consult request.
[2018-01-04 15:15] VITALS: BP 110/70
[2018-01-04 22:57] VITALS: BP 112/68
[2018-01-05 06:00] VITALS: BP 120/70
--- NOTE | 2018-01-05 07:15 | PN- Housestaff ---
Elena DON,Vee 01/05/18 0715: Subjective Follow-up For: COPD/CHF exacerbation Tele-Events Since Last Visit: No events on telemetry, heart rate of 72 Subjective: Patient seen and examined. She states that she is "doing well". She denies any chest pain. Does note continued minor coughing that she attributes to clearing the congestion. She still complains of some wheezing. Patient has been ambulating throughout the floors. Vitals are stable and she is on 2.5 L of oxygen (no oxygen at home). Review of Systems Constitutional: Reports: no symptoms. EENTM: Reports: no symptoms. Cardiovascular: Reports: no symptoms. Respiratory: Reports: cough, wheezing. Gastrointestinal: Reports: no symptoms. Genitourinary: Reports: no symptoms. Musculoskeletal: Reports: no symptoms. Skin: Reports: no symptoms. Neurological/Psychological: Reports: no symptoms. Objective Last 24 Hrs of Vital Signs/I&O Vital Signs Date Time Temp Pulse Resp B/P B/P Pulse O2 O2 Flow FiO2 Mean Ox Delivery Rate 01/05 1442 97.9 87 22 110/56 91 Nasal 3.0L Cannula 01/05 1028 91 Nasal 2.0L Cannula 01/05 0851 91 Nasal 2.5L Cannula 01/05 0800 Nasal 3.0L Cannula 01/05 0600 97.5 77 22 120/70 90 01/04 2257 98.3 72 20 112/68 92 Nasal Cannula 01/04 2125 Nasal 2.0L Cannula Intake & Output 01/05 1600 01/05 0800 01/05 0000 Intake Total 970 Output Total 523 635 8718 Balance 670 -400 -1000 Intake, IV 270 Intake, Oral 700 Number 1 Bowel Movements Output, Urine 357 338 6328 Patient 163 lb Weight Weight Bed scale Measurement Method Physical Exam General Appearance: Alert, Oriented X3, Cooperative, No Acute Distress Skin Temp/Moisture Exam: Warm/Dry Cardiovascular: Regular Rate, Normal S1, Normal S2, No Murmurs Lungs: wheezing throughout Abdomen: Normal Bowel Sounds, Soft, No Tenderness Extremities: No Clubbing, No Cyanosis, No Edema, Normal Pulses Current Medications: Current Medications Sig/Michi Start time Last Medication Dose Route Stop Time Status Admin Acetaminophen 650 MG Q6P PRN 01/02 2145 AC PO Albuterol Sulfate 3 ML EVERY 4 HRS/AWAKE 01/03 1200 AC 01/05 INH 1204 Albuterol Sulfate 2 PUF Q4-6 PRN PRN 01/02 2200 AC INH Atorvastatin Calcium 80 MG 1700 01/03 1700 AC 01/05 PO 1608 Azithromycin 250 MG DAILY 01/06 900 AC PO Azithromycin 500 MG DAILY 01/03 900 DC 01/05 Sodium Chloride 250 ML IV 0845 Budesonide/ 2 PUF BID 01/03 2100 AC 01/05 Formoterol Fumarate INH 0838 Methylprednisolone 40 MG BID 01/04 2100 AC 01/05 IV 01/07 0901 0838 Patient Medication 1 ED ONE ONE 01/04 1715 [place] 01/04 Teaching ED 01/04 1716 1719 Senna/Docusate Sodium 1 TAB AT BEDTIME 01/03 2100 AC 01/04 PO 2051 Tiotropium [place] 1 PUF DAILY 01/03 900 AC 01/05 INH 0839 Assessment/Plan Assessment: Mrs Wong is a 62 year old woman who is a past smoker w/ a PMHx of HTN, hyperlipidemia, COPD (not currently on home oxygen) came to the hospital with a chief concern of occassional productive cough, increasing wheezing and weakness with worsening of symptoms in the last 1-2 days. Also reported exertional dyspnea, especially climbing up the stairs. Also reported increasing use of inhalers in the last 2 days. No orthopnea. No fever, chills. No nausea vomiting or diarrhea. No abdominal pain dysuria. No chest pain or palpitations. Reported to have increased the dose of furosemide from 40 mg to 60 mg daily, for the management of pedal edema. She is unsure if she got any echocardiogram done recently. She also reported occassional non productive cough , which she attribtes to seasonal allergies. She was also found to be hypoxemic at the time of arrival. Oxygen saturations ranging between 73%-75% and was placed on 3 L nasal cannula which improved oxygen saturation to 90%. At the time of admission-temperature 98.0, pulse rate 63, respiration 21, blood pressure 89-55--100/58, 94% on 3 L. Pertinent lab findings: WBC 11.7 (83% granulocytes), hemoglobin 18.1, hematocrit 54.2 ( ? hemoconcentration/hypoxia), platelet count 231 Sodium 137, potassium 2.5(high bicarb ?+furosemide) chloride 84 (likely due to high bicarb)+ bicarbonate 36 (compensation or contraction alkalosis). Anion gap 17, BUN 47, creatinine 1.4. (Baseline 0.8) AST 31, ALT 41, alkaline phosphatase 95. Troponin I-0.02. ABG-pH 7.42, PCO2 53, oxygen saturation 88. Chest x-ray-No significant abnormality is noted involving the heart, lungs, mediastinum, bony thorax or soft tissues. Echo-01 July 2016 Normal left ventricular global systolic function. Dilated and hypokinetic right ventricle. Severe Pulmonary hypertension. Mild Aortic stenosis.Right atrial enlargement. PFTs- 2017- Severe obstructive lung disease with a partially reversible component, airtrapping, hyperinflation and exercise induced desaturation. Problem list: 1. Hypokalemia likely due to furosemide use, previus h/o : patient continues on supplemental oxygen. 88% O2 sat on room air. 2. COPD exacerbation,Acute hypoxic respiratory failure 3. Acute kidney injury 4. Pulm HTN 5. H/O right heart failure and severe pulmonary HTN Plan: Continue to monitor patient on telemetry for closer monitoring Patient this morning was on IV prednisone 40 mg every 12, we will continue as per Dr. Olivares and taper tomorrow. Patient's shortness of breath is mostly due to COPD component. Continue patient on azithromycin 500 daily but switch to PO. Continue patient on TRC nebs. Repeat cxr pa and lateral today as per pulm. Acute kidney injury RESOLVED We had cardiology see the patient. The patient has dyspnea and a mild prerenal state and an elevated BNP which would support left heart failure. There are no crackles however to support this by physical exam. The patient has mild pedal edema and evidence on previous echocardiogram of pulmonary hypertension which would support right-sided heart failure. We need a repeat echocardiogram to evaluate extent of her heart failures. For now, we should continue to hold Lasix and maintain a euvolemic state as the patient did present with increasing BUN/creatinine and recommend leg elevation. Patient no longer requiring telemetry Continue patient's statin 80 mg daily Lipitor Continue senna S for constipation Arterial blood gas, if indicated for worsening respiratory status Continue supplemental oxygen Maintain oxygen saturation in between 90 to 92% Monitor potassium and continue to replete as needed area did for now potassium has leveled off at around 3.5. Reevaluation for home oxygen. Full code Diet healthy diet. Problem List: 1. COPD exacerbation 2. Decompensated COPD with exacerbation (chronic obstructive pulmonary disease ) 3. Pulmonary HTN Pain Ratin Pain Location: na Pain Goal: Remain pain free Pain Plan: na Tomorrow's Labs & Rationales: shirley Dilcia Oliver 01/05/18 1439: Attending MD Review Statement Attending Statement Attending MD Statement: examined this patient, discuss w/resident/PA/PRESSING DEPARTMENT SUPERVISOR, agreed w/resident/PA/PRESSING DEPARTMENT SUPERVISOR, reviewed EMR data (avail), discussed with nursing, discussed with case mgmt Attending Assessment/Plan: Acute COPD exacerbation with hypoxic resp failure- pt says she was using oxygen at night for few days prior to admission. Today her lung exam is slightly better and has better air entry . decrease solumedrol to 40mg iv q12h. Appreciated pulm recommendations. cont on spiriva and symbicort and will try to taper her of steroids based on pulm recommendations. repeat CxR PA and lateral per pulm recommendations. Stable Diastolic CHF with pulm htn and rt side heart failure. last pulm pressures were 56mm. home dose of lasix 60mg qd , we will restart her on 40mg qd. appreciated cardiology input. EFRAIN has resolved. Smoking history- pt quit last year . EFRAIN - Resolved. Cr back to baseline. likely prerenal etiology.
[2018-01-05] MEDS ORDERED: ZITHROMAX500 M2 PO (07:33)
[2018-01-05] MEDS ORDERED: PREDNISONE10 M2 PO (07:33)
--- NOTE | 2018-01-05 07:34 | Patient Discharge Instructions ---
Discharge Instructions General Discharge Information You were seen/treated for: copd exacerbation Special Instructions: 1. please follow up with pcp in one week 2. please follow up with entry level sales consultant in one week Diet Continue normal diet: Yes Activity Full Activity/No Limits: Yes Acute Coronary Syndrome Inclusion Criteria At DC or during hospital stay patient has or had the following: ACS DIAGNOSIS No Discharge Core Measures Meds if any: Prescribed or Continued at Discharge Meds if any: NOT Prescribed or Continued at Discharge Congestive Heart Failure Inclusion Criteria At DC or during hospital stay patient has or had the following: CHF DIAGNOSIS No Discharge Core Measures Meds if any: Prescribed or Continued at Discharge Meds if any: NOT Prescribed or Continued at Discharge Cerebrovascular accident Inclusion Criteria At DC or during hospital stay patient has or had the following: CVA/TIA Diagnosis No Discharge Core Measures Meds if any: Prescribed or Continued at Discharge Meds if any: NOT Prescribed or Continued at Discharge Venous thromboembolism Inclusion Criteria VTE Diagnosis No VTE Type NONE VTE Confirmed by (Test) NONE Discharge Core Measures - Per Current guidelines, there needs to be overlap - treatment for the first 5 days of Warfarin therapy. - If discharged on Warfarin prior to 5 days of - overlap therapy, the patient will need to be - assessed for post discharge needs including - *Post discharge parental anticoagulation - *Warfarin and/or parental anticoagulation education - *Follow up date to check INR post discharge At least 5 days overlap therapy as Inpatient No Meds if any: Prescribed or Continued at Discharge Note: Overlap Therapy is Warfarin and Anticoagulant Meds if any: NOT Prescribed or Continued at Discharge
--- NOTE | 2018-01-05 07:40 | PN- Pulmonary ---
Subjective HPI/Critical Care Issues: The patient is awake and alert. She reports feeling improved overall. She is less short of breath and is coughing less. She slept for 5 hours last night which is a significant improvement. The patient continues to require 2.5 L nasal cannula noting her saturations are in the low 90s. She has not yet ambulated any significant distance but plans to do so later today. She offers no new complaints. Objective Current Medications: Current Medications Sig/Michi Start time Last Medication Dose Route Stop Time Status Admin Acetaminophen 650 MG Q6P PRN 01/02 2145 AC PO Albuterol Sulfate 3 ML EVERY 4 HRS/AWAKE 01/03 1200 AC 01/04 INH 2010 Albuterol Sulfate 2 PUF Q4-6 PRN PRN 01/02 2200 AC INH Atorvastatin Calcium 80 MG 1700 01/03 1700 AC 01/04 PO 1634 Azithromycin 500 MG DAILY 01/03 900 AC 01/04 Sodium Chloride 250 ML IV 0746 Budesonide/ 2 PUF BID 01/03 2100 AC 01/04 Formoterol Fumarate INH 205 Methylprednisolone 40 MG BID 01/04 2100 AC 01/04 IV 01/07 0901 2052 Methylprednisolone 40 MG Q8 01/02 2200 DC 01/04 IV 01/06 1401 1309 Patient Medication 1 ED ONE ONE 01/04 1715 DC 01/04 Teaching ED 01/04 1716 1719 Senna/Docusate Sodium 1 TAB AT BEDTIME 01/03 2100 AC 01/04 PO 205 Tiotropium [place] 1 PUF DAILY 01/03 09 AC 01/04 INH 0746 Vital Signs & I&O Last 24 Hrs of Vitals and I&O: Vital Signs Date Time Temp Pulse Resp B/P B/P Pulse O2 O2 Flow FiO2 Mean Ox Delivery Rate 01/05 600 97.5 77 22 120/70 90 01/04 2257 98.3 72 20 112/68 92 Nasal Cannula 01/04 2125 Nasal 2.0L Cannula 01/04 1605 96 Nasal 3.0L Cannula 01/04 1515 98.1 76 18 110/70 94 01/04 0812 92 Nasal 2.0L Cannula 01/04 0800 Nasal 3.0L Cannula Intake & Output 01/05 0800 01/05 0000 01/04 1600 Intake Total 700 Output Total 1000 Balance -1000 700 Intake, IV 250 Intake, Oral 450 Output, Urine 1000 Patient 163 lb Weight Weight Bed scale Measurement Method Physical Exam General Appearance: no apparent distress, alert, awake, comfortable Head: atraumatic, normal appearance Neck: supple Respiratory: no respiratory distress, quiet respiration, wheezing Cardiovascular: regular rate/rhythm Gastrointestinal: normal bowel sounds, soft, non-tender Extremities: no edema Skin: intact, normal color, warm/dry Impression/Plan Impression/Plan Impression/Plan: 1. Acute exacerbation of COPD. 2. Acute hypoxemic respiratory failure. 3. Chronic hypercarbic respiratory failure 4. Hypokalemia. 5. Acute kidney injury. Recommendations: * Check a follow up PA and lateral CXR today - please inform patient of testing. * Follow up ECHO results. * Continue oxygen for saturations around 92%. * Continue nebs/TRC. * Continue Spiriva 1 inhalation every morning. * Symbicort 160/2.5, 2 puffs every 12 hours. * Solu-Medrol - decrease to 40 mg IV every 12 hours to continue. * Complete 5 days of oral azithromycin. * DVT prophylaxis at all times. * Encourage ambulation. * Continue all supportive care.
--- NOTE | 2018-01-05 11:14 | ECHOCARDIOGRAM REPORT ---
ELISA NICOLE Age: 62 : 1955 Gender: F Exam Date: 01/04/2018 19:31 Exam Location: [place] Ht (in): 62 Wt (lb): 168 BSA: 1.85 BP: 110 / 70 Ordering Physician: Vee Parker MD Referring Physician: Grery Ramírez M.D. Technologist: Angle Reid [facility] Room Number: 174-01 Indications: HEART FAILURE Rhythm: Technical Quality: Good FINDINGS Left Ventricle Normal LV chamber size, wall thickness and systolic function. The estimated LVEF is 60%. There are no focal wall motion or maladies. Right Ventricle Normal right ventricle size and function. Right Atrium Normal right atrium Left Atrium Normal left atrium Mitral Valve Mildly thickened and calcified mitral valve leaflets with normal leaflet opening. The mitral valve annulus is mildly calcified. There is mild mitral regurgitation. Aortic Valve Mildly calcified trileaflet aortic valve with adequate leaflet opening. There is trace aortic insufficiency. Tricuspid Valve Grossly normal appearing tricuspid valve leaflets, structure and function. There is mild to moderate tricuspid regurgitation.. The estimated PA systolic pressure is 43 mmHg. Pulmonic Valve Grossly normal appearing pulmonic valve leaflets, structure and function Pericardium Normal-appearing pericardium Great Vessels Normal great vessels CONCLUSIONS Normal LV chamber size, wall thickness and systolic function. The estimated LVEF is 60%. There are no focal wall motion or maladies. There is mild mitral regurgitation. There is mild to moderate tricuspid regurgitation. The estimated PA systolic pressure is 43 mmHg. Gerry Ramírez M.D. (Electronically Signed) Final Date: 05 January 2018 11:13 MEASUREMENTS (Male / Female) Normal Values 2D ECHO LV Diastolic Diameter PLAX 3.8 cm 4.2 - 5.9 / 3.9 - 5.3 cm LV Systolic Diameter PLAX 1.2 cm 2.1 - 4.0 cm LV Fractional Shortening PLAX 68.4 % 25 - 46 % LV Ejection Fraction 2D Teich 94.6 % IVS Diastolic Thickness 0.6 cm LVPW Diastolic Thickness 1.0 cm LV Relative Wall Thickness 0.4 RV Internal Dim ED PLAX 2.7 cm 1.9 - 3.8 cm LVOT Diameter 1.8 cm Aortic Root Diameter 2.6 cm LA Systolic Diameter LX 3.2 cm 3.0 - 4.0 / 2.7 - 3.8 cm LA Volume 21.0 cm 18 - 58 / 22 - 52 cm DOPPLER AV Peak Velocity 178.0 cm/s AV Peak Gradient 12.7 mmHg AV Mean Velocity 109.0 cm/s AV Mean Gradient 6.0 mmHg AV Velocity Time Integral 35.1 cm LVOT Peak Velocity 121.0 cm/s LVOT Peak Gradient 5.9 mmHg LVOT Mean Velocity 85.3 cm/s LVOT Mean Gradient 3.0 mmHg LVOT Velocity Time Integral 27.1 cm LVOT Stroke Volume 69.0 cm AV Area Cont Eq vti 2.0 cm AV Area Cont Eq pk 1.7 cm MV Peak Velocity 143.0 cm/s MV Peak Gradient 8.2 mmHg MV Mean Velocity 71.0 cm/s MV Mean Gradient 3.0 mmHg Mitral E Point Velocity 115.0 cm/s Mitral A Point Velocity 96.3 cm/s Mitral E to A Ratio 1.2 MV PHT Velocity 146.0 cm/s MV Deceleration [place] 1064.0 cm/s MV Pressure Half Time 41.2 ms MV Area PHT 5.3 cm MV Deceleration Time 206.0 ms TR Peak Velocity 289.0 cm/s TR Peak Gradient 33.4 mmHg Right Atrial Pressure 5.0 mmHg Pulmonary Artery Systolic Pressure 38.4 mmHg Right Ventricular Systolic Pressure 38.4 mmHg PV Peak Velocity 125.0 cm/s PV Peak Gradient 6.3 mmHg PV Mean Velocity 83.2 cm/s PV Mean Gradient 3.0 mmHg PV Velocity Time Integral 23.7 cm LV E' Lateral Velocity 10.7 cm/s Mitral E to LV E' Lateral Ratio 10.7 LV E' Septal Velocity 7.1 cm/s Mitral E to LV E' Septal Ratio 16.2
--- NOTE | 2018-01-05 11:15 | PN- Cardiology ---
Subjective Subjective: The patient is awake, alert, patient feels improved The events of the last 24 hours as well as telemetry were reviewed. Review of Systems: The review of systems is negative for chest pains, palpitations nor lightheadedness. The remainder of the 14 point review of systems is noncontributory with the exception of above. Objective Vital Signs and I&Os Vital Signs Date Time Temp Pulse Resp B/P B/P Pulse O2 O2 Flow FiO2 Mean Ox Delivery Rate 01/05 1028 91 Nasal 2.0L Cannula 01/05 0851 91 Nasal 2.5L Cannula 01/05 0800 Nasal 3.0L Cannula 01/05 06 97.5 77 22 120/70 90 01/04 2257 98.3 72 20 112/68 92 Nasal Cannula 01/04 2125 Nasal 2.0L Cannula 01/04 1605 96 Nasal 3.0L Cannula 01/04 1515 98.1 76 18 110/70 94 Intake & Output 01/05 1600 01/05 0800 01/05 0000 01/04 1600 01/04 0800 01/04 0000 Intake Total 700 Output Total 400 1000 300 Balance -400 -1000 700 -300 Intake, IV 250 Intake, Oral 450 Number 1 1 Bowel Movements Output, Urine 400 1000 300 Patient 163 lb 168 lb Weight Weight Bed scale Measurement Method Physical Exam: General: Nontoxic, no apparent distress. HEENT: Sclera and conjunctiva within normal limits, without xanthelasmas. Neck: Carotids 2+ without bruits. Respiratory: Scattered rhonchi and wheezing, air movement is decreased at bases, without accessory respiratory muscle use. Heart: Regular rate and rhythm, without murmurs, without JVD. Abdomen: Soft, nontender, no masses, normoactive bowel sounds. Extremities: Without clubbing, cyanosis, without edema. Neuro: Nonfocal exam, strength, 5 out of 5 Skin: Within normal limits without lesions. Psych: Mood and affect: Normal Current Medications: Current Medications Sig/Michi Start time Last Medication Dose Route Stop Time Status Admin Acetaminophen 650 MG Q6P PRN 01/02 2145 AC PO Albuterol Sulfate 3 ML EVERY 4 HRS/AWAKE 01/03 1200 AC 01/05 INH 0850 Albuterol Sulfate 2 PUF Q4-6 PRN PRN 01/02 2200 AC INH Atorvastatin Calcium 80 MG 1700 01/03 1700 AC 01/04 PO 1634 Azithromycin 500 MG DAILY 01/03 900 AC 01/05 Sodium Chloride 250 ML IV 0845 Budesonide/ 2 PUF BID 01/03 2100 AC 01/05 Formoterol Fumarate INH 0838 Methylprednisolone 40 MG BID 01/04 2100 AC 01/05 IV 01/07 0901 0838 Methylprednisolone 40 MG Q8 01/02 2200 DC 01/04 IV 01/06 1401 1309 Patient Medication 1 ED ONE ONE 01/04 1715 DC 01/04 Teaching ED 01/04 1716 1719 Senna/Docusate Sodium 1 TAB AT BEDTIME 01/03 2100 AC 01/04 PO 205 Tiotropium [place] 1 PUF DAILY 01/03 900 AC 01/05 INH 0839 Results Last 48 Hrs of Labs/Mics: Laboratory Tests 01/04/18 0609: Anion Gap 12, Estimated GFR 50 L, BUN/Creatinine Ratio 52.7 H 01/03/18 1800: Anion Gap 12, Estimated GFR 33 L, BUN/Creatinine Ratio 32.5 H Assessment/Plan Assessment/Plan The patient is 62-year-old woman with a past medical history of hypertension, hyperlipidemia, COPD (prior smoker). She presents to our hospital with symptoms of increasing dyspnea progressive over the past 2-3 days, and productive of clear sputum. She has well has noted mild pedal edema. Dyspnea: The patient presented with symptoms of dyspnea, and in the setting of likely mild prerenal state and an elevated BNP. There is no other evidence for significant congestive heart failure, and I believe her dyspnea is likely primarily secondary to her lying COPD. This has improved with current pulmonary treatment. An echocardiogram performed demonstrated an estimated PA systolic pressure of 43 mmHg Pedal edema: The patient has mild pedal edema. There is no evidence for left-sided heart failure at this time by physical exam. We have discussed treatment for pedal edema including elevation as well as possible compression stockings. Aortic stenosis: Is a history of mild aortic stenosis by prior echocardiogram. This appears unchanged. We will continue to follow on an outpatient basis Continue telemetry? No
--- NOTE | 2018-01-05 14:05 | RADIOLOGY REPORT ---
EXAMINATION: XR CHEST CLINICAL INFORMATION: COPD with CHF COMPARISON: Chest x-ray 01/02/2018 TECHNIQUE: 2 views of the chest were obtained. FINDINGS: Cardiac silhouette is stable in size. The lungs are mildly hyperinflated. No lobar consolidation. Mild dependent atelectasis. Blunting of the left costophrenic angle suggests a tiny amount of pleural fluid. Mild diffuse degenerative changes of the thoracic spine. Suspected 1.9 cm lytic lesion within the left humeral head, nonspecific. IMPRESSION: 1. Mild emphysematous changes are present. No acute cardiopulmonary pathology. 2. Suspected 1.9 cm lytic lesion within the left humeral head. This is nonspecific. Further evaluation with dedicated radiographs of the left humerus are recommended. Cross-sectional imaging may ultimately be required.
[2018-01-05 14:42] VITALS: BP 110/56
[2018-01-05 22:55] VITALS: BP 122/60
--- NOTE | 2018-01-05 23:12 | RADIOLOGY REPORT ---
EXAMINATION: XR SHOULDER, LEFT CLINICAL INFORMATION: Left lytic lesion COMPARISON: Chest radiograph from today. TECHNIQUE: AP external rotation, Grashey, scapular Y, and axillary views of the left shoulder. FINDINGS: No fracture or dislocation. The left humeral head articulates appropriately with the glenoid. The acromioclavicular joint is intact with mild degenerative change. There is no focal osseous lesion. Specifically, the suggested lytic lesion on previous chest radiograph is not visualized on the current study, possibly previously associated with an overlying structure. IMPRESSION: No acute osseous abnormality. No suspicious osseous lesion.
[2018-01-06 05:59] VITALS: BP 130/68
--- NOTE | 2018-01-06 08:05 | PN- Housestaff ---
Elena DON,Vee 01/06/18 0804: Subjective Follow-up For: COPD/CHF exacerbation Subjective: Patient seen and examined today. She was found leaning over her bed to the left , concerned that she was about to fall but she states that she was just leaning there "because it was comfortable". She states that she had an episode of shortness of breath this morning when she moved from the commode to the bed. After that she was given a nebulizer treatment which worked well. She still has a cough with no sputum produced. Overall the patient says she feels "okay" but notes that her breathing remains difficult. She is on 2.5 L of oxygen this morning (no home oxygen). Review of Systems Constitutional: Reports: no symptoms. EENTM: Reports: no symptoms. Cardiovascular: Reports: no symptoms. Respiratory: Reports: cough, short of breath, wheezing. Gastrointestinal: Reports: no symptoms. Musculoskeletal: Reports: no symptoms. Skin: Reports: no symptoms. Objective Last 24 Hrs of Vital Signs/I&O Vital Signs Date Time Temp Pulse Resp B/P B/P Pulse O2 O2 Flow FiO2 Mean Ox Delivery Rate 01/06 0800 Nasal 2.5L Cannula 01/06 0722 92 Nasal 2.5L Cannula 01/06 0559 98.1 85 22 130/68 92 Nasal Cannula 01/05 2311 Nasal 2.5L Cannula 01/05 2255 98.6 87 22 122/60 95 Nasal Cannula 01/05 1800 95 Nasal 3.0L Cannula 01/05 1442 97.9 87 22 110/56 91 Nasal 3.0L Cannula Intake & Output 01/06 1600 01/06 0800 01/06 0000 Intake Total 61 Output Total 200 Balance -200 61 Intake, IV 11 Intake, Oral 50 Output, Urine 200 Patient 162 lb Weight Physical Exam General Appearance: Alert, Oriented X3, Cooperative, No Acute Distress Skin: No Rashes, No Breakdown, No Significant Lesion HEENT: Atraumatic, EOMI, Mucous Membr. moist/pink Neck: Supple, No JVD Cardiovascular: Regular Rate, Normal S1, Normal S2, No Murmurs Lungs: mild scattered wheezing Abdomen: Normal Bowel Sounds, Soft, No Tenderness, No Hepatospenomegaly, No Masses Neurological: Normal Speech Extremities: No Clubbing, No Cyanosis, No Edema, Normal Pulses, No Tenderness/ Swelling Current Medications: Current Medications Sig/Michi Start time Last Medication Dose Route Stop Time Status Admin Acetaminophen 650 MG Q6P PRN 01/02 2145 AC PO Acetylcysteine 2 ML BID 01/06 900 AC INH Albuterol Sulfate 3 ML EVERY 4 HRS/AWAKE 01/03 1200 AC 01/06 INH 0720 Albuterol Sulfate 2 PUF Q4-6 PRN PRN 01/02 2200 AC INH Alprazolam 0.25 MG ONCE ONE 01/05 2030 DC 01/05 PO 01/05 203 2201 Alprazolam 0.5 MG ONCE ONE 01/05 2015 CAN PO 01/06 2016 Atorvastatin Calcium 80 MG 1700 01/03 1700 AC 01/05 PO 1608 Azithromycin 250 MG DAILY 01/06 900 AC 01/06 PO 0815 Azithromycin 500 MG DAILY 01/03 900 DC 01/05 Sodium Chloride 250 ML IV 0845 Budesonide/ 2 PUF BID 01/03 2100 AC 01/06 Formoterol Fumarate INH 0816 Guaifenesin 600 MG QPM 01/05 2115 AC 01/05 PO 2201 Methylprednisolone 40 MG Q8H 01/06 1700 AC IV Methylprednisolone 40 MG BID 01/04 2100 DC 01/06 IV 01/07 0901 0719 Senna/Docusate Sodium 1 TAB AT BEDTIME 01/03 2100 AC 01/04 PO 2052 Sodium Chloride 2 SPRAY Q6P PRN 01/06 0615 AC 01/06 KEIKO 0815 Sodium Chloride 2 SPRAY ONCE ONE 01/05 2015 DC KEIKO 01/05 2016 Tiotropium [place] 1 PUF DAILY 01/03 900 AC 01/06 INH 0817 Assessment/Plan Assessment: Mrs Wong is a 62 year old woman who is a past smoker w/ a PMHx of HTN, hyperlipidemia, COPD (not currently on home oxygen) came to the hospital with a chief concern of occassional productive cough, increasing wheezing and weakness with worsening of symptoms in the last 1-2 days. Also reported exertional dyspnea, especially climbing up the stairs. Also reported increasing use of inhalers in the last 2 days. No orthopnea. No fever, chills. No nausea vomiting or diarrhea. No abdominal pain dysuria. No chest pain or palpitations. Reported to have increased the dose of furosemide from 40 mg to 60 mg daily, for the management of pedal edema. She is unsure if she got any echocardiogram done recently. She also reported occassional non productive cough , which she attribtes to seasonal allergies. She was also found to be hypoxemic at the time of arrival. Oxygen saturations ranging between 73%-75% and was placed on 3 L nasal cannula which improved oxygen saturation to 90%. At the time of admission-temperature 98.0, pulse rate 63, respiration 21, blood pressure 89-55--100/58, 94% on 3 L. Pertinent lab findings: WBC 11.7 (83% granulocytes), hemoglobin 18.1, hematocrit 54.2 ( ? hemoconcentration/hypoxia), platelet count 231 Sodium 137, potassium 2.5(high bicarb ?+furosemide) chloride 84 (likely due to high bicarb)+ bicarbonate 36 (compensation or contraction alkalosis). Anion gap 17, BUN 47, creatinine 1.4. (Baseline 0.8) AST 31, ALT 41, alkaline phosphatase 95. Troponin I-0.02. ABG-pH 7.42, PCO2 53, oxygen saturation 88. Chest x-ray-No significant abnormality is noted involving the heart, lungs, mediastinum, bony thorax or soft tissues. Echo-01 July 2016 Normal left ventricular global systolic function. Dilated and hypokinetic right ventricle. Severe Pulmonary hypertension. Mild Aortic stenosis.Right atrial enlargement. PFTs- 2017- Severe obstructive lung disease with a partially reversible component, airtrapping, hyperinflation and exercise induced desaturation. Problem list: 1. Hypokalemia resolved 2. COPD exacerbation, acute hypoxic respiratory failure: patient continues on supplemental oxygen. 88% O2 sat on room air. 3. Acute kidney injury resolved 4. Pulm HTN and evidence of right heart failure Plan: Oxygen saturation continues to be low on room air, she is currently at 92% on 2.5L, no oxygen at home. We have DC'd patient's telemetry monitoring as she has been stable from a cardiac standpoint. Patient this morning was on IV prednisone 40 mg every 12, but as she had an episode of dyspnea, Dr. Lucas, clinical trial associate, suggested that we increase her IV Solu-Medrol to 40 mg q8. Patient's shortness of breath is mostly due to COPD component. For patient's continued shortness of breath with moderate pulmonary hypertension found from her COPD but only mild wheezing on exam, we will do a noncontrast (as the patient did have recent EFRAIN) CT scan of the chest. If this is clear we will consider a VQ scan. If it shows pulmonary congestion we can restart her lasix. *note: patient attempted CT scan but was not able to lay flat without SOB. We gave a dose of lasix 20mg iV and then planned to do V/Q as she could lay at 30 degrees for that test but she refused. Said she was "just beginning to feel better and i dont want to go". We communicated the risk of not going through the test but patient still refused. Continue patient on azithromycin 500 daily but switched to PO yesterday. Continue patient on TRC nebs. We did a repeat chest x-ray yesterday which showed mild emphysematous changes and a suspected 1.9 cm lytic lesion within the left humeral head. We further evaluated this lesion with a shoulder x-ray and found no further evidence of the lesion. Acute kidney injury RESOLVED We had cardiology see the patient. The patient has dyspnea and a mild prerenal state and an elevated BNP which would support left heart failure. There are no crackles however to support this by physical exam. The patient has mild pedal edema and evidence on previous echocardiogram of pulmonary hypertension which would support right-sided heart failure. We did a repeat echocardiogram which showed an LVEF of 60% with normal left ventricular wall thickness, systolic function. No focal wall motion abnormalities, PA systolic pressure is 43 mmHg. For now, we should continue to hold Lasix and maintain a euvolemic state as the patient did present with increasing BUN/creatinine and recommend leg elevation/ compression stockings. Continue patient's statin 80 mg daily Lipitor Continue senna S for constipation Arterial blood gas, if indicated for worsening respiratory status Continue supplemental oxygen Maintain oxygen saturation in between 90 to 92% Monitor potassium and continue to replete as needed. Reevaluation for home oxygen. Full code Diet heart healthy diet. DVT prophylaxis with ALPs and heparin Problem List: 1. COPD exacerbation 2. Pulmonary HTN Pain Ratin Pain Location: na Pain Goal: Remain pain free Pain Plan: na Tomorrow's Labs & Rationales: bep debbie MaherJeff singletongary 01/06/18 1103: Attending Review Statement Attending Statement Attending MD Statement: examined this patient, discuss w/resident/PA/RISK MANAGEMENT CONSULTANT, agreed w/resident/PA/RISK MANAGEMENT CONSULTANT, reviewed EMR data (avail), discussed with nursing, discussed with case mgmt Attending Assessment/Plan: Acute COPD exacerbation with hypoxic resp failure- pt says she was using oxygen at night for few days prior to admission. Today her lung exam is again worse and she is wheezing with decreased air entry . increase solumedrol to 40mg iv q8h. Appreciated pulm recommendations. cont on spiriva and symbicort and will try to taper her of steroids based on pulm recommendations. repeat CxR PA and lateral reviewed. Cardiology recommending CT chest without contrast. will f/u on results. Stable Diastolic CHF with pulm htn and rt side heart failure. last pulm pressures were 56mm. home dose of lasix 60mg qd , cont to hold for now. appreciated cardiology input. EFRAIN has resolved. will f/u on ct chest and then decide on that. Smoking history- pt quit last year . EFRAIN - Resolved. Cr back to baseline. likely prerenal etiology. d/w pt the care plan.
--- NOTE | 2018-01-06 09:02 | PN- Pulmonary ---
Subjective HPI/Critical Care Issues: The patient is awake and alert. She appears more dyspneic this morning. In the farm equipment mechanic hours, the patient attempted to ambulate to the commode. She was noted to have severe shortness of breath and difficulty with expectorating. She states there was something in the back of her throat that she could not cough up. She desaturated despite oxygen therapy. She received IV Solu-Medrol and nebulizer treatment with some relief. She now has ongoing shortness of breath but does report feeling improved overall. Objective Current Medications: Current Medications Sig/Michi Start time Last Medication Dose Route Stop Time Status Admin Acetaminophen 650 MG Q6P PRN 01/02 2145 AC PO Albuterol Sulfate 3 ML EVERY 4 HRS/AWAKE 01/03 1200 AC 01/06 INH 0720 Albuterol Sulfate 2 PUF Q4-6 PRN PRN 01/02 2200 AC INH Alprazolam 0.25 MG ONCE ONE 01/05 2030 DC 01/05 PO 01/05 2031 2201 Alprazolam 0.5 MG ONCE ONE 01/05 2015 CAN PO 01/05 2016 Atorvastatin Calcium 80 MG 1700 01/03 1700 AC 01/05 PO 1608 Azithromycin 250 MG DAILY 01/06 09 AC 01/06 PO 0815 Azithromycin 500 MG DAILY 01/03 09 DC 01/05 Sodium Chloride 250 ML IV 0845 Budesonide/ 2 PUF BID 01/03 2100 AC 01/06 Formoterol Fumarate INH 0816 Guaifenesin 600 MG QPM 01/05 2115 AC 01/05 PO 2201 Methylprednisolone 40 MG BID 01/04 2100 AC 01/06 IV 01/07 0901 0719 Senna/Docusate Sodium 1 TAB AT BEDTIME 01/03 2100 AC 01/04 PO 2052 Sodium Chloride 2 SPRAY Q6P PRN 01/06 0615 AC 01/06 KEIKO 0815 Sodium Chloride 2 SPRAY ONCE ONE 01/05 2015 DC KEIKO 01/05 2016 Tiotropium [place] 1 PUF DAILY 01/03 09 AC 01/06 INH 0817 Vital Signs & I&O Last 24 Hrs of Vitals and I&O: Vital Signs Date Time Temp Pulse Resp B/P B/P Pulse O2 O2 Flow FiO2 Mean Ox Delivery Rate 01/06 0800 Nasal 2.5L Cannula 01/06 0722 92 Nasal 2.5L Cannula 01/06 0559 98.1 85 22 130/68 92 Nasal Cannula 01/05 2311 Nasal 2.5L Cannula 01/05 2255 98.6 87 22 122/60 95 Nasal Cannula 01/05 1800 95 Nasal 3.0L Cannula 01/05 1442 97.9 87 22 110/56 91 Nasal 3.0L Cannula 01/05 1028 91 Nasal 2.0L Cannula Intake & Output 01/06 1600 / 0800 07/ 0000 Intake Total 61 Output Total 200 Balance -200 61 Intake, IV 11 Intake, Oral 50 Output, Urine 200 Patient 162 lb Weight Physical Exam General Appearance: mild respiratory distress, alert, awake Head: atraumatic, normal appearance Neck: supple Respiratory: no respiratory distress, quiet respiration, wheezing bilaterally Cardiovascular: regular rate/rhythm Gastrointestinal: normal bowel sounds, soft, non-tender Extremities: no edema Skin: intact, normal color, warm/dry Diagnostic Data CXR Findings: 1. Mild emphysematous changes are present. No acute cardiopulmonary pathology. 2. Suspected 1.9 cm lytic lesion within the left humeral head. This is nonspecific. Further evaluation with dedicated radiographs of the left humerus are recommended. Cross-sectional imaging may ultimately be required. Radiology Findings: XRAY humeral head: No acute osseous abnormality. No suspicious osseous lesion. Impression/Plan Impression/Plan Impression/Plan: 1. Acute exacerbation of COPD, with worsening bronchospasm this morning, slowly improving. 2. Acute hypoxemic respiratory failure. 3. Chronic hypercarbic respiratory failure 4. Hypokalemia. 5. Acute kidney injury. 6. Mild pulmonary hypertension with a PA systolic pressure of 43 mmHg on echo dated 01/04/2018. Recommendations: * Follow up ECHO results. * Continue oxygen for saturations around 92%. * Continue nebs/TRC. * Continue Spiriva 1 inhalation every morning. * Symbicort 160/2.5, 2 puffs every 12 hours. * Solu-Medrol -increased to 40 mg every 8 hours today. * Respiratory to add Mucomyst to nebulizer treatments for expectoration. * Continue Mucinex daily. * DVT prophylaxis at all times -not on subcu heparin at present. * Encourage ambulation. * Continue all supportive care. * I discussed the plan of care with the patient in detail. She is very concerned about going to a family democrat in 2 days time. I informed her that we will continue to closely monitor her progress and continue the current medical therapy as suggested above.
--- NOTE | 2018-01-06 10:47 | PN- Cardiology ---
Subjective Subjective: Recent is off telemetry. This morning she was severely short of breath after getting off the toilet. But she claims to feel better now. Objective Vital Signs and I&Os Vital Signs Date Time Temp Pulse Resp B/P B/P Pulse O2 O2 Flow FiO2 Mean Ox Delivery Rate 01/06 0800 Nasal 2.5L Cannula 01/06 0722 92 Nasal 2.5L Cannula 01/06 0559 98.1 85 22 130/68 92 Nasal Cannula 01/05 2311 Nasal 2.5L Cannula 01/05 2255 98.6 87 22 122/60 95 Nasal Cannula 01/05 1800 95 Nasal 3.0L Cannula 01/05 1442 97.9 87 22 110/56 91 Nasal 3.0L Cannula Intake & Output 01/06 1600 01/06 0800 01/06 0000 01/05 1600 01/05 0800 01/05 0000 Intake Total 61 970 Output Total 200 978 272 2623 Balance -200 61 670 -400 -1000 Intake, IV 11 270 Intake, Oral 50 700 Number 1 Bowel Movements Output, Urine 200 618 855 0837 Patient 162 lb 163 lb Weight Weight Bed scale Measurement Method Physical Exam: On general exam she appeared comfortable but resting Head normocephalic atraumatic Eyes sclera anicteric conjunctiva showed no pallor extraocular muscles were normal Neck no jugular venous distention no thyroid masses no palpable nodes Chest lungs are repeated scattered wheezes bilaterally Heart regular rhythm with a 1/6 systolic murmur Abdomen soft no organomegaly bowel sounds normal Extremities no clubbing cyanosis or edema Neurological no gross motor or sensory deficits Current Medications: Current Medications Sig/Michi Start time Last Medication Dose Route Stop Time Status Admin Acetaminophen 650 MG Q6P PRN 01/02 2145 AC PO Acetylcysteine 2 ML BID 01/06 900 AC INH Albuterol Sulfate 3 ML EVERY 4 HRS/AWAKE 01/03 1200 AC 01/06 INH 0720 Albuterol Sulfate 2 PUF Q4-6 PRN PRN 01/02 2200 AC INH Alprazolam 0.25 MG ONCE ONE 01/05 2030 DC 01/05 PO 01/05 Alprazolam 0.5 MG ONCE ONE 01/05 2015 CAN PO 01/06 2016 Atorvastatin Calcium 80 MG 1700 01/03 1700 AC 01/05 PO 1608 Azithromycin 250 MG DAILY 01/06 900 AC 01/06 PO 0815 Azithromycin 500 MG DAILY 01/03 0900 DC 01/05 Sodium Chloride 250 ML IV 0845 Budesonide/ 2 PUF BID 01/03 2100 AC 01/06 Formoterol Fumarate INH 0816 Guaifenesin 600 MG QPM 01/05 2115 AC 01/05 PO 2201 Methylprednisolone 40 MG Q8H 01/06 1700 AC IV Methylprednisolone 40 MG BID 01/04 2100 DC 01/06 IV 01/07 0901 0719 Senna/Docusate Sodium 1 TAB AT BEDTIME 01/03 2100 AC 01/04 PO 205 Sodium Chloride 2 SPRAY Q6P PRN 01/06 0615 AC 01/06 KEIKO 0815 Sodium Chloride 2 SPRAY ONCE ONE 01/05 2015 DC KEIKO 01/06 2016 Tiotropium [place] 1 PUF DAILY 01/03 900 AC 01/06 INH 0817 Assessment/Plan Assessment/Plan The patient is 62-year-old woman with a past medical history of hypertension, hyperlipidemia, COPD (prior smoker). She presents to our hospital with symptoms of increasing dyspnea progressive over the past 2-3 days, and productive of clear sputum. She has well has noted mild pedal edema. Dyspnea: The patient presented with symptoms of dyspnea, and in the setting of likely mild prerenal state and an elevated BNP. There is no other evidence for significant congestive heart failure, and I believe her dyspnea is likely primarily secondary to her lying COPD. This has improved with current pulmonary treatment. An echocardiogram performed demonstrated an estimated PA systolic pressure of 43 mmHg Pedal edema: The patient has mild pedal edema. There is no evidence for left-sided heart failure at this time by physical exam. We have discussed treatment for pedal edema including elevation as well as possible compression stockings. If her pulmonary status is not yet stabilized I have suggested a CT scan noncontrast because of recent renal injury. She may even need to have a VQ scan if improvement is not satisfactory from a pulmonary standpoint. She has been taken off telemetry. Please call us if needed Continue telemetry? No
[2018-01-06 14:43] VITALS: BP 124/64
[2018-01-06 22:09] VITALS: BP 120/70
[2018-01-07 06:59] VITALS: BP 144/68
--- NOTE | 2018-01-07 07:40 | PN- Housestaff ---
Elena DON,Vee 01/07/18 0740: Subjective Follow-up For: copd and chf exacerbation Subjective: Patient seen and examined. She states that she feels a bit better than yesterday but continues to have high oxygen requirement. sshe denies walking yesterday and was encouraged to walk. she notes that she is producing phlegm, clear. Review of Systems Constitutional: Reports: no symptoms. Respiratory: Reports: cough, short of breath, sputum production, wheezing. Gastrointestinal: Reports: no symptoms. Objective Last 24 Hrs of Vital Signs/I&O Vital Signs Date Time Temp Pulse Resp B/P B/P Pulse O2 O2 Flow FiO2 Mean Ox Delivery Rate 01/07 2200 98.9 104 22 132/76 91 Nasal 4.0L Cannula 01/07 1553 89 Nasal 2.5L Cannula 01/07 1451 98.7 93 22 124/62 92 Nasal 2.5L Cannula 01/07 0800 98 Nasal 2.0L Cannula 01/07 0752 98 Nasal 3.0L Cannula 01/07 0659 98.2 90 20 144/68 91 Nasal 3.5L Cannula 01/07 0000 Nasal 3.0L Cannula Intake & Output 01/07 1600 01/07 0800 01/07 0000 Intake Total 630 61 50 Output Total 400 350 Balance 230 -289 50 Intake, IV 10 11 Intake, Oral 620 50 50 Output, Urine 400 350 Patient 164 lb 164 lb Weight Physical Exam General Appearance: Alert, Oriented X3, Cooperative, No Acute Distress ( ) Cardiovascular: Regular Rate, Normal S1, Normal S2, No Murmurs (f) Lungs: crackles left sided and no wheezes appreciated. Current Medications: Current Medications Sig/Michi Start time Last Medication Dose Route Stop Time Status Admin Acetaminophen 650 MG .STK-MED ONE 01/07 0814 DC PO 01/07 0815 Acetaminophen 650 MG Q6P PRN 01/02 2145 AC 01/07 PO 0817 Acetazolamide 250 MG ONCE ONE 01/07 1015 DC 01/07 PO 01/07 1016 1126 Acetylcysteine 2 ML BID 01/06 0900 AC 01/07 INH 2011 Albuterol Sulfate 3 ML EVERY 4 HRS/AWAKE 01/03 1200 AC 01/07 INH 2009 Albuterol Sulfate 2 PUF Q4-6 PRN PRN 01/02 2200 AC INH Atorvastatin Calcium 80 MG 1700 01/03 1700 AC 01/07 PO 1715 Azithromycin 250 MG DAILY 01/06 0900 AC 01/07 PO 0801 Budesonide/ 2 PUF BID 01/03 2100 AC 01/07 Formoterol Fumarate INH 2021 Furosemide 40 MG DAILY 01/07 1013 AC 01/07 PO 1126 Guaifenesin 600 MG QPM 01/05 2115 AC 01/07 PO 202 Heparin Sodium 5,000 UNIT Q8 01/06 1400 AC 01/07 (Porcine) SC 2021 Methylprednisolone 40 MG Q8H 01/06 1700 AC 01/07 IV 1715 Senna/Docusate Sodium 1 TAB AT BEDTIME 01/03 2100 AC 01/04 PO 205 Sodium Chloride 2 SPRAY Q6P PRN 01/06 0615 AC 01/07 KEIKO 1406 Tiotropium [place] 1 PUF DAILY 01/03 0900 AC 01/07 INH 0802 Assessment/Plan Assessment: Mrs Wong is a 62 year old woman who is a past smoker w/ a PMHx of HTN, hyperlipidemia, COPD (not currently on home oxygen) came to the hospital with a chief concern of occassional productive cough, increasing wheezing and weakness with worsening of symptoms in the last 1-2 days. Also reported exertional dyspnea, especially climbing up the stairs. Also reported increasing use of inhalers in the last 2 days. No orthopnea. No fever, chills. No nausea vomiting or diarrhea. No abdominal pain dysuria. No chest pain or palpitations. Reported to have increased the dose of furosemide from 40 mg to 60 mg daily, for the management of pedal edema. She is unsure if she got any echocardiogram done recently. She also reported occassional non productive cough , which she attribtes to seasonal allergies. She was also found to be hypoxemic at the time of arrival. Oxygen saturations ranging between 73%-75% and was placed on 3 L nasal cannula which improved oxygen saturation to 90%. At the time of admission-temperature 98.0, pulse rate 63, respiration 21, blood pressure 89-55--100/58, 94% on 3 L. Pertinent lab findings: WBC 11.7 (83% granulocytes), hemoglobin 18.1, hematocrit 54.2 ( ? hemoconcentration/hypoxia), platelet count 231 Sodium 137, potassium 2.5(high bicarb ?+furosemide) chloride 84 (likely due to high bicarb)+ bicarbonate 36 (compensation or contraction alkalosis). Anion gap 17, BUN 47, creatinine 1.4. (Baseline 0.8) AST 31, ALT 41, alkaline phosphatase 95. Troponin I-0.02. ABG-pH 7.42, PCO2 53, oxygen saturation 88. Chest x-ray-No significant abnormality is noted involving the heart, lungs, mediastinum, bony thorax or soft tissues. Echo-01 July 2016 Normal left ventricular global systolic function. Dilated and hypokinetic right ventricle. Severe Pulmonary hypertension. Mild Aortic stenosis.Right atrial enlargement. PFTs- 2017- Severe obstructive lung disease with a partially reversible component, airtrapping, hyperinflation and exercise induced desaturation. Problem list: 1. Hypokalemia resolved 2. COPD exacerbation, acute hypoxic respiratory failure: patient continues on supplemental oxygen. 88% O2 sat on room air. 3. Acute kidney injury resolved 4. Pulm HTN and evidence of right heart failure Plan: Oxygen saturation continues to be low on room air, she is currently at 92% on 2.5L, no oxygen at home. We have DC'd patient's telemetry monitoring as she has been stable from a cardiac standpoint. Patient this morning was on IV prednisone 40 mg every 12, but as she had an episode of dyspnea, Dr. Lucas, columnist, suggested that we increase her IV Solu-Medrol to 40 mg q8. Patient's shortness of breath is mostly due to COPD component.. vq and ct chest without contrast were refused by patient. . we started 40mg lasix daily. For patient's continued shortness of breath with moderate pulmonary hypertension found from her COPD but only mild wheezing on exam, we will do a noncontrast (as the patient did have recent EFRAIN) CT scan of the chest. If this is clear we will consider a VQ scan. If it shows pulmonary congestion we can restart her lasix. *note: patient attempted CT scan but was not able to lay flat without SOB. We gave a dose of lasix 20mg iV and then planned to do V/Q as she could lay at 30 degrees for that test but she refused. Said she was "just beginning to feel better and i dont want to go". We communicated the risk of not going through the test but patient still refused. Continue patient on azithromycin 500 daily but switched to PO yesterday. Continue patient on TRC nebs. We did a repeat chest x-ray yesterday which showed mild emphysematous changes and a suspected 1.9 cm lytic lesion within the left humeral head. We further evaluated this lesion with a shoulder x-ray and found no further evidence of the lesion. Acute kidney injury RESOLVED We had cardiology see the patient. The patient has dyspnea and a mild prerenal state and an elevated BNP which would support left heart failure. There are no crackles however to support this by physical exam. The patient has mild pedal edema and evidence on previous echocardiogram of pulmonary hypertension which would support right-sided heart failure. We did a repeat echocardiogram which showed an LVEF of 60% with normal left ventricular wall thickness, systolic function. No focal wall motion abnormalities, PA systolic pressure is 43 mmHg. For now, we should continue to hold Lasix and maintain a euvolemic state as the patient did present with increasing BUN/creatinine and recommend leg elevation/ compression stockings. Continue patient's statin 80 mg daily Lipitor Continue senna S for constipation Arterial blood gas, if indicated for worsening respiratory status Continue supplemental oxygen Maintain oxygen saturation in between 90 to 92% Monitor potassium and continue to replete as needed. Reevaluation for home oxygen. Full code Diet heart healthy diet. DVT prophylaxis with ALPs and heparin Problem List: 1. COPD exacerbation Pain Ratin Pain Location: na Pain Goal: Remain pain free Pain Plan: abc Tomorrow's Labs & Rationales: shirley Dilcia Oliver 01/07/18 1113: Attending MD Review Statement Attending Statement Attending MD Statement: examined this patient, discuss w/resident/PA/LEASE ATTENDANT, agreed w/resident/PA/LEASE ATTENDANT, reviewed EMR data (avail), discussed with nursing, discussed with case mgmt Attending Assessment/Plan: Acute COPD exacerbation with hypoxic/hypercapneic resp failure- Pt feeling slightly better. lung exam shows better air entry. cont on solumedrol to 40mg iv q8h. Appreciated pulm recommendations. cont on spiriva and symbicort and will try to taper her of steroids based on pulm recommendations. Cardiology recommending CT chest without contrast. will f/u on results. Pt was unable to lie flat for that. Will try again today. Will also get V/Q scan. Stable Diastolic CHF with pulm htn and rt side heart failure. last pulm pressures were 43mm. home dose of lasix 60mg qd. appreciated cardiology input. EFRAIN has resolved. started back on lasix 40mg qd from today Smoking history- pt quit last year . EFRAIN - Resolved. Cr back to baseline. likely prerenal etiology. metabolic alkalosis secondary to her hypercapneic resp failure- give one dose of diamox. d/w pt the care plan.
[2018-01-07 08:19] LABS: ABSOLUTE BASOPHIL COUNT 0 /CUMM (0.0-0.2); ABSOLUTE EOSINOPHIL COUNT 0 /CUMM (0.0-0.7); ABSOLUTE GRANULOCYTE CT 7.9 /CUMM (1.4-6.5); ABSOLUTE LYMPH COUNT 0.3 /CUMM (1.2-3.4); ABSOLUTE MONOCYTE COUNT 0.3 /CUMM (0.10-0.60); BASOPHIL % 0 % (0.0-2.0); EOSINOPHIL % 0 % (0-5); MEAN CORPUSCULAR HGB 31.3 PG (27.0-31.0); MEAN CORPUSCULAR VOLUME 94.9 FL (81.0-99.0); MEAN PLATELET VOLUME 8.6 FL (7.4-10.4); PLATELET COUNT 208 /CUMM (130-400); RBC DISTRIBUTION WIDTH 15.4 % (11.5-14.5); RED BLOOD CELL CT 4.85 /CUMM (4.20-5.40)
[2018-01-07 08:20] LABS: WHITE BLOOD CELL COUNT 8.5 /CUMM (4.8-10.8)
--- NOTE | 2018-01-07 08:26 | PN- Pulmonary ---
Subjective HPI/Critical Care Issues: The patient is awake and alert. She continues to have shortness of breath with minimal exertion. She was sent for a CT scan yesterday but was unable to lay flat. She continues to have a cough but feels it is looser. She has ongoing wheezing but again feels she is moving better air over the past few days. Overall she is improving slowly. Objective Current Medications: Current Medications Sig/Michi Start time Last Medication Dose Route Stop Time Status Admin Acetaminophen 650 MG Q6P PRN 01/02 2145 AC 01/07 PO 0817 Acetylcysteine 2 ML BID 01/06 0900 AC 01/07 INH 0750 Albuterol Sulfate 3 ML EVERY 4 HRS/AWAKE 01/03 1200 AC 01/07 INH 0749 Albuterol Sulfate 2 PUF Q4-6 PRN PRN 01/02 2200 AC INH Atorvastatin Calcium 80 MG 1700 01/03 1700 AC 01/06 PO 1703 Azithromycin 250 MG DAILY 01/06 09 AC 01/07 PO 0801 Budesonide/ 2 PUF BID 01/03 2100 AC 01/07 Formoterol Fumarate INH 0802 Furosemide 40 MG .STK-MED ONE 01/06 1307 DC IV 01/06 1308 Furosemide 20 MG ONCE ONE 01/06 1245 DC 01/06 IV 01/06 1246 1317 Guaifenesin 600 MG QPM 01/05 2115 AC 01/06 PO 2008 Heparin Sodium 5,000 UNIT Q8 01/06 1400 AC 01/07 (Porcine) SC 0518 Methylprednisolone 40 MG Q8H 01/06 1700 AC 01/07 IV 0801 Methylprednisolone 40 MG BID 01/04 2100 DC 01/06 IV 01/07 0901 0719 Senna/Docusate Sodium 1 TAB AT BEDTIME 01/03 2100 AC 01/04 PO 205 Sodium Chloride 2 SPRAY Q6P PRN 01/06 0615 AC 01/07 KEIKO 0802 Tiotropium [place] 1 PUF DAILY 01/03 0900 AC 01/07 INH 0802 Vital Signs & I&O Last 24 Hrs of Vitals and I&O: Vital Signs Date Time Temp Pulse Resp B/P B/P Pulse O2 O2 Flow FiO2 Mean Ox Delivery Rate 01/07 0800 98 Nasal 2.0L Cannula 01/07 0752 98 Nasal 3.0L Cannula 01/07 0659 98.2 90 20 144/68 91 Nasal 3.5L Cannula 01/07 0000 Nasal 3.0L Cannula 01/06 2209 98.6 103 20 120/70 92 01/06 1600 97 Nasal 2.5L Cannula 01/06 1555 91 Nasal 2.5L Cannula 01/06 1443 98.0 102 24 124/64 91 Nasal 2.5L Cannula Intake & Output 01/07 1600 01/07 0800 01/07 0000 Intake Total 61 50 Output Total 350 Balance -289 50 Intake, IV 11 Intake, Oral 50 50 Output, Urine 350 Patient 164 lb Weight Physical Exam General Appearance: mild respiratory distress, alert, awake Head: atraumatic, normal appearance Neck: supple Respiratory: no respiratory distress, quiet respiration, wheezing bilaterally Cardiovascular: regular rate/rhythm Gastrointestinal: normal bowel sounds, soft, non-tender Extremities: no edema Skin: intact, normal color, warm/dry Results Last 24 Hrs of Lab Results: Laboratory Tests 01/07/18 0630: Anion Gap 8, Estimated GFR > 60, BUN/Creatinine Ratio 27.8 H, CBC w Diff NO MAN DIFF REQ, RBC 4.85, MCV 94.9, MCH 31.3 H, MCHC 33.0, RDW 15.4 H, MPV 8.6, Gran % 92.3 H, Lymphocytes % 3.9 L, Monocytes % 3.8, Eosinophils % 0, Basophils % 0 , Absolute Granulocytes 7.9 H, Absolute Lymphocytes 0.3 L, Absolute Monocytes 0.3, Absolute Eosinophils 0, Absolute Basophils 0 Impression/Plan Impression/Plan Impression/Plan: 1. Acute exacerbation of COPD, with ongoing bronchspasm, slowly improving. 2. Acute hypoxemic respiratory failure. 3. Chronic hypercarbic respiratory failure 4. Hypokalemia. 5. Acute kidney injury. 6. Mild pulmonary hypertension with a PA systolic pressure of 43 mmHg on echo dated 01/04/2018. 7. Chronic metabolic alkalosis in the setting of chronic hypercarbic respiratory failure. Recommendations: * Give Diamox 250 mg orally 1 today. * Check a non-contrast CT of the chest if the patient is able to tolerate it. * Check a VQ scan to rule out pulmonary embolism if the patient is able to tolerate this. * Continue oxygen for saturations around 92%. * Continue nebs/TRC. * Continue Spiriva 1 inhalation every morning. * Symbicort 160/2.5, 2 puffs every 12 hours. * Solu-Medrol - 40 mg every 8 hours today. * Continue Mucinex daily. * DVT prophylaxis at all times -not on subcu heparin at present. * Encourage ambulation. * Continue all supportive care. * I discussed the plan of care with the patient in detail. She understands that she is not well enough to go to her family green party, and does not plan to sign herself out.
[2018-01-07 09:01] LABS: GRANULOCYTE % 92.3 % (42.2-75.2)
--- NOTE | 2018-01-07 11:19 | PN- Cardiology ---
Subjective Subjective: The patient is awake, alert, feels improved from a respiratory standpoint The events of the last 24 hours as well as telemetry were reviewed. Review of Systems: The review of systems is negative for chest pains, palpitations nor lightheadedness. The remainder of the 14 point review of systems is noncontributory with the exception of above. Objective Vital Signs and I&Os Vital Signs Date Time Temp Pulse Resp B/P B/P Pulse O2 O2 Flow FiO2 Mean Ox Delivery Rate 01/07 0800 98 Nasal 2.0L Cannula 01/07 0752 98 Nasal 3.0L Cannula 01/07 0659 98.2 90 20 144/68 91 Nasal 3.5L Cannula 01/07 0000 Nasal 3.0L Cannula 01/06 2209 98.6 103 20 120/70 92 01/06 1600 97 Nasal 2.5L Cannula 01/06 1555 91 Nasal 2.5L Cannula 01/06 1443 98.0 102 24 124/64 91 Nasal 2.5L Cannula Intake & Output 01/07 1600 01/07 0800 01/07 0000 01/06 1600 01/06 0800 01/06 0000 Intake Total 61 50 650 61 Output Total 350 200 Balance -289 50 650 -200 61 Intake, IV 11 11 Intake, Oral 50 50 650 50 Number 1 Bowel Movements Output, Urine 350 200 Patient 164 lb 162 lb Weight Physical Exam: General: Nontoxic, no apparent distress. HEENT: Sclera and conjunctiva within normal limits, without xanthelasmas. Neck: Carotids 2+ without bruits. Respiratory: Scattered rhonchi, air movement is good, without accessory respiratory muscle use. Heart: Regular rate and rhythm, without murmurs, without JVD. Abdomen: Soft, nontender, no masses, normoactive bowel sounds. Extremities: Without clubbing, cyanosis, without edema. Neuro: Nonfocal exam, strength, 5 out of 5 Skin: Within normal limits without lesions. Psych: Mood and affect: Normal Current Medications: Current Medications Sig/Michi Start time Last Medication Dose Route Stop Time Status Admin Acetaminophen 650 MG Q6P PRN 01/02 2145 AC 01/07 PO 0817 Acetazolamide 250 MG ONCE ONE 01/07 1015 DC PO 01/07 1016 Acetylcysteine 2 ML BID 01/06 0900 AC 01/07 INH 0750 Albuterol Sulfate 3 ML EVERY 4 HRS/AWAKE 01/03 1200 AC 01/07 INH 0749 Albuterol Sulfate 2 PUF Q4-6 PRN PRN 01/02 2200 AC INH Atorvastatin Calcium 80 MG 1700 01/03 1700 AC 01/06 PO 1703 Azithromycin 250 MG DAILY 01/06 0900 AC 01/07 PO 0801 Budesonide/ 2 PUF BID 01/03 2100 AC 01/07 Formoterol Fumarate INH 0802 Furosemide 40 MG DAILY 01/07 1013 AC PO Furosemide 40 MG .STK-MED ONE 01/06 1307 DC IV 01/06 1308 Furosemide 20 MG ONCE ONE 01/06 1245 DC 01/06 IV 01/06 1246 1317 Guaifenesin 600 MG QPM 01/05 2115 AC 01/06 PO 2007 Heparin Sodium 5,000 UNIT Q8 01/06 1400 AC 01/07 (Porcine) SC 0518 Methylprednisolone 40 MG Q8H 01/06 1700 AC 01/07 IV 0801 Senna/Docusate Sodium 1 TAB AT BEDTIME 01/03 2100 AC 01/04 PO 2052 Sodium Chloride 2 SPRAY Q6P PRN 01/06 0615 AC 01/07 KEIKO 0802 Tiotropium [place] 1 PUF DAILY 01/03 0900 AC 01/07 INH 0802 Results Last 48 Hrs of Labs/Mics: Laboratory Tests 01/07/18 0630: Anion Gap 8, Estimated GFR > 60, BUN/Creatinine Ratio 27.8 H, CBC w Diff NO MAN DIFF REQ, RBC 4.85, MCV 94.9, MCH 31.3 H, MCHC 33.0, RDW 15.4 H, MPV 8.6, Gran % 92.3 H, Lymphocytes % 3.9 L, Monocytes % 3.8, Eosinophils % 0, Basophils % 0 , Absolute Granulocytes 7.9 H, Absolute Lymphocytes 0.3 L, Absolute Monocytes 0.3, Absolute Eosinophils 0, Absolute Basophils 0 Assessment/Plan Assessment/Plan The patient is 62-year-old woman with a past medical history of hypertension, hyperlipidemia, COPD (prior smoker). She presents to our hospital with symptoms of increasing dyspnea progressive over the past 2-3 days, and productive of clear sputum. She has well has noted mild pedal edema. Dyspnea: The patient presented with symptoms of dyspnea, and in the setting of likely mild prerenal state and an elevated BNP. There is no other evidence for significant congestive heart failure, and I believe her dyspnea is likely primarily secondary to her lying COPD. This has improved with current pulmonary treatment. An echocardiogram performed demonstrated an estimated PA systolic pressure of 43 mmHg Pedal edema: The patient has mild pedal edema. There is no evidence for left-sided heart failure at this time by physical exam. We have discussed treatment for pedal edema including elevation as well as possible compression stockings Aortic stenosis: Is a history of mild aortic stenosis by prior echocardiogram. This appears unchanged. We will continue to follow on an outpatient basis Continue telemetry? No
[2018-01-07] MEDS ORDERED: LASIX40 M1 PO ×2 (12:35→12:38)
[2018-01-07 14:51] VITALS: BP 124/62
--- NOTE | 2018-01-07 17:35 | NUCLEAR MEDICINE REPORT ---
EXAMINATION: PULMONARY VENTILATION PERFUSION STUDY CLINICAL INFORMATION: Shortness of breath and increased oxygen requirement. COMPARISON: The previous study dated 07/02/2016 is available for comparison. A radiograph of the chest dated 01/05/2018 is also available for comparison. TECHNIQUE: Serial gamma scintillation camera images were obtained over the posterior chest during the single breath, equilibrium rebreathing and washout of 6.4 mCi Xe 133 gas. The patient then received 4.1 mCi Tc-99m MAA intravenously and a 6-view perfusion study was performed. The patient was unable to cooperate with the study and the LPO and STEINBERG spot views could not be obtained on the perfusion images. FINDINGS: Ventilation images: On the single breath and equilibrium images there is mild heterogeneity in both lungs with there is slightly more prominent medially in the left lower lobe. During the washout phase there is no abnormal retention. Perfusion images: No segmental perfusion defects are present. Minimal heterogeneity present bilaterally, but there are no focal or anatomic appearing perfusion defects. Compared to the previous study dated 07/02/2016, the mild heterogeneity on the perfusion images of the current study was not present on the previous perfusion images, but the change is minimal. IMPRESSION: Very low probability of pulmonary embolism. Although the patient was unable to cooperate with all of the usual images obtained, the images that were obtained are adequate for interpretation.
[2018-01-07 22:00] VITALS: BP 132/76
[2018-01-08 06:20] VITALS: BP 130/64
--- NOTE | 2018-01-08 10:21 | PN- Housestaff ---
See Addendum Subjective Follow-up For: copd chf exacerbation Subjective: Patient seen and examined. She continues to have shortness of breath and now requires a higher dose of O2, 4L NC increased from 3/2.5 that she was requiring before. All other vitals stable. The patient was encouraged to continue to ambulate. Review of Systems Constitutional: Reports: no symptoms. Cardiovascular: Reports: no symptoms. Respiratory: Reports: short of breath, wheezing. Gastrointestinal: Reports: no symptoms. Genitourinary: Reports: no symptoms. Musculoskeletal: Reports: no symptoms. Skin: Reports: no symptoms. Objective Last 24 Hrs of Vital Signs/I&O Vital Signs Date Time Temp Pulse Resp B/P B/P Pulse O2 O2 Flow FiO2 Mean Ox Delivery Rate 01/08 0620 98.1 88 22 130/64 98 Nasal Cannula 01/08 0000 94 Nasal 4.0L Cannula 01/07 2200 98.9 104 22 132/76 91 Nasal 4.0L Cannula 01/07 1553 89 Nasal 2.5L Cannula 01/07 1451 98.7 93 22 124/62 92 Nasal 2.5L Cannula Intake & Output 01/08 1600 01/08 0800 01/08 0000 Intake Total 300 400 Output Total 550 250 Balance -250 150 Intake, Oral 300 400 Number 2 Bowel Movements Output, Urine 550 250 Patient 163 lb Weight Weight Bed scale Measurement Method Physical Exam General Appearance: Alert, Oriented X3, Cooperative, No Acute Distress Skin: No Rashes, No Breakdown, No Significant Lesion Skin Temp/Moisture Exam: Warm/Dry HEENT: Atraumatic, PERRLA, EOMI, Mucous Membr. moist/pink Neck: Supple, No JVD Cardiovascular: Regular Rate, Normal S1, Normal S2, No Murmurs Lungs: MILD WHEEZING ON EXAM Abdomen: Normal Bowel Sounds, Soft, No Tenderness Neurological: Normal Speech Extremities: No Clubbing, No Cyanosis, No Edema Current Medications: Current Medications Sig/Michi Start time Last Medication Dose Route Stop Time Status Admin Acetaminophen 650 MG Q6P PRN 01/02 2145 AC 01/07 PO 0817 Acetylcysteine 2 ML BID 01/06 0900 AC 01/08 INH 0818 Albuterol Sulfate 3 ML EVERY 4 HRS/AWAKE 01/03 1200 AC 01/08 INH 1137 Albuterol Sulfate 2 PUF Q4-6 PRN PRN 01/02 2200 AC INH Atorvastatin Calcium 80 MG 1700 01/03 1700 AC 01/07 PO 1715 Azithromycin 250 MG DAILY 01/06 0900 AC 01/08 PO 0955 Budesonide/ 2 PUF BID 01/03 2100 AC 01/08 Formoterol Fumarate INH 0955 Furosemide 40 MG DAILY 01/07 1013 AC 01/08 PO 0955 Guaifenesin 600 MG QPM 01/05 2115 AC 01/07 PO 202 Heparin Sodium 5,000 UNIT Q8 01/06 1400 AC 01/08 (Porcine) SC 0611 Methylprednisolone 40 MG Q8H 01/06 1700 AC 01/08 IV 0955 Senna/Docusate Sodium 1 TAB AT BEDTIME 01/03 2100 AC 01/04 PO 2051 Sodium Chloride 2 SPRAY Q6P PRN 01/06 0615 AC 01/08 KEIKO 1002 Tiotropium [place] 1 PUF DAILY 01/03 0900 AC 01/08 INH 0955 Last 24 Hrs of Lab/Prince Results Last 24 Hrs of Labs/Mics: Laboratory Tests 01/08/18 0745: Anion Gap 8, Estimated GFR 56 L, BUN/Creatinine Ratio 28.0 H Assessment/Plan Assessment: Mrs Wong is a 62 year old woman who is a past smoker w/ a PMHx of HTN, hyperlipidemia, COPD (not currently on home oxygen) came to the hospital with a chief concern of occassional productive cough, increasing wheezing and weakness with worsening of symptoms in the last 1-2 days. Also reported exertional dyspnea, especially climbing up the stairs. Also reported increasing use of inhalers in the last 2 days. No orthopnea. No fever, chills. No nausea vomiting or diarrhea. No abdominal pain dysuria. No chest pain or palpitations. Reported to have increased the dose of furosemide from 40 mg to 60 mg daily, for the management of pedal edema. She is unsure if she got any echocardiogram done recently. She also reported occassional non productive cough , which she attribtes to seasonal allergies. She was also found to be hypoxemic at the time of arrival. Oxygen saturations ranging between 73%-75% and was placed on 3 L nasal cannula which improved oxygen saturation to 90%. At the time of admission-temperature 98.0, pulse rate 63, respiration 21, blood pressure 89-55--100/58, 94% on 3 L. Pertinent lab findings: WBC 11.7 (83% granulocytes), hemoglobin 18.1, hematocrit 54.2 ( ? hemoconcentration/hypoxia), platelet count 231 Sodium 137, potassium 2.5(high bicarb ?+furosemide) chloride 84 (likely due to high bicarb)+ bicarbonate 36 (compensation or contraction alkalosis). Anion gap 17, BUN 47, creatinine 1.4. (Baseline 0.8) AST 31, ALT 41, alkaline phosphatase 95. Troponin I-0.02. ABG-pH 7.42, PCO2 53, oxygen saturation 88. Chest x-ray-No significant abnormality is noted involving the heart, lungs, mediastinum, bony thorax or soft tissues. Echo-01 July 2016 Normal left ventricular global systolic function. Dilated and hypokinetic right ventricle. Severe Pulmonary hypertension. Mild Aortic stenosis.Right atrial enlargement. PFTs- 2017- Severe obstructive lung disease with a partially reversible component, airtrapping, hyperinflation and exercise induced desaturation. Problem list: 1. Hypokalemia resolved 2. COPD exacerbation, acute hypoxic respiratory failure: patient continues on supplemental oxygen. 88% O2 sat on room air. 3. Acute kidney injury resolved 4. Pulm HTN and evidence of right heart failure Plan: Oxygen saturation has worsened and now the patient is requiring 4 L of oxygen and is saturating 94%. Repeat chest x-ray today. We have DC'd patient's telemetry monitoring as she has been stable from a cardiac standpoint. Patient's steroids were previously tapered was on IV prednisone 40 mg every 12, but as she has required more oxygen, Dr. Lucas, associate producer, suggested that we increase her IV Solu-Medrol back up to 40 mg q8 where she remains. Patient's shortness of breath is mostly due to COPD component. Patient was found to have elevated CO2 to 47 yesterday so we gave 1 dose of Diamox yesterday and will repeat with another dose today as her CO2 is at 44. We had cardiology see the patient. The patient has dyspnea and initially, a mild prerenal state and an elevated BNP which would support left heart failure. There are no crackles however to support this by physical exam. The patient has mild pedal edema and evidence on previous echocardiogram of pulmonary hypertension which would support right-sided heart failure. We did a repeat echocardiogram which showed an LVEF of 60% with normal left ventricular wall thickness, systolic function. No focal wall motion abnormalities, PA systolic pressure is 43 mmHg. We started the patient on by mouth Lasix 40 mg daily 2 days ago. Creatinine level is good, no acute kidney injury. We did VQ scan yesterday which showed low probability of PE. We attempted to do CT chest to further elucidate cause for patient's shortness of breath and the patient was not able to sit through the study on 2 attempts and then refused it. Continue patient on azithromycin 500 daily PO Continue patient on TRC nebs. January 05 chest x-ray showed mild emphysematous changes and a suspected 1.9 cm lytic lesion within the left humeral head. We further evaluated this lesion with a shoulder x-ray and found no further evidence of the lesion. Continue patient's statin 80 mg daily Lipitor Continue senna S for constipation Arterial blood gas, if indicated for worsening respiratory status Continue supplemental oxygen Maintain oxygen saturation in between 90 to 92% Monitor potassium and continue to replete as needed. Reevaluation for home oxygen. Full code Diet heart healthy diet. DVT prophylaxis with ALPs and heparin Problem List: 1. COPD exacerbation 2. Decompensated COPD with exacerbation (chronic obstructive pulmonary disease ) 3. Pulmonary HTN Pain Ratin Pain Location: NA Pain Goal: Remain pain free Pain Plan: NA Tomorrow's Labs & Rationales: BEP
--- NOTE | 2018-01-08 14:04 | PN- Pulmonary ---
Subjective HPI/Critical Care Issues: The patient is awake and alert. She continues to have shortness of breath with any significant exertion. She remains afebrile and her vital signs are stable. She is on 4 L nasal cannula. She has a congested cough but this has improved overall. Objective Current Medications: Current Medications Sig/Michi Start time Last Medication Dose Route Stop Time Status Admin Acetaminophen 650 MG Q6P PRN 01/02 2145 AC 01/07 PO 0817 Acetazolamide 250 MG ONCE ONE 01/08 1200 DC 01/08 PO 01/08 1201 1336 Acetylcysteine 2 ML BID 01/06 0900 AC 01/08 INH 0818 Albuterol Sulfate 3 ML EVERY 4 HRS/AWAKE 01/03 1200 AC 01/08 INH 1137 Albuterol Sulfate 2 PUF Q4-6 PRN PRN 01/02 2200 AC INH Atorvastatin Calcium 80 MG 1700 01/03 1700 AC 01/07 PO 1715 Azithromycin 250 MG DAILY 01/06 09 AC 01/08 PO 0955 Budesonide/ 2 PUF BID 01/03 2100 AC 01/08 Formoterol Fumarate INH 0955 Furosemide 40 MG DAILY 01/07 1013 AC 01/08 PO 0955 Guaifenesin 600 MG QPM 01/05 2115 AC 01/07 PO 2022 Heparin Sodium 5,000 UNIT Q8 01/06 1400 AC 01/08 (Porcine) SC 1336 Methylprednisolone 40 MG Q8H 01/06 1700 AC 01/08 IV 0955 Senna/Docusate Sodium 1 TAB AT BEDTIME 01/03 2100 AC 01/04 PO 205 Sodium Chloride 2 SPRAY Q6P PRN 01/06 0615 AC 01/08 KEIKO 1002 Tiotropium [place] 1 PUF DAILY 01/03 0900 AC 01/08 INH 0955 Vital Signs & I&O Last 24 Hrs of Vitals and I&O: Vital Signs Date Time Temp Pulse Resp B/P B/P Pulse O2 O2 Flow FiO2 Mean Ox Delivery Rate 01/08 0817 98 Nasal 4.0L Cannula 01/08 0800 Nasal 4.0L Cannula 01/08 0620 98.1 88 22 130/64 98 Nasal Cannula 01/08 0000 94 Nasal 4.0L Cannula 01/07 2200 98.9 104 22 132/76 91 Nasal 4.0L Cannula 01/07 1553 89 Nasal 2.5L Cannula 01/07 1451 98.7 93 22 124/62 92 Nasal 2.5L Cannula Intake & Output 01/08 1600 01/08 0800 01/08 0000 Intake Total 300 400 Output Total 550 250 Balance -250 150 Intake, Oral 300 400 Number 2 Bowel Movements Output, Urine 550 250 Patient 163 lb Weight Weight Bed scale Measurement Method Physical Exam General Appearance: mild respiratory distress, alert, awake Head: atraumatic, normal appearance Neck: supple Respiratory: no respiratory distress, quiet respiration, wheezing bilaterally Cardiovascular: regular rate/rhythm Gastrointestinal: normal bowel sounds, soft, non-tender Extremities: no edema Skin: intact, normal color, warm/dry Results Last 24 Hrs of Lab Results: Laboratory Tests 01/08/18 0745: Anion Gap 8, Estimated GFR 56 L, BUN/Creatinine Ratio 28.0 H Impression/Plan Impression/Plan Impression/Plan: 1. Acute exacerbation of COPD, with ongoing bronchspasm, slowly improving. 2. Acute hypoxemic respiratory failure. 3. Chronic hypercarbic respiratory failure 4. Hypokalemia. 5. Acute kidney injury. 6. Mild pulmonary hypertension with a PA systolic pressure of 43 mmHg on echo dated 01/04/2018. 7. Chronic metabolic alkalosis in the setting of chronic hypercarbic respiratory failure. Recommendations: * Give Diamox 250 mg orally 1 today. * Check a non-contrast CT of the chest if the patient is able to tolerate it. * If she can not do the CT chest, get a portable CXR today. * Continue oxygen for saturations around 92%. * Continue nebs/TRC. * Continue Spiriva 1 inhalation every morning. * Symbicort 160/2.5, 2 puffs every 12 hours. * Solu-Medrol - 40 mg every 8 hours today. Please do not decrease as of yet due to persistent bronchospasm. * Continue Mucinex daily. * DVT prophylaxis at all times -not on subcu heparin at present. * Encourage ambulation. * Continue all supportive care. * I discussed the plan of care with the patient in detail. Her was updated by phone.
[2018-01-08 15:33] VITALS: BP 118/72
[2018-01-08 20:56] VITALS: BP 124/64
[2018-01-09 06:42] VITALS: BP 118/68
--- NOTE | 2018-01-09 09:32 | PN- Housestaff ---
RosarioCaridadmario 01/09/18 0926: Subjective Follow-up For: Acute COPD Exacerbation Subjective: Patient was seen and examined at bedside, no acute events overnight, afebrile. Patient states she is feeling better, but had difficulty breathing when lying down and requires 2 pillows. Patient refusese another CT due to difficulty breathing, and states it was very diffcult for her getting the VQ Lung scan on . Patient is having a productive cough of clear phlegm. Patient gets out of breath when moved into chair. Currently on 4.0 L of O2 states she does not use O2 at home, last cigarette was about a year ago. Review of Systems Constitutional: Denies: chills, diaphoresis, fever. Cardiovascular: Denies: chest pain, palpitations. Respiratory: Reports: short of breath. Denies: cough. Gastrointestinal: Denies: abdominal pain, constipation, diarrhea. Objective Last 24 Hrs of Vital Signs/I&O Vital Signs Date Time Temp Pulse Resp B/P B/P Pulse O2 O2 Flow FiO2 Mean Ox Delivery Rate 01/09 0642 98.2 82 18 118/68 95 Nasal 4.0L Cannula 01/09 0000 93 Nasal 4.0L Cannula 01/08 2056 98.4 99 18 124/64 88 01/08 1645 91 Nasal 4.0L Cannula 01/08 1533 98.4 105 22 118/72 92 Intake & Output 01/09 1600 01/09 0800 01/09 0000 Intake Total 400 400 Output Total 350 Balance 400 50 Intake, Oral 400 400 Number 2 Bowel Movements Output, Urine 350 Patient 155 lb 156 lb Weight Weight Bed scale Bed scale Measurement Method Physical Exam General Appearance: Alert, Oriented X3, Cooperative Skin: No Rashes HEENT: Atraumatic, EOMI Cardiovascular: Regular Rate, Normal S1, Normal S2 Lungs: Distant lung sounds, rhonci at bilat. bases. Assessment/Plan Assessment: Mrs Wong is a 62 year old woman who is a past smoker w/ a PMHx of HTN, hyperlipidemia, COPD (not currently on home oxygen) came to the hospital with a chief concern of occassional productive cough, increasing wheezing and weakness with worsening of symptoms in the last 1-2 days. Also reported exertional dyspnea, especially climbing up the stairs. Also reported increasing use of inhalers in the last 2 days. No orthopnea. No fever, chills. No nausea vomiting or diarrhea. No abdominal pain dysuria. No chest pain or palpitations. Reported to have increased the dose of furosemide from 40 mg to 60 mg daily, for the management of pedal edema. She is unsure if she got any echocardiogram done recently. She also reported occassional non productive cough , which she attribtes to seasonal allergies. She was also found to be hypoxemic at the time of arrival. Oxygen saturations ranging between 73%-75% and was placed on 3 L nasal cannula which improved oxygen saturation to 90%. At the time of admission-temperature 98.0, pulse rate 63, respiration 21, blood pressure 89-55--100/58, 94% on 3 L. Problem list: 1. Hypokalemia resolved 2. COPD exacerbation, acute hypoxic respiratory failure: patient continues on supplemental oxygen. 88% O2 sat on room air. 3. Acute kidney injury resolved 4. Pulm HTN and evidence of right heart failure Plan: Oxygen saturation has worsened and now the patient is requiring 4 L of oxygen and is saturating 94%. Repeat chest x-ray today. We have DC'd patient's telemetry monitoring as she has been stable from a cardiac standpoint. Patient's steroids were previously tapered was on IV prednisone 40 mg every 12, but as she has required more oxygen, Dr. Lucas, manager trainee, suggested that we increase her IV Solu-Medrol back up to 40 mg q8 where she remains. Patient's shortness of breath is mostly due to COPD component. Patient was found to have elevated CO2 to 47 yesterday so we gave 1 dose of Diamox yesterday and will repeat with another dose today as her CO2 is at 44. We had cardiology see the patient. The patient has dyspnea and initially, a mild prerenal state and an elevated BNP which would support left heart failure. There are no crackles however to support this by physical exam. The patient has mild pedal edema and evidence on previous echocardiogram of pulmonary hypertension which would support right-sided heart failure. We did a repeat echocardiogram which showed an LVEF of 60% with normal left ventricular wall thickness, systolic function. No focal wall motion abnormalities, PA systolic pressure is 43 mmHg. We started the patient on by mouth Lasix 40 mg daily 2 days ago. Creatinine level is good, no acute kidney injury. We did VQ scan yesterday which showed low probability of PE. We attempted to do CT chest to further elucidate cause for patient's shortness of breath and the patient was not able to sit through the study on 2 attempts and then refused it. Continue patient on azithromycin 500 daily PO Continue patient on TRC nebs. January 05 chest x-ray showed mild emphysematous changes and a suspected 1.9 cm lytic lesion within the left humeral head. We further evaluated this lesion with a shoulder x-ray and found no further evidence of the lesion. Continue patient's statin 80 mg daily Lipitor Continue senna S for constipation Arterial blood gas, if indicated for worsening respiratory status Continue supplemental oxygen Maintain oxygen saturation in between 90 to 92% Monitor potassium and continue to replete as needed. Reevaluation for home oxygen. -Tried to Wean patient down from 4.0L of O2 today, patient was brought down to 2.0L of O2 sat. at 93%. Will try to wean patient down from steroids tomorrow, per pulm recs. Full code Diet heart healthy diet. DVT prophylaxis with ALPs and heparin Problem List: 1. COPD exacerbation Pain Ratin Pain Location: n.a Pain Goal: Remain pain free Pain Plan: n/a Tomorrow's Labs & Rationales: none Dilcia Oliver 01/09/18 1845: Attending MD Review Statement Attending Statement Attending MD Statement: examined this patient, discuss w/resident/PA/HYDROELECTRIC MACHINERY MECHANIC HELPER, agreed w/resident/PA/HYDROELECTRIC MACHINERY MECHANIC HELPER, reviewed EMR data (avail), discussed with nursing, discussed with case mgmt Attending Assessment/Plan: Acute copd exacerbation with hypoxic resp failure- appreciated pulm input. will try to taper steroids tomorrow and see how she does. pt doing better respiratory status cisse. d/w pt the care plan.
--- NOTE | 2018-01-09 10:10 | PN- Pulmonary ---
Subjective HPI/Critical Care Issues: The patient is sleeping comfortably but arousable. There are no new complaints. She has ongoing shortness of breath. There were no overnight events reported. Objective Current Medications: Current Medications Sig/Michi Start time Last Medication Dose Route Stop Time Status Admin Acetaminophen 650 MG Q6P PRN / 2145 AC 01/07 PO 0817 Acetazolamide 250 MG ONCE ONE 01/08 1200 DC 01/08 PO 01/08 1201 1336 Acetylcysteine 2 ML BID 01/06 0900 AC 01/09 INH 0927 Albuterol Sulfate 3 ML EVERY 4 HRS/AWAKE 01/03 1200 AC 01/09 INH 0927 Albuterol Sulfate 2 PUF Q4-6 PRN PRN 01/02 2200 AC INH Atorvastatin Calcium 80 MG 1700 01/03 1700 AC 01/08 PO 1627 Azithromycin 250 MG DAILY 01/06 0900 AC 01/09 PO 0934 Budesonide/ 2 PUF BID 01/03 2100 AC 01/09 Formoterol Fumarate INH 0934 Furosemide 40 MG DAILY 01/07 1013 AC 01/09 PO 0934 Glycerin/Mineral Oil 1 DIDIER TID PRN 01/09 0930 AC TOP Guaifenesin 600 MG QPM 01/05 2115 AC 01/08 PO 2058 Heparin Sodium 5,000 UNIT Q8 01/06 1400 AC 01/09 (Porcine) SC 0619 Methylprednisolone 40 MG Q8H 01/06 1700 AC 01/09 IV 0933 Senna/Docusate Sodium 1 TAB AT BEDTIME 01/03 2100 AC 01/08 PO 2058 Sodium Chloride 2 SPRAY Q6P PRN 01/06 0615 AC 01/08 KEIKO 1002 Tiotropium [place] 1 PUF DAILY 01/03 0900 AC 01/09 INH 0937 Vital Signs & I&O Last 24 Hrs of Vitals and I&O: Vital Signs Date Time Temp Pulse Resp B/P B/P Pulse O2 O2 Flow FiO2 Mean Ox Delivery Rate 01/09 0933 96 Nasal 4.0L Cannula 01/09 0642 98.2 82 18 118/68 95 Nasal 4.0L Cannula 01/09 0000 93 Nasal 4.0L Cannula 01/08 205 98.4 99 18 124/64 88 01/08 1645 91 Nasal 4.0L Cannula 01/08 1533 98.4 105 22 118/72 92 Intake & Output 01/09 1600 01/09 0800 01/09 0000 Intake Total 400 400 Output Total 350 Balance 400 50 Intake, Oral 400 400 Number 2 Bowel Movements Output, Urine 350 Patient 155 lb 156 lb Weight Weight Bed scale Bed scale Measurement Method Physical Exam General Appearance: mild respiratory distress, alert, awake Head: atraumatic, normal appearance Neck: supple Respiratory: no respiratory distress, quiet respiration, wheezing bilaterally Cardiovascular: regular rate/rhythm Gastrointestinal: normal bowel sounds, soft, non-tender Extremities: no edema Skin: intact, normal color, warm/dry Results Last 24 Hrs of Lab Results: Laboratory Tests 01/09/18 0735: Anion Gap 15, Estimated GFR 50 L, BUN/Creatinine Ratio 30.9 H Impression/Plan Impression/Plan Impression/Plan: 1. Acute exacerbation of COPD, with ongoing bronchspasm, slowly improving. 2. Acute hypoxemic respiratory failure. 3. Chronic hypercarbic respiratory failure 4. Hypokalemia. 5. Acute kidney injury. 6. Mild pulmonary hypertension with a PA systolic pressure of 43 mmHg on echo dated 01/04/2018. 7. Chronic metabolic alkalosis in the setting of chronic hypercarbic respiratory failure. Recommendations: * Check a non-contrast CT of the chest if the patient is able to tolerate it. * Continue oxygen for saturations around 92%. * Continue nebs/TRC. * Continue Spiriva 1 inhalation every morning. * Symbicort 160/2.5, 2 puffs every 12 hours. * Solu-Medrol - . * Continue Mucinex daily. * DVT prophylaxis at all times -not on subcu heparin at present. * Encourage ambulation. * Continue all supportive care.
[2018-01-09 14:41] VITALS: BP 136/70
[2018-01-09 20:15] VITALS: BP 132/72
[2018-01-10 06:00] VITALS: BP 128/70
--- NOTE | 2018-01-10 07:59 | PN- Housestaff ---
Subjective Follow-up For: COPD/CHF exacerbation Subjective: Patient was seen and examined. She states that she is feeling better. She continues to have a mild cough and to require 3-4 L of oxygen. Other vital signs are stable. The patient has not been ambulating very much and was encouraged to do so. Review of Systems Constitutional: Reports: no symptoms. EENTM: Reports: no symptoms. Cardiovascular: Reports: no symptoms. Respiratory: Reports: cough, short of breath. Gastrointestinal: Reports: no symptoms. Genitourinary: Reports: no symptoms. Musculoskeletal: Reports: no symptoms. Skin: Reports: no symptoms. Objective Last 24 Hrs of Vital Signs/I&O Vital Signs Date Time Temp Pulse Resp B/P B/P Pulse O2 O2 Flow FiO2 Mean Ox Delivery Rate 01/10 1357 98.0 62 20 100/70 96 Nasal 4.0L Cannula 01/10 0946 92 Nasal 3.0L Cannula 01/10 0800 Nasal 3.0L Cannula 01/10 0600 98.1 89 22 128/70 95 Nasal Cannula 01/10 0000 94 Nasal 3.0L Cannula 01/09 2015 98.9 99 22 132/72 90 Nasal 4.0L Cannula 01/09 1820 91 Nasal 3.0L Cannula Intake & Output 01/10 1600 01/10 0800 01/10 0000 Intake Total 480 400 250 Output Total 600 350 201 Balance -120 50 49 Intake, Oral 480 400 250 Number 2 Bowel Movements Output, Stool 1 Output, Urine 600 350 200 Physical Exam General Appearance: Alert, Oriented X3, Cooperative, No Acute Distress Skin Temp/Moisture Exam: Warm/Dry Cardiovascular: Regular Rate, Normal S1, Normal S2, No Murmurs Lungs: very mild wheezing and some rhonchi noted Abdomen: Normal Bowel Sounds, Soft, No Tenderness Neurological: Normal Speech Extremities: No Clubbing, No Cyanosis, No Edema Current Medications: Current Medications Sig/Michi Start time Last Medication Dose Route Stop Time Status Admin Acetaminophen 650 MG Q6P PRN 01/02 2145 AC 01/07 PO 0817 Acetylcysteine 2 ML BID 01/06 0900 AC 01/10 INH 1229 Albuterol Sulfate 3 ML EVERY 4 HRS/AWAKE 01/03 1200 AC 01/10 INH 1230 Albuterol Sulfate 2 PUF Q4-6 PRN PRN 01/02 2200 AC INH Atorvastatin Calcium 80 MG 1700 01/03 1700 AC 01/09 PO 1620 Azithromycin 250 MG DAILY 01/06 0900 DC 01/10 PO 0916 Budesonide/ 2 PUF BID 01/03 2100 AC 01/10 Formoterol Fumarate INH 0916 Furosemide 40 MG DAILY 01/07 1013 AC 01/10 PO 0915 Glycerin/Mineral Oil 1 DIDIER TID PRN 01/09 0930 AC TOP Guaifenesin 600 MG QPM 01/05 2115 AC 01/09 PO 2104 Heparin Sodium 5,000 UNIT Q8 01/06 1400 AC 01/10 (Porcine) SC 1409 Methylprednisolone 40 MG Q8H 01/06 1700 DC 01/10 IV 0915 Prednisone 60 MG DAILY 01/11 0900 AC PO Senna/Docusate Sodium 1 TAB AT BEDTIME 01/03 2100 AC 01/09 PO 2104 Sodium Chloride 2 SPRAY Q6P PRN 01/06 0615 AC 01/08 KEIKO 1002 Tiotropium [place] 1 PUF DAILY 01/03 0900 AC 01/10 INH 0916 Assessment/Plan Assessment: Mrs Wong is a 62 year old woman who is a past smoker w/ a PMHx of HTN, hyperlipidemia, COPD (not currently on home oxygen) came to the hospital with a chief concern of occassional productive cough, increasing wheezing and weakness with worsening of symptoms in the last 1-2 days. Also reported exertional dyspnea, especially climbing up the stairs. Also reported increasing use of inhalers in the last 2 days. No orthopnea. No fever, chills. No nausea vomiting or diarrhea. No abdominal pain dysuria. No chest pain or palpitations. Reported to have increased the dose of furosemide from 40 mg to 60 mg daily, for the management of pedal edema. She is unsure if she got any echocardiogram done recently. She also reported occassional non productive cough , which she attribtes to seasonal allergies. She was also found to be hypoxemic at the time of arrival. Oxygen saturations ranging between 73%-75% and was placed on 3 L nasal cannula which improved oxygen saturation to 90%. At the time of admission-temperature 98.0, pulse rate 63, respiration 21, blood pressure 89-55--100/58, 94% on 3 L. Pertinent lab findings: WBC 11.7 (83% granulocytes), hemoglobin 18.1, hematocrit 54.2 ( ? hemoconcentration/hypoxia), platelet count 231 Sodium 137, potassium 2.5(high bicarb ?+furosemide) chloride 84 (likely due to high bicarb)+ bicarbonate 36 (compensation or contraction alkalosis). Anion gap 17, BUN 47, creatinine 1.4. (Baseline 0.8) AST 31, ALT 41, alkaline phosphatase 95. Troponin I-0.02. ABG-pH 7.42, PCO2 53, oxygen saturation 88. Chest x-ray-No significant abnormality is noted involving the heart, lungs, mediastinum, bony thorax or soft tissues. Echo-01 July 2016 Normal left ventricular global systolic function. Dilated and hypokinetic right ventricle. Severe Pulmonary hypertension. Mild Aortic stenosis.Right atrial enlargement. PFTs- 2017- Severe obstructive lung disease with a partially reversible component, airtrapping, hyperinflation and exercise induced desaturation. Problem list: 1. Hypokalemia resolved 2. COPD exacerbation, acute hypoxic respiratory failure: patient continues on supplemental oxygen. 88% O2 sat on room air. 3. Acute kidney injury resolved 4. Pulm HTN and evidence of right heart failure Plan: Continuing the patient on oxygen with goal of tapering. Maintain oxygen saturation in between 90 to 92% at least. Patient's steroids were previously tapered last week, patient was on IV prednisone 40 mg every 12, but as she has required more oxygen, Dr. Lucas, slitting machine operator, suggested that we increase her IV Solu-Medrol back up to 40 mg q8 where she remains through the weekend. Patient's shortness of breath is mostly due to COPD component. Patient was found to have elevated CO2 to 47 yesterday so we gave Diamox daily for 2 days. Patient's respiratory status appears to be semi-improving so we will taper her steroid to 60 mg prednisone daily. We had cardiology see the patient. The patient has dyspnea and initially, a mild prerenal state and an elevated BNP which would support left heart failure. There are no crackles however to support this by physical exam. The patient has mild pedal edema and evidence on previous echocardiogram of pulmonary hypertension which would support right-sided heart failure. We did a repeat echocardiogram which showed an LVEF of 60% with normal left ventricular wall thickness, systolic function. No focal wall motion abnormalities, PA systolic pressure is 43 mmHg. We started the patient on by mouth Lasix 40 mg daily 2 days ago. Creatinine level is good, no acute kidney injury. We did VQ scan last week which showed low probability of PE. We attempted to do CT chest to further elucidate cause for patient's shortness of breath and the patient was not able to sit through the study on 2 attempts and then refused it. We have stopped patient's azithromycin 500 mg daily as she completed a 5-day course Continue patient on [facility] nebs. January 05 chest x-ray showed mild emphysematous changes and a suspected 1.9 cm lytic lesion within the left humeral head. We further evaluated this lesion with a shoulder x-ray and found no further evidence of the lesion. Continue patient's statin 80 mg daily Lipitor Continue senna S for constipation Arterial blood gas, if indicated for worsening respiratory status Reevaluation for home oxygen. Physical therapy for help ambulating as patient is stating that she "does not want to walk much" and has not done so for most of her stay with us. Full code Diet heart healthy diet. DVT prophylaxis with ALPs and heparin Problem List: 1. COPD exacerbation 2. Pulmonary vascular congestion Pain Ratin Pain Location: na Pain Goal: Remain pain free Pain Plan: na Tomorrow's Labs & Rationales: na
--- NOTE | 2018-01-10 10:23 | PN- Pulmonary ---
Subjective HPI/Critical Care Issues: The patient is awake and alert. She reports feeling markedly improved since admission. She continues to improve on a day-to-day basis. She is less short of breath and recovering faster with exertion. She is wheezing less. She slept well last night. There were no overnight events reported. Objective Current Medications: Current Medications Sig/Michi Start time Last Medication Dose Route Stop Time Status Admin Acetaminophen 650 MG Q6P PRN 01/02 2145 AC 01/07 PO 0817 Acetylcysteine 2 ML BID 01/06 0900 AC 01/09 INH 1820 Albuterol Sulfate 3 ML EVERY 4 HRS/AWAKE 01/03 1200 AC 01/10 INH 0942 Albuterol Sulfate 2 PUF Q4-6 PRN PRN 01/02 2200 AC INH Atorvastatin Calcium 80 MG 1700 01/03 1700 AC 01/09 PO 1620 Azithromycin 250 MG DAILY 01/06 0900 AC 01/10 PO 0916 Budesonide/ 2 PUF BID 01/03 2100 AC 01/10 Formoterol Fumarate INH 0916 Furosemide 40 MG DAILY 01/07 1013 AC 01/10 PO 0915 Glycerin/Mineral Oil 1 DIDIER TID PRN 01/09 0930 AC TOP Guaifenesin 600 MG QPM 01/05 2115 AC 01/09 PO 2104 Heparin Sodium 5,000 UNIT Q8 01/06 1400 AC 01/10 (Porcine) SC 0615 Methylprednisolone 40 MG Q8H 01/06 1700 AC 01/10 IV 0915 Senna/Docusate Sodium 1 TAB AT BEDTIME 01/03 2100 AC 01/09 PO 2104 Sodium Chloride 2 SPRAY Q6P PRN 01/06 0615 AC 01/08 KEIKO 1002 Tiotropium [place] 1 PUF DAILY 01/03 0900 AC 01/10 INH 0916 Physical Exam General Appearance: mild respiratory distress, alert, awake Head: atraumatic, normal appearance Neck: supple Respiratory: no respiratory distress, quiet respiration, wheezing bilaterally Cardiovascular: regular rate/rhythm Gastrointestinal: normal bowel sounds, soft, non-tender Extremities: no edema Skin: intact, normal color, warm/dry Vital Signs & I&O Last 24 Hrs of Vitals and I&O: Vital Signs Date Time Temp Pulse Resp B/P B/P Pulse O2 O2 Flow FiO2 Mean Ox Delivery Rate 01/10 0946 92 Nasal 3.0L Cannula 07/16 0600 98.1 89 22 128/70 95 Nasal Cannula 01/10 0000 94 Nasal 3.0L Cannula 01/09 2015 98.9 99 22 132/72 90 Nasal 4.0L Cannula 01/09 1820 91 Nasal 3.0L Cannula 01/09 1441 98.0 103 22 136/70 91 Nasal 4.0L Cannula Intake & Output 01/10 1600 /16 0800 07/16 0000 Intake Total 400 250 Output Total 200 350 201 Balance -200 50 49 Intake, Oral 400 250 Number 1 Bowel Movements Output, Stool 1 Output, Urine 200 350 200 Physical Exam General Appearance: mild respiratory distress, alert, awake Head: atraumatic, normal appearance Neck: supple Respiratory: no respiratory distress, quiet respiration, wheezing bilaterally Cardiovascular: regular rate/rhythm Gastrointestinal: normal bowel sounds, soft, non-tender Extremities: no edema Skin: intact, normal color, warm/dry Impression/Plan Impression/Plan Impression/Plan: 1. Acute exacerbation of COPD, with ongoing bronchspasm, slowly improving. 2. Acute hypoxemic respiratory failure. 3. Chronic hypercarbic respiratory failure 4. Hypokalemia. 5. Acute kidney injury. 6. Mild pulmonary hypertension with a PA systolic pressure of 43 mmHg on echo dated 01/04/2018. 7. Chronic metabolic alkalosis in the setting of chronic hypercarbic respiratory failure. Recommendations: * The patient is refusing CT scan as she is unable to lay flat. * Continue oxygen for saturations around 92%. * Continue nebs/TRC. * Continue Spiriva 1 inhalation every morning. * Symbicort 160/2.5, 2 puffs every 12 hours. * Change to prednisone 60 mg daily. * Complete 5 days of azithro. * Continue Mucinex daily. * DVT prophylaxis at all times -not on subcu heparin at present. * PT for ambulation. * Continue all supportive care.
--- NOTE | 2018-01-10 10:39 | PN- Att Addend ---
Attending Addendum Attending Brief Note Patient seen and examined, Was still feeling SOB. Still requiring 3 lits of O2. Vital Signs Date Time Temp Pulse Resp B/P B/P Pulse O2 O2 Flow FiO2 Mean Ox Delivery Rate 01/10 0946 92 Nasal 3.0L Cannula 01/10 0600 98.1 89 22 128/70 95 Nasal Cannula 01/10 0000 94 Nasal 3.0L Cannula 01/09 2015 98.9 99 22 132/72 90 Nasal 4.0L Cannula 01/09 1820 91 Nasal 3.0L Cannula 01/09 1441 98.0 103 22 136/70 91 Nasal 4.0L Cannula on exam; aox3, nad. cv; s1, s2, rrr resp; decreased bs all over. abd; soft, nt, bs+ ext; trace edema no labs. A/P: 62 y/o M with pmh sig for COPD, HTN, and HLD admitted with acute hypoxemic resp failure, acute COPD exacerbation/acute bronchitis. Continue IV steroids at present dose. Appreciate pulm input. Please call [facility] to find the results of CT chest. Continue PORFIRIO chan nebs. DVT px; hep sq. Encourage ambulation. Will follow further pulm recs.
[2018-01-10 13:57] VITALS: BP 100/70
[2018-01-10 22:12] VITALS: BP 140/70
[2018-01-11 06:07] VITALS: BP 132/76
--- NOTE | 2018-01-11 07:29 | PN- Housestaff ---
Elena DON,Vee 01/11/18 0729: Subjective Follow-up For: COPD/CHF exacerbation Subjective: Patient seen and examined. She states that she feels better but that her breathing is "basically the same". She continues to have a productive cough. She last had a bowel movement this morning. She is eating and tolerating food well. She continues to have slight wheezing. Review of Systems Constitutional: Reports: no symptoms. Cardiovascular: Reports: no symptoms. Respiratory: Reports: cough, short of breath, wheezing. Gastrointestinal: Reports: no symptoms. Genitourinary: Reports: no symptoms. Musculoskeletal: Reports: no symptoms. Skin: Reports: no symptoms. Neurological/Psychological: Reports: no symptoms. Objective Last 24 Hrs of Vital Signs/I&O Vital Signs Date Time Temp Pulse Resp B/P B/P Pulse O2 O2 Flow FiO2 Mean Ox Delivery Rate 01/11 0909 94 Nasal 3.0L Cannula 01/11 0607 97.6 65 20 132/76 93 Nasal 3.0L Cannula 01/11 0000 91 Nasal 3.0L Cannula 01/10 2212 99.0 101 22 140/70 91 Nasal Cannula 01/10 1615 93 Nasal 3.0L Cannula 01/10 1600 Nasal 3.0L Cannula 01/10 1357 98.0 62 20 100/70 96 Nasal 3.0L Cannula Intake & Output 01/11 1600 01/11 0800 01/11 0000 Intake Total 10 Output Total Balance 10 Intake, IV 10 Physical Exam General Appearance: Alert, Oriented X3, Cooperative, No Acute Distress Skin: No Rashes, No Breakdown, No Significant Lesion Skin Temp/Moisture Exam: Warm/Dry HEENT: Atraumatic, PERRLA, EOMI, Mucous Membr. moist/pink Neck: Supple, No JVD Cardiovascular: Regular Rate, Normal S1, Normal S2, No Murmurs Lungs: mild wheezing throughout Neurological: Normal Speech Extremities: No Clubbing, No Cyanosis, No Edema Vascular: Normal Pulses, Pulses Symmetrical Current Medications: Current Medications Sig/Michi Start time Last Medication Dose Route Stop Time Status Admin Acetaminophen 650 MG Q6P PRN 01/02 2145 AC 01/07 PO 0817 Acetylcysteine 2 ML BID 01/06 0900 AC 01/11 INH 0903 Albuterol Sulfate 3 ML EVERY 4 HRS/AWAKE 01/03 1200 AC 01/11 INH 0903 Albuterol Sulfate 2 PUF Q4-6 PRN PRN 01/02 2200 AC INH Atorvastatin Calcium 80 MG 1700 01/03 1700 AC 01/10 PO 1853 Azithromycin 250 MG DAILY 01/06 0900 DC 01/10 PO 0916 Budesonide/ 2 PUF BID 01/03 2100 AC 01/10 Formoterol Fumarate INH 2113 Furosemide 40 MG DAILY 01/07 1013 AC 01/10 PO 0915 Glycerin/Mineral Oil 1 DIDIER TID PRN 01/09 0930 AC TOP Guaifenesin 600 MG QPM 01/05 2115 AC 01/10 PO 2113 Heparin Sodium 5,000 UNIT Q8 01/06 1400 AC 01/11 (Porcine) SC 0619 Methylprednisolone 40 MG Q8H 01/06 1700 DC 01/10 IV 0915 Prednisone 60 MG DAILY 01/11 0900 AC PO Senna/Docusate Sodium 1 TAB AT BEDTIME 01/03 2100 AC 01/10 PO 2113 Sodium Chloride 2 SPRAY Q6P PRN 01/06 0615 AC 01/08 KEIKO 1002 Tiotropium [place] 1 PUF DAILY 01/03 0900 AC 01/10 INH 0916 Assessment/Plan Assessment: Mrs Wong is a 62 year old woman who is a past smoker w/ a PMHx of HTN, hyperlipidemia, COPD (not currently on home oxygen) came to the hospital with a chief concern of occassional productive cough, increasing wheezing and weakness with worsening of symptoms in the last 1-2 days. Also reported exertional dyspnea, especially climbing up the stairs. Also reported increasing use of inhalers in the last 2 days. No orthopnea. No fever, chills. No nausea vomiting or diarrhea. No abdominal pain dysuria. No chest pain or palpitations. Reported to have increased the dose of furosemide from 40 mg to 60 mg daily, for the management of pedal edema. She is unsure if she got any echocardiogram done recently. She also reported occassional non productive cough , which she attribtes to seasonal allergies. She was also found to be hypoxemic at the time of arrival. Oxygen saturations ranging between 73%-75% and was placed on 3 L nasal cannula which improved oxygen saturation to 90%. At the time of admission-temperature 98.0, pulse rate 63, respiration 21, blood pressure 89-55--100/58, 94% on 3 L. Pertinent lab findings: WBC 11.7 (83% granulocytes), hemoglobin 18.1, hematocrit 54.2 ( ? hemoconcentration/hypoxia), platelet count 231 Sodium 137, potassium 2.5(high bicarb ?+furosemide) chloride 84 (likely due to high bicarb)+ bicarbonate 36 (compensation or contraction alkalosis). Anion gap 17, BUN 47, creatinine 1.4. (Baseline 0.8) AST 31, ALT 41, alkaline phosphatase 95. Troponin I-0.02. ABG-pH 7.42, PCO2 53, oxygen saturation 88. Chest x-ray-No significant abnormality is noted involving the heart, lungs, mediastinum, bony thorax or soft tissues. Echo-01 July 2016 Normal left ventricular global systolic function. Dilated and hypokinetic right ventricle. Severe Pulmonary hypertension. Mild Aortic stenosis.Right atrial enlargement. PFTs- 2017- Severe obstructive lung disease with a partially reversible component, airtrapping, hyperinflation and exercise induced desaturation. Problem list: 1. Hypokalemia resolved 2. COPD exacerbation, acute hypoxic respiratory failure: patient continues on supplemental oxygen. 88% O2 sat on room air. 3. Acute kidney injury resolved 4. Pulm HTN and evidence of right heart failure Plan: Continuing the patient on oxygen with goal of tapering. Maintain oxygen saturation in between 90 to 92% at least. Patient's steroids were previously tapered last week, patient was on IV prednisone 40 mg every 12, but as she has required more oxygen, Dr. Lucas, sidehand, suggested that we increase her IV Solu-Medrol back up to 40 mg q8 where she remains through the weekend. Patient's shortness of breath is mostly due to COPD component. Patient was found to have elevated CO2 to 47 yesterday so we gave Diamox daily for 2 days. Patient's respiratory status appears to be semi-improving so we will taper her steroid to 60 mg prednisone daily. We had cardiology see the patient. The patient has dyspnea and initially, a mild prerenal state and an elevated BNP which would support left heart failure. There are no crackles however to support this by physical exam. The patient has mild pedal edema and evidence on previous echocardiogram of pulmonary hypertension which would support right-sided heart failure. We did a repeat echocardiogram which showed an LVEF of 60% with normal left ventricular wall thickness, systolic function. No focal wall motion abnormalities, PA systolic pressure is 43 mmHg. We started the patient on by mouth Lasix 40 mg daily 2 days ago. Creatinine level is good, no acute kidney injury. We did VQ scan last week which showed low probability of PE. We attempted to do CT chest to further elucidate cause for patient's shortness of breath and the patient was not able to sit through the study on 2 attempts and then refused it. We have stopped patient's azithromycin 500 mg daily as she completed a 5-day course Continue patient on [facility] nebs. January 05 chest x-ray showed mild emphysematous changes and a suspected 1.9 cm lytic lesion within the left humeral head. We further evaluated this lesion with a shoulder x-ray and found no further evidence of the lesion. Continue patient's statin 80 mg daily Lipitor Continue senna S for constipation Arterial blood gas, if indicated for worsening respiratory status Reevaluation for home oxygen. Physical therapy for help ambulating as patient is stating that she "does not want to walk much" and has not done so for most of her stay with us. Full code Diet heart healthy diet. DVT prophylaxis with ALPs and heparin Problem List: 1. COPD exacerbation Pain Ratin Pain Location: na Pain Goal: Remain pain free Pain Plan: na Tomorrow's Labs & Rationales: shirley Ashby MD,Ashlee 01/11/18 1017: Attending MD Review Statement Attending Statement Attending MD Statement: examined this patient, discuss w/resident/PA/PSYCHOTHERAPIST COUNSELOR, agreed w/resident/PA/PSYCHOTHERAPIST COUNSELOR, reviewed EMR data (avail), discussed with nursing, discussed with case mgmt, reviewed images, amended to note Attending Assessment/Plan: Patient seen and examined, states that she is feeling better. She still requiring 3 L of oxygen. She still looks somewhat short of breath but states that clinically she is feeling better. Vital Signs Date Time Temp Pulse Resp B/P B/P Pulse O2 O2 Flow FiO2 Mean Ox Delivery Rate 01/11 0909 94 Nasal 3.0L Cannula 01/11 0607 97.6 65 20 132/76 93 Nasal 3.0L Cannula 01/11 0000 91 Nasal 3.0L Cannula 01/10 2212 99.0 101 22 140/70 91 Nasal Cannula 01/10 1615 93 Nasal 3.0L Cannula 01/10 1600 Nasal 3.0L Cannula 01/10 1357 98.0 62 20 100/70 96 Nasal 3.0L Cannula on exam; aox3, nad. cv; s1, s2, rrr resp; decreased bs all over. abd; soft, nt, bs+ ext; trace edema No labs. A/P; 62 y/o M with pmh sig for COPD, HTN, and HLD admitted with acute hypoxemic resp failure, acute COPD exacerbation/acute bronchitis. Patient has been switched on oral prednisone as per pulmonology recommendations. Patient is refusing CAT scan. She has been continued on [facility] nebs, inhalers. She is still requiring 3 L of oxygen. Patient will be encouraged to ambulate. PT evaluation has been ordered. She will likely need to go home with oxygen. Continue the rest of the management. She is on heparin subcu for DVT prophylaxis. Likely discharge tomorrow on oral prednisone taper.
--- NOTE | 2018-01-11 08:27 | PN- Pulmonary ---
Subjective HPI/Critical Care Issues: The patient is awake and alert. She reports feeling improved overall. She is less short of breath however she continues to have significant dyspnea with exertion. She has a cough but again this is have improved. She has ongoing wheezing. She has not been ambulating much but plans to later today. Objective Current Medications: Current Medications Sig/Michi Start time Last Medication Dose Route Stop Time Status Admin Acetaminophen 650 MG Q6P PRN 01/02 2145 AC 01/07 PO 0817 Acetylcysteine 2 ML BID 01/06 0900 AC 01/10 INH 2020 Albuterol Sulfate 3 ML EVERY 4 HRS/AWAKE 01/03 1200 AC 01/10 INH 2020 Albuterol Sulfate 2 PUF Q4-6 PRN PRN 01/02 2200 AC INH Atorvastatin Calcium 80 MG 1700 01/03 1700 AC 01/10 PO 1853 Azithromycin 250 MG DAILY 01/06 0900 DC 01/10 PO 0916 Budesonide/ 2 PUF BID 01/03 2100 AC 01/10 Formoterol Fumarate INH 2113 Furosemide 40 MG DAILY 01/07 1013 AC 01/10 PO 0915 Glycerin/Mineral Oil 1 DIDIER TID PRN 01/09 0930 AC TOP Guaifenesin 600 MG QPM 01/05 2115 AC 01/10 PO 2113 Heparin Sodium 5,000 UNIT Q8 01/06 1400 AC 01/11 (Porcine) SC 0619 Methylprednisolone 40 MG Q8H 01/06 1700 DC 01/10 IV 0915 Prednisone 60 MG DAILY 01/11 0900 AC PO Senna/Docusate Sodium 1 TAB AT BEDTIME 01/03 2100 AC 01/10 PO 2113 Sodium Chloride 2 SPRAY Q6P PRN 01/06 0615 AC 01/08 KEIKO 1002 Tiotropium [place] 1 PUF DAILY 01/03 0900 AC 01/10 INH 0916 Vital Signs & I&O Last 24 Hrs of Vitals and I&O: Vital Signs Date Time Temp Pulse Resp B/P B/P Pulse O2 O2 Flow FiO2 Mean Ox Delivery Rate 01/11 0607 97.6 65 20 132/76 93 Nasal 3.0L Cannula 01/11 0000 91 Nasal 3.0L Cannula 01/10 2212 99.0 101 22 140/70 91 Nasal Cannula 01/10 1615 93 Nasal 3.0L Cannula 01/10 1600 Nasal 3.0L Cannula 01/10 1357 98.0 62 20 100/70 96 Nasal 3.0L Cannula 01/10 0946 92 Nasal 3.0L Cannula Physical Exam General Appearance: mild respiratory distress, alert, awake Head: atraumatic, normal appearance Neck: supple Respiratory: no respiratory distress, quiet respiration, wheezing bilaterally Cardiovascular: regular rate/rhythm Gastrointestinal: normal bowel sounds, soft, non-tender Extremities: no edema Skin: intact, normal color, warm/dry Impression/Plan Impression/Plan Impression/Plan: 1. Acute exacerbation of COPD, with ongoing bronchspasm, slowly improving. 2. Acute hypoxemic respiratory failure. 3. Chronic hypercarbic respiratory failure 4. Hypokalemia. 5. Acute kidney injury. 6. Mild pulmonary hypertension with a PA systolic pressure of 43 mmHg on echo dated 01/04/2018. 7. Chronic metabolic alkalosis in the setting of chronic hypercarbic respiratory failure. Recommendations: * The patient is refusing CT scan as she is unable to lay flat. * Continue oxygen for saturations around 92%. * Continue nebs/TRC. * Continue Spiriva 1 inhalation every morning. * Continue Symbicort 160/2.5, 2 puffs every 12 hours. * Change to prednisone 60 mg daily. Will taper down slowly. * Complete 5 days of azithro. * Continue Mucinex daily. * DVT prophylaxis at all times -not on subcu heparin at present. * PT for ambulation. The patient has not significantly walked this admission. The PT assessment will help with discharge planning. * Continue all supportive care.
[2018-01-11 14:42] VITALS: BP 118/90
[2018-01-11 22:50] VITALS: BP 132/60
[2018-01-12 06:00] VITALS: BP 124/68
--- NOTE | 2018-01-12 07:37 | PN- Housestaff ---
Subjective Follow-up For: CHF/COPD exacerbation Subjective: Patient seen and examined. She states that she feels good today. The patient walked yesterday and states that she will walk again today. However her nurse notes that she desaturated yesterday when walking down to the 70s with 3 L. Today she continues on 3 L is 96% saturation at rest. Her other vitals are stable. Review of Systems Constitutional: Reports: no symptoms. EENTM: Reports: no symptoms. Cardiovascular: Reports: no symptoms. Respiratory: Reports: no symptoms. Gastrointestinal: Reports: no symptoms. Genitourinary: Reports: no symptoms. Musculoskeletal: Reports: no symptoms. Skin: Reports: no symptoms. Objective Last 24 Hrs of Vital Signs/I&O Vital Signs Date Time Temp Pulse Resp B/P B/P Pulse O2 O2 Flow FiO2 Mean Ox Delivery Rate 01/12 1438 98.9 105 20 128/64 91 01/12 1331 92 Nasal 3.0L Cannula 01/12 0911 96 Nasal 3.0L Cannula 01/12 0800 92 Nasal 3.0L Cannula 01/12 0600 98.6 89 20 124/68 96 Nasal Cannula 01/11 2341 95 Nasal 3.0L Cannula 01/11 2250 98.6 105 20 132/60 95 Nasal 3.0L Cannula Intake & Output 01/12 1600 01/12 0800 01/12 0000 Intake Total 400 250 975 Output Total 300 300 Balance 100 250 675 Intake, IV 10 Intake, Oral 400 240 975 Number 1 1 Bowel Movements Output, Urine 300 300 Patient 150 lb Weight Physical Exam General Appearance: Alert, Oriented X3, Cooperative, No Acute Distress Skin: No Rashes, No Breakdown, No Significant Lesion Skin Temp/Moisture Exam: Warm/Dry Cardiovascular: Regular Rate, Normal S1, Normal S2, No Murmurs Lungs: Clear to Auscultation, Normal Air Movement Abdomen: Normal Bowel Sounds, Soft, No Tenderness Neurological: Normal Speech Extremities: No Clubbing, No Cyanosis, No Edema Vascular: Normal Pulses, Pulses Symmetrical Sepsis Peripheral Pulse Location: Radial Current Medications: Current Medications Sig/Michi Start time Last Medication Dose Route Stop Time Status Admin Acetaminophen 650 MG Q6P PRN 01/02 2145 AC 01/07 PO 0817 Acetylcysteine 2 ML BID 01/06 0900 AC 01/12 INH 0905 Albuterol Sulfate 3 ML EVERY 4 HRS/AWAKE 01/03 1200 AC 01/12 INH 1328 Albuterol Sulfate 2 PUF Q4-6 PRN PRN 01/02 2200 AC INH Atorvastatin Calcium 80 MG 1700 01/03 1700 AC 01/11 PO 1625 Budesonide/ 2 PUF BID 01/03 2100 AC 01/12 Formoterol Fumarate INH 1018 Chlorthalidone 25 MG DAILY 01/12 1459 AC PO Furosemide 40 MG DAILY 01/07 1013 AC 01/12 PO 1017 Glycerin/Mineral Oil 1 DIDIER TID PRN 01/09 0930 AC TOP Guaifenesin 600 MG QPM 01/05 2115 AC 01/11 PO 2215 Heparin Sodium 5,000 UNIT Q8 01/06 1400 AC 01/12 (Porcine) SC 1506 Prednisone 60 MG ONCE ONE 01/12 1545 DC PO 01/12 1546 Prednisone 60 MG DAILY 01/11 0900 AC 01/12 PO 1017 Senna/Docusate Sodium 1 TAB AT BEDTIME 01/03 2100 AC 01/11 PO 2215 Sodium Chloride 2 SPRAY Q6P PRN 01/06 0615 AC 01/08 KEIKO 1002 Tiotropium [place] 1 PUF DAILY 01/03 0900 AC 01/12 INH 1017 Assessment/Plan Assessment: Mrs Wong is a 62 year old woman who is a past smoker w/ a PMHx of HTN, hyperlipidemia, COPD (not currently on home oxygen) came to the hospital with a chief concern of occassional productive cough, increasing wheezing and weakness with worsening of symptoms in the last 1-2 days. Also reported exertional dyspnea, especially climbing up the stairs. Also reported increasing use of inhalers in the last 2 days. No orthopnea. No fever, chills. No nausea vomiting or diarrhea. No abdominal pain dysuria. No chest pain or palpitations. Reported to have increased the dose of furosemide from 40 mg to 60 mg daily, for the management of pedal edema. She is unsure if she got any echocardiogram done recently. She also reported occassional non productive cough , which she attribtes to seasonal allergies. She was also found to be hypoxemic at the time of arrival. Oxygen saturations ranging between 73%-75% and was placed on 3 L nasal cannula which improved oxygen saturation to 90%. At the time of admission-temperature 98.0, pulse rate 63, respiration 21, blood pressure 89-55--100/58, 94% on 3 L. Pertinent lab findings: WBC 11.7 (83% granulocytes), hemoglobin 18.1, hematocrit 54.2 ( ? hemoconcentration/hypoxia), platelet count 231 Sodium 137, potassium 2.5(high bicarb ?+furosemide) chloride 84 (likely due to high bicarb)+ bicarbonate 36 (compensation or contraction alkalosis). Anion gap 17, BUN 47, creatinine 1.4. (Baseline 0.8) AST 31, ALT 41, alkaline phosphatase 95. Troponin I-0.02. ABG-pH 7.42, PCO2 53, oxygen saturation 88. Chest x-ray-No significant abnormality is noted involving the heart, lungs, mediastinum, bony thorax or soft tissues. Echo-01 July 2016 Normal left ventricular global systolic function. Dilated and hypokinetic right ventricle. Severe Pulmonary hypertension. Mild Aortic stenosis.Right atrial enlargement. PFTs- 2017- Severe obstructive lung disease with a partially reversible component, airtrapping, hyperinflation and exercise induced desaturation. Problem list: 1. Hypokalemia resolved 2. COPD exacerbation, acute hypoxic respiratory failure: patient continues on supplemental oxygen. 88% O2 sat on room air. 3. Acute kidney injury resolved 4. Pulm HTN and evidence of right heart failure Plan: Continuing the patient on oxygen with goal of tapering. Maintain oxygen saturation in between 90 to 92% at least. Patient's steroids were previously tapered last week, patient was on IV prednisone 40 mg every 12, but as she has required more oxygen, Dr. Lucas, supervisor warping department, suggested that we increase her IV Solu-Medrol back up to 40 mg q8 where she remains through the weekend. Patient's shortness of breath is mostly due to COPD component. Patient was found to have elevated CO2 to 47 yesterday so we gave Diamox daily for 2 days. Patient's respiratory status appears to be semi-improving so we will taper her steroid to 60 mg prednisone daily. As per her supervisor warping department we will give an extra dose of prednisone 60 mg today. We had cardiology see the patient. The patient has dyspnea and initially, a mild prerenal state and an elevated BNP which would support left heart failure. There are no crackles however to support this by physical exam. The patient has mild pedal edema and evidence on previous echocardiogram of pulmonary hypertension which would support right-sided heart failure. We did a repeat echocardiogram which showed an LVEF of 60% with normal left ventricular wall thickness, systolic function. No focal wall motion abnormalities, PA systolic pressure is 43 mmHg. We started the patient on by mouth Lasix 40 mg daily 2 days ago. Creatinine level is good, no acute kidney injury. We checked with her pharmacy and confirmed the patient last filled Lasix 60 mg every other day prescription in September along with a chlorthalidone/atenolol prescription. Patient is unsure of the medications she takes. We will restart her chlorthalidone 25 mg. The patient has been having elevated heart rate and we will do an EKG. If she is in sinus we will consult with cardiology and ask if we can use a calcium channel sari for her increased heart rate, Cardizem 30 mg every 6. If not, we will check regarding 12.5 atenolol daily. We did VQ scan last week which showed low probability of PE. We attempted to do CT chest to further elucidate cause for patient's shortness of breath and the patient was not able to sit through the study on 2 attempts and then refused it. We have stopped patient's azithromycin 500 mg daily as she completed a 5-day course Continue patient on [facility] nebs. January 05 chest x-ray showed mild emphysematous changes and a suspected 1.9 cm lytic lesion within the left humeral head. We further evaluated this lesion with a shoulder x-ray and found no further evidence of the lesion. Continue patient's statin 80 mg daily Lipitor Continue senna S for constipation Arterial blood gas, if indicated for worsening respiratory status Reevaluation for home oxygen. Physical therapy for help ambulating as patient is stating that she "does not want to walk much" and has not done so for most of her stay with us. We will continue to ambulate with oxygen. Patient will require oxygen when she leaves here. Unfortunately she is refusing pulmonary rehabilitation. Full code Diet heart healthy diet. DVT prophylaxis with ALPs and heparin Problem List: 1. COPD exacerbation 2. Pulmonary HTN Pain Ratin Pain Location: na Pain Goal: Remain pain free Pain Plan: na Tomorrow's Labs & Rationales: na
[2018-01-12] MEDS ORDERED: SYMBICORT 16010.2 GM INH (08:57)
[2018-01-12] MEDS ORDERED: PREDNISONE10 M2 PO (08:57)
[2018-01-12] MEDS ORDERED: LASIX40 M1 PO (08:57)
[2018-01-12] MEDS ORDERED: GUAIFENESIN ER600 MG PO (08:57)
--- NOTE | 2018-01-12 09:09 | PN- Pulmonary ---
Subjective HPI/Critical Care Issues: The patient is awake and alert. She reports feeling much more short of breath today. She has ongoing coughing wheezing and dyspnea. She did not sleep well last night. Of note, the patient is desaturating with exertion, and was down in the 70s on 3 L nasal cannula. Objective Current Medications: Current Medications Sig/Michi Start time Last Medication Dose Route Stop Time Status Admin Acetaminophen 650 MG Q6P PRN 01/02 2145 AC 01/07 PO 0817 Acetylcysteine 2 ML BID 01/06 0900 AC 01/11 INH 1936 Albuterol Sulfate 3 ML EVERY 4 HRS/AWAKE 01/03 1200 AC 01/11 INH 1936 Albuterol Sulfate 2 PUF Q4-6 PRN PRN 01/02 2200 AC INH Atorvastatin Calcium 80 MG 1700 01/03 1700 AC 01/11 PO 1625 Budesonide/ 2 PUF BID 01/03 2100 AC 01/11 Formoterol Fumarate INH 2215 Furosemide 40 MG DAILY 01/07 1013 AC 01/11 PO 1009 Glycerin/Mineral Oil 1 DIDIER TID PRN 01/09 0930 AC TOP Guaifenesin 600 MG QPM 01/05 2115 AC 01/11 PO 2215 Heparin Sodium 5,000 UNIT Q8 01/06 1400 AC 01/12 (Porcine) SC 0543 Prednisone 60 MG DAILY 01/11 0900 AC 01/11 PO 1010 Senna/Docusate Sodium 1 TAB AT BEDTIME 01/03 2100 AC 01/11 PO 2215 Sodium Chloride 2 SPRAY Q6P PRN 01/06 0615 AC 01/08 KEIKO 1002 Tiotropium [place] 1 PUF DAILY 01/03 0900 AC 01/11 INH 1013 Vital Signs & I&O Last 24 Hrs of Vitals and I&O: Vital Signs Date Time Temp Pulse Resp B/P B/P Pulse O2 O2 Flow FiO2 Mean Ox Delivery Rate 01/12 06 98.6 89 20 124/68 96 Nasal Cannula 01/11 2341 95 Nasal 3.0L Cannula 01/11 2250 98.6 105 20 132/60 95 Nasal 3.0L Cannula 01/11 1606 93 Nasal 3.0L Cannula 01/11 1600 Nasal 3.0L Cannula 01/11 1442 98.3 100 20 118/90 90 Nasal 3.0L Cannula 01/11 1100 74 Room Air Room Air 01/11 1100 92 Nasal 3.0L Cannula 01/11 0909 94 Nasal 3.0L Cannula Intake & Output 01/12 1600 01/12 0800 01/12 0000 Intake Total 250 975 Output Total 300 Balance 250 675 Intake, IV 10 Intake, Oral 240 975 Number 1 Bowel Movements Output, Urine 300 Patient 150 lb Weight Physical Exam General Appearance: mild respiratory distress, mild use of accessory muscles, alert, awake Head: atraumatic, normal appearance Neck: supple Respiratory: no respiratory distress, quiet respiration, wheezing bilaterally Cardiovascular: regular rate/rhythm Gastrointestinal: normal bowel sounds, soft, non-tender Extremities: no edema Skin: intact, normal color, warm/dry Impression/Plan Impression/Plan Impression/Plan: 1. Acute exacerbation of COPD, with ongoing bronchspasm, slowly improving. 2. Acute hypoxemic respiratory failure. 3. Chronic hypercarbic respiratory failure 4. Hypokalemia. 5. Acute kidney injury. 6. Mild pulmonary hypertension with a PA systolic pressure of 43 mmHg on echo dated 01/04/2018. 7. Chronic metabolic alkalosis in the setting of chronic hypercarbic respiratory failure. Recommendations: * The patient continues to refuse CT scan as she is unable to lay flat. * Continue oxygen for saturations around 92%. * Continue nebs/TRC. * Continue Spiriva 1 inhalation every morning. * Continue Symbicort 160/2.5, 2 puffs every 12 hours. * Prednisone 60 mg daily. Will taper down slowly. * Give an additional dose of Solu-Medrol 60 mg 1 today. * Continue Mucinex daily. * DVT prophylaxis at all times -not on subcu heparin at present. * PT for ambulation. * Check oximetry with ambulation. * I discussed the plan of care with the primary team and case management. At this point, the patient is only slowly improving, and it appears she would be a good candidate for rehabilitation. She would benefit from pulmonary rehabilitation, physical therapy, oxygen titration, etc.
--- NOTE | 2018-01-12 11:41 | PN- Att Addend ---
Attending Addendum Attending Brief Note Patient seen and examined, still requiring 3 L of oxygen. Patient ambulated yesterday on 3 L and desatted to 70s. Although she says that she's feeling slightly better than before but still looks short of breath. Vital Signs Date Time Temp Pulse Resp B/P B/P Pulse O2 O2 Flow FiO2 Mean Ox Delivery Rate 01/12 0911 96 Nasal 3.0L Cannula 01/12 0600 98.6 89 20 124/68 96 Nasal Cannula 01/11 2341 95 Nasal 3.0L Cannula 01/11 2250 98.6 105 20 132/60 95 Nasal 3.0L Cannula 01/11 1606 93 Nasal 3.0L Cannula 01/11 1600 Nasal 3.0L Cannula 01/11 1442 98.3 100 20 118/90 90 Nasal 3.0L Cannula on exam; aox3, nad. cv; s1,s2, rrr resp; decreased bs overall. abd; soft, nt, bs+ ext; no edema no labs. A/P; 62 y/o M with pmh sig for COPD, HTN, and HLD admitted with acute hypoxemic resp failure, acute COPD exacerbation/acute bronchitis. Patient continues to feel short of breath, requiring 3 L of oxygen and desatted to 70s upon evaluation on 3 L. At this point we would like to start discussion about considering going to pulmonary rehabilitation. Patient currently on 60mg of prednisone, TRC nebs and inhalers. Please clarify about her diuretics as to what she takes at home. Home medication list included atenolol/chlorthalidone as well as Lasix. We need to clarify if she is taking two diuretics or not. DVT px; Hep sq.
[2018-01-12 14:38] VITALS: BP 128/64
[2018-01-12 22:00] VITALS: BP 130/60
[2018-01-13 06:30] VITALS: BP 134/76
--- NOTE | 2018-01-13 07:35 | PN- Housestaff ---
Subjective Follow-up For: copd chf exacerbation Subjective: Patient seen and examined. She is satting on 3L this morning. When taken to walk, she sats 91% on 3L. She says she feels good. Has a productive cough still with thin yellow sputum. No other complaints. Review of Systems Constitutional: Reports: no symptoms. Cardiovascular: Reports: no symptoms. Respiratory: Reports: cough, orthopnea, short of breath. Gastrointestinal: Reports: no symptoms. Genitourinary: Reports: no symptoms. Objective Last 24 Hrs of Vital Signs/I&O Vital Signs Date Time Temp Pulse Resp B/P B/P Pulse O2 O2 Flow FiO2 Mean Ox Delivery Rate 01/13 0939 87 134/76 01/13 0842 91 Nasal 3.0L Cannula 01/13 0800 95 Nasal 3.0L Cannula 01/13 0630 98.7 87 22 134/76 93 Nasal Cannula 01/13 0000 Nasal 3.0L Cannula 01/12 2200 98.7 102 24 130/60 92 Nasal 3.0L Cannula 01/12 2030 105 130/85 Intake & Output 01/13 1600 01/13 0800 01/13 0000 Intake Total 570 966 8011 Output Total 400 400 Balance 80 300 690 Intake, Oral 309 005 0344 Number 3 Bowel Movements Output, Urine 400 400 Physical Exam General Appearance: Alert, Oriented X3, Cooperative, No Acute Distress HEENT: Atraumatic, EOMI, Mucous Membr. moist/pink Neck: Supple, No JVD Cardiovascular: Regular Rate, Normal S1, Normal S2 Lungs: mild expiratory rales Abdomen: Normal Bowel Sounds, Soft, No Tenderness Extremities: No Clubbing, No Cyanosis, No Edema, Normal Pulses Current Medications: Current Medications Sig/Michi Start time Last Medication Dose Route Stop Time Status Admin Acetaminophen 650 MG Q6P PRN 01/02 2145 DCD 01/07 PO 0817 Acetylcysteine 2 ML BID 01/06 0900 DC 01/12 INH 2005 Albuterol Sulfate 3 ML EVERY 4 HRS/AWAKE 01/03 1200 DCD 01/13 INH 1156 Albuterol Sulfate 2 PUF Q4-6 PRN PRN 01/02 2200 DCD INH Atorvastatin Calcium 80 MG 1700 01/03 1700 DCD 01/12 PO 1705 Budesonide/ 2 PUF BID 01/03 2100 DCD 01/13 Formoterol Fumarate INH 0940 Chlorthalidone 25 MG DAILY 01/12 1459 DCD 01/13 PO 0940 Furosemide 40 MG DAILY 01/07 1013 DCD 01/13 PO 0940 Glycerin/Mineral Oil 1 DIDIER TID PRN 01/09 0930 DCD TOP Guaifenesin 600 MG QPM 01/05 2115 DCD 01/12 PO 2025 Heparin Sodium 5,000 UNIT Q8 01/06 1400 DCD 01/13 (Porcine) SC 0518 Metoprolol Tartrate 12.5 MG BID 01/12 2100 DCD 01/13 PO 0939 Prednisone 60 MG DAILY 01/11 0900 DCD 01/13 PO 0940 Senna/Docusate Sodium 1 TAB AT BEDTIME 01/03 2100 DCD 01/12 PO 2025 Sodium Chloride 2 SPRAY Q6P PRN 01/06 0615 DCD 01/08 KEIKO 1002 Tiotropium [place] 1 PUF DAILY 01/03 0900 DCD 01/13 INH 0941 Assessment/Plan Assessment: Mrs Wong is a 62 year old woman who is a past smoker w/ a PMHx of HTN, hyperlipidemia, COPD (not currently on home oxygen) came to the hospital with a chief concern of occassional productive cough, increasing wheezing and weakness with worsening of symptoms in the last 1-2 days. Also reported exertional dyspnea, especially climbing up the stairs. Also reported increasing use of inhalers in the last 2 days. No orthopnea. No fever, chills. No nausea vomiting or diarrhea. No abdominal pain dysuria. No chest pain or palpitations. Reported to have increased the dose of furosemide from 40 mg to 60 mg daily, for the management of pedal edema. She is unsure if she got any echocardiogram done recently. She also reported occassional non productive cough , which she attribtes to seasonal allergies. She was also found to be hypoxemic at the time of arrival. Oxygen saturations ranging between 73%-75% and was placed on 3 L nasal cannula which improved oxygen saturation to 90%. At the time of admission-temperature 98.0, pulse rate 63, respiration 21, blood pressure 89-55--100/58, 94% on 3 L. Pertinent lab findings: WBC 11.7 (83% granulocytes), hemoglobin 18.1, hematocrit 54.2 ( ? hemoconcentration/hypoxia), platelet count 231 Sodium 137, potassium 2.5(high bicarb ?+furosemide) chloride 84 (likely due to high bicarb)+ bicarbonate 36 (compensation or contraction alkalosis). Anion gap 17, BUN 47, creatinine 1.4. (Baseline 0.8) AST 31, ALT 41, alkaline phosphatase 95. Troponin I-0.02. ABG-pH 7.42, PCO2 53, oxygen saturation 88. Chest x-ray-No significant abnormality is noted involving the heart, lungs, mediastinum, bony thorax or soft tissues. Echo-01 July 2016 Normal left ventricular global systolic function. Dilated and hypokinetic right ventricle. Severe Pulmonary hypertension. Mild Aortic stenosis.Right atrial enlargement. PFTs- 2017- Severe obstructive lung disease with a partially reversible component, airtrapping, hyperinflation and exercise induced desaturation. Problem list: 1. Hypokalemia resolved 2. COPD exacerbation, acute hypoxic respiratory failure: patient continues on supplemental oxygen. 88% O2 sat on room air. 3. Acute kidney injury resolved 4. Pulm HTN and evidence of right heart failure Plan: Continuing the patient on oxygen with goal of tapering. Maintain oxygen saturation in between 90 to 92% at least. Patient's steroids were previously tapered last week, patient was on IV prednisone 40 mg every 12, but as she has required more oxygen, Dr. Lucas, truck safety inspector, suggested that we increase her IV Solu-Medrol back up to 40 mg q8 where she remains through the weekend. Patient's shortness of breath is mostly due to COPD component. Patient was found to have elevated CO2 to 47 yesterday so we gave Diamox daily for 2 days. Patient is currently on slow prednisone taper. We had cardiology see the patient. The patient has dyspnea and initially, a mild prerenal state and an elevated BNP which would support left heart failure. There are no crackles however to support this by physical exam. The patient has mild pedal edema and evidence on previous echocardiogram of pulmonary hypertension which would support right-sided heart failure. We did a repeat echocardiogram which showed an LVEF of 60% with normal left ventricular wall thickness, systolic function. No focal wall motion abnormalities, PA systolic pressure is 43 mmHg. We started the patient on by mouth Lasix 40 mg daily 2 days ago. Creatinine level is good, no acute kidney injury. We checked with her pharmacy and confirmed the patient last filled Lasix 60 mg every other day prescription in September along with a chlorthalidone/atenolol prescription. Patient is unsure of the medications she takes. We restarted her chlorthalidone 25 mg. Instead of atenolol we started metoprolol 12.5mg bid which is more cardio selective. We did VQ scan last week which showed low probability of PE. We attempted to do CT chest to further elucidate cause for patient's shortness of breath and the patient was not able to sit through the study on 2 attempts and then refused it. We have stopped patient's azithromycin 500 mg daily as she completed a 5-day course Continue patient on [facility] nebs. January 05 chest x-ray showed mild emphysematous changes and a suspected 1.9 cm lytic lesion within the left humeral head. We further evaluated this lesion with a shoulder x-ray and found no further evidence of the lesion. Continue patient's statin 80 mg daily Lipitor Continue senna S for constipation Arterial blood gas, if indicated for worsening respiratory status Reevaluation for home oxygen. Physical therapy for help ambulating as patient is stating that she "does not want to walk much" and has not done so for most of her stay with us. We will continue to ambulate with oxygen. Patient will require oxygen when she leaves here. Unfortunately she is refusing pulmonary rehabilitation. Full code Diet heart healthy diet. DVT prophylaxis with ALPs and heparin Problem List: 1. COPD exacerbation Pain Ratin Pain Location: na Pain Goal: Remain pain free Pain Plan: na Tomorrow's Labs & Rationales: na
--- NOTE | 2018-01-13 08:11 | PN- Pulmonary ---
Subjective HPI/Critical Care Issues: The patient is awake and alert. She is feeling much improved overall. She is less short of breath. She is coughing less. She feels well enough to go home. She is refusing rehab. Objective Current Medications: Current Medications Sig/Michi Start time Last Medication Dose Route Stop Time Status Admin Acetaminophen 650 MG Q6P PRN 01/02 2145 AC 01/07 PO 0817 Acetylcysteine 2 ML BID 01/06 0900 DC 01/12 INH 2005 Albuterol Sulfate 3 ML EVERY 4 HRS/AWAKE 01/03 1200 AC 01/12 INH 2005 Albuterol Sulfate 2 PUF Q4-6 PRN PRN 01/02 2200 AC INH Atorvastatin Calcium 80 MG 1700 01/03 1700 AC 01/12 PO 1705 Budesonide/ 2 PUF BID 01/03 2100 AC 01/12 Formoterol Fumarate INH 202 Chlorthalidone 25 MG DAILY 01/12 1459 AC 01/12 PO 1705 Furosemide 40 MG DAILY 01/07 1013 AC 01/12 PO 1017 Glycerin/Mineral Oil 1 DIDIER TID PRN 01/09 0930 AC TOP Guaifenesin 600 MG QPM 01/05 2115 AC 01/12 PO 2026 Heparin Sodium 5,000 UNIT Q8 01/06 1400 AC 01/13 (Porcine) SC 0518 Methylprednisolone 60 MG ONCE ONE 01/12 1630 DC 01/12 IV 01/12 1631 1705 Metoprolol Tartrate 12.5 MG BID 01/12 2100 AC 01/12 PO 2030 Prednisone 60 MG ONCE ONE 01/12 1545 CAN PO 01/12 1546 Prednisone 60 MG DAILY 01/11 0900 AC 01/12 PO 1017 Senna/Docusate Sodium 1 TAB AT BEDTIME 01/03 2100 AC 01/12 PO 2026 Sodium Chloride 2 SPRAY Q6P PRN 01/06 0615 AC 01/08 KEIKO 1002 Tiotropium [place] 1 PUF DAILY 01/03 0900 AC 01/12 INH 1017 Vital Signs & I&O Last 24 Hrs of Vitals and I&O: Vital Signs Date Time Temp Pulse Resp B/P B/P Pulse O2 O2 Flow FiO2 Mean Ox Delivery Rate 01/13 630 98.7 87 22 134/76 93 Nasal Cannula 01/13 0000 Nasal 3.0L Cannula 01/12 2200 98.7 102 24 130/60 92 Nasal 3.0L Cannula 01/12 2030 105 130/85 01/12 1615 92 Nasal 3.0L Cannula 01/12 1600 91 Nasal 3.0L Cannula 01/12 1438 98.9 105 20 128/64 91 01/12 1331 92 Nasal 3.0L Cannula 01/12 0911 96 Nasal 3.0L Cannula Intake & Output 01/13 1600 01/13 0800 01/13 0000 Intake Total 300 1090 Output Total 400 Balance 300 690 Intake, Oral 300 1090 Output, Urine 400 Physical Exam General Appearance: mild respiratory distress, mild use of accessory muscles, alert, awake Head: atraumatic, normal appearance Neck: supple Respiratory: no respiratory distress, quiet respiration, wheezing bilaterally Cardiovascular: regular rate/rhythm Gastrointestinal: normal bowel sounds, soft, non-tender Extremities: no edema Skin: intact, normal color, warm/dry Results Last 24 Hrs of Lab Results: No labs available for today. Impression/Plan Impression/Plan Impression/Plan: 1. Acute exacerbation of COPD, with ongoing bronchspasm, slowly improving. 2. Acute hypoxemic respiratory failure. 3. Chronic hypercarbic respiratory failure 4. Hypokalemia. 5. Acute kidney injury. 6. Mild pulmonary hypertension with a PA systolic pressure of 43 mmHg on echo dated 01/04/2018. 7. Chronic metabolic alkalosis in the setting of chronic hypercarbic respiratory failure. Recommendations: * Continue oxygen for saturations around 92%. * Continue nebs/TRC. * Continue Spiriva 1 inhalation every morning. * Continue Symbicort 160/2.5, 2 puffs every 12 hours. * Prednisone 60 mg daily. Will taper down slowly. * Continue Mucinex daily. * DVT prophylaxis at all times -not on subcu heparin at present. * PT for ambulation. * Discharge planning, would benefit from rehabilitation, however patient is refusing.
[2018-01-13] MEDS ORDERED: DEEP SEA44 ML NAS ×2 (08:38→12:56)
[2018-01-13] MEDS ORDERED: PREDNISONE10 M2 PO ×4 (08:38→13:41)
[2018-01-13] MEDS ORDERED: CHLORTHALIDONE25 M1 PO ×2 (08:38→12:56)
[2018-01-13] MEDS ORDERED: METOPROLOL TART25 M1 PO ×2 (08:38→12:56)
[2018-01-13 09:39] VITALS: BP 134/76
--- NOTE | 2018-01-13 11:09 | PN- Att Addend ---
Attending Addendum Attending Brief Note Patient seen and examined, overall doing better today. Claims that her breathing has improved. She went to the bathroom and did not feel as short of breath as she was feeling yesterday. Vital Signs Date Time Temp Pulse Resp B/P B/P Pulse O2 O2 Flow FiO2 Mean Ox Delivery Rate 01/13 0939 87 134/76 01/13 0842 91 Nasal 3.0L Cannula 01/13 0800 95 Nasal 3.0L Cannula 01/13 0630 98.7 87 22 134/76 93 Nasal Cannula 01/13 0000 Nasal 3.0L Cannula 01/12 2200 98.7 102 24 130/60 92 Nasal 3.0L Cannula 01/12 2030 105 130/85 01/12 1615 92 Nasal 3.0L Cannula 01/12 1600 91 Nasal 3.0L Cannula 01/12 1438 98.9 105 20 128/64 91 01/12 1331 92 Nasal 3.0L Cannula on exam; aox3, nad. cv; s1,s2, rrr resp; overall decreased bs abd; soft, nt, bs+ ext; no edema no labs A/P: 62 y/o M with pmh sig for COPD, HTN, and HLD admitted with acute hypoxemic resp failure, acute COPD exacerbation/acute bronchitis. Patient continues to feel short of breath, requiring 3 L of oxygen. Today her ambulatory O2 sats on 3 lits remains in 90s. Overall doing better. Patient is stable for discharge home today. She will be discharged on a prednisone taper. She will also be given nebulizer rx. Home oxygen will be arranged for her. She will be continued on the inhalers. We have stopped her atenolol and started her on a low-dose metoprolol after he confirmed with cardiology. Patient was taking atenolol/chlorthalidone combination at home. At this point will continue the chlorthalidone but decrease the dose of beta-sari to metoprolol 12.5 twice daily. The rest of her home medications will be continued. Other medication changes were discussed with the patient. She is awaiting for the portable oxygen tank to arrive. After that she will be ready to discharge home.
[2018-01-13] MEDS ORDERED: ALBUTEROL2.5 MG/3 M INH (12:56)
[2018-01-13] MEDS ORDERED: LASIX40 M1 PO (12:56)
[2018-01-13] MEDS ORDERED: GUAIFENESIN ER600 MG PO (12:56)
[2018-01-13] MEDS ORDERED: SYMBICORT 16010.2 GM INH (12:56)
== END 2018-01-13 14:29 | disposition home health service (06) | DRG 140 ==
LOC: ERH 15:58 → 2NA 17:56 → ERHI 17:56 → 1NO 17:56 → ENRESERV 19:46 → ENTRNSPT 20:08 → EDTRNSPTSTS 20:14 → 1NO 20:20 → CMPTRNSPT 20:44 → 1NO 01-03 12:26 → ENTRNSPT 01-07 20:40 → 2NA 01-07 21:12 → CMPTRNSPT 01-07 21:14 → 2NA 01-10 07:44 → ENPENDDIS 01-13 13:14 → ENTRNSPT 01-13 14:05 → EDTRNSPTSTS 01-13 14:22 → EDTRNSPT 01-13 14:22 → CMPTRNSPT 01-13 14:29 → 2NA 01-13 14:29
PROVIDERS: Emergency Medicine; Internal Medicine Endocrinology, Diabetes & Metabolism; Student in an Organized Health Care Education/Training Program
DX: J44.1 Chronic obstructive pulmonary disease with (acute) exacerbation (principal); J96.21 Acute and chronic respiratory failure with hypoxia; E87.3 Alkalosis; J96.22 Acute and chronic respiratory failure with hypercapnia; N17.9 Acute kidney failure, unspecified; I50.810 Right heart failure, unspecified; I11.0 Hypertensive heart disease with heart failure; I50.30 Unspecified diastolic (congestive) heart failure; I27.20 Pulmonary hypertension, unspecified; E87.6 Hypokalemia; I35.0 Nonrheumatic aortic (valve) stenosis; Z68.30 Body mass index [BMI] 30.0-30.9, adult; E66.9 Obesity, unspecified; J20.9 Acute bronchitis, unspecified; J44.0 Chronic obstructive pulmonary disease with (acute) lower respiratory infection; E78.5 Hyperlipidemia, unspecified; Z88.8 Allergy status to other drugs, medicaments and biological substances; Z87.891 Personal history of nicotine dependence
CPT/HCPCS: 1NSP; 2NASP; 36415; 36592; 71045; 71046; 73030-LT; 78582; 82436; 87040; 87070; 93005; 93010; 93306; 96374; 99291; A9540; A9558; J0456; J0696; J1644; J1940; J2920; J2930; J3490; J7040; J7608